=== PATIENT | male | born 1950 | race Caucasian/White ===

== ENCOUNTER 2016-09-19 08:29 | Inpatient (IN) | payer OTHER ==
--- NOTE | 2016-09-19 08:35 | EDPHY ---
HPI/HX/ROS/PE/MDM Narrative: CHIEF COMPLAINT: Weakness, fever, foot injury. HPI: The patient is a 56-year-old male with a history of diabetes and left foot wound who presents with weakness and fever that began this morning. He admits associated nausea, sore throat, and cough. He has a history of sepsis from this foot wound and was last hospitalized for this 2 weeks ago. His temperature en route was 104.5. EMS administered 150ml NS en route. He is due to receive dialysis today. REVIEW OF SYSTEMS: Aside from elements discussed in the HPI, a comprehensive 10-point review of systems was reviewed and is negative. PMH: Diabetes, end-state renal disease (hemodialysis dependent), CAD, hypertension, DVT, kidney transplant, left toe amputation. SOCIAL HISTORY: . PHYSICAL EXAM: General: Patient is alert, in no acute distress. ENT: Eyes are normal to inspection. ENT inspection normal. Neck: Normal inspection. Full range of motion. Respiratory: No respiratory distress. Breath sounds normal bilaterally. Cardiovascular: Regular rate and rhythm. Strong peripheral pulses. Abdomen: The abdomen is nontender to palpation. There are no peritoneal signs. There are normal bowel sounds. Back: Normal to inspection. No tenderness to palpation. Skin: Normal color. No rash. Warm and dry. Extremities: Full range of motion. Fistula in left arm. Left foot: Amputations noted. Diffuse erythema which states is baseline. No focal discharge. Neuro: Oriented x3. Normal motor function. Normal sensory function. Portions of this note were transcribed by an ED scribe. I personally performed the history, physical exam, and medical decision making; and confirm the accuracy of the information in the transcribed note. ED Course: I met EMS on arrival and obtained a report from the parking meter mechanic. An IV was established en route. I ordered including blood cultures. Chest x-ray obtained. WBC elevated at 11.06. Lactic acid 1.7 at 0845. Flu swab negative. 924: Consulted with Ramona Ulloa, hospitalist. She accepts admission for Dr. Beard. Study: PA and Lateral Chest X-ray Indication: Possible sepsis. Results: I viewed the images myself on the PACS system. The radiologist interpretation is: Mild hazy increased markings at the lung bases possibly from mild dependent edema is actually improved when compared to the prior study. No new consolidation. MDM: This patient presents with fever and tachycardia in the setting of diabetes, renal disease and frequent bouts of urosepsis. His initial lactate was elevated. The source of his symptoms is unclear but certainly suspicious for recurrent foot infection. I will defer antibiotic decision to the hospitalist service. I see no indication of septic shock, ACS, PNA. - Data Points Laboratory Results: Laboratory Results 09/19/16 08:29 09/19/16 08:29 09/19/16 09/19/16 09/19/16 08:45 08:40 08:29 WBC RBC Hgb Hct MCV MCH MCHC RDW Plt Count MPV Neut % (Auto) Lymph % (Auto) [place] % (Auto) Eos % (Auto) Baso % (Auto) Nucleat RBC Rel Count Absolute Neuts (auto) Absolute Lymphs (auto) Absolute Monos (auto) Absolute Eos (auto) Absolute Basos (auto) Absolute Nucleated RBC Immature Gran % Immature Gran # VBG Lactic Acid 1.7 mmol/L mmol/L (0.7-2.1) Sodium 138 mEq/L mEq/L (134-144) Potassium 5.7 mEq/L H mEq/L (3.5-5.2) Chloride 95 mEq/L L mEq/L (97-110) Carbon Dioxide 28 mEq/l mEq/l (22-31) Anion Gap 15 mEq/L mEq/L (8-16) BUN 50 mg/dL H mg/dL (7-23) Creatinine 4.4 mg/dL H mg/dL (0.7-1.3) Estimated GFR 13 Glucose 254 mg/dL H mg/dL (70-100) Calcium 8.8 mg/dL mg/dL (8.5-10.4) Influenza Typ A,B (DFA) NEGATIVE FOR FLU (NEGATIVE) 09/19/16 09/19/16 08:29 08:29 WBC 11.06 10^3/uL H 10^3/uL (3.80-9.50) RBC 4.37 10^6/uL L 10^6/uL (4.40-6.38) Hgb 12.7 g/dL L g/dL (13.7-17.5) Hct 39.2 % L % (40.0-51.0) MCV 89.7 fL fL (81.5-99.8) MCH 29.1 pg pg (27.9-34.1) MCHC 32.4 g/dL g/dL (32.4-36.7) RDW 15.6 % H % (11.5-15.2) Plt Count 278 10^3/uL 10^3/uL (150-400) MPV 10.2 fL fL (8.7-11.7) Neut % (Auto) 88.9 % H % (39.3-74.2) Lymph % (Auto) 6.6 % L % (15.0-45.0) [place] % (Auto) 2.2 % L % (4.5-13.0) Eos % (Auto) 1.1 % % (0.6-7.6) Baso % (Auto) 0.3 % % (0.3-1.7) Nucleat RBC Rel Count 0.0 % % (0.0-0.2) Absolute Neuts (auto) 9.84 10^3/uL H 10^3/uL (1.70-6.50) Absolute Lymphs (auto) 0.73 10^3/uL L 10^3/uL (1.00-3.00) Absolute Monos (auto) 0.24 10^3/uL L 10^3/uL (0.30-0.80) Absolute Eos (auto) 0.12 10^3/uL 10^3/uL (0.03-0.40) Absolute Basos (auto) 0.03 10^3/uL 10^3/uL (0.02-0.10) Absolute Nucleated RBC 0.00 10^3/uL 10^3/uL (0-0.01) Immature Gran % 0.9 % % (0.0-1.1) Immature Gran # 0.10 10^3/uL 10^3/uL (0.00-0.10) VBG Lactic Acid 2.5 mmol/L H mmol/L (0.7-2.1) Sodium Potassium Chloride Carbon Dioxide Anion Gap BUN Creatinine Estimated GFR Glucose Calcium Influenza Typ A,B (DFA) General Initial Vital Signs: Initial Vital Signs Temperature (C) 39.5 C H 09/19/16 08:43 Heart Rate 102 H 09/19/16 08:43 Respiratory Rate 14 09/19/16 08:43 Blood Pressure 173/74 H 09/19/16 08:43 O2 Sat (%) 91 L 09/19/16 08:43 O2 Delivery Mode Nasal Cannula O2 (L/minute) 3 Allergies/Adverse Reactions: adhesive tape Allergy (Verified 06/07/16 11:31) Other-Enter Comments amphotericin B [Amphotericin B] Allergy (Verified 06/07/16 11:31) Home Medications: Medication Instructions Recorded Amitriptyline HCl [Elavil 10 mg 10 mg PO HS 07/08/10 (*)] Aspirin [Aspirin 81mg (*)] 81 mg PO DAILY 07/08/10 Cinacalcet HCl [Sensipar (*)] 30 mg PO Q2D@0900 07/08/10 Herbals/Supplements -Info Only 1 ea PO DAILY 07/08/10 Insulin Glargine [Lantus 100 9 units SC DAILY 05/20/13 UNITS/ML (*)] Insulin Lispro [humALOG LISPRO 100 1 - 25 units SC TIDMEAL 05/20/13 units/ml (*)] Pantoprazole Sodium [Protonix 40mg 40 mg PO DAILY 05/20/13 (*)] Atorvastatin Calcium [Lipitor 10 5 mg PO DAILY #30 tab 05/15/16 mg (*)] Clopidogrel Bisulfate [Plavix (*)] 75 mg PO HS #30 tab 05/15/16 Carvedilol [Coreg (*)] 1.5625 mg PO BIDMEAL #30 tab 05/26/16 Departure - Departure Disposition: [facility] Inpatient Acute Clinical Impression: Sepsis Qualifiers: Sepsis type: sepsis due to unspecified organism Qualified Code(s): A41.9 - Sepsis, unspecified organism Fever Qualifiers: Fever type: unspecified Qualified Code(s): R50.9 - Fever, unspecified Condition: Fair Report Scribed for: Michael Dominguez Report Scribed by: Israel Olguin Date of Report: 09/19/16 Time of Report: 08:42
[2016-09-19 08:44] LABS: % IMMATURE GRANULYOCYTES 0.9 % (0.0-1.1); ADD DIFF? NO; ADD MORPH? NO; ADD SCAN? NO; ATYPICAL LYMPHOCYTE FLAG 10 (0-99); FRAGMENT RBC FLAG 0 (0-99); HEMATOCRIT 39.2 % (40.0-51.0); HEMOGLOBIN 12.7 g/dL (13.7-17.5); LEFT SHIFT FLG 10 (0-99); LIPEMIA HEMOLYSIS FLAG 80 (0-99); MEAN CELL HEMOGLOBIN 29.1 pg (27.9-34.1); MEAN CELL HEMOGLOBIN CONCENTR. 32.4 g/dL (32.4-36.7); MEAN CELL VOLUME 89.7 fL (81.5-99.8); MEAN PLATELET VOLUME 10.2 fL (8.7-11.7); PLATELET CLUMPS FLAG 10 (0-99); PLATELET COUNT 278 10^3/uL (150-400); RED BLOOD CELL COUNT 4.37 10^6/uL (4.40-6.38); RED CELL DISTRIBUTION WIDTH 15.6 % (11.5-15.2)
[2016-09-19] MEDS ORDERED: ACETAMINOPHEN 325 MG TAB PO ONE (09:00)
[2016-09-19 09:01] LABS: ANION GAP 15 mEq/L (8-16); CALCIUM 8.8 mg/dL (8.5-10.4); CARBON DIOXIDE 28 mEq/l (22-31); CHLORIDE 95 mEq/L (97-110); CREATININE 4.4 mg/dL (0.7-1.3); GLOMERULAR FILTRATION RATE 13; GLUCOSE 254 mg/dL (70-100); POTASSIUM 5.7 mEq/L (3.5-5.2); SODIUM 138 mEq/L (134-144)
[2016-09-19] MEDS ORDERED: ACETAMINOPHEN 500 MG TAB ONE (09:14)
[2016-09-19 09:41] LABS: LACGHOST ORDER
[2016-09-19] MEDS ORDERED: ONDANSETRON 4 MG/2 ML VIAL IVP PRN (11:06)
[2016-09-19] MEDS ORDERED: ONDANSETRON DISINTEGRATING 4 MG TAB PO PRN (11:06)
[2016-09-19] MEDS ORDERED: ACETAMINOPHEN 325 MG TAB PO PRN (11:06)
--- NOTE | 2016-09-19 11:20 | PDGENHP ---
History and Physical - Chief Complaint Acute weakness - History of Present Illness PCP: Dr. Zuniga General surgeon: Dr. Rivas Infectious disease: Dr. Gillette HPI: 66-year-old male presenting with acute weakness characterized as inability to get out of chair with associated documented fever of 104 degrees F , nausea, nonproductive cough. He reports that the onset of his severe weakness was on the morning of presentation, prompting his contacting EMS. His cough onset was approximately 3 weeks ago and duration has been persistent thereafter. He otherwise denies any vomiting, diarrhea, myalgias, neck pain, headache. He reports that he has been getting regular wound care on his left lower extremity and the packing has been recently adjusted. He does endorse the development of a new erythematous and pustulant area on the lateral aspect of his left lower leg and he has been dressing this with bandages. He is not currently taking pain medications or antibiotics. History Information - Allergies/Home Medication List Allergies/Adverse Reactions: adhesive tape Allergy (Verified 06/07/16 11:31) Other-Enter Comments amphotericin B [Amphotericin B] Allergy (Verified 06/07/16 11:31) Home Medications: Amitriptyline HCl [Elavil 10 mg (*)] 10 mg PO HS 07/08/10 [Last Taken 09/18/16] Aspirin [Aspirin 81mg (*)] 81 mg PO DAILY 07/08/10 [Last Taken 09/19/16] Cinacalcet HCl [Sensipar (*)] 30 mg PO Q2D@0900 07/08/10 [Last Taken 09/19/16] Herbals/Supplements -Info Only 1 ea PO DAILY 07/08/10 [Last Taken 09/18/16] Insulin Glargine [Lantus 100 UNITS/ML (*)] 9 units SC DAILY 05/20/13 [Last Taken 09/19/16] Insulin Lispro [humALOG LISPRO 100 units/ml (*)] 1 - 25 units SC TIDMEAL [Last Taken 09/18/16] Pantoprazole Sodium [Protonix 40mg (*)] 40 mg PO DAILY 05/20/13 [Last Taken ] I have personally reviewed and updated: family history, medical history, social history, surgical history - Past Medical History coronary artery disease (With PCI to the RCA), diabetes type 1, DVT (Not currently on systemic anticoagulation), ESRD (Hemodialysis Saturday, failed transplant and past), hypertension Additional medical history: Osteomyelitis and chronic group a strep infection in his left lower extremity. Pericarditis. Anemia of chronic kidney disease - Surgical History Additional surgical history: AVF fistula formation. kidney/pancreas transplant. Left 1st digit TMA in May of 2016 - Family History Positive for: diabetes type I Additional family history: recently with viral-like illness - Social History Smoking Status: Never smoked Alcohol Use: None Drug Use: None Additional social history: Independent in ADLs, has been relegated to living on a single floor and sleeping in chair as he has been unable to ambulate up stairs for the last 3 months Review of Systems ROS: 10pt was reviewed & negative except for what was stated in HPI & below Constitutional: Reports: fever, weakness Respiratory: Reports: cough Skin: Reports: other (Leg wound) Physical Exam Temp Pulse Resp BP Pulse Ox 38.8 C H 102 H 14 133/71 H 94 09/19/16 10:19 09/19/16 10:09/19/16 10:09/19/16 10:09/19/16 10:00 O2 (L/minute) 3 Constitutional: no apparent distress, not in pain, chronically ill appearing, No uncomfortable Eyes: PERRL, anicteric sclera, EOMI Ears, Nose, Mouth, Throat: moist mucous membranes, hearing normal, ears appear normal, no oral mucosal ulcers Cardiovascular: systolic murmur (1/6 at the sternum and apex), tachycardia, edema (Trace bilateral lower extremities), No irregularly irregular Respiratory: inspiratory crackles (Bilateral bases), No reduced air movement, No expiratory wheeze, No bronchial breath sounds, No respiratory distress Gastrointestinal: normoactive bowel sounds, soft, non-tender abdomen, no palpable masses Skin: erythema (Erythema bilateral lower extremities with blanching, left greater than right, pustulant wound on left lateral lower extremity, fluctuance on the dorsum of the left foot) Musculoskeletal: other (Full range of motion of left ankle and no pain, no effusion of her left knee) Neurologic: AAOx3, No sensation intact bilaterally (Paresthesias bilateral lower extremities distal to the mid calf), No weakness (Motor strength is 5/5 dorsi and plantar flexion left foot) Psychiatric: interacting appropriately, not anxious, not encephalopathic, thought process linear Lymph, Heme, Immunologic: no cervical LAD, other (Palpable, nontender bilateral submandibular lymph nodes) Lab Data & Imaging Review 09/19/16 08:29 09/19/16 08: WBC 11.06 10^3/uL (3.80-9.50) H 09/19/16 08: RBC 4.37 10^6/uL (4.40-6.38) L 09/19/16 08: Hgb 12.7 g/dL (13.7-17.5) L 09/19/16 08: Hct 39.2 % (40.0-51.0) L 09/19/16 08: MCV 89.7 fL (81.5-99.8) 09/19/16 08: MCH 29.1 pg (27.9-34.1) 09/19/16 08: MCHC 32.4 g/dL (32.4-36.7) 09/19/16 08: RDW 15.6 % (11.5-15.2) H 09/19/16 08: Plt Count 278 10^3/uL (150-400) 09/19/16 08: MPV 10.2 fL (8.7-11.7) 09/19/16 08: Neut % (Auto) 88.9 % (39.3-74.2) H 09/19/16 08: Lymph % (Auto) 6.6 % (15.0-45.0) L 09/19/16 08: [place] % (Auto) 2.2 % (4.5-13.0) L 09/19/16 08: Eos % (Auto) 1.1 % (0.6-7.6) 09/19/16 08: Baso % (Auto) 0.3 % (0.3-1.7) 09/19/16 08: Nucleat RBC Rel Count 0.0 % (0.0-0.2) 09/19/16 08: Absolute Neuts (auto) 9.84 10^3/uL (1.70-6.50) H 09/19/16 08:29 Absolute Lymphs (auto) 0.73 10^3/uL (1.00-3.00) L 09/19/16 08:29 Absolute Monos (auto) 0.24 10^3/uL (0.30-0.80) L 09/19/16 08:29 Absolute Eos (auto) 0.12 10^3/uL (0.03-0.40) 09/19/16 08:29 Absolute Basos (auto) 0.03 10^3/uL (0.02-0.10) 09/19/16 08:29 Absolute Nucleated RBC 0.00 10^3/uL (0-0.01) 09/19/16 08:29 Immature Gran % 0.9 % (0.0-1.1) 09/19/16 08: Immature Gran # 0.10 10^3/uL (0.00-0.10) 09/19/16 08:29 VBG Lactic Acid 1.7 mmol/L (0.7-2.1) 09/19/16 08:45 Sodium 138 mEq/L (134-144) 09/19/16 08:29 Potassium 5.7 mEq/L (3.5-5.2) H 09/19/16 08:29 Chloride 95 mEq/L (97-110) L 09/19/16 08:29 Carbon Dioxide 28 mEq/l (22-31) 09/19/16 08:29 Anion Gap 15 mEq/L (8-16) 09/19/16 08:29 BUN 50 mg/dL (7-23) H 09/19/16 08:29 Creatinine 4.4 mg/dL (0.7-1.3) H 09/19/16 08:29 Estimated GFR 13 09/19/16 08:29 Glucose 254 mg/dL (70-100) H 09/19/16 08:29 Calcium 8.8 mg/dL (8.5-10.4) 09/19/16 08:29 Influenza Typ A,B (DFA) NEGATIVE FOR FLU (NEGATIVE) 09/19/16 08:40 Visualized and Interpreted Chest x-ray results: Yes Chest X-Ray results: no infiltrate Assessment & Plan Assessment: 66-year-old male presents with acute sepsis secondary to suspected cellulitis Plan: 1. Sepsis. Acute, new problem this provider, further workup indicated. Evidenced by sepsis-2 criteria including tachycardia and persistent fever with identifiable source of infection notably suspected cellulitis, resulting in autonomic dysregulation in the setting of infection. -get respiratory viral panel given his respiratory symptoms -get ultrasound of the dorsum of his left foot to rule out drainable abscess -blood culture sent -wound culture -empiric vancomycin which will cover both staph and group a strep organisms -trend venous lactic levels -trend CBC 2. End-stage renal disease. On Saturday dialysis, discussed with Dr. Sheppard, will dialyze the patient today, will hold on additional IV fluids at this time given the potential for volume overload, will dose vancomycin with dialysis moving forward, Vanco trough tomorrow morning 3. Cellulitis. Suspected cellulitis along the lateral aspect of the left lower extremity with possible abscess on the dorsum of the left foot. -outside records reviewed including 06/17/[address] Marily Ballard, characterizing his most recent hospitalization for sepsis secondary to group a strep with 1st left metatarsal infection and amputation, discharged home on vancomycin, patient has historically refused [facility] facility -suspect organisms are staph and strep, day 1 of vancomycin -given his chronic wound at the affected area and his [facility], I have consulted with Dr. Rapp and Dr. Sheppard has consulted with Dr. Cardoza 4. Coronary artery disease. Chronic, given his tachycardia, get EKG ensure there are no ischemic changes, and she is in normal sinus mechanism 5. Diabetes mellitus type 1. Continue Lantus, placed on insulin sliding scale 6. Hypertension. Chronic, continue home medications Diet. Renal diet Prophylaxis. High risk patient given history of DVT, heparin subcu Code. Full per patient, is MPOA Disposition. Anticipated discharge is uncertain this time, anticipated length stay is greater than 48 hours warranting inpatient admission status for medical necessity including sepsis with cellulitis and end-stage renal disease.
[2016-09-19] MEDS ORDERED: VANCOMYCIN HCL/NORMAL SALINE 250 ML IV SCH (11:30)
--- NOTE | 2016-09-19 14:47 | GCON ---
[f rep st] CONSULTATION NEPHROLOGY CONSULTATION. DATE OF CONSULTATION: 09/19/2016 HISTORY OF PRESENT ILLNESS: The patient is well known to our service. He is a 66-year-old male wit h a past medical history significant for end-stage renal disease secondary to diabetes mellitus, sta tus post a failed kidney/pancreas transplant, dialyzing on a Saturday, Saturday, Saturday schedule at [facility]. The patient has had recent issues relating to a chronic nonhealing w ound and osteomyelitis in his left lower extremity. He did have an admission in May relating t o this, at which time he underwent an amputation of his left great toe metatarsal and was treated wi Group A streptococcal bacteremia. He has had ongoing wound care and a followup evaluation by Dr. Malia Rivas. The patient was in his baseline state of health up until last week, when he did have a respiratory t ract infection. This gradually cleared. Around the same time, they did begin noticing some more pu rulent drainage in the superficial wound over the anterolateral aspect of his left lower extremity. He is followed by wound care. Earlier today, he did develop a significant fever and chills at home . He was brought to the emergency room, where he was noted to have a fever to 103 degrees. There w as evidence of purulent drainage from his left lower extremity. The patient is now being admitted t o the step-down unit under the care of Dr. Misael Beard. Today is his normal dialysis day. His pota ssium is 5.7. He is tachycardic but hemodynamically stable. The patient has been dialyzing without complication at the dialysis unit. He has been achieving his dry weight. His blood pressure has been stable. His left upper extremity fistula function has bee n good. As related to the above issues, we are asked by the hospital service to assist in the patient's herbie l diagnosis and management. PAST MEDICAL HISTORY: 1. End-stage renal disease secondary to diabetes mellitus. 2. Status post failed kidney/pancreas transplant. 3. Type 1 diabetes mellitus. 4. History of pericardial effusions. 5. Valvular heart disease with aortic and mitral valve calcifications. His ejection fraction has b een preserved. 6. History of right lower extremity DVT. 7. History of chronic diarrhea. 8. History of C difficile colitis. 9. Coronary artery disease, status post VT. 10. GERD. PAST SURGICAL HISTORY: Includes: 1. Kidney/pancreas transplant. 2. Peritoneal dialysis catheter placement removal. 3. Fistula placement. 4. Metatarsal amputation. 5. Resection of pancreatic allograft. ALLERGIES: Adhesive tape, amphotericin B. MEDICATIONS: Protonix 40 mg daily, insulin t.i.d. sliding scale, Lantus insulin 9 units daily, herb al supplements daily, Plavix 75 mg daily, cinacalcet 30 mg daily, carvedilol 1.5625 p.o. b.i.d., mercy rvastatin 5 mg daily, aspirin 81 mg daily, Elavil 10 mg q.h.s. FAMILY HISTORY: Noncontributory. 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 He is and has a very supportive family. He does not smoke cigarettes or drink alcohol. REVIEW OF SYSTEMS: Notable for fevers and chills this morning. Otherwise, his appetite has been st able. He denies headaches. His vision has been stable. He has had some rhinitis and a sore throat . He has had some cough and shortness of breath. He denies chest pain or palpitations. He has had some nausea. He denies constipation or diarrhea. He makes very little urine and has not been havi ng any urinary symptoms. He has the aforementioned issues with a nonhealing left lower extremity wo und. He has some chronic lower extremity edema. He does have neuropathy. He has not had recent sk in rashes. He has a history of diabetes but not thyroid disease. PHYSICAL EXAM: GENERAL: At time of exam, the patient is appropriate and alert. He does appear jenae ewhat weak. VITAL SIGNS: Temperature 38.8, pulse 102, blood pressure 133/71. HEENT: Eyes: Scler ae are clear. Oropharynx clear. NECK: No lymphadenopathy or thyromegaly. He does have jugular ve nous distention. LUNGS: Coarse breath sounds on the left, bronchial breath sounds in the right bas e. CARDIOVASCULAR: Tachycardic. A coarse systolic murmur is noted over the left upper sternal bor jermaine. An S3 is present at the left upper sternal border. No other gallops or rubs are noted. ABDOM EN: Soft, nontender. : Deferred. RECTAL: Deferred. EXTREMITIES: The patient's left upper ex tremity fistula has a bruit and appears normal. He does have significant erythema around his left f oot and his left hobbs area. There is some purulent drainage from a skin ulcer in that area. He has 1 to 2+ edema on the left and 1+ on the right. NEURO: No focal findings, but he does have a histo ry of neuropathy and he has generalized weakness. LABORATORY STUDIES: White count 11.6, hematocrit 39.2, platelets 278. Sodium 138, potassium 5.7, c hloride 98, bicarb 28, creatinine 4.4. IMPRESSION AND PLAN: 1. Fevers and evidence of left lower extremity infection. The patient has had methicillin-suscepti ble Staphylococcus aureus and streptococcal infections. He is receiving vancomycin at present. The Infectious Disease service has been consulted. Dr. Rapp' service will also attend. He is hemodyn amically stable. 2. End-stage renal disease. The patient is hyperkalemic and today is his dialysis day. He is hemo dynamically stable. We will plan on dialyzing him shortly. 3. Diabetes. He will be resumed on his sliding scale insulin. 4. Positive S3 and history of valvular heart disease. We will repeat an echocardiogram. Thank you for allowing us to participate in this gentleman's care. We will continue to follow him c losely with you. /[id number]/MODL
[2016-09-19] MEDS: HEPARIN 5,000 UNIT/0.5 ML SYR SC SCH ×2 (16:04→22:18)
[2016-09-19] MEDS ORDERED: D50W 25 GM/50 ML SYR IVP PRN (16:28)
--- NOTE | 2016-09-19 16:40 | WOCRNPDOC ---
WOCRN Advanced Assessment Note - Skin Integrity Problem, Advanced Assess Left Lower Lateral Leg Unknown Dressing Type: Open to Air Exudate Amount: Scant Exudate Characteristic(s): Serous [place] Wound Tissue: Erythema Wound Bed Color: [place] Wound Bed Constitution: Smooth Tissue, Loose Slough Wound Edges: Attached Site Measurement - Head-to-Toe Length X Width X Depth (cm): 5x6x0.1 Skin Integrity Problem Comment: Partial thickness wound with a smaller center area that presents like a deroofed blister. Left First Toe Dressing Type: Open to Air Dressing Description: Clean/Dry, Intact Exudate Amount: Scant Exudate Characteristic(s): Bloody [place] Wound Tissue: Erythema Wound Bed Color: Red Wound Bed Constitution: Smooth Tissue Wound Edges: Attached Site Measurement - Head-to-Toe Length X Width X Depth (cm): 0.6x0.5x0.5 Pulse Location & Description: 2+ DP Extremity Temperature: Hot Skin Integrity Problem Comment: Healing wound without any necrosis.
[2016-09-19] MEDS: cefTRIAXone 2 GM in D5W 50 ML IV SCH (17:08)
[2016-09-19] MEDS: CARVEDILOL 3.125 MG TAB PO SCH (18:26)
[2016-09-19] MEDS ORDERED: OSELTAMIVIR 6 MG/ML UDSYR PO SCH ×2 (18:30)
[2016-09-19] MEDS ORDERED: OSELTAMIVIR 6 MG/ML UDSYR PO ONE (18:30)
[2016-09-19] MEDS: INSULIN REGULAR HUMAN 100 UNIT/ML SC SCH ×2 (19:44→20:48)
--- NOTE | 2016-09-19 19:56 | PCMIDPN ---
Assessment/Plan: Patient seen and examined at 3:30pm dictation to follow Sepsis, in patient with recent h/o of GAS bacteremia off antibiotic since Jun 2016. Now with suspected recurrent bacteremia with GPC chains source could be LLE wound, fistula LUE, less likely pulmonary. +/- cellulitis on dorsum L foot. --add ceftriaxone for GNR coverage while eval, no renal dosing needed --intermittent vancomycin dosing based on levels with ESRD until ID GPC. Objective: Vital Signs Temp Pulse Resp BP Pulse Ox 38.2 C 96 21 H 135/76 H 96 09/19/16 16:00 09/19/16 16:00 09/19/16 16:00 09/19/16 16:00 09/19/16 16:00 Microbiology 09/19/16 13:30 Gram Stain - Final Leg - Swab 09/19/16 13:30 Gram Stain - Final Foot - Swab 09/18/16 09/19/16 09/20/16 05:59 05:59 05:59 Intake Total 1000 Balance 1000 ICD10 Worksheet Patient Problems: Problems Problem Status Onset Fever Acute Sepsis Acute Cellulitis of left foot Acute Coronary artery disease Acute Diarrhea Acute End stage renal disease Acute Fever Acute Leukocytosis Acute Pneumonia Acute Severe sepsis Acute
[2016-09-19] MEDS: AMITRIPTYLINE HCL 10 MG TAB PO SCH (20:30)
[2016-09-19] MEDS: CLOPIDOGREL BISULFATE 75 MG TAB PO SCH (20:30)
[2016-09-20] MEDS ORDERED: MAGNESIUM SULF 2 GM/WATER 50 ML IV ONE (02:06)
[2016-09-20 05:26] LABS: ABSOLUTE IMMATURE GRANULOCYTES 0.17 10^3/uL (0.00-0.10); ADD DIFF? NO; ADD MORPH? NO; ADD SCAN? NO; ATYPICAL LYMPHOCYTE FLAG 0 (0-99); FRAGMENT RBC FLAG 0 (0-99); HEMATOCRIT 29.8 % (40.0-51.0); HEMOGLOBIN 9.4 g/dL (13.7-17.5); LEFT SHIFT FLG 20 (0-99); LIPEMIA HEMOLYSIS FLAG 80 (0-99); MEAN CELL HEMOGLOBIN 28.7 pg (27.9-34.1); MEAN CELL HEMOGLOBIN CONCENTR. 31.5 g/dL (32.4-36.7); MEAN CELL VOLUME 90.9 fL (81.5-99.8); MEAN PLATELET VOLUME 10.1 fL (8.7-11.7); PLATELET CLUMPS FLAG 10 (0-99); PLATELET COUNT 179 10^3/uL (150-400); RED BLOOD CELL COUNT 3.28 10^6/uL (4.40-6.38)
[2016-09-20] MEDS: HEPARIN 5,000 UNIT/0.5 ML SYR SC SCH ×3 (05:27→22:01)
[2016-09-20 05:52] LABS: ALBUMIN 2.4 g/dL (3.5-5.0); ANION GAP 8 mEq/L (8-16); CALCIUM 7.9 mg/dL (8.5-10.4); CARBON DIOXIDE 29 mEq/l (22-31); CHLORIDE 99 mEq/L (97-110); CREATININE 2.8 mg/dL (0.7-1.3); GLOMERULAR FILTRATION RATE 23; GLUCOSE 95 mg/dL (70-100); MAGNESIUM 2.4 mg/dL (1.6-2.3); POTASSIUM 3.3 mEq/L (3.5-5.2); SODIUM 136 mEq/L (134-144)
--- NOTE | 2016-09-20 08:40 | HOSPPROG ---
Hospitalist Progress Note Assessment/Plan: # sepsis d/t bacteremia # strep pyogenes bacteremia, recurrent - likely source foot/soft tissue - also has fistula - echo today - cont abx (vanc/rocephin today) per ID # LLE wound/cellulitis - abx as above - gen surg consulted # ESRD - HD yesterday # DM1 - glargine + regular insulin # CAD - asa/plavix/statin/coreg # SQH # FCFT ## new pt to me chart reviewed LE US reviewed Subjective: feels better after his fever broke Objective: Vital Signs Temp Pulse Resp BP Pulse Ox 37.4 C 73 13 128/49 H 99 09/20/16 07:58 09/20/16 07:58 09/20/16 07:58 09/20/16 07:58 09/20/16 07:58 Microbiology 09/19/16 13:30 Gram Stain - Final Leg - Swab 09/19/16 13:30 Gram Stain - Final Foot - Swab Laboratory Results 09/20/16 05:10 09/20/16 05:10 09/19/16 09/20/16 09/21/16 05:59 05:59 05:59 Intake Total 1550 Balance 1550 - Physical Exam Constitutional: chronically ill appearing, unkempt Cardiovascular: regular rate and rhythym, systolic murmur, No irregularly irregular, No diastolic murmur Respiratory: no respiratory distress, no rales or rhonchi, clear to auscultation Gastrointestinal: normoactive bowel sounds, soft, non-tender abdomen, no palpable masses ICD10 Worksheet Patient Problems: Problems Problem Status Onset Severe sepsis Acute End stage renal disease Acute Cellulitis of left foot Acute Diarrhea Acute Coronary artery disease Acute Pneumonia Acute Fever Acute Leukocytosis Acute Sepsis Acute Fever Acute
[2016-09-20] MEDS ORDERED: OSELTAMIVIR 6 MG/ML UDSYR PO SCH (09:00)
[2016-09-20] MEDS ORDERED: Herbals/Supplements -Info Only PO SCH (09:00)
--- NOTE | 2016-09-20 09:09 | GCON ---
[f rep st] CONSULTATION INFECTIOUS DISEASE CONSULTATION DATE OF CONSULTATION: 09/19/2016 REFERRING PHYSICIAN: Burton Sheppard MD REASON FOR CONSULTATION: Sepsis. 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 The patient was first known to our service on May 04, 2016, when he had group A strep bacteremia, source felt to be left toe. Patient received intermittent Ancef at hemodialysis, but subsequently on 06/07/2016 had recurrent group A strep bacteremia, which was also felt to be due to left great toe. The patient underwent amputation on June 12, 2016, with bone cultures showing a different pathogen, strep Staph epidermidis, and Staph lugdunensis. Pathology margins were negative. Patient received antibiotic therapy, mostly Ancef given at hemodialysis from 06/10/2016 through approximately 07/11/2016. The patient has been off antibiotics since that time. Patient with sudden onset of rigors and fever today to 103, and presented to the emergency room for evaluation. At that time, the patient was found to have significant leukocytosis fever, but overall hemodynamics were fairly stable. The patient was admitted to the step-down unit, given a dose of vancomycin, and underwent hemodialysis on 09/19/2016. The patient reports that his lower extremities do not look significantly different than they have been. He has no increasing pain. He has had a cough for approximately 3 weeks, but is not worsening. He has no abdominal pain or diarrhea. No rash, headache, or urinary complaints. was at bedside during exam and history. PAST MEDICAL HISTORY: 1. End-stage renal disease secondary to diabetes status post failed kidney pancreas transplant. 2. Type 1 diabetes. 3. History of pericardial effusion. 4. Valvular heart disease with aortic valve and mitral valve calcification with preserved ejection fraction. 5. Right lower extremity DVT. 6. C difficile colitis, but tests in our system back to 2009 are negative. 7. Coronary artery disease, status post percutaneous angioplasty. 8. Gastroesophageal reflux disease. PAST SURGICAL HISTORY: 1. Kidney pancreas transplant. 2. Peritoneal dialysis catheter removal. 3. Fistula placement. 4. Left great toe amputation, as well as multiple other amputations noted on the left foot. 5. Resection of pancreatic allograft. ALLERGIES: Amphotericin B, difficulty breathing and seizures. MEDICATIONS: Protonix, Lantus, Plavix, cinacalcet, carvedilol, atorvastatin, aspirin, and Elavil. He also got 1 dose of vancomycin, 1 g, after dialysis today. FAMILY HISTORY: Positive for diabetes. 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 with supportive family. No tobacco or alcohol. No recent travel. He has 3 children. REVIEW OF SYSTEMS: A complete 10-point review of systems was performed and is negative, except as mentioned in the HPI. PHYSICAL EXAM: VITAL SIGNS: Blood pressure 128/61, heart rate 101, respiratory rate 16, saturation 100% on 3 L, temperature 39.2. GENERAL: This is a mildly toxic-appearing male undergoing hemodialysis, wrapped in blankets. HEENT: Pale conjunctivae. Pupils are reactive. Oropharynx: Dry mucous membranes. Fair dentition. NECK: Supple. No lymphadenopathy. CARDIOVASCULAR : Not tachycardic at the time of my exam with a systolic murmur. CHEST: Clear to auscultation bilaterally on anterior exam. ABDOMEN: Soft, nontender. Bowel sounds are present. EXTREMITIES: The patient's left upper extremity fistula was accessed by hemodialysis, but there were 2 spots where significant bleeding had occurred with some mild surrounding redness, not clearly cellulitic. Patient with roughly a transmetatarsal amputation on the left lower extremity, some mild pinkness on the dorsum of the foot, and a small pinpoint wound roughly between the 1st and 2nd metatarsal. No purulent drainage. Mild warmth, but bilateral mid hobbs with pink discoloration consistent with chronic venous stasis. NEUROLOGIC: The patient is alert and oriented x4, moving all 4 extremities equally with fluent speech. LABORATORY: White count was 11, hematocrit 39, platelets of 278, 88% neutrophils. Creatinine 4.4, not unexpectedly. LFTs pending at time of dictation. Blood cultures were collected and grew out 1 of 2 sets with group A strep. Wound culture from left foot is pending. Resp Viral PCR pending IMAGING: Chest x-ray was performed, which showed some hazy increased marking in the lung bases, but overall improved compared to prior study. ASSESSMENT AND PLAN: This is a very pleasant 66-year-old male with end-stage renal disease secondary to diabetes, status post failed renal pancreas transplant, on no immunosuppression, who presents with sudden onset of fever rigors, found to have a leukocytosis and rapidly positive blood cultures for group A streptococcus bacteremia. In the interim, the patient received a dose of IV vancomycin. At the time of my exam, he was started on IV ceftriaxone for broader coverage of gram-negative rods, but now known to have group A streptococcus bacteremia. This is his third episode of group A streptococcus bacteremia. This either suggests a potential nidus of the left lower extremity , also could consider underlying immunoglobulin deficiency. Suspect this is an anatomic issue. 1) Sepsis 2) Recurrent GAS bacteremia, source likely superficial ulcer L lower leg 3) Cough, mild hypoxia, no focal infiltrates on admission CXR RECOMMENDATIONS: 1. We will continue ceftriaxone. Can discontinue vancomycin, now known to have group A strep. 2. Discussed with surgical services whether we should image left lower extremity as clinical exam of the left lower extremity is not that impressive. Nonetheless, the small residual wound could be a portal wound of entry for group A strep. 3. Agree with influenza PCR 4. After patient has received 48 hours of antibiotics, will repeat blood cultures. 5. Send IgG levels to eval if immunoglobulin deficiency contributing to recurrence of bacteremia Thank you for this consultation. We will continue to follow on a daily basis. /[id number]/MODL MTDD
[2016-09-20] MEDS: INSULIN REGULAR HUMAN 100 UNIT/ML SC SCH ×4 (09:43→20:48)
[2016-09-20] MEDS: CARVEDILOL 3.125 MG TAB PO SCH ×2 (09:44→18:04)
[2016-09-20] MEDS: PANTOPRAZOLE SODIUM 40 MG TAB PO SCH (09:45)
[2016-09-20] MEDS: ATORVASTATIN CALCIUM 10 MG TAB PO SCH (09:46)
[2016-09-20] MEDS: cefTRIAXone 2 GM in D5W 50 ML IV SCH (09:46)
[2016-09-20] MEDS: ASPIRIN 81 MG CHEWABLE TAB PO SCH (09:46)
[2016-09-20] MEDS: INSULIN GLARGINE 100 UNITS/ML SYRINGE SC SCH (09:54)
--- NOTE | 2016-09-20 11:22 | ECHO ---
[id number] + + [address] : : [place] [address] : : [phone] + Adult Echocardiographic Report + ---+ :Name: Romina ANTONY Date: 09/20/2016 08:01 AM : : Hospital Admission Number: [id number] Location: 242: :: 1950 Gender: Male Height: 70 in : :Age: 66 yrs Race: WH Weight: 141 lb : :Reason For Study: S3 gallop/hx effusion and valvular : :disease BSA: 1.8 meters2 : + ---+ MMode/2D Measurements \T\ Calculations IVSd: 1.4 cm LVIDd: 5.0 cm FS: 34.1 % MV Diam: 4.7 cm LVPWd: 1.2 cm LVIDs: 3.3 cm EDV(Teich): 116.4 ml ESV(Teich): 43.2 ml EF(Teich): 62.8 % Ao root diam: LVOT diam: 2.1 cmLVLd ap4: 7.7 cm SV(MOD-sp4): 3.2 cm LVOT area: EDV(MOD-sp4): 68.0 ml ACS: 0.45 cm 114.0 ml LA dimension: 3.6 cm2 LVLs ap4: 6.3 cm 4.7 cm ESV(MOD-sp4): 46.0 ml EF(MOD-sp4): 59.6 % Normal Measurement Values: + + :LVIDd (3.5-5.7cm) IVSd (0.6-1.1cm) LVPWd (0.6-1.1cm) Aortic Root (2.0-3.7cm)Left Atrium (1.5-4.0cm): :LV Vol(d) (76-115ml) LV Vol(s) (29-48ml) Ejec Fraction (50-65%)PV Dawson (0.6- 1.2m/s) TV Dawson (0.4-1.0m/s) : :MV E Dawson (0.8-1.0m/s)MV A Dawson (0.3-1.0m/s)LVOT Dawson (0.7-1.2m/s) Asc Ao Dawson ( 0.9-1.8m/s) : + + Doppler Measurements \T\ Calculations MV E max dawson: MV V2 max: Ao mean PG: LV V1 mean P.1 cm/sec 150.8 cm/sec 9.4 mmHg 1.6 mmHg MV A max dawson: MV max P.1 mmHg Ao V2 mean: LV V1 mean: 97.7 cm/sec MV V2 mean: 143.6 cm/sec 58.8 cm/sec MV E/A: 1.5 103.9 cm/sec Ao V2 VTI: 54.6 cm LV V1 VTI: MV dec time: MV mean P.8 mmHgAVA(I,D): 1.6 cm2 23.8 cm 0.39 sec MV V2 VTI: 43.5 cm MV area (1 diam): 17.7 cm2 MVA(VTI): 2.0 cm2 MV Flow area(1diam): 17.7 cm2 MR max dawson: MR(RF 1 diam): 5.4 %SV(MV 1 diam): TR max dawson: 482.1 cm/sec 769.5 ml 271.5 cm/sec MR max PG: SI(MV 1 diam): TR max P.0 mmHg 427.7 ml/m2 29.5 mmHg SV(LVOT): 85.1 ml RAP systole: 10.0 mmHg RVSP(TR): 39.5 mmHg RF(MV,Ao)(1 diam): 0.42 RF(MV,LVOT) (1diam): 0.89 Left Ventricle The left ventricle is normal in size. There is mild concentric left ventricular hypertrophy. Left ventricular systolic function is normal. Ejection Fraction = 60-65%. No regional wall motion abnormalities noted. Right Ventricle The right ventricle is normal in size and function. Atria The left atrium is severely dilated. The right atrium is mildly dilated. The interatrial septum is intact with no evidence for an atrial septal defect. Mitral Valve MV posterior leaflet appears severely calcific with some restricted motion. Severe echogenicity seen at PML annulus..chronic. There is no evidence of mitral valve prolapse. There is no mitral valve stenosis. There is moderate mitral regurgitation. Tricuspid Valve Normal tricuspid valve. There is mild tricuspid regurgitation. Right ventricular systolic pressure is 40mmHg. Aortic Valve The aortic valve is trileaflet. The aortic valve opens well. Moderate AV calcification (mainly involving the RCC). Mild valvular aortic stenosis. AV max PG is 18mmHG. AV mean PG is 9mmHG. There is no aortic insufficiency. Pulmonic Valve The pulmonic valve is normal in structure and function. There is no pulmonic valvular regurgitation. Great Vessels The aortic root is normal size. Pericardium/Pleural There is no pericardial effusion. Conclusion A complete two-dimensional transthoracic echocardiogram was performed (2D, M-mode, Doppler and color flow Doppler). Compared to prior study, there is no significant change. Left ventricular systolic function is normal. Ejection Fraction = 60-65%. There is mild concentric left ventricular hypertrophy. The left atrium is severely dilated. The right atrium is mildly dilated. There is moderate mitral regurgitation. There is mild tricuspid regurgitation. Right ventricular systolic pressure is 40mmHg. Moderate AV calcification (mainly involving the RCC). Mild valvular aortic stenosis. AV max PG is 18mmHG. AV mean PG is 9mmHG. MV posterior leaflet appears severely calcific with some restricted motion. Severe echogenicity seen at PML annulus..chronic Compared to prior study, there is no significant change. Final Reading Physician: Julio Cesar Zhou signed on 09/20/2016 11:21 AM Ordering Physician: MICK WHEELER Performed By: Uzma Lechuga RDCS
--- NOTE | 2016-09-20 13:16 | PCMIDPN ---
Assessment/Plan: #Sepsis #Recurrent GAS bacteremia x 3 - source possible L hobbs superficial wound culture also positive for group a strep. Clean based ulcer now. #Influenza B #leukocytosis = no expected in the face of influenza/ bacteremia #Failed kidney/pancreas - off immunosuppressives since 2010 Recommendations 1) No further vancomycin needed 2) Continue ceftriaxone, initially started because of concern for CAP. No clear focal infiltrate on admission and O2 requirements minimal. Could step- down to cefazolin soon 3) renal dose Tamiflu 4) check IgG 5) repeat blood cultures tomorrow Medications Ceftriaxone 2 g IV daily, # 2 Vancomycin 1 g x1 dose Subjective: Patient reports he feels mildly better. No diarrhea Objective: Vital Signs Temp Pulse Resp BP Pulse Ox 36.6 C 76 13 146/72 H 100 09/20/16 12:00 09/20/16 12:00 09/20/16 12:00 09/20/16 12:00 09/20/16 12:00 Microbiology 09/19/16 13:30 Gram Stain - Final Leg - Swab 09/19/16 13:30 Gram Stain - Final Foot - Swab Laboratory Results 09/20/16 05:10 09/20/16 05:10 09/19/16 09/20/16 09/21/16 05:59 05:59 05:59 Intake Total 1550 Balance 1550 General: Thin male appears chronically ill mildly distressed HEENT dry mucous membranes no oral ulcerations Cardiovascular regular rate sit 2/6 systolic murmur Pulmonary: Occasional coarse breath sound Abdomen soft nontender Extremities left upper extremity fistula with a 1 cm bloody eschar with surrounding inflammation, eschar was not disturbed. Left lower extremity 5 x 6 cm superficial ulceration with mild surrounding erythema mild tenderness. Pinpoint wound on dorsum of foot between 1st and 2nd metatarsal neuro alert and oriented x4, moving all 4 extremities equally - Time Spent With Patient Time Spent with Patient: greater than 25 minutes Time Spent with Patient: Greater than 25 minutes spent on this patients care, greater than 50% of time spent counseling, educating, and coordinating care regarding the above mentioned plan. ICD10 Worksheet Patient Problems: Problems Problem Status Onset Fever Acute Sepsis Acute Cellulitis of left foot Acute Coronary artery disease Acute Diarrhea Acute End stage renal disease Acute Fever Acute Leukocytosis Acute Pneumonia Acute Severe sepsis Acute
[2016-09-20] MEDS: OSELTAMIVIR 6 MG/ML UDSYR PO SCH (14:30)
--- NOTE | 2016-09-20 15:02 | SOAPPROG ---
SOAP Progress Note Assessment/Plan: Assessment/Plan: ESRD: on HD MWF, last dialyzed yesterday. - Will dialyze tomorrow per routine. HTN: controlled on carvedilol, will monitor. Subjective: No acute events overnight. Pt states he is feeling a little better today, feels that his fever has finally broken. Objective: Vital Signs Temp Pulse Resp BP Pulse Ox 36.6 C 76 13 146/72 H 100 09/20/16 12:00 09/20/16 12:00 09/20/16 12:00 09/20/16 12:00 09/20/16 12:00 Microbiology 09/19/16 13:30 Gram Stain - Final Leg - Swab 09/19/16 13:30 Gram Stain - Final Foot - Swab Laboratory Results 09/20/16 05:10 09/20/16 05:10 09/19/16 09/20/16 09/21/16 05:59 05:59 05:59 Intake Total 1550 Balance 1550 General: sleepy but awake and oriented, no acute distress Eyes: EOMI, PERRL OP: Clear CV: RRR Resp: nonlabored respirations on NC Abd: soft, NT Ext: trace edema BLE Neuro: CN II-XII Grossly intact, no asterixis Psych: cooperative, appropriate mood and affect Access: LUE AVF with thrill and bruit appreciated, also with large scab over an aneurysmal formation ICD10 Worksheet Patient Problems: Problems Problem Status Onset Fever Acute Sepsis Acute Cellulitis of left foot Acute Coronary artery disease Acute Diarrhea Acute End stage renal disease Acute Fever Acute Leukocytosis Acute Pneumonia Acute Severe sepsis Acute
--- NOTE | 2016-09-20 16:02 | SOAPPROG ---
SOAP Progress Note Assessment/Plan: Assessment/Plan: 66 yo M with LLE wound/cellulitis * wet to dry gauze dressing on wound * bedside debridement of wound S: Patient was lying down when he was seen. States he is feeling slightly better. Says he is able to walk despite the situation of lower extremity O: Gen: awake, conscious Ext: both leg - crusty, slightly red and edematous (+) bleeding wound with bandage on anterolateral tibia of left lower ex (+) left arm fistula x 2010 -- looks like its about rupture (+) wound with scab on top of fistula - states that it bleeds when doing dialysis 09/20/16 16:00 Objective: Vital Signs Temp Pulse Resp BP Pulse Ox 36.6 C 76 13 146/72 H 100 09/20/16 12:00 09/20/16 12:00 09/20/16 12:00 09/20/16 12:00 09/20/16 12:00 Microbiology 09/19/16 13:30 Gram Stain - Final Leg - Swab 09/19/16 13:30 Gram Stain - Final Foot - Swab Laboratory Results 09/20/16 05:10 09/20/16 05:10 09/19/16 09/20/16 09/21/16 05:59 05:59 05:59 Intake Total 1550 Balance 1550 ICD10 Worksheet Patient Problems: Problems Problem Status Onset Fever Acute Sepsis Acute Cellulitis of left foot Acute Coronary artery disease Acute Diarrhea Acute End stage renal disease Acute Fever Acute Leukocytosis Acute Pneumonia Acute Severe sepsis Acute
--- NOTE | 2016-09-20 16:41 | PDINTPN ---
[employer] Progress Note Assessment/Plan: Assessment: Sepsis: Resolved with antibiotics. Likely due to Cellulitis and Influenza B. On CTX and Vanco. Cellulitis: Clinically stable Influenza B: Likely contributes to or causes fever Diabetes: Episode of hypoglycemia causing unresponsiveness on my initial eval, now better with D50 ESRD: On HD Plan: Continue antibiotics. Respiratory isolation, Tamiflu. More frequent BS checks until glucose no longer low without additional dextrose. 09/20/16 16:43 Subjective: Unresponsive on initial evaluation, now alert, no complaints except weakness. Objective: Vital Signs Temp Pulse Resp BP Pulse Ox 36.6 C 76 13 146/72 H 100 09/20/16 12:00 09/20/16 12:00 09/20/16 12:00 09/20/16 12:00 09/20/16 12:00 Microbiology 09/19/16 13:30 Gram Stain - Final Leg - Swab 09/19/16 13:30 Gram Stain - Final Foot - Swab Laboratory Results 09/20/16 05:10 09/20/16 05:10 09/19/16 09/20/16 09/21/16 05:59 05:59 05:59 Intake Total 1550 Balance 1550 US LLE: No abscess visualized. Respiratory Viral Panel PCR: + Influenza B. Physical Exam - Physical Exam General Appearance: alert, no apparent distress EENT: normal ENT inspection Neck: normal inspection Respiratory: lungs clear, normal breath sounds Cardiac/Chest: regular rate, rhythm, No edema Abdomen: normal bowel sounds, non-tender, soft Skin: normal color, warm/dry Extremities: non-tender, other (LLE wound dressed) Neuro/Psych: alert, normal mood/affect, oriented x 3 ICD10 Worksheet Patient Problems: Problems Problem Status Onset Fever Acute Sepsis Acute Cellulitis of left foot Acute Coronary artery disease Acute Diarrhea Acute End stage renal disease Acute Fever Acute Leukocytosis Acute Pneumonia Acute Severe sepsis Acute
--- NOTE | 2016-09-20 17:15 | GCON ---
[f rep st] CONSULTATION PULMONARY/CRITICAL CARE CONSULTATION DATE OF CONSULTATION: 09/19/2016 REFERRING PHYSICIAN: Carl Beard MD REASON FOR REFERRAL: Evaluation and management of sepsis. HISTORY: The patient is a 66-year-old gentleman with a history of diabetes, coronary artery disease , and end-stage renal disease, as well as osteomyelitis of the foot. He developed acute weakness wit h inability to get out of a chair, as well as a high fever, nausea, and a nonproductive cough. He s aid it has been present for a few weeks. He has had no vomiting. He had increased erythema on his lo wer leg in areas where he has had difficulty with cellulitis in past. PAST MEDICAL HISTORY: 1. Coronary artery disease status post PCI. 2. Type 1 diabetes. 3. DVT. 4. End-stage renal disease on dialysis, failed transplants. 5. Hypertension. 6. Osteomyelitis in left lower leg. MEDICATIONS: Amitriptyline, aspirin, Sensipar, Protonix, insulin, atorvastatin, clopidogrel, carved ilol. ALLERGIES: None. SOCIAL HISTORY: The patient lives independently but has limited mobility. He never smoked and does not use alcohol. FAMILY HISTORY: Positive for type 1 diabetes. His recently had a viral illness. REVIEW OF SYSTEMS: A 10-point review of systems adds nothing to the history of present illness. PHYSICAL EXAMINATION: GENERAL: The patient is weak and reporting chills at the time I see him. MARYCHUY L SIGNS: His blood pressure is 135/76, with a pulse of 96. His temperature is 38.2, his oxygen satur ations are 96% on 2 L. HEENT: Normocephalic and atraumatic. No icterus. NECK: No JVD. Trachea is mid line. CHEST: Clear to auscultation. CARDIAC: Regular rate and rhythm without murmur. Trace lower ext remity edema. ABDOMEN: Soft, nontender. Bowel sounds are present. EXTREMITIES: No clubbing or cyanos is. He has had amputations of several toes. He has areas of redness and a bit of fluctuance in the d istal left lower extremity and extending down to the dorsum of the foot. NEURO: The patient is somno lent but awakes to voice and is oriented x3. He is able to move all extremities symmetrically, but h e is quite weak without tremor. LABORATORY: White blood count 11.1 with a hemoglobin of 12.7, platelet count is 278. Creatinine is 4.4 with a potassium of 5.7, a glucose of 254, calcium is 8.8. Venous lactate is 2.5, with a repeat value of 1.1. IMAGING: A chest x-ray shows some mild infiltrate/edema in the bases without areas of focal consoli dation. Images reviewed. ASSESSMENT: 1. Sepsis. The patient has fever with tachycardia and systemic symptoms, as well as an elevated whi te blood count. The most likely source is his left lower extremity with possible cellulitis/abscess. 2. End-stage renal disease. The patient is on hemodialysis. 3. Probable cellulitis. 4. History of coronary artery disease. 5. Diabetes. Blood sugars were high, and he is on insulin without evidence of diabetic ketoacidosis . 6. Hyperkalemia. RECOMMENDATIONS: 1. The patient was started empirically on vancomycin and ceftriaxone. 2. Close monitoring of blood sugars. Cover with sliding-scale insulin, used as needed. 3. Nephrology has been consulted. We anticipate hemodialysis today. 4. IV fluids will be used judiciously, given the absence of significant hypotension and fall in his lactate to a normal level in the presence of end-stage renal disease. /[id number]/MODL
[2016-09-20] MEDS ORDERED: OSELTAMIVIR PHOSPHATE 75 MG CAP PO SCH (18:00)
[2016-09-20] MEDS: CLOPIDOGREL BISULFATE 75 MG TAB PO SCH (20:03)
[2016-09-20] MEDS: AMITRIPTYLINE HCL 10 MG TAB PO SCH (20:03)
[2016-09-21 04:31] LABS: % IMMATURE GRANULYOCYTES 0.4 % (0.0-1.1); ABSOLUTE IMMATURE GRANULOCYTES 0.04 10^3/uL (0.00-0.10); ADD DIFF? NO; ADD MORPH? NO; ADD SCAN? NO; ATYPICAL LYMPHOCYTE FLAG 20 (0-99); FRAGMENT RBC FLAG 0 (0-99); HEMATOCRIT 31.1 % (40.0-51.0); HEMOGLOBIN 9.8 g/dL (13.7-17.5); LEFT SHIFT FLG 0 (0-99); LIPEMIA HEMOLYSIS FLAG 80 (0-99); MEAN CELL HEMOGLOBIN 28.7 pg (27.9-34.1); MEAN CELL HEMOGLOBIN CONCENTR. 31.5 g/dL (32.4-36.7); MEAN CELL VOLUME 90.9 fL (81.5-99.8); MEAN PLATELET VOLUME 10.2 fL (8.7-11.7); PLATELET CLUMPS FLAG 0 (0-99); PLATELET COUNT 204 10^3/uL (150-400); RED BLOOD CELL COUNT 3.42 10^6/uL (4.40-6.38); RED CELL DISTRIBUTION WIDTH 16.4 % (11.5-15.2)
[2016-09-21 04:52] LABS: ALBUMIN 2.5 g/dL (3.5-5.0); ANION GAP 12 mEq/L (8-16); CALCIUM 7.9 mg/dL (8.5-10.4); CARBON DIOXIDE 27 mEq/l (22-31); CHLORIDE 95 mEq/L (97-110); CREATININE 3.8 mg/dL (0.7-1.3); GLOMERULAR FILTRATION RATE 16; GLUCOSE 167 mg/dL (70-100); MAGNESIUM 2.5 mg/dL (1.6-2.3); POTASSIUM 3.9 mEq/L (3.5-5.2); SODIUM 134 mEq/L (134-144)
[2016-09-21] MEDS: HEPARIN 5,000 UNIT/0.5 ML SYR SC SCH ×3 (06:47→19:59)
[2016-09-21] MEDS: INSULIN REGULAR HUMAN 100 UNIT/ML SC SCH ×4 (08:20→22:52)
[2016-09-21] MEDS: CARVEDILOL 3.125 MG TAB PO SCH ×2 (10:01→20:00)
--- NOTE | 2016-09-21 10:14 | HOSPPROG ---
Hospitalist Progress Note Assessment/Plan: # sepsis d/t GAS bacteremia # strep pyogenes bacteremia, recurrent on unasyn - likely source foot/soft tissue - cont abx (rocephin today) per ID - repeat BCx today # LLE wound/cellulitis - abx as above - gen surg consulted # influenza B - tamiflu # ESRD - HD yesterday # fistula with scab - will d/w renal; concern for rupture # DM1 - hypoglycemic yesterday - hold insulin for now # CAD - asa/plavix/statin/coreg # SQH # FCFT ## high risk with bacteremia Subjective: stronger today; feels slightly improved Objective: Vital Signs Temp Pulse Resp BP Pulse Ox 36.6 C 78 13 149/72 H 99 09/21/16 07:29 09/21/16 07:29 09/21/16 07:29 09/21/16 07:29 09/21/16 07:29 Microbiology 09/19/16 13:30 Gram Stain - Final Leg - Swab 09/19/16 13:30 Gram Stain - Final Foot - Swab Laboratory Results 09/21/16 04:20 09/21/16 04:20 09/20/16 09/21/16 09/22/16 05:59 05:59 05:59 Intake Total 1550 750 Output Total 0 Balance 1550 750 - Physical Exam Constitutional: chronically ill appearing Cardiovascular: regular rate and rhythym, systolic murmur, No irregularly irregular, No diastolic murmur Respiratory: no respiratory distress, no rales or rhonchi, clear to auscultation Gastrointestinal: normoactive bowel sounds, soft, non-tender abdomen, no palpable masses ICD10 Worksheet Patient Problems: Problems Problem Status Onset Severe sepsis Acute End stage renal disease Acute Cellulitis of left foot Acute Diarrhea Acute Coronary artery disease Acute Pneumonia Acute Fever Acute Leukocytosis Acute Sepsis Acute Fever Acute
--- NOTE | 2016-09-21 11:54 | SOAPPROG ---
SOAP Progress Note Assessment/Plan: Assessment:Plan: ESRD-MWF at [facility] under the care of Drs. Jeter and Silver -plan for dialysis later today -UF as tolerated Access-large adherent clot over upper access site -no real surrounding erythema and no drainage -impossible to tell what may be under this, but will apply moist gauze prior to dialysis and have the dialysis nurse try to work this off -can attempt to do this prior to cannulation or after cannulation, after is likely better as he will have received his dialysis treatment ID-on abx for LE wounds -wound care Edema-ultrafiltration with dialysis as tolerated Dispo-pending 09/21/16 11:51 Subjective: no new complaints, scab at upper AVF site Objective: Vital Signs Temp Pulse Resp BP Pulse Ox 36.6 C 78 13 149/72 H 99 09/21/16 07:29 09/21/16 07:29 09/21/16 07:29 09/21/16 07:29 09/21/16 07:29 Microbiology 09/19/16 13:30 Gram Stain - Final Leg - Swab 09/19/16 13:30 Gram Stain - Final Foot - Swab Laboratory Results 09/21/16 04:20 09/21/16 04:20 09/20/16 09/21/16 09/22/16 05:59 05:59 05:59 Intake Total 1550 750 Output Total 0 Balance 1550 750 Physical Exam - Physical Exam General Appearance: alert, no apparent distress, thin EENT: normal ENT inspection Neck: normal inspection Respiratory: decreased breath sounds, crackles Cardiac/Chest: regular rate, rhythm, systolic murmur Abdomen: normal bowel sounds, non-tender Extremities: swelling (bilaterally to 2/3 up hobbs, dressings intact on LE, quarter sized adherent scab on AVF, no inflammation and no drainage) ICD10 Worksheet Patient Problems: Problems Problem Status Onset Fever Acute Sepsis Acute Cellulitis of left foot Acute Coronary artery disease Acute Diarrhea Acute End stage renal disease Acute Fever Acute Leukocytosis Acute Pneumonia Acute Severe sepsis Acute
--- NOTE | 2016-09-21 12:24 | WOCRNPDOC ---
[facility] Advanced Assessment Note - Skin Integrity Problem, Advanced Assess Left Lower Lateral Leg Unknown Dressing Type: Coban, Gauze, Zechariah Dressing Description: Clean/Dry, Intact Exudate Amount: Minimal Exudate Color: Reddish/Yellow Exudate Characteristic(s): Serosanguinous Integumentary Issue Intervention: Dressing Changed, Lotion/Cream Applied ( dimethicone to periwound skin and throughout LLE) Asuncion Wound Tissue: Erythema, Thin, Dry, Painful/Tender Asuncion Wound Swelling: Mild Wound Bed Color: Red, Yellow (trace film of slough on wound surface) Wound Bed Constitution: Granulation Tissue Site Odor: None Site Measurement - Head-to-Toe Length X Width X Depth (cm): Proximal: 4cmx2.6cmx0.1cm; distal: 1.7cmx0.7xmx0.1cm Skin Integrity Problem Comment: Two discrete full-thickness wounds noted in larger partial-thickness wound bed. This site was previously a serous blister, which has since de-roofed. Proximal wound is exudative, w/ a thin film layer of slough forming. Applied Silvasorb gel to distal wound bed, which was dry in appearance, and covered entire site w/ an Optilock superabsorbent dressing, secured by Kerlix. Additional dressing tubed down to surgical nurse practitionerKWASI Dixon for Saturday dressing change. Right Medial Heel Dressing Type: Coban, Gauze Dressing Description: Intact Exudate Amount: Scant Exudate Color: Red Exudate Characteristic(s): Bloody Integumentary Issue Intervention: Dressing Applied, Silver Gel Applied Asuncion Wound Tissue: Intact, Scaly, Dry Asuncion Wound Swelling: None Wound Bed Color: Red Wound Bed Constitution: De-roofed Serous Blister Site Odor: None Site Measurement - Head-to-Toe Length X Width X Depth (cm): anterior: 1cmx0.5cmx0.1cm; posterior: 0.9cmx0.5cmx0.1cm Skin Integrity Problem Comment: 2 discrete, de-roofed blisters noted on medial aspect of R heel. Patient reports that both of these blisters opened up when walking with PT this morning. There is no erythema or swelling periwound. Tx of Silvasorb and Allevyn dressing to site. Wound care will continue to monitor.
[2016-09-21] MEDS: ASPIRIN 81 MG CHEWABLE TAB PO SCH (16:03)
[2016-09-21] MEDS: ATORVASTATIN CALCIUM 10 MG TAB PO SCH (16:03)
--- NOTE | 2016-09-21 17:09 | SOAPPROG ---
SOAP Progress Note Assessment/Plan: Assessment:66yo M admitted with bactremia, LLE wound Change dressing to nonstick/absorptive. No need for debridement at this time Will continue to follow Appreciate hospitalist management of comorbidities O: sitting at edge of bed eating breakfast No increased WOB Scabs of LUE AV fistula LLE wound with surrounding erythema. Wound looks like skin tear Objective: Vital Signs Temp Pulse Resp BP Pulse Ox 36.5 C 75 12 153/64 H 97 09/21/16 16:00 09/21/16 16:00 09/21/16 16:00 09/21/16 16:00 09/21/16 16:00 Microbiology 09/19/16 13:30 Gram Stain - Final Foot - Swab Wound Culture - Final Streptococcus Pyogenes Grp A 09/19/16 13:30 Gram Stain - Final Leg - Swab Wound Culture - Final Streptococcus Pyogenes Grp A Laboratory Results 09/21/16 04:20 09/21/16 04:20 09/20/16 09/21/16 09/22/16 05:59 05:59 05:59 Intake Total 1550 750 Output Total 0 Balance 1550 750 ICD10 Worksheet Patient Problems: Problems Problem Status Onset Fever Acute Sepsis Acute Cellulitis of left foot Acute Coronary artery disease Acute Diarrhea Acute End stage renal disease Acute Fever Acute Leukocytosis Acute Pneumonia Acute Severe sepsis Acute
--- NOTE | 2016-09-21 19:37 | PCMIDPN ---
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 Given recurrent nature bacteremia, concern also for potential nidus of infection such as residual bone infection; av fistula infection seems less likely but also of consideration. Continue ceftriaxone. Will obtain plain film of left foot. * Influenza B: Continue Tamiflu dose adjusted for end-stage renal disease. Droplet precautions in place. 09/21/16 19:34 Subjective: Patient feels better. Less cough. Objective: Vital Signs Temp Pulse Resp BP Pulse Ox 36.5 C 75 12 153/64 H 97 09/21/16 16:00 09/21/16 16:00 09/21/16 16:00 09/21/16 16:00 09/21/16 16:00 Microbiology 09/19/16 13:30 Gram Stain - Final Foot - Swab Wound Culture - Final Streptococcus Pyogenes Grp A 09/19/16 13:30 Gram Stain - Final Leg - Swab Wound Culture - Final Streptococcus Pyogenes Grp A Laboratory Results 09/21/16 04:20 09/21/16 04:20 09/20/16 09/21/16 09/22/16 05:59 05:59 05:59 Intake Total 1550 750 225 Output Total 0 Balance 1550 750 225 Ceftriaxone # 3 Tamiflu # 2 Blood cultures 09/21/2016 pending - Physical Exam General Appearance: alert, no apparent distress EENT: No conjunctival petechiae Respiratory: lungs clear, No respiratory distress Cardiac/Chest: regular rate, rhythm, systolic murmur (2/6 left upper sternal border) Extremities: inflammation (Bilateral lower extremities with erythema and venous stasis changes; skin tear over left anterior hobbs without purulence; tiny opening present at base of prior surgical incision over left foot) Abdomen: non-tender, No distended Skin: No embolic lesions ICD10 Worksheet Patient Problems: Problems Problem Status Onset Fever Acute Sepsis Acute Cellulitis of left foot Acute Coronary artery disease Acute Diarrhea Acute End stage renal disease Acute Fever Acute Leukocytosis Acute Pneumonia Acute Severe sepsis Acute
[2016-09-21] MEDS: OSELTAMIVIR 6 MG/ML UDSYR PO SCH ×2 (19:57)
[2016-09-21] MEDS: CLOPIDOGREL BISULFATE 75 MG TAB PO SCH (20:00)
[2016-09-21] MEDS: AMITRIPTYLINE HCL 10 MG TAB PO SCH (20:00)
[2016-09-21] MEDS: CINACALCET HCL 30 MG TAB PO SCH (20:00)
[2016-09-21] MEDS: cefTRIAXone 2 GM in D5W 50 ML IV SCH (20:03)
[2016-09-21] MEDS: PANTOPRAZOLE SODIUM 40 MG TAB PO SCH (20:03)
[2016-09-22] MEDS: HEPARIN 5,000 UNIT/0.5 ML SYR SC SCH ×3 (05:52→21:13)
[2016-09-22 06:05] LABS: % IMMATURE GRANULYOCYTES 0.3 % (0.0-1.1); ABSOLUTE IMMATURE GRANULOCYTES 0.02 10^3/uL (0.00-0.10); ADD DIFF? NO; ADD MORPH? NO; ADD SCAN? NO; ATYPICAL LYMPHOCYTE FLAG 30 (0-99); FRAGMENT RBC FLAG 0 (0-99); HEMATOCRIT 32.4 % (40.0-51.0); HEMOGLOBIN 10.1 g/dL (13.7-17.5); LEFT SHIFT FLG 0 (0-99); LIPEMIA HEMOLYSIS FLAG 80 (0-99); MEAN CELL HEMOGLOBIN 28.5 pg (27.9-34.1); MEAN CELL HEMOGLOBIN CONCENTR. 31.2 g/dL (32.4-36.7); MEAN CELL VOLUME 91.3 fL (81.5-99.8); MEAN PLATELET VOLUME 9.7 fL (8.7-11.7); PLATELET CLUMPS FLAG 0 (0-99); PLATELET COUNT 217 10^3/uL (150-400); RED BLOOD CELL COUNT 3.55 10^6/uL (4.40-6.38); RED CELL DISTRIBUTION WIDTH 16.1 % (11.5-15.2)
[2016-09-22 06:45] LABS: ALBUMIN 2.6 g/dL (3.5-5.0); ANION GAP 10 mEq/L (8-16); CALCIUM 7.9 mg/dL (8.5-10.4); CARBON DIOXIDE 30 mEq/l (22-31); CHLORIDE 97 mEq/L (97-110); CREATININE 2.7 mg/dL (0.7-1.3); GLOMERULAR FILTRATION RATE 24; GLUCOSE 150 mg/dL (70-100); MAGNESIUM 2.2 mg/dL (1.6-2.3); POTASSIUM 4.2 mEq/L (3.5-5.2); SODIUM 137 mEq/L (134-144)
[2016-09-22] MEDS: CINACALCET HCL 30 MG TAB PO SCH (09:11)
[2016-09-22] MEDS: ASPIRIN 81 MG CHEWABLE TAB PO SCH (09:13)
[2016-09-22] MEDS: PANTOPRAZOLE SODIUM 40 MG TAB PO SCH (09:13)
[2016-09-22] MEDS: cefTRIAXone 2 GM in D5W 50 ML IV SCH (09:15)
[2016-09-22] MEDS: ATORVASTATIN CALCIUM 10 MG TAB PO SCH (09:18)
[2016-09-22] MEDS: CARVEDILOL 3.125 MG TAB PO SCH ×2 (09:18→17:56)
[2016-09-22] MEDS: INSULIN REGULAR HUMAN 100 UNIT/ML SC SCH ×4 (09:20→22:04)
--- NOTE | 2016-09-22 11:32 | SOAPPROG ---
SOAP Progress Note Assessment/Plan: Assessment: Dressing cdi. Will change tomorrow Plan: 09/22/16 11:32 Objective: Vital Signs Temp Pulse Resp BP Pulse Ox 36.6 C 86 13 143/68 H 98 09/22/16 07:35 09/22/16 07:35 09/22/16 07:35 09/22/16 07:35 09/22/16 07:35 Microbiology 09/19/16 13:30 Gram Stain - Final Foot - Swab Wound Culture - Final Streptococcus Pyogenes Grp A 09/19/16 13:30 Gram Stain - Final Leg - Swab Wound Culture - Final Streptococcus Pyogenes Grp A Laboratory Results 09/22/16 05:55 09/22/16 05:55 09/21/16 09/22/16 09/23/16 05:59 05:59 05:59 Intake Total 750 650 Output Total 0 2000 Balance 750 -8950 ICD10 Worksheet Patient Problems: Problems Problem Status Onset Fever Acute Sepsis Acute Cellulitis of left foot Acute Coronary artery disease Acute Diarrhea Acute End stage renal disease Acute Fever Acute Leukocytosis Acute Pneumonia Acute Severe sepsis Acute
--- NOTE | 2016-09-22 11:51 | SOAPPROG ---
SOAP Progress Note Assessment/Plan: Assessment:Plan: ESRD-MWF at [facility] under the care of Drs. Jeter and Silver -plan for dialysis Saturday -UF as tolerated Access-large adherent clot over upper access site removed yesterday -dry ulcerated area -no real surrounding erythema and no drainage -dressing applied with some silvasorb on the gauze to prevent the bandage from sticking and pulling off the healing fragile tissue underneath ID-on abx for LE wounds -wound care Edema-ultrafiltration with dialysis as tolerated Dispo-pending 09/22/16 11:48 Subjective: resting, lying flat in bed, appears comfortable Objective: Vital Signs Temp Pulse Resp BP Pulse Ox 36.6 C 86 13 143/68 H 98 09/22/16 07:35 09/22/16 07:35 09/22/16 07:35 09/22/16 07:35 09/22/16 07:35 Microbiology 09/19/16 13:30 Gram Stain - Final Foot - Swab Wound Culture - Final Streptococcus Pyogenes Grp A 09/19/16 13:30 Gram Stain - Final Leg - Swab Wound Culture - Final Streptococcus Pyogenes Grp A Laboratory Results 09/22/16 05:55 09/22/16 05:55 09/21/16 09/22/16 09/23/16 05:59 05:59 05:59 Intake Total 750 650 Output Total 0 2000 Balance 750 -1350 Physical Exam - Physical Exam General Appearance: alert, no apparent distress EENT: normal ENT inspection Neck: normal inspection Respiratory: lungs clear (anteriorly) Cardiac/Chest: systolic murmur, irregularly irregular Abdomen: normal bowel sounds, non-tender, soft Extremities: swelling, other (uncahnged, avf examined as above) ICD10 Worksheet Patient Problems: Problems Problem Status Onset Fever Acute Sepsis Acute Cellulitis of left foot Acute Coronary artery disease Acute Diarrhea Acute End stage renal disease Acute Fever Acute Leukocytosis Acute Pneumonia Acute Severe sepsis Acute
--- NOTE | 2016-09-22 13:24 | HOSPPROG ---
Hospitalist Progress Note Assessment/Plan: # sepsis d/t GAS bacteremia # strep pyogenes bacteremia - likely source foot/soft tissue - XR foot read pending, no osteo on my read - cont abx (rocephin today) per ID - repeat BCx NGTD # LLE wound/cellulitis - abx as above - gen surgery # influenza B - tamiflu # ESRD - HD yesterday - clot removed off fistula yesterday # DM1 - insulin held yesterday for hypoglycemia - restart at lower dose today # CAD - asa/plavix/statin/coreg # SQH # FCFT ## chart reviewed including ID, gen surg and renal notes Subjective: feels stronger today Objective: Vital Signs Temp Pulse Resp BP Pulse Ox 36.6 C 86 13 143/68 H 98 09/22/16 07:35 09/22/16 07:35 09/22/16 07:35 09/22/16 07:35 09/22/16 07:35 Microbiology 09/19/16 13:30 Gram Stain - Final Foot - Swab Wound Culture - Final Streptococcus Pyogenes Grp A 09/19/16 13:30 Gram Stain - Final Leg - Swab Wound Culture - Final Streptococcus Pyogenes Grp A Laboratory Results 09/22/16 05:55 09/22/16 05:55 09/21/16 09/22/16 09/23/16 05:59 05:59 05:59 Intake Total 750 650 Output Total 0 2000 300 Balance 750 -1350 -300 - Physical Exam Constitutional: no apparent distress, chronically ill appearing Cardiovascular: regular rate and rhythym, no murmur, rub, or gallop Respiratory: no respiratory distress, no rales or rhonchi, clear to auscultation Gastrointestinal: normoactive bowel sounds, soft, non-tender abdomen, no palpable masses ICD10 Worksheet Patient Problems: Problems Problem Status Onset Severe sepsis Acute End stage renal disease Acute Cellulitis of left foot Acute Diarrhea Acute Coronary artery disease Acute Pneumonia Acute Fever Acute Leukocytosis Acute Sepsis Acute Fever Acute
--- NOTE | 2016-09-22 17:21 | PCMIDPN ---
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 Recurrence most likely related to superficial ulceration of lower extremity. No pain or erythema over AV fistula site to suggest fistula involvement. Repeat blood cultures are no growth. Plan 2 weeks of antibiotic therapy followed by suppressive oral antibiotics targeting group A Streptococcus given recurrent nature of disease. * Influenza B: Continue Tamiflu dose adjusted for end-stage renal disease x5 days. Droplet precautions in place. 09/22/16 17:18 Subjective: Feels clinically improved. Persistent cough. Objective: Vital Signs Temp Pulse Resp BP Pulse Ox 36.6 C 82 16 167/97 H 96 09/22/16 16:00 09/22/16 16:00 09/22/16 16:00 09/22/16 16:00 09/22/16 16:00 Microbiology 09/19/16 13:30 Gram Stain - Final Foot - Swab Wound Culture - Final Streptococcus Pyogenes Grp A 09/19/16 13:30 Gram Stain - Final Leg - Swab Wound Culture - Final Streptococcus Pyogenes Grp A Laboratory Results 09/22/16 05:55 09/22/16 05:55 09/21/16 09/22/16 09/23/16 05:59 05:59 05:59 Intake Total 750 650 Output Total 0 2000 300 Balance 750 -1350 -300 Ceftriaxone # 4 Tamiflu # 3 Blood cultures 09/21/2016 pending - Physical Exam General Appearance: alert, no apparent distress EENT: No thrush, No conjunctival petechiae Respiratory: lungs clear, No respiratory distress Cardiac/Chest: regular rate, rhythm, systolic murmur (2/6 left upper sternal border) Extremities: inflammation (Left foot without active cellulitis; erythema from venous insufficiency bilaterally; shallow ulceration over left anterior hobbs without surrounding cellulitis) Abdomen: non-tender, No distended Skin: No embolic lesions ICD10 Worksheet Patient Problems: Problems Problem Status Onset Fever Acute Sepsis Acute Cellulitis of left foot Acute Coronary artery disease Acute Diarrhea Acute End stage renal disease Acute Fever Acute Leukocytosis Acute Pneumonia Acute Severe sepsis Acute
[2016-09-22] MEDS: AMITRIPTYLINE HCL 10 MG TAB PO SCH (21:13)
[2016-09-22] MEDS: CLOPIDOGREL BISULFATE 75 MG TAB PO SCH (21:13)
[2016-09-23] MEDS: HEPARIN 5,000 UNIT/0.5 ML SYR SC SCH ×3 (04:23→22:12)
[2016-09-23 04:57] LABS: ALBUMIN 2.7 g/dL (3.5-5.0); ANION GAP 13 mEq/L (8-16); CALCIUM 7.9 mg/dL (8.5-10.4); CARBON DIOXIDE 25 mEq/l (22-31); CHLORIDE 96 mEq/L (97-110); CREATININE 3.8 mg/dL (0.7-1.3); GLOMERULAR FILTRATION RATE 16; GLUCOSE 249 mg/dL (70-100); MAGNESIUM 2.2 mg/dL (1.6-2.3); POTASSIUM 4.9 mEq/L (3.5-5.2); SODIUM 134 mEq/L (134-144)
[2016-09-23] MEDS: INSULIN REGULAR HUMAN 100 UNIT/ML SC SCH ×4 (08:35→21:50)
[2016-09-23] MEDS: cefTRIAXone 2 GM in D5W 50 ML IV SCH (08:35)
[2016-09-23] MEDS: ASPIRIN 81 MG CHEWABLE TAB PO SCH (08:36)
[2016-09-23] MEDS: PANTOPRAZOLE SODIUM 40 MG TAB PO SCH (08:36)
[2016-09-23] MEDS: ATORVASTATIN CALCIUM 10 MG TAB PO SCH (08:37)
[2016-09-23] MEDS: CARVEDILOL 3.125 MG TAB PO SCH ×2 (08:37→18:57)
--- NOTE | 2016-09-23 08:58 | SOAPPROG ---
SOAP Progress Note Assessment/Plan: Assessment: Lateral leg with some non blanching erythema. Wound redressed by me. Minimal drainage Foot wound is now healed. Demar to help protect for another 2weeks Plan: 09/22/16 11:32 09/23/16 08:57 Objective: Vital Signs Temp Pulse Resp BP Pulse Ox 36.5 C 84 13 159/83 H 99 09/23/16 07:36 09/23/16 08:37 09/23/16 07:36 09/23/16 07:36 09/23/16 07:36 Laboratory Results 09/22/16 05:55 09/23/16 04:20 09/22/16 09/23/16 09/24/16 05:59 05:59 05:59 Intake Total 650 359 Output Total 1999 300 Balance -1350 59 ICD10 Worksheet Patient Problems: Problems Problem Status Onset Fever Acute Sepsis Acute Cellulitis of left foot Acute Coronary artery disease Acute Diarrhea Acute End stage renal disease Acute Fever Acute Leukocytosis Acute Pneumonia Acute Severe sepsis Acute
[2016-09-23] MEDS ORDERED: BACITRACIN OINTMENT 1 PACKET TP ONE (09:57)
--- NOTE | 2016-09-23 10:21 | SOAPPROG ---
SOAP Progress Note Assessment/Plan: Assessment:Plan: ESRD-MWF at [facility] under the care of Drs. Jeter and Silver -plan for dialysis Saturday -UF as tolerated Access-large adherent clot over upper access site removed Saturday -dry ulcerated area yesterday -now with surrounding erythema and drainage -cultured -dressing applied with some triple antibiotic on nonstick dressing then gauze to prevent the bandage from sticking -discussed with Dr. Gillette ID-on abx for LE wounds -wound care Edema-ultrafiltration with dialysis as tolerated Dispo-pending 09/23/16 10:18 Subjective: no new complaints Objective: Vital Signs Temp Pulse Resp BP Pulse Ox 36.5 C 84 13 159/83 H 99 09/23/16 07:36 09/23/16 08:37 09/23/16 07:36 09/23/16 07:36 09/23/16 07:36 Laboratory Results 09/22/16 05:55 09/23/16 04:20 09/22/16 09/23/16 09/24/16 05:59 05:59 05:59 Intake Total 650 359 Output Total 2000 300 Balance -1350 59 Physical Exam - Physical Exam General Appearance: alert, no apparent distress EENT: normal ENT inspection Neck: normal inspection Respiratory: lungs clear, normal breath sounds, No respiratory distress Cardiac/Chest: regular rate, rhythm, systolic murmur Abdomen: normal bowel sounds, non-tender, soft Skin: other (needle stick infection on upper site of AVF with drainage) Extremities: swelling (unchanged) ICD10 Worksheet Patient Problems: Problems Problem Status Onset Fever Acute Sepsis Acute Cellulitis of left foot Acute Coronary artery disease Acute Diarrhea Acute End stage renal disease Acute Fever Acute Leukocytosis Acute Pneumonia Acute Severe sepsis Acute
[2016-09-23] MEDS: INSULIN GLARGINE 100 UNITS/ML SYRINGE SC SCH (12:00)
--- NOTE | 2016-09-23 13:14 | HOSPPROG ---
Hospitalist Progress Note Assessment/Plan: # sepsis d/t GAS bacteremia # strep pyogenes bacteremia - likely source foot/soft tissue; no osteo on XR, doubt fistula as source - cont abx (rocephin today) per ID - repeat BCx NGTD # LLE wound/cellulitis - abx as above, gen surgery assistance with wound care # influenza B - tamiflu # ESRD - HD tomorrow - adherent clot removed from fistula - some erythema today # DM1 - slight hyperglycemia today, cont glargine + ssi # CAD - asa/plavix/statin/coreg # SQH # FCFT # dispo - med surg ## chart reviewed including renal and gen surg notes Subjective: strength is slowly returning Objective: Vital Signs Temp Pulse Resp BP Pulse Ox 36.5 C 84 13 159/83 H 99 09/23/16 07:36 09/23/16 08:37 09/23/16 07:36 09/23/16 07:36 09/23/16 07:36 Microbiology 09/23/16 10:30 Gram Stain - Final Arm - Swab Laboratory Results 09/22/16 05:55 09/23/16 04:20 09/22/16 09/23/16 09/24/16 05:59 05:59 05:59 Intake Total 650 359 Output Total 2000 300 Balance -1350 59 - Physical Exam Constitutional: chronically ill appearing Cardiovascular: regular rate and rhythym, systolic murmur, No irregularly irregular, No tachycardia, No bradycardia Respiratory: no respiratory distress, no rales or rhonchi, clear to auscultation Gastrointestinal: normoactive bowel sounds, soft, non-tender abdomen, no palpable masses Musculoskeletal: other (L fistula without clot) ICD10 Worksheet Patient Problems: Problems Problem Status Onset Severe sepsis Acute End stage renal disease Acute Cellulitis of left foot Acute Diarrhea Acute Coronary artery disease Acute Pneumonia Acute Fever Acute Leukocytosis Acute Sepsis Acute Fever Acute
--- NOTE | 2016-09-23 16:42 | PCMIDPN ---
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 Recurrence most likely related to superficial ulceration of lower extremity. Continue ceftriaxone with plans to complete therapy with cefazolin dosed after dialysis representing a total of 2 weeks post negative blood cultures. Thereafter will begin suppressive oral antibiotic therapy given recurrent nature of his bacteremia. Fistula findings reviewed with Dr. Lema and drainage felt to be related to "needle abscess" rather than representing AV fistula infection. * Influenza B: Continue Tamiflu dose adjusted for end-stage renal disease x5 days. Droplet precautions in place. 09/23/16 16:39 Subjective: Noted to have some purulent drainage over fistula site after removal of scab earlier today. Cultures obtained by Dr. Lema. No pain over fistula site. Objective: Vital Signs Temp Pulse Resp BP Pulse Ox 36.4 C 81 24 H 167/96 H 98 09/23/16 14:47 09/23/16 14:47 09/23/16 14:47 09/23/16 14:47 09/23/16 14:47 Microbiology 09/23/16 10:30 Gram Stain - Final Arm - Swab Laboratory Results 09/22/16 05:55 09/23/16 04:20 09/22/16 09/23/16 09/24/16 05:59 05:59 05:59 Intake Total 650 359 Output Total 2000 300 Balance -1350 59 Ceftriaxone # 5 Tamiflu # 4 Blood cultures 09/21/2016 no growth Fistula Gram stain negative - Physical Exam General Appearance: alert, no apparent distress EENT: No scleral icterus, No conjunctival petechiae Respiratory: lungs clear, No respiratory distress Cardiac/Chest: regular rate, rhythm Extremities: inflammation (Left foot wound healing well without surrounding cellulitis or drainage; mild erythema over upper AV fistula access site without fluctuance; nontender with thrill present) ICD10 Worksheet Patient Problems: Problems Problem Status Onset Fever Acute Sepsis Acute Cellulitis of left foot Acute Coronary artery disease Acute Diarrhea Acute End stage renal disease Acute Fever Acute Leukocytosis Acute Pneumonia Acute Severe sepsis Acute
[2016-09-23] MEDS: CLOPIDOGREL BISULFATE 75 MG TAB PO SCH (22:12)
[2016-09-23] MEDS: AMITRIPTYLINE HCL 10 MG TAB PO SCH (22:12)
[2016-09-24 05:16] LABS: % IMMATURE GRANULYOCYTES 0.4 % (0.0-1.1); ABSOLUTE IMMATURE GRANULOCYTES 0.02 10^3/uL (0.00-0.10); ADD DIFF? NO; ADD MORPH? NO; ADD SCAN? NO; ATYPICAL LYMPHOCYTE FLAG 10 (0-99); FRAGMENT RBC FLAG 0 (0-99); HEMATOCRIT 31.3 % (40.0-51.0); HEMOGLOBIN 9.8 g/dL (13.7-17.5); LEFT SHIFT FLG 0 (0-99); LIPEMIA HEMOLYSIS FLAG 80 (0-99); MEAN CELL HEMOGLOBIN 28.2 pg (27.9-34.1); MEAN CELL HEMOGLOBIN CONCENTR. 31.3 g/dL (32.4-36.7); MEAN CELL VOLUME 89.9 fL (81.5-99.8); MEAN PLATELET VOLUME 9.9 fL (8.7-11.7); PLATELET CLUMPS FLAG 0 (0-99); PLATELET COUNT 231 10^3/uL (150-400); RED BLOOD CELL COUNT 3.48 10^6/uL (4.40-6.38); RED CELL DISTRIBUTION WIDTH 15.8 % (11.5-15.2)
[2016-09-24 05:35] LABS: ALBUMIN 2.6 g/dL (3.5-5.0); ANION GAP 11 mEq/L (8-16); CALCIUM 8.2 mg/dL (8.5-10.4); CARBON DIOXIDE 24 mEq/l (22-31); CHLORIDE 95 mEq/L (97-110); CREATININE 4.6 mg/dL (0.7-1.3); GLOMERULAR FILTRATION RATE 13; GLUCOSE 170 mg/dL (70-100); MAGNESIUM 2.3 mg/dL (1.6-2.3); POTASSIUM 4.8 mEq/L (3.5-5.2); SODIUM 130 mEq/L (134-144)
[2016-09-24] MEDS: HEPARIN 5,000 UNIT/0.5 ML SYR SC SCH ×3 (05:35→20:52)
[2016-09-24] MEDS: CARVEDILOL 3.125 MG TAB PO SCH ×2 (09:11→17:27)
[2016-09-24] MEDS: PANTOPRAZOLE SODIUM 40 MG TAB PO SCH (09:12)
[2016-09-24] MEDS: INSULIN GLARGINE 100 UNITS/ML SYRINGE SC SCH (09:13)
[2016-09-24] MEDS: INSULIN REGULAR HUMAN 100 UNIT/ML SC SCH ×4 (09:14→21:17)
[2016-09-24] MEDS: ASPIRIN 81 MG CHEWABLE TAB PO SCH (12:15)
[2016-09-24] MEDS: cefTRIAXone 2 GM in D5W 50 ML IV SCH (12:15)
[2016-09-24] MEDS: ATORVASTATIN CALCIUM 10 MG TAB PO SCH (12:15)
--- NOTE | 2016-09-24 12:35 | SOAPPROG ---
SOAP Progress Note Assessment/Plan: Assessment/Plan: ESRD: on HD MWF. - Pt had HD today per routine. - Next HD Saturday. Hypervolemia: will modulate on HD. Access: pt with large clot on access removed on Saturday, then developed erythema and drainage at site. Culture sent with no growth thus far. Has been discussed with ID. Subjective: No acute events overnight. Pt had HD this am with no issues, has no complaints. Objective: Vital Signs Temp Pulse Resp BP Pulse Ox 36.5 C 80 16 163/79 H 100 09/24/16 12:00 09/24/16 09:17 09/24/16 09:17 09/24/16 09:17 09/24/16 09:17 Microbiology 09/23/16 10:30 Gram Stain - Final Arm - Swab Laboratory Results 09/24/16 04:00 09/24/16 04:00 09/23/16 09/24/16 09/25/16 05:59 05:59 05:59 Intake Total 359 200 Output Total 300 2500 Balance 59 200 -2500 General: alert and oriented, no acute distress Eyes; EOMI, PERRL OP: Clear CV: RRR Resp: nonlabored respirations Abd; Soft, NT Ext: trace edema BLE Neuro: CN II-XII grossly intact, no asterixis Psych: cooperative, appropriate mood and affect Access: LUE AVF ICD10 Worksheet Patient Problems: Problems Problem Status Onset Fever Acute Sepsis Acute Cellulitis of left foot Acute Coronary artery disease Acute Diarrhea Acute End stage renal disease Acute Fever Acute Leukocytosis Acute Pneumonia Acute Severe sepsis Acute
--- NOTE | 2016-09-24 14:05 | HOSPPROG ---
Hospitalist Progress Note Assessment/Plan: # sepsis d/t GAS bacteremia # strep pyogenes bacteremia - likely source foot/soft tissue; no osteo on XR, doubt fistula as source - cont abx (rocephin today) per ID, plan 2 weeks IV then suppressive PO thereafter - repeat BCx NGTD # LLE wound/cellulitis - abx as above, gen surgery assistance with wound care # influenza B - tamiflu # ESRD - HD tomorrow - adherent clot removed from fistula - some erythema and discharge sent for cx # DM1 - slight hyperglycemia today, cont glargine + ssi # CAD - asa/plavix/statin/coreg # [facility]QH # FCFT # dispo - med surg ## discussed with Dr Ortega - HD today Subjective: feels well, eating, had HD yesterday Objective: Vital Signs Temp Pulse Resp BP Pulse Ox 36.5 C 80 16 163/79 H 100 09/24/16 12:00 09/24/16 09:17 09/24/16 09:17 09/24/16 09:17 09/24/16 09:17 Microbiology 09/23/16 10:30 Gram Stain - Final Arm - Swab Laboratory Results 09/24/16 04:00 09/24/16 04:00 09/23/16 09/24/16 09/25/16 05:59 05:59 05:59 Intake Total 359 200 Output Total 300 2500 Balance 59 200 -2500 - Physical Exam Constitutional: no apparent distress, appears nourished Cardiovascular: regular rate and rhythym, systolic murmur Respiratory: no respiratory distress, no rales or rhonchi, clear to auscultation Gastrointestinal: normoactive bowel sounds, soft, non-tender abdomen, no palpable masses ICD10 Worksheet Patient Problems: Problems Problem Status Onset Severe sepsis Acute End stage renal disease Acute Cellulitis of left foot Acute Diarrhea Acute Coronary artery disease Acute Pneumonia Acute Fever Acute Leukocytosis Acute Sepsis Acute Fever Acute
[2016-09-24] MEDS: OSELTAMIVIR 6 MG/ML UDSYR PO SCH (15:32)
--- NOTE | 2016-09-24 18:11 | PCMIDPN ---
Assessment/Plan: Assessment: group A strep bacteremia -- third recurrence -- no clear source that is ongoing. No evidence of osteomyelitis this episode. Suspect that this is indeed another de sukhdeep infection from his lower extremities. Currently on ceftriaxone. Will continue on this treatment for now with the possibility of changing to ancef as outpatient treatment. Need to complete two weeks from cleared cultures. influenza B -- 5 days of tamiflu - dose adjusted. Ends today. Plan: 1) Continue daily ceftriaxone. 2) Follow repeat blood cultures (negative thus far) 3) Possible change to cefazolin p HD for discharge. 09/24/16 23:03 Subjective: Patient is resting in his bed. Just completed HD. Feels wiped out usually from these treatments but with the infection he feels even more exhausted than usual. Objective: Vital Signs ceftriaxone #6 tamiflu #5 Temp Pulse Resp BP Pulse Ox 36.7 C 73 18 179/90 H 98 09/24/16 15:31 09/24/16 15:31 09/24/16 15:31 09/24/16 15:31 09/24/16 15:31 Microbiology 09/23/16 10:30 Gram Stain - Final Arm - Swab Laboratory Results 09/24/16 04:00 09/24/16 04:00 09/23/16 09/24/16 09/25/16 05:59 05:59 05:59 Intake Total 359 200 480 Output Total 300 2500 Balance 59 200 -2020 - Physical Exam General Appearance: WD/WN, alert, no apparent distress, toxic (mildly) Respiratory: lungs clear, normal breath sounds, No respiratory distress Cardiac/Chest: regular rate, rhythm, No tachycardia Extremities: non-tender, normal inspection Skin: normal color, warm/dry, No rash Neuro/Psych: alert, normal mood/affect, oriented x 3 ICD10 Worksheet Patient Problems: Problems Problem Status Onset Fever Acute Sepsis Acute Cellulitis of left foot Acute Coronary artery disease Acute Diarrhea Acute End stage renal disease Acute Fever Acute Leukocytosis Acute Pneumonia Acute Severe sepsis Acute
[2016-09-24] MEDS: CLOPIDOGREL BISULFATE 75 MG TAB PO SCH (20:51)
[2016-09-24] MEDS: AMITRIPTYLINE HCL 10 MG TAB PO SCH (20:51)
[2016-09-24 22:21] VITALS: O2SAT 94
[2016-09-25 05:24] LABS: ALBUMIN 2.6 g/dL (3.5-5.0); ANION GAP 11 mEq/L (8-16); CALCIUM 8.6 mg/dL (8.5-10.4); CARBON DIOXIDE 25 mEq/l (22-31); CHLORIDE 96 mEq/L (97-110); GLOMERULAR FILTRATION RATE 21; GLUCOSE 56 mg/dL (70-100); POTASSIUM 4.5 mEq/L (3.5-5.2); SODIUM 132 mEq/L (134-144)
[2016-09-25] MEDS: HEPARIN 5,000 UNIT/0.5 ML SYR SC SCH (06:03)
[2016-09-25 08:00] VITALS: BP 186/78; PULSE 76; RESP 18; TEMP 97.5
[2016-09-25] MEDS: INSULIN REGULAR HUMAN 100 UNIT/ML SC SCH ×2 (08:06→12:17)
[2016-09-25] MEDS: ATORVASTATIN CALCIUM 10 MG TAB PO SCH (08:24)
[2016-09-25] MEDS: ASPIRIN 81 MG CHEWABLE TAB PO SCH (08:24)
[2016-09-25] MEDS: CINACALCET HCL 30 MG TAB PO SCH (08:24)
[2016-09-25] MEDS: PANTOPRAZOLE SODIUM 40 MG TAB PO SCH (08:24)
[2016-09-25] MEDS: CARVEDILOL 3.125 MG TAB PO SCH (08:24)
[2016-09-25] MEDS: INSULIN GLARGINE 100 UNITS/ML SYRINGE SC SCH (10:35)
[2016-09-25] MEDS: cefTRIAXone 2 GM in D5W 50 ML IV SCH (12:28)
--- NOTE | 2016-09-25 13:21 | SOAPPROG ---
SOAP Progress Note Assessment/Plan: Assessment: 1. Sepsis/Wound infection Much improved. DC with Ancef on HD 2. ESRD MWF. I will alert unit. 3. HTN Stable 4 Anemia Stable Plan: 09/25/16 13:20 Objective: Vital Signs Temp Pulse Resp BP Pulse Ox 36.4 C 76 18 186/78 H 94 09/25/16 07:59 09/25/16 07:59 09/25/16 07:59 09/25/16 07:59 09/25/16 07:59 Microbiology 09/23/16 10:30 Gram Stain - Final Arm - Swab Laboratory Results 09/24/16 04:00 09/25/16 04:19 09/24/16 09/25/16 09/26/16 05:59 05:59 05:59 Intake Total 200 480 Output Total 2500 Balance 200 -2020 Physical Exam - Physical Exam General Appearance: no apparent distress Respiratory: lungs clear Cardiac/Chest: regular rate, rhythm Extremities: pedal edema Neuro/Psych: oriented x 3 ICD10 Worksheet Patient Problems: Problems Problem Status Onset Fever Acute Sepsis Acute Cellulitis of left foot Acute Coronary artery disease Acute Diarrhea Acute End stage renal disease Acute Fever Acute Leukocytosis Acute Pneumonia Acute Severe sepsis Acute
[2016-09-25] MEDS ORDERED: ceFAZolin 2 GM/DEXTROSE 100 ML IV ONE (14:00)
--- NOTE | 2016-09-25 15:05 | PDIAF ---
- Diagnosis Diagnosis: ESRD/Bacteremia Code Status: Full Code - Medication Management Discharge Medications: Medications to Continue on Transfer Amitriptyline HCl [Elavil 10 mg (*)] 10 mg PO HS 07/08/10 [Last Taken 09/18/16] Aspirin [Aspirin 81mg (*)] 81 mg PO DAILY 07/08/10 [Last Taken 09/19/16] Cinacalcet HCl [Sensipar (*)] 30 mg PO Q2D@0900 07/08/10 [Last Taken 09/19/16] Herbals/Supplements -Info Only 1 ea PO DAILY 07/08/10 [Last Taken 09/18/16] Insulin Glargine [Lantus 100 UNITS/ML (*)] 9 units SC DAILY 05/20/13 [Last Taken 09/19/16] Insulin Lispro [humALOG LISPRO 100 units/ml (*)] 1 - 25 units SC TIDMEAL [Last Taken 09/18/16] Pantoprazole Sodium [Protonix 40mg (*)] 40 mg PO DAILY 05/20/13 [Last Taken ] Atorvastatin Calcium [Lipitor 10 mg (*)] 5 mg PO DAILY #30 tab 05/15/16 [Last Taken 09/19/16] Clopidogrel Bisulfate [Plavix (*)] 75 mg PO HS #30 tab 05/15/16 [Last Taken ] Carvedilol [Coreg (*)] 1.5625 mg PO BIDMEAL #30 tab 05/26/16 [Last Taken 08:00] ceFAZolin 2 GM/DEXTROSE [Ancef 2 gm (Premix)] 2 gm IV MOWEFR 6 Days 09/25/16 [ Last Taken Unknown] Discharge Medications: Refer to the Discharge Home Medication list for PRN reason. - Orders Services needed: Home Care, Registered Nurse, Certified Environmental Engineering Assistant, Physical Therapy, Occupational Therapy Home Care Face to Face: I certify that this patient was under my care and that I had the required [id number] encounter meeting the encounter requirements on the discharge day. My findings support the fact that the patient is homebound as defined in CMS Chapter 7 Medicare Benefits Manual 30.1.1, The condition of the patient is such that there exists a normal inability to leave home and consequently, leaving home would require a considerable and taxing effort. - Follow Up Care Current Providers and Referrals: Patient,NotPresent [Unknown] - As per Instructions
--- NOTE | 2016-09-25 15:56 | WOCRNPDOC ---
[facility] Advanced Assessment Note - Skin Integrity Problem, Advanced Assess Left Lower Lateral Leg Unknown Dressing Type: Kerlix, Other Other Dressing Type: Optilock (labeled, "dressing changed by Dr. Rivas 09/23") Dressing Description: Clean/Dry, Shadowed Exudate Amount: Minimal Exudate Color: Reddish/Yellow Exudate Characteristic(s): Dried Integumentary Issue Intervention: Dressing Changed, Dressing Initialed & Dated, Lotion/Cream Applied (Atractain to intact skin) Asuncion Wound Tissue: Scaly (flaking), Rubor (non dependent) Asuncion Wound Swelling: None Wound Bed Color: Red Wound Bed Constitution: Granulation Tissue Wound Edges: Epithelizing, Well Defined Site Odor: None Site Measurement - Head-to-Toe Length X Width X Depth (cm): 3.5 x 2 x 0.05 Skin Integrity Problem Comment: Clean, beefy red granulation across 100% of wound bed, bled readily when cleaned w/gauze and Carraklenz, subsided when dressing applied. In preparation for patient's DC home, applied skin prep to periwound, Silvasorb gel to base, covered w/Adaptic Touch, then non-bordered foam. Atractain applied to intact skin. Secured dressing w/khadijah. Discussed care w/patient, anticipating C to follow. Dr. Ballard present. Report to KWASI Valenzuela. Left First Toe Wound Bed Constitution: Healed Right Medial Heel Dressing Type: Allevyn Life Dressing Description: Clean/Dry Exudate Amount: Scant Exudate Characteristic(s): Dried Integumentary Issue Intervention: Dressing Changed (Silvasorb gel applied), Dressing Initialed & Dated Wound Bed Color: Red Wound Bed Constitution: Granulation Tissue Wound Edges: Attached, Well Defined Site Odor: None Site Measurement - Head-to-Toe Length X Width X Depth (cm): Anterior: 1 x 0.5 x 0.1. Posterior: 0.7 x 0.5 x 0.1 Skin Integrity Problem Comment: Small sites are clean, re-epithelializing at margins. Cleansed w/ Carraklenz, applied silvasorb gel, covered w/Allevyn. Atractain cream to intact/flaking xerotic skin at bilateral feet. Report to KWASI Valenzuela
--- NOTE | 2016-09-25 16:00 | GDS ---
[f rep st] DISCHARGE SUMMARY DIAGNOSES: 1. Group A strep bacteremia. 2. Chronic lower extremity wounds. 3. Influenza B infection. 4. End-stage renal disease, on Saturday dialysis. 5. Diabetes mellitus type 1. 6. Coronary artery disease. 7. Sepsis due to group A strep bacteremia. HOSPITAL COURSE: This 66-year-old man who had a recent admission for strep pyogenes bacteremia who is treated with an appropriate round of antibiotics. He re-presented to the hospital with symptoms of acute weakness. He grew recurrent group A strep from his blood. Most likely source is chronic l ower extremity wounds. X-ray was negative for osteo. He does have a fistula, though it seems unlik sendy that this is the source of his recurrent infection. Echocardiogram was somewhat was unrevealing for vegetations as well, been treated with initially vancomycin, transitioned to Rocephin and Ancef on discharge. He will be set up to get 2 g of Ancef after dialysis Saturday, Saturday, Saturday. Sto p date on this will be 10/05/2016. He will follow up with Dr. Zuniga who is recommending chronic ogden ppressive antibiotics given recurrent bacteremia. He was also positive influenza B. He underwent 5 days of treatment with renally dosed Tamiflu. He has end-stage renal disease, he has been stable getting dialysis here. His fistula had a questio n of a clot on top of it. Once that was removed, there was a question of erythema with some purulen ce. That was sent for culture but nothing grew. Diabetes: Continue his home insulin. Coronary artery disease: Continue his appropriate cardiac medications. This has not been an issue while he is here. He has chronic lower extremity wounds. He has been followed by wound care. He will follow up with Dr. Rivas [facility]. BILLING: I spent more than 30 minutes on the day of discharge coordinating care. /[id number]/MODL
== END 2016-09-25 17:01 | disposition home health service (06) | DRG 871 ==
LOC: EDUNIT# → F2N 10:20 → OBSVTOIN 11:06 → F3E 09-23 14:42
PROVIDERS: ADMIT Internal Medicine; ATTEND Internal Medicine
PROC: 5A1D60Z (ICD-10-PCS; principal; 2016-09-19)
DX: A40.0 Sepsis due to streptococcus, group A (principal); N18.6 End stage renal disease; I12.0 Hypertensive chronic kidney disease with stage 5 chronic kidney disease or end stage renal disease; Z94.0 Kidney transplant status; L97.919 Non-pressure chronic ulcer of unspecified part of right lower leg with unspecified severity; L97.929 Non-pressure chronic ulcer of unspecified part of left lower leg with unspecified severity; J10.1 Influenza due to other identified influenza virus with other respiratory manifestations; E10.22 Type 1 diabetes mellitus with diabetic chronic kidney disease; I25.10 Atherosclerotic heart disease of native coronary artery without angina pectoris; E87.5 Hyperkalemia; Z99.2 Dependence on renal dialysis; Z89.422 Acquired absence of other left toe(s)
CPT/HCPCS: 82784-90; 97116-GP; 97162-GP; 97166-GO; 97530-GP; 97535-GO; G8978-GP-CK; G8979-GP-CI; G8987-GO-CK; G8988-GO-CJ; J0690; J0696; J1815; J3370

== ENCOUNTER 2016-09-26 09:16 | Inpatient (IN) | payer OTHER ==
--- NOTE | 2016-09-26 09:26 | EDPHY ---
H & P HPI/ROS: CHIEF COMPLAINT: Bilateral knee pain HISTORY OF PRESENT ILLNESS: The patient is a 66-year-old man with a history of renal failure on hemodialysis who was getting up out of bed to go to dialysis this morning. While transitioning from bed to the wheelchair he twisted his knees and collapsed. He is worried that he may have injured his knees. He was discharged from the hospital yesterday after being treated for sepsis. He was in the hospital for 5 days for group a strep bacteremia likely from chronic lower extremity wounds. X-rays revealed no signs of osteomyelitis. He also was treated for influenza B infection. Echocardiogram unrevealing. He does have a history of coronary artery disease and type 1 diabetes. He called the dialysis center was concerned that maybe he was weak and his sepsis returned. They recommended he call an ambulance and come here. He was supposed to get dialysis at 9:00 a.m. this morning with Ance[facility]. His renal doctor is Maria Guadalupe. Today the patient does not feel weak. He is not febrile or tachycardic. He is not confused or lethargic. REVIEW OF SYSTEMS: Constitutional: denies: chills, fever, recent illness, recent injury EENTM: denies: blurred vision, double vision, nose congestion Respiratory: denies: cough, shortness of breath Cardiac: denies: chest pain, irregular heart rate, lightheadedness, palpitations Gastrointestinal/Abdominal: denies: abdominal pain, diarrhea, nausea, vomiting, blood streaked stools Genitourinary: denies: dysuria, frequency, hematuria, pain Musculoskeletal: denies: joint pain, muscle pain Skin: denies: lesions, rash, jaundice, bruising Neurological: denies: headache, numbness, paresthesia, tingling, dizziness, weakness Hematologic/Lymphatic: denies: blood clots, easy bleeding, easy bruising Immunologic/allergic: denies: HIV/AIDS, transplant EXAM: GENERAL: Well-appearing, well-nourished and in no acute distress. HEAD: Atraumatic, normocephalic. EYES: Pupils equal round and reactive to light, extraocular movements intact, sclera anicteric, conjunctiva are normal. ENT: TMs normal, nares patent, oropharynx clear without exudates. Moist mucous membranes. NECK: Normal range of motion, supple without lymphadenopathy or JVD. LUNGS: Breath sounds clear to auscultation bilaterally and equal. No wheezes rales or rhonchi. HEART: Regular rate and rhythm without murmurs, rubs or gallops. ABDOMEN: Soft, nontender, normoactive bowel sounds. No guarding, no rebound. No masses appreciated. BACK: No CVA tenderness, no spinal tenderness, step-offs or deformities EXTREMITIES: No visible deformity or swelling to knees. Lower extremities erythematous and dressed. NEUROLOGICAL: Cranial nerves II through XII grossly intact. Normal speech, normal gait. 5/5 strength, normal movement in all extremities, normal sensation PSYCH: Normal mood, normal affect. SKIN: Warm, dry, normal turgor, no visible rashes or lesions. 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), stents, CAD, HTN, PVD, DVT - Family History Significant Family History: No pertinent family hx - Social History Smoking Status: Never smoked Alcohol Use: Sober Drug Use: None Constitutional: Initial Vital Signs Temperature (C) 36.3 C 09/26/16 09:16 Heart Rate 82 09/26/16 09:16 Respiratory Rate 18 09/26/16 09:16 Blood Pressure 186/90 H 09/26/16 09:16 O2 Sat (%) 96 09/26/16 09:16 O2 Delivery Mode Room Air Allergies/Adverse Reactions: adhesive tape Allergy (Verified 06/07/16 11:31) Other-Enter Comments amphotericin B [Amphotericin B] Allergy (Verified 06/07/16 11:31) Home Medications: Medication Instructions Recorded Amitriptyline HCl [Elavil 10 mg 10 mg PO HS 07/08/10 (*)] Aspirin [Aspirin 81mg (*)] 81 mg PO DAILY 07/08/10 Cinacalcet HCl [Sensipar (*)] 30 mg PO MWF 07/08/10 Herbals/Supplements -Info Only 1 ea PO DAILY 07/08/10 Insulin Glargine [Lantus 100 9 units SC DAILY 05/20/13 UNITS/ML (*)] Insulin Lispro [humALOG LISPRO 100 1 - 25 units SC TIDMEAL 05/20/13 units/ml (*)] Pantoprazole Sodium [Protonix 40mg 40 mg PO DAILY 05/20/13 (*)] Atorvastatin Calcium [Lipitor 10 5 mg PO DAILY #30 tab 05/15/16 mg (*)] Clopidogrel Bisulfate [Plavix (*)] 75 mg PO HS #30 tab 05/15/16 Carvedilol [Coreg (*)] 1.5625 mg PO BIDMEAL #30 tab 05/26/16 ceFAZolin 2 GM/DEXTROSE [Ancef 2 2 gm IV MWF 09/26/16 gm (Premix)] Medical Decision Making - Diagnostics Imaging: Imaging Impressions Knee X-Ray 09/26/16 09:25 Impression: 1. No acute fracture or effusion. 2. Demineralization. 3. Extensive vascular calcification. Knee X-Ray 09/26/16 09:25 Impression: 1. No acute fracture or effusion. 2. Demineralization. 3. Extensive vascular calcification. Reviewed independent ED Course/Re-evaluation: 10:40 a.m. we discussed the patient's x-ray results. His was here. They are relieved with this. They would like to get to dialysis. He is weak from spending the last 5 or 6 days in bed but otherwise has no sign of injury or worsening condition. Do not think that he is septic. He has not ill-appearing is not febrile tachycardic. 11:00 a.m. the patient would not stand up on his own. He is scared that he will fall again. We will admit for deconditioning and physical therapy and dialysis. I discussed the case with Dr. Timbo Li who will admit. 11:30 a.m. I discussed the case with Maria Guadalupe. He will evaluate for need of dialysis today. Differential Diagnosis: Partial list of the Differential diagnosis considered include but were not limited to; knee injury, ligamentous injury, generalized fatigue, atrophy and although unlikely based on the history and physical exam, I also considered sepsis, acute coronary disease. I discussed these differential diagnoses and the plan with the patient as well as the usual and expected course. The patient understands that the diagnosis is provisional and that in medicine we are not always correct and that further workup is often warranted. Usual and customary warnings were given. All of the patient's questions were answered. The patient was instructed to return to the emergency department should the symptoms at all worsen or return, otherwise to followup with the physician as we discussed. Departure - Departure Disposition: Home, Routine, Self-Care Clinical Impression: Muscle atrophy of lower extremity Knee pain Qualifiers: Laterality: bilateral Chronicity: acute Qualified Code(s): M25.561 - Pain in right knee Condition: Good
[2016-09-26 11:52] LABS: % IMMATURE GRANULYOCYTES 0.6 % (0.0-1.1); ABSOLUTE IMMATURE GRANULOCYTES 0.04 10^3/uL (0.00-0.10); ADD DIFF? NO; ADD MORPH? NO; ADD SCAN? NO; ATYPICAL LYMPHOCYTE FLAG 0 (0-99); FRAGMENT RBC FLAG 0 (0-99); HEMATOCRIT 33.2 % (40.0-51.0); HEMOGLOBIN 10.8 g/dL (13.7-17.5); LEFT SHIFT FLG 0 (0-99); LIPEMIA HEMOLYSIS FLAG 80 (0-99); MEAN CELL HEMOGLOBIN 28.5 pg (27.9-34.1); MEAN CELL HEMOGLOBIN CONCENTR. 32.5 g/dL (32.4-36.7); MEAN CELL VOLUME 87.6 fL (81.5-99.8); MEAN PLATELET VOLUME 9.5 fL (8.7-11.7); PLATELET CLUMPS FLAG 10 (0-99); PLATELET COUNT 265 10^3/uL (150-400); RED BLOOD CELL COUNT 3.79 10^6/uL (4.40-6.38); RED CELL DISTRIBUTION WIDTH 15.8 % (11.5-15.2)
[2016-09-26 12:19] LABS: ALANINE AMINOTRANSFERASE 26 IU/L (21-72); ALBUMIN 3.2 g/dL (3.5-5.0); ALKALINE PHOSPHATASE 186 IU/L (38-126); ANION GAP 13 mEq/L (8-16); ASPARTATE AMINOTRANSFERASE 33 IU/L (17-59); BILIRUBIN,TOTAL 0.5 mg/dL (0.1-1.4); BILIRUBIN-CONJUGATED 0.5 mg/dL (0.0-0.5); CALCIUM 8.7 mg/dL (8.5-10.4); CARBON DIOXIDE 26 mEq/l (22-31); CHLORIDE 94 mEq/L (97-110); CREATININE 4.3 mg/dL (0.7-1.3); GLOMERULAR FILTRATION RATE 14; GLUCOSE 141 mg/dL (70-100); SODIUM 133 mEq/L (134-144); TOTAL PROTEIN 6.2 g/dL (6.3-8.2)
--- NOTE | 2016-09-26 13:20 | PDGENHP ---
History and Physical - Chief Complaint Weakness and Fall - History of Present Illness PCP: Dr. Zuniga General surgeon: Dr. Rivas Infectious disease: Dr. Gillette HPI: The patient is a 66-year-old man with a history of renal failure on hemodialysis who was getting up out of bed to go to dialysis this morning. While transitioning from bed to the wheelchair he twisted his knees and collapsed. He is worried that he may have injured his knees. He was discharged from the hospital yesterday after being treated for sepsis. He was in the hospital for 5 days for group a strep bacteremia likely from chronic lower extremity wounds. X-rays revealed no signs of osteomyelitis. He also was treated for influenza B infection. Echocardiogram unrevealing. He does have a history of coronary artery disease and type 1 diabetes. He called the dialysis center was concerned that maybe he was weak and his sepsis returned. In the E.D., CBC was not c/w Leukocytosis and he did not have a fever. He has not had a fever. He does report generalized weakness. He was supposed to get dialysis at 9:00 a.m. this morning with [facility]. His renal doctor is Maria Guadalupe. The ED has contacted Nephrology and he will likely get HD today. Bilateral Knee X-rays were negative for acute injury. Knee exam was reassuring. He mild knee pain bilaterally. He is not febrile or tachycardic. His BP is elevated. He is not confused or lethargic. He denies FERREIRA, neck pain, myalgias, CP , SOB, palpitations, n/v. He does have an intermittent cough which is unchanged over the last month and is non productive. History Information - Allergies/Home Medication List Allergies/Adverse Reactions: adhesive tape Allergy (Verified 06/07/16 11:31) Other-Enter Comments amphotericin B [Amphotericin B] Allergy (Verified 06/07/16 11:31) Home Medications: Amitriptyline HCl [Elavil 10 mg (*)] 10 mg PO HS 07/08/10 [Last Taken 09/25/16] Aspirin [Aspirin 81mg (*)] 81 mg PO DAILY 07/08/10 [Last Taken 09/26/16] Cinacalcet HCl [Sensipar (*)] 30 mg PO MWF 07/08/10 [Last Taken 09/24/16] Herbals/Supplements -Info Only 1 ea PO DAILY 07/08/10 [Last Taken 09/18/16] Insulin Glargine [Lantus 100 UNITS/ML (*)] 9 units SC DAILY 05/20/13 [Last Taken 09/26/16] Insulin Lispro [humALOG LISPRO 100 units/ml (*)] 1 - 25 units SC TIDMEAL [Last Taken 09/26/16 4 units] Pantoprazole Sodium [Protonix 40mg (*)] 40 mg PO DAILY 05/20/13 [Last Taken 11/07] ceFAZolin 2 GM/DEXTROSE [Ancef 2 gm (Premix)] 2 gm IV MWF 09/26/16 [Last Taken 09/25/16] I have personally reviewed and updated: family history, medical history, social history, surgical history - Past Medical History coronary artery disease (With PCI to the RCA), diabetes type 1, DVT (Not currently on systemic anticoagulation), ESRD (Hemodialysis Saturday, failed transplant and past), hypertension Additional medical history: Osteomyelitis and chronic group a strep infection in his left lower extremity. Pericarditis. Anemia of chronic kidney disease - Surgical History Additional surgical history: AVF fistula formation. kidney/pancreas transplant. Left 1st digit TMA in May of 2016 - Family History Positive for: diabetes type I Additional family history: recently with viral-like illness - Social History Smoking Status: Never smoked Alcohol Use: Sober Drug Use: None Additional social history: Independent in ADLs, has been relegated to living on a single floor and sleeping in chair as he has been unable to ambulate up stairs for the last 3 months Review of Systems ROS: 10pt was reviewed & negative except for what was stated in HPI & below Physical Exam Temp Pulse Resp BP Pulse Ox 36.4 C 82 16 178/82 H 93 09/26/16 12:33 09/26/16 12:33 09/26/16 12:33 09/26/16 12:33 09/26/16 12:33 Constitutional: no apparent distress, appears nourished, not in pain Eyes: PERRL, anicteric sclera, EOMI Ears, Nose, Mouth, Throat: moist mucous membranes, hearing normal, ears appear normal, no oral mucosal ulcers Cardiovascular: regular rate and rhythym, edema, No JVD Respiratory: no respiratory distress, no rales or rhonchi, clear to auscultation Gastrointestinal: normoactive bowel sounds, soft, non-tender abdomen, no palpable masses Genitourinary: no bladder fullness Skin: warm, normal color Neurologic: AAOx3, weakness (generalized, non focal) Psychiatric: interacting appropriately, not anxious, not encephalopathic Lab Data & Imaging Review 09/26/16 11:43 09/26/16 11:43 WBC 6.51 10^3/uL (3.80-9.50) 09/26/16 11:43 RBC 3.79 10^6/uL (4.40-6.38) L 09/26/16 11:43 Hgb 10.8 g/dL (13.7-17.5) L 09/26/16 11:43 Hct 33.2 % (40.0-51.0) L 09/26/16 11:43 MCV 87.6 fL (81.5-99.8) 09/26/16 11:43 MCH 28.5 pg (27.9-34.1) 09/26/16 11:43 MCHC 32.5 g/dL (32.4-36.7) 09/26/16 11:43 RDW 15.8 % (11.5-15.2) H 09/26/16 11:43 Plt Count 265 10^3/uL (150-400) 09/26/16 11:43 MPV 9.5 fL (8.7-11.7) 09/26/16 11:43 Neut % (Auto) 71.7 % (39.3-74.2) 09/26/16 11:43 Lymph % (Auto) 17.4 % (15.0-45.0) 09/26/16 11:43 [place] % (Auto) 6.3 % (4.5-13.0) 09/26/16 11:43 Eos % (Auto) 3.2 % (0.6-7.6) 09/26/16 11:43 Baso % (Auto) 0.8 % (0.3-1.7) 09/26/16 11:43 Nucleat RBC Rel Count 0.0 % (0.0-0.2) 09/26/16 11:43 Absolute Neuts (auto) 4.67 10^3/uL (1.70-6.50) 09/26/16 11:43 Absolute Lymphs (auto) 1.13 10^3/uL (1.00-3.00) 09/26/16 11:43 Absolute Monos (auto) 0.41 10^3/uL (0.30-0.80) 09/26/16 11:43 Absolute Eos (auto) 0.21 10^3/uL (0.03-0.40) 09/26/16 11:43 Absolute Basos (auto) 0.05 10^3/uL (0.02-0.10) 09/26/16 11:43 Absolute Nucleated RBC 0.00 10^3/uL (0-0.01) 09/26/16 11:43 Immature Gran % 0.6 % (0.0-1.1) 09/26/16 11:43 Immature Gran # 0.04 10^3/uL (0.00-0.10) 09/26/16 11:43 Sodium 133 mEq/L (134-144) L 09/26/16 11:43 Potassium 5.0 mEq/L (3.5-5.2) 09/26/16 11:43 Chloride 94 mEq/L (97-110) L 09/26/16 11:43 Carbon Dioxide 26 mEq/l (22-31) 09/26/16 11:43 Anion Gap 13 mEq/L (8-16) 09/26/16 11:43 BUN 41 mg/dL (7-23) H 09/26/16 11:43 Creatinine 4.3 mg/dL (0.7-1.3) H 09/26/16 11:43 Estimated GFR 14 09/26/16 11:43 Glucose 141 mg/dL (70-100) H 09/26/16 11:43 POC Glucose 147 mg/dL (70-100) H 09/26/16 12:29 Calcium 8.7 mg/dL (8.5-10.4) 09/26/16 11:43 Total Bilirubin 0.5 mg/dL (0.1-1.4) 09/26/16 11:43 Conjugated Bilirubin 0.5 mg/dL (0.0-0.5) 09/26/16 11:43 Unconjugated Bilirubin 0.0 mg/dL (0.0-1.1) 09/26/16 11:43 AST 33 IU/L (17-59) 09/26/16 11:43 ALT 26 IU/L (21-72) 09/26/16 11:43 Alkaline Phosphatase 186 IU/L (38-126) H 09/26/16 11:43 Total Protein 6.2 g/dL (6.3-8.2) L 09/26/16 11:43 Albumin 3.2 g/dL (3.5-5.0) L 09/26/16 11:43 Lipase 64.0 IU/L (23-300) 09/26/16 11:43 Assessment & Plan Assessment: Knee pain (Acute) Muscle atrophy of lower extremity (Acute) Plan: 66 yo male with recent discharge p/w persistent weakness and fall #GAS Bacteremia: -Cont Ancef M/W/F, abx stop date is 10/05 -F/u with ID as an o.p. for eventual chronic suppressive therapy #ESRD: ED has notified renal. They will attempt HD today. #Weakness and Deconditioning: Etiology is likely multifactorial to include recent hospitalization. I do not suspect that this is worsened by acute infection -PT/OT consult #s/p Fall 09/26, Bilateral Knee Sprain -Bilateral XR show not acute event -Reassuring knee exam in the E.D. -will monitor, if worsens, then consider ortho consult vs imaging. -OK to work with PT #HTN -restart home meds -PRN Hydralazine #Chronic Lower Extremity wounds: Wound care to folow. #IDDM: cont home insulin regimen. ISS #DVT proph: Heparin #Code Status: Full code, reviewed today
[2016-09-26] MEDS ORDERED: ONDANSETRON 4 MG/2 ML VIAL IVP PRN (13:32)
[2016-09-26] MEDS ORDERED: ACETAMINOPHEN 325 MG TAB PO PRN (13:32)
[2016-09-26] MEDS ORDERED: ONDANSETRON DISINTEGRATING 4 MG TAB PO PRN (13:32)
[2016-09-26] MEDS ORDERED: hydrALAZINE 20 MG/ML VIAL IVP PRN (13:36)
--- NOTE | 2016-09-26 16:10 | SOAPPROG ---
SOAP Progress Note Assessment/Plan: Assessment: 1. ESRD. He last dialyzed on Saturday. He is due today and is receiving dialysis. Will UF ~ 2L. His DW is 65 kg. 2. Weakness. Likely just debilitation. Will need to work with CM on placement for rehab. 3. AVF ulceration. Has scab that is dry, no recent bleeding. Rim of erythema concerning for possible infxn. Would continue on ancef until clears. Wound swab last week neg for cx/gm stain. Avoid this site for cannulation. Surgery consult if not healing. F-gram if has prolonged bleeding. None in last week. 4. LE wounds/GAS sepsis. Continue ancef 2 g IV qHD through 10/05. Wound care for wounds. Plan: 09/26/16 16:11 09/26/16 16:13 09/26/16 16:21 Subjective: MWF ESRD pt who normally dialyzes [facility] [place] with recent GAS sepsis due to nonhealing foot ulcers. Was discharged from this facility yesterday. However at home he felt very weak when he tried to stand. He fell and hit both knees on the ground. They are both very sore but XRs in the ED did not show any bony abnormality. He has had a scab over his AVF. It came off with silvadene ointment last Saturday but has reformed. >1 wk ago he did have problems with excess bleeding from needle sites after dialysis. He last had a fistulagram 08/08 at [facility]. He denies fevers. His foot wounds have been improving. Objective: Vital Signs Temp Pulse Resp BP Pulse Ox 36.4 C 82 16 178/82 H 93 09/26/16 12:33 09/26/16 12:33 09/26/16 12:33 09/26/16 12:33 09/26/16 12:33 Exam: Comfortable wm on dialysis Qb 100 RRR, no m/g/r L upper arm avf with 2 aneurysmal segments where he has been cannulated Prox site has a scab with 1 cm rim of erythema, no fluctuance. Abdom soft, nt 1+ LE edema ICD10 Worksheet Patient Problems: Problems Problem Status Onset Severe sepsis Acute End stage renal disease Acute Cellulitis of left foot Acute Diarrhea Acute Coronary artery disease Acute Pneumonia Acute Fever Acute Leukocytosis Acute Sepsis Acute Fever Acute Knee pain Acute Muscle atrophy of lower extremity Acute
[2016-09-26] MEDS: HYDROCODONE/APAP 5/325 TAB PO PRN (16:19)
[2016-09-26] MEDS: HEPARIN 5,000 UNIT/0.5 ML SYR SC SCH ×2 (16:38→22:02)
[2016-09-26] MEDS: INSULIN LISPRO 100 UNIT/ML SC SCH (21:50)
[2016-09-26] MEDS: AMITRIPTYLINE HCL 10 MG TAB PO SCH (22:00)
[2016-09-26] MEDS: CARVEDILOL 3.125 MG TAB PO SCH (22:00)
[2016-09-26] MEDS ORDERED: oxyCODONE IR 5 MG TAB PO ONE (22:00)
[2016-09-26] MEDS: CLOPIDOGREL BISULFATE 75 MG TAB PO SCH (22:01)
[2016-09-26] MEDS: ceFAZolin 2 GM/DEXTROSE 100 ML IV SCH (22:03)
[2016-09-27] MEDS: HYDROCODONE/APAP 5/325 TAB PO PRN ×2 (03:03→23:24)
[2016-09-27] MEDS: HEPARIN 5,000 UNIT/0.5 ML SYR SC SCH ×3 (05:22→21:36)
[2016-09-27 05:45] LABS: % IMMATURE GRANULYOCYTES 0.4 % (0.0-1.1); ABSOLUTE IMMATURE GRANULOCYTES 0.02 10^3/uL (0.00-0.10); ADD DIFF? NO; ADD MORPH? NO; ADD SCAN? NO; ATYPICAL LYMPHOCYTE FLAG 10 (0-99); FRAGMENT RBC FLAG 0 (0-99); HEMATOCRIT 29.4 % (40.0-51.0); HEMOGLOBIN 9.5 g/dL (13.7-17.5); LEFT SHIFT FLG 0 (0-99); LIPEMIA HEMOLYSIS FLAG 80 (0-99); MEAN CELL HEMOGLOBIN 28.7 pg (27.9-34.1); MEAN CELL HEMOGLOBIN CONCENTR. 32.3 g/dL (32.4-36.7); MEAN CELL VOLUME 88.8 fL (81.5-99.8); MEAN PLATELET VOLUME 9.8 fL (8.7-11.7); PLATELET CLUMPS FLAG 0 (0-99); PLATELET COUNT 207 10^3/uL (150-400); RED BLOOD CELL COUNT 3.31 10^6/uL (4.40-6.38); RED CELL DISTRIBUTION WIDTH 15.9 % (11.5-15.2)
[2016-09-27 06:03] LABS: ANION GAP 9 mEq/L (8-16); CALCIUM 8.2 mg/dL (8.5-10.4); CARBON DIOXIDE 26 mEq/l (22-31); CHLORIDE 97 mEq/L (97-110); CREATININE 2.6 mg/dL (0.7-1.3); GLOMERULAR FILTRATION RATE 25; GLUCOSE 111 mg/dL (70-100); MAGNESIUM 1.8 mg/dL (1.6-2.3); POTASSIUM 4.5 mEq/L (3.5-5.2); SODIUM 132 mEq/L (134-144)
[2016-09-27] MEDS: INSULIN LISPRO 100 UNIT/ML SC SCH ×3 (08:33→18:09)
[2016-09-27] MEDS ORDERED: Herbals/Supplements -Info Only PO SCH (09:00)
[2016-09-27] MEDS: CARVEDILOL 3.125 MG TAB PO SCH ×2 (09:01→18:09)
[2016-09-27] MEDS: ASPIRIN 81 MG CHEWABLE TAB PO SCH (09:03)
[2016-09-27] MEDS: PANTOPRAZOLE SODIUM 40 MG TAB PO SCH (09:03)
[2016-09-27] MEDS: ATORVASTATIN CALCIUM 10 MG TAB PO SCH (09:03)
[2016-09-27] MEDS: INSULIN GLARGINE 100 UNITS/ML SYRINGE SC SCH (09:04)
--- NOTE | 2016-09-27 11:24 | HOSPPROG ---
Hospitalist Progress Note Assessment/Plan: # fall/knee pain - PT/OT evals; - knee XR neg - needs SNF - also rehab consult placed # strep pyogenes bacteremia - likely source foot/soft tissue; no osteo on XR, doubt fistula as source - cont abx ancef post HD, stop date 10/05, then suppressive PO abx thereafter # LLE wound/cellulitis - abx as above, gen surgery assistance with wound care # ESRD - HD tomorrow - adherent clot removed from fistula - some erythema and discharge sent for cx # DM1 - slight hyperglycemia today, cont glargine + ssi # CAD - asa/plavix/statin/coreg # SQH # FCFT # dispo - SNF vs rehab ## knee XR personally viewed - no fx chart reviewed Subjective: ongoing knee pain Objective: Vital Signs Temp Pulse Resp BP Pulse Ox 37 C 80 16 137/66 H 92 09/27/16 11:14 09/27/16 11:14 09/27/16 11:14 09/27/16 11:14 09/27/16 11:14 Laboratory Results 09/27/16 04:41 09/27/16 04:41 09/26/16 09/27/16 09/28/16 05:59 05:59 05:59 Intake Total 100 Balance 100 - Physical Exam Constitutional: no apparent distress, appears nourished, chronically ill appearing Cardiovascular: regular rate and rhythym, systolic murmur, No irregularly irregular, No diastolic murmur Respiratory: no respiratory distress, no rales or rhonchi, clear to auscultation Gastrointestinal: normoactive bowel sounds, soft, non-tender abdomen, no palpable masses ICD10 Worksheet Patient Problems: Problems Problem Status Onset Severe sepsis Acute End stage renal disease Acute Cellulitis of left foot Acute Diarrhea Acute Coronary artery disease Acute Pneumonia Acute Fever Acute Leukocytosis Acute Sepsis Acute Fever Acute Knee pain Acute Muscle atrophy of lower extremity Acute
--- NOTE | 2016-09-27 12:54 | SOAPPROG ---
SOAP Progress Note Assessment/Plan: Assessment: 1. ESRD HD tomorrow. I will arrange 2. Eschar on Access I will ask Dr. Rapp to see 3. Debilitation Will need SNF placement. Plan: 09/27/16 12:53 Subjective: Discouraged Objective: Vital Signs Temp Pulse Resp BP Pulse Ox 37 C 80 16 137/66 H 92 09/27/16 11:14 09/27/16 11:14 09/27/16 11:14 09/27/16 11:14 09/27/16 11:14 Laboratory Results 09/27/16 04:41 09/27/16 04:41 09/26/16 09/27/16 09/28/16 05:59 05:59 05:59 Intake Total 100 Balance 100 Physical Exam - Physical Exam General Appearance: no apparent distress, cachetic Respiratory: lungs clear Cardiac/Chest: regular rate, rhythm Extremities: pedal edema, other (6mm eschar on proximal aspect of fistula) ICD10 Worksheet Patient Problems: Problems Problem Status Onset Knee pain Acute Muscle atrophy of lower extremity Acute Cellulitis of left foot Acute Coronary artery disease Acute Diarrhea Acute End stage renal disease Acute Fever Acute Fever Acute Leukocytosis Acute Pneumonia Acute Sepsis Acute Severe sepsis Acute
--- NOTE | 2016-09-27 16:43 | WOCRNPDOC ---
[facility]ER[facility] Advanced Assessment Note - Skin Integrity Problem, Advanced Assess Coccyx Dressing Type: Allevyn Life (Sacrum, dated 09/26) Dressing Description: Clean/Dry, Intact Exudate Amount: None Integumentary Issue Intervention: Visualized Under Dressing Asuncion Wound Tissue: Dry, Hypertrophic, Painful/Tender (tender to touch) Asuncion Wound Swelling: None Wound Bed Color: Red Wound Bed Constitution: Smooth Tissue Wound Edges: Scarred, Thick Site Odor: None Site Measurement - Head-to-Toe Length X Width X Depth (cm): 0.3 x 2 x 0.05 Pressure Injury Present on Admit: Yes Skin Integrity Problem Comment: Evidence of resurfaced/re-epithelializing pressure injuries of undetermined previous depth, present prior to this admission, per patient's report: Three thin, horizontal features, resembling cracked calluses are present along dried scar tissue at left sacrum, proximal to coccyx. Patient is on a TAPS with turn schedule. KWASI Hurtado present, assisting. Left Lower Leg Dressing Type: Adaptic Touch, Zechariah, Non-Bordered Foam Dressing Description: Intact (minimal drainage on inside of dressing) Exudate Amount: Scant Exudate Color: Brown Exudate Characteristic(s): Dried Integumentary Issue Intervention: Dressing Changed, Dressing Initialed & Dated, Silver Gel Applied Asuncion Wound Swelling: None Wound Bed Color: Red Wound Bed Constitution: Granulation Tissue (100%) Wound Edges: Epithelizing, Scarred Site Measurement - Head-to-Toe Length X Width X Depth (cm): 4.0 x 2.8 x 0.05 Skin Integrity Problem Comment: Removed dressing placed just prior to DC on . Completely clean, moist granulation tissue across wound bed. Dry scar tissue and xerotic intact across bilat LEs. Two scabs noted on posterior aspect , included in care. Continuing care as previously ordered: Cleansed w/NS and gauze, skin prep periwound, silvasorb to base, Adaptic touch and non-bordered foam, secured w/zechariah. Applied Skin Repair cream to bilat LEs. KWASI Hurtado present. Right Foot Dressing Type: Allevyn Life Dressing Description: Clean/Dry, Intact Exudate Amount: None Exudate Characteristic(s): None Integumentary Issue Intervention: Dressing Removed Asuncion Wound Tissue: Scaly, Dry Wound Bed Constitution: Healed Site Odor: None Skin Integrity Problem Comment: New pink scar tissue present; thick xerotic intact surrounding. Skin Repair cream applied after DCing dressing. Bilateral Heel Asuncion Wound Tissue: Scaly, Dry Wound Bed Constitution: Healed Site Odor: None Skin Integrity Problem Comment: Scar tissue present; thick xerotic intact surrounding. Skin Repair cream applied.
[2016-09-27] MEDS: METHOCARBAMOL 750 MG TAB PO SCH ×2 (16:57→21:36)
--- NOTE | 2016-09-27 20:30 | SOAPPROG ---
GWYN Progress Note Assessment/Plan: Assessment: ASKED TO SEE MR. ANTONY AGAIN THE UPPER ANEURYSMAL SEGMENT OF HIS AV FISTULA A CHRONIC SCAB WHICH APPEARS SOMEWHAT DANGEROUS TO ME FOR POTENTIAL INFECTION OR RUPTURE WOULD RECOMMEND AVOIDING THAT AREA FOR DIALYSIS AND CONSIDERATION OF SURGICAL REPAIR Plan: DISCUSS WITH NEPHROLOGY 09/27/16 20:28 Objective: Vital Signs Temp Pulse Resp BP Pulse Ox 36.4 C 83 12 142/70 H 94 09/27/16 19:31 09/27/16 19:31 09/27/16 19:31 09/27/16 19:31 09/27/16 19:31 Laboratory Results 09/27/16 04:41 09/27/16 04:41 09/26/16 09/27/16 09/28/16 05:59 05:59 05:59 Intake Total 100 Balance 100 ICD10 Worksheet Patient Problems: Problems Problem Status Onset Knee pain Acute Muscle atrophy of lower extremity Acute Cellulitis of left foot Acute Coronary artery disease Acute Diarrhea Acute End stage renal disease Acute Fever Acute Fever Acute Leukocytosis Acute Pneumonia Acute Sepsis Acute Severe sepsis Acute
[2016-09-27] MEDS: CLOPIDOGREL BISULFATE 75 MG TAB PO SCH (21:36)
[2016-09-27] MEDS: AMITRIPTYLINE HCL 10 MG TAB PO SCH (21:36)
[2016-09-28] MEDS: HEPARIN 5,000 UNIT/0.5 ML SYR SC SCH ×3 (05:13→20:14)
[2016-09-28 05:17] LABS: % IMMATURE GRANULYOCYTES 0.4 % (0.0-1.1); ABSOLUTE IMMATURE GRANULOCYTES 0.02 10^3/uL (0.00-0.10); ADD DIFF? NO; ADD MORPH? NO; ADD SCAN? NO; ATYPICAL LYMPHOCYTE FLAG 10 (0-99); FRAGMENT RBC FLAG 0 (0-99); HEMATOCRIT 30.4 % (40.0-51.0); HEMOGLOBIN 9.8 g/dL (13.7-17.5); LEFT SHIFT FLG 0 (0-99); LIPEMIA HEMOLYSIS FLAG 80 (0-99); MEAN CELL HEMOGLOBIN 29.1 pg (27.9-34.1); MEAN CELL HEMOGLOBIN CONCENTR. 32.2 g/dL (32.4-36.7); MEAN CELL VOLUME 90.2 fL (81.5-99.8); MEAN PLATELET VOLUME 9.5 fL (8.7-11.7); PLATELET CLUMPS FLAG 0 (0-99); PLATELET COUNT 217 10^3/uL (150-400); RED BLOOD CELL COUNT 3.37 10^6/uL (4.40-6.38); RED CELL DISTRIBUTION WIDTH 16.3 % (11.5-15.2)
[2016-09-28 05:28] LABS: ALBUMIN 2.6 g/dL (3.5-5.0); ANION GAP 10 mEq/L (8-16); CALCIUM 8.2 mg/dL (8.5-10.4); CARBON DIOXIDE 26 mEq/l (22-31); CHLORIDE 98 mEq/L (97-110); CREATININE 3.9 mg/dL (0.7-1.3); GLOMERULAR FILTRATION RATE 15; GLUCOSE 48 mg/dL (70-100); POTASSIUM 4.8 mEq/L (3.5-5.2); SODIUM 134 mEq/L (134-144)
[2016-09-28] MEDS ORDERED: DEXTROSE 2 GM IV SCH (08:00)
[2016-09-28] MEDS ORDERED: CEFAZOLIN IV SCH (08:00)
--- NOTE | 2016-09-28 10:30 | SOAPPROG ---
SOAP Progress Note Assessment/Plan: Assessment: 1. ESRD. HD today on MWF schedule. His DW is 65 kg. 2. Weakness. Continue to work with CM on placement for rehab. 3. AVF ulceration. Has scab that is dry, no recent bleeding. Rim of erythema concerning for possible infxn, improving on ancef. Would continue on ancef until clears. Wound swab last week neg for cx/gm stain. Avoid this site for cannulation. Dr. Rapp has seen. Will take to OR for debridement. 4. LE wounds/GAS sepsis. Continue ancef 2 g IV qHD through 10/05. Wound care for wounds. Plan: 09/26/16 16:11 09/26/16 16:13 09/26/16 16:21 09/28/16 10:28 Subjective: Pt seen and examined on dialysis. No chest pains, sob. No new complaints. Objective: Vital Signs Temp Pulse Resp BP Pulse Ox 36.5 C 106 H 16 154/87 H 93 09/28/16 04:00 09/28/16 04:00 09/28/16 04:00 09/28/16 04:00 09/28/16 04:00 Laboratory Results 09/28/16 04:23 09/28/16 04:23 09/27/16 09/28/16 09/29/16 05:59 05:59 05:59 Intake Total 100 118 Balance 100 118 Comfortable wm on dialysis Qb 400 RRR, no m/g/r CTAB Abdom soft, nontender No LE edema L arm avf with scab on venous cannulation site. Erythema around scab decreased. ICD10 Worksheet Patient Problems: Problems Problem Status Onset Severe sepsis Acute End stage renal disease Acute Cellulitis of left foot Acute Diarrhea Acute Coronary artery disease Acute Pneumonia Acute Fever Acute Leukocytosis Acute Sepsis Acute Fever Acute Knee pain Acute Muscle atrophy of lower extremity Acute
[2016-09-28] MEDS: INSULIN GLARGINE 100 UNITS/ML SYRINGE SC SCH (12:27)
[2016-09-28] MEDS: INSULIN LISPRO 100 UNIT/ML SC SCH ×3 (12:30→18:01)
[2016-09-28] MEDS: CINACALCET HCL 30 MG TAB PO SCH (12:33)
[2016-09-28] MEDS: METHOCARBAMOL 750 MG TAB PO SCH ×3 (12:34→21:12)
[2016-09-28] MEDS: ATORVASTATIN CALCIUM 10 MG TAB PO SCH (12:34)
[2016-09-28] MEDS: ASPIRIN 81 MG CHEWABLE TAB PO SCH (12:34)
[2016-09-28] MEDS: CARVEDILOL 3.125 MG TAB PO SCH ×2 (12:38→20:00)
[2016-09-28] MEDS: PANTOPRAZOLE SODIUM 40 MG TAB PO SCH (14:08)
--- NOTE | 2016-09-28 16:12 | HOSPPROG ---
Hospitalist Progress Note Assessment/Plan: # fall/knee pain - PT/OT evals; - knee XR neg - needs SNF - also rehab consult placed # strep pyogenes bacteremia - likely source foot/soft tissue; no osteo on XR, doubt fistula as source - cont abx ancef post HD, stop date 10/05, then suppressive PO abx thereafter # chronic lower extremity weakness * patient is able to ambulate but has been weak for actually several years. Not sure what workup has been done a patient does deny ever having MRI of the spine * could consider this but probably discuss with Nephrology who knows him better # LLE wound/cellulitis - abx as above, gen surgery assistance with wound care # ESRD - HD today # adherent clot removed from fistula - some erythema and discharge sent for cx * Dr. ronquillo will take to the OR for exploration tomorrow # DM1 - slight hyperglycemia today, cont glargine + ssi # CAD - asa/plavix/statin/coreg # SQH # FCFT # dispo - accepted to [facility] Subjective: knee still heard. No new complaints. Objective: Vital Signs Temp Pulse Resp BP Pulse Ox 36.7 C 121 H 18 153/98 H 92 09/28/16 15:41 09/28/16 15:41 09/28/16 15:41 09/28/16 15:41 09/28/16 15:41 Laboratory Results 09/28/16 04:23 09/28/16 04:23 09/27/16 09/28/16 09/29/16 05:59 05:59 05:59 Intake Total 100 118 Balance 100 118 - Physical Exam Constitutional: no apparent distress, appears nourished, not in pain Eyes: anicteric sclera, EOMI Ears, Nose, Mouth, Throat: moist mucous membranes, hearing normal Cardiovascular: regular rate and rhythym Respiratory: no respiratory distress Musculoskeletal: other ( No swelling or obvious deformities of bilateral knees) Neurologic: AAOx3 Psychiatric: interacting appropriately, not anxious, not encephalopathic, thought process linear ICD10 Worksheet Patient Problems: Problems Problem Status Onset Knee pain Acute Muscle atrophy of lower extremity Acute Cellulitis of left foot Acute Coronary artery disease Acute Diarrhea Acute End stage renal disease Acute Fever Acute Fever Acute Leukocytosis Acute Pneumonia Acute Sepsis Acute Severe sepsis Acute
[2016-09-28] MEDS: AMITRIPTYLINE HCL 10 MG TAB PO SCH (20:01)
[2016-09-28] MEDS: ceFAZolin 2 GM/DEXTROSE 100 ML IV SCH (20:01)
--- NOTE | 2016-09-28 20:13 | HOSPPROG ---
Hospitalist Progress Note Assessment/Plan: Cross cover note: Called by RN to alert me that patient scheduled for surgical intervention in am , and currently has been on daily asa/plavix. Will hold tonight's plavix and am asa dose, as well as am heparin sc. Objective: Vital Signs Temp Pulse Resp BP Pulse Ox 36.6 C 93 16 180/106 H 93 09/28/16 19:22 09/28/16 19:22 09/28/16 19:22 09/28/16 19:22 09/28/16 19:22 Laboratory Results 09/28/16 04:23 09/28/16 04:23 09/27/16 09/28/16 09/29/16 05:59 05:59 05:59 Intake Total 100 118 Balance 100 118 ICD10 Worksheet Patient Problems: Problems Problem Status Onset Severe sepsis Acute End stage renal disease Acute Cellulitis of left foot Acute Diarrhea Acute Coronary artery disease Acute Pneumonia Acute Fever Acute Leukocytosis Acute Sepsis Acute Fever Acute Knee pain Acute Muscle atrophy of lower extremity Acute
[2016-09-28] MEDS: HYDROCODONE/APAP 5/325 TAB PO PRN (21:12)
[2016-09-29 04:48] LABS: % IMMATURE GRANULYOCYTES 0.7 % (0.0-1.1); ABSOLUTE IMMATURE GRANULOCYTES 0.03 10^3/uL (0.00-0.10); ADD DIFF? NO; ADD MORPH? NO; ADD SCAN? NO; ATYPICAL LYMPHOCYTE FLAG 20 (0-99); FRAGMENT RBC FLAG 0 (0-99); HEMATOCRIT 30.6 % (40.0-51.0); HEMOGLOBIN 9.7 g/dL (13.7-17.5); LEFT SHIFT FLG 0 (0-99); LIPEMIA HEMOLYSIS FLAG 80 (0-99); MEAN CELL HEMOGLOBIN 28.2 pg (27.9-34.1); MEAN CELL HEMOGLOBIN CONCENTR. 31.7 g/dL (32.4-36.7); MEAN PLATELET VOLUME 9.6 fL (8.7-11.7); PLATELET CLUMPS FLAG 0 (0-99); PLATELET COUNT 258 10^3/uL (150-400); RED BLOOD CELL COUNT 3.44 10^6/uL (4.40-6.38); RED CELL DISTRIBUTION WIDTH 16.3 % (11.5-15.2)
[2016-09-29 04:57] LABS: INR 1.13 (0.83-1.16); PROTIME(PATIENT) 14.4 SEC (12.0-15.0)
[2016-09-29 04:58] LABS: APTT 42.4 SEC (23.0-38.0)
[2016-09-29 05:20] LABS: ANION GAP 11 mEq/L (8-16); CALCIUM 8.1 mg/dL (8.5-10.4); CARBON DIOXIDE 25 mEq/l (22-31); CHLORIDE 99 mEq/L (97-110); GLOMERULAR FILTRATION RATE 21; GLUCOSE 58 mg/dL (70-100); POTASSIUM 4.9 mEq/L (3.5-5.2); SODIUM 135 mEq/L (134-144)
[2016-09-29] MEDS: D50W 25 GM/50 ML SYR IVP PRN ×2 (05:38→05:47)
[2016-09-29] MEDS ORDERED: SKIN ADHESIVE (DERMABOND) 1 EACH TP ONE (07:33)
[2016-09-29] MEDS ORDERED: BUPIVACAINE 0.5% 30 ML SDV ONE (07:33)
[2016-09-29] MEDS ORDERED: PROTAMINE SULFATE 50 MG/5 ML VIAL IVP ONE (07:33)
[2016-09-29] MEDS ORDERED: PAPAVERINE HCL 60 MG/2 ML SDV ONE (07:34)
[2016-09-29] MEDS ORDERED: THROMBIN (BOVINE) 5,000 UNIT VIAL TP ONE (07:35)
[2016-09-29] MEDS ORDERED: THROMBIN (RECOMBINANT) 20,000 UNIT SPRAY TP ONE (07:35)
[2016-09-29] MEDS ORDERED: MIDAZOLAM 2 MG/2 ML VIAL ONE (08:02)
[2016-09-29] MEDS ORDERED: fentaNYL 100 MCG/2 ML INJ ONE (08:33)
[2016-09-29] MEDS ORDERED: PROPOFOL/EMULSION 500 MG/50 ML BOTTLE IV ONE (08:33)
[2016-09-29] MEDS ORDERED: LIDOCAINE 2% JELLY 5 ML TUBE ONE (08:35)
[2016-09-29] MEDS ORDERED: DEXAMETHASONE 4 MG/ML VIAL ONE ×2 (08:44→08:45)
[2016-09-29] MEDS ORDERED: ONDANSETRON 4 MG/2 ML VIAL ONE (08:45)
[2016-09-29] MEDS ORDERED: HEPARIN 10,000 UNIT/10 ML MDV ONE (09:06)
--- NOTE | 2016-09-29 09:46 | POSTOPPROG ---
Post Op Note Date of Operation: 09/29/16 Surgeon: Feliberto Rapp Anesthesiologist: Dr Strange Anesthesia: GET(General Endotracheal) Pre-op Diagnosis: Left AVF aneursym Post-op Diagnosis: same Indication: aneurysm Procedure: repair left AVF aneursym Findings: aneursym Inf/Abcess present in the surg proc area at time of surgery?: No Depth: Deep Incisional (Fascial) EBL: Minimal
--- NOTE | 2016-09-29 10:30 | SOAPPROG ---
SOAP Progress Note Assessment/Plan: Assessment: s/p left arm aneursym repair today (saturday) Ok to restart heparin, plavix, aspirin. restart diet Ok to d/c from surgical standpoint, pt does have sutures in left arm -- f/u in office. Plan: 09/29/16 10:29 Objective: Vital Signs Temp Pulse Resp BP Pulse Ox 36.6 C 103 H 17 146/88 H 94 09/29/16 07:33 09/29/16 07:33 09/29/16 07:33 09/29/16 07:33 09/29/16 07:33 Laboratory Results 09/29/16 04:21 09/29/16 04:21 09/28/16 09/29/16 09/30/16 05:59 05:59 05:59 Intake Total 118 Balance 118 PT 14.4 SEC (12.0-15.0) 09/29/16 04:21 INR 1.13 (0.83-1.16) 09/29/16 04:21 ICD10 Worksheet Patient Problems: Problems Problem Status Onset Knee pain Acute Muscle atrophy of lower extremity Acute Cellulitis of left foot Acute Coronary artery disease Acute Diarrhea Acute End stage renal disease Acute Fever Acute Fever Acute Leukocytosis Acute Pneumonia Acute Sepsis Acute Severe sepsis Acute
[2016-09-29] MEDS: INSULIN GLARGINE 100 UNITS/ML SYRINGE SC SCH (11:38)
[2016-09-29] MEDS: METHOCARBAMOL 750 MG TAB PO SCH ×3 (11:39→21:45)
[2016-09-29] MEDS: ATORVASTATIN CALCIUM 10 MG TAB PO SCH (11:39)
[2016-09-29] MEDS: PANTOPRAZOLE SODIUM 40 MG TAB PO SCH (11:40)
[2016-09-29] MEDS: CARVEDILOL 3.125 MG TAB PO SCH ×2 (11:46→18:00)
--- NOTE | 2016-09-29 12:31 | GOP ---
[f rep st] OPERATIVE REPORT DATE OF OPERATION: 09/29/2016 SURGEON: Feliberto Rapp MD CRIMINAL JUSTICE TEACHER: There was no bindery assistant. ANESTHESIOLOGIST: Dr. Strange. PREOPERATIVE DIAGNOSIS: Ulcerated aneurysm, left arm AV fistula. POSTOPERATIVE DIAGNOSIS: Ulcerated aneurysm, left arm AV fistula. PROCEDURE PERFORMED: Aneurysmorrhaphy and resection of ulceration. FINDINGS: Patient was found to have a 1 cm ulceration through the skin into the AV fistula in the u pper aspect of the left arm. There are no signs of infection. DESCRIPTION OF PROCEDURE: The patient was taken to the operating room, where he received satisfacto ry general endotracheal anesthesia by Dr. Strange. Placed in supine position with his left arm outstr etched on an arm board, prepped and draped in the usual sterile fashion with tourniquet in position but not inflated. Elliptical incision was made around the ulceration. This was carefully dissected free from the underlying AV fistula aneurysm; however, it could not be completely without entering the aneurysm wall itself. The aneurysm was dissected free from surrounding subcutaneous t issue and from the overlying skin, and once it was completely exposed in the lower [place], the patient was heparinized, and the tourniquet was then inflated. After adequate circulation time for the heparin , the ulceration and anterior wall of the aneurysm were completely excised. The aneurysm wall was t hen imbricated in a [id number] type closure with running 5-0 Prolene in 2 separate layers, esse ntially excising the entire anterior wall of the aneurysm. Flow was returned as the tourniquet was released. Hemostasis was assured. There was good flow in the aneurysm itself. Hemostasis was obta ined, and heparin was reversed with protamine. Topical thrombin was placed in the cavity. The woun d was closed in layers using 3-0 Vicryl for the subcutaneous tissue and interrupted 3-0 Prolene for the skin. He tolerated the procedure well, was taken to the recovery room in good condition. The w ound was dressed with Dermabond. There were no complications. /[id number]/MODL
[2016-09-29] MEDS: INSULIN LISPRO 100 UNIT/ML SC SCH ×3 (14:06→18:01)
--- NOTE | 2016-09-29 14:22 | HOSPPROG ---
Hospitalist Progress Note Assessment/Plan: 66 yo M with hx of ESRD on chronic HD, pw persistent weakness and fall in setting of recent admission for GAS bacteremia # weakness: multifactorial, has had a subacute decline for years, pt/ot evaluating # ESRD: continued HD,usual schedule MWF, appreciate renal, dry weight of 65kg # AVF ulceration: without associated s/s of infection, s/p resection of ulceration by gen surg today # LE wounds/GAS sepsis and bacteremia: last dc on ancef with plan to continue until 10/05, wound care following, will need to f/u with ID after dc as scheduled # DM1: continue current regimen, bs currently well controlled # CAD: held asa/plavix pre op, will resume in am, no e/o acs or other issues, continue home meds including statin/bb # dispo: IP status Patient new to my care. Old records reviewed and summarized as above. Subjective: patient back from surgery, feeling a bit groggy but otherwise well, asking his diet to be switched back to regular Objective: Vital Signs Temp Pulse Resp BP Pulse Ox 36.7 C 80 14 149/75 H 100 09/29/16 12:29 09/29/16 12:29 09/29/16 12:29 09/29/16 12:29 09/29/16 12:29 Laboratory Results 09/29/16 04:21 09/29/16 04:21 09/28/16 09/29/16 09/30/16 05:59 05:59 05:59 Intake Total 118 350 Output Total 50 Balance 118 300 PT 14.4 SEC (12.0-15.0) 09/29/16 04:21 INR 1.13 (0.83-1.16) 09/29/16 04:21 awake alert nad anicteric op clear rrr bruit from fistula soft nt nd rue fistula warm dry well perfused oriented appriate ICD10 Worksheet Patient Problems: Problems Problem Status Onset Severe sepsis Acute End stage renal disease Acute Cellulitis of left foot Acute Diarrhea Acute Coronary artery disease Acute Pneumonia Acute Fever Acute Leukocytosis Acute Sepsis Acute Fever Acute Knee pain Acute Muscle atrophy of lower extremity Acute
[2016-09-29] MEDS: HEPARIN 5,000 UNIT/0.5 ML SYR SC SCH ×2 (14:32→21:45)
--- NOTE | 2016-09-29 15:00 | SOAPPROG ---
SOAP Progress Note Assessment/Plan: Assessment: ESRD HD yesterday Aneurism on AVF s/p repair, fistula worked well deconditioned Plan: HD yesterday, AVF worked fine next HD Saturday continue therapies looks like may go to rehab unit 09/29/16 14:57 Subjective: tired denies pain nausea or vomiting no cp or SOB appetite not great feels weak Objective: Vital Signs Temp Pulse Resp BP Pulse Ox 36.6 C 84 14 151/74 H 94 09/29/16 14:46 09/29/16 14:46 09/29/16 14:46 09/29/16 14:46 09/29/16 14:46 Laboratory Results 09/29/16 04:21 09/29/16 04:21 09/28/16 09/29/16 09/30/16 05:59 05:59 05:59 Intake Total 118 350 Output Total 50 Balance 118 300 PT 14.4 SEC (12.0-15.0) 09/29/16 04:21 INR 1.13 (0.83-1.16) 09/29/16 04:21 Physical Exam - Physical Exam General Appearance: alert, other (chronically ill appearing) Respiratory: No rhonchi, No wheezing Cardiac/Chest: regular rate, rhythm, edema, No friction rub Abdomen: normal bowel sounds, non-tender, soft Skin: warm/dry Extremities: other (LUE wraped, AVF with + bruit and thrill) Neuro/Psych: alert, oriented x 3 ICD10 Worksheet Patient Problems: Problems Problem Status Onset Knee pain Acute Muscle atrophy of lower extremity Acute Cellulitis of left foot Acute Coronary artery disease Acute Diarrhea Acute End stage renal disease Acute Fever Acute Fever Acute Leukocytosis Acute Pneumonia Acute Sepsis Acute Severe sepsis Acute
[2016-09-29] MEDS ORDERED: LACTULOSE 20 GM/30 ML UDCUP PO PRN (17:33)
[2016-09-29] MEDS ORDERED: POLYETHYLENE GLYCOL 3350 17 GM PKT PO PRN (17:33)
[2016-09-29] MEDS ORDERED: BISACODYL 10 MG SUPP PR PRN (17:33)
[2016-09-29] MEDS: CLOPIDOGREL BISULFATE 75 MG TAB PO SCH (21:44)
[2016-09-29] MEDS: SENNOSIDES/DOCUSATE SODIUM TAB PO SCH ×2 (21:45→21:48)
[2016-09-29] MEDS: AMITRIPTYLINE HCL 10 MG TAB PO SCH (21:45)
[2016-09-29] MEDS: HYDROCODONE/APAP 5/325 TAB PO PRN (22:04)
[2016-09-30 05:06] LABS: % IMMATURE GRANULYOCYTES 0.8 % (0.0-1.1); ABSOLUTE IMMATURE GRANULOCYTES 0.04 10^3/uL (0.00-0.10); ADD DIFF? NO; ADD MORPH? NO; ADD SCAN? NO; ATYPICAL LYMPHOCYTE FLAG 0 (0-99); FRAGMENT RBC FLAG 0 (0-99); HEMATOCRIT 30.4 % (40.0-51.0); HEMOGLOBIN 9.5 g/dL (13.7-17.5); LEFT SHIFT FLG 0 (0-99); LIPEMIA HEMOLYSIS FLAG 80 (0-99); MEAN CELL HEMOGLOBIN 28.8 pg (27.9-34.1); MEAN CELL HEMOGLOBIN CONCENTR. 31.3 g/dL (32.4-36.7); MEAN CELL VOLUME 92.1 fL (81.5-99.8); MEAN PLATELET VOLUME 10.3 fL (8.7-11.7); PLATELET CLUMPS FLAG 0 (0-99); PLATELET COUNT 243 10^3/uL (150-400); RED CELL DISTRIBUTION WIDTH 16.5 % (11.5-15.2)
[2016-09-30 05:19] LABS: ANION GAP 16 mEq/L (8-16); CALCIUM 7.8 mg/dL (8.5-10.4); CARBON DIOXIDE 21 mEq/l (22-31); CHLORIDE 93 mEq/L (97-110); CREATININE 4.3 mg/dL (0.7-1.3); GLOMERULAR FILTRATION RATE 14; GLUCOSE 491 mg/dL (70-100); POTASSIUM 5.5 mEq/L (3.5-5.2); SODIUM 130 mEq/L (134-144)
[2016-09-30] MEDS: HEPARIN 5,000 UNIT/0.5 ML SYR SC SCH ×3 (05:45→21:47)
[2016-09-30] MEDS: INSULIN GLARGINE 100 UNITS/ML SYRINGE SC SCH (08:23)
[2016-09-30] MEDS: INSULIN LISPRO 100 UNIT/ML SC SCH ×4 (08:23→17:59)
[2016-09-30] MEDS: ASPIRIN 81 MG CHEWABLE TAB PO SCH (08:26)
[2016-09-30] MEDS: ATORVASTATIN CALCIUM 10 MG TAB PO SCH (08:26)
[2016-09-30] MEDS: SENNOSIDES/DOCUSATE SODIUM TAB PO SCH ×2 (08:26→21:50)
[2016-09-30] MEDS: CARVEDILOL 3.125 MG TAB PO SCH ×2 (08:27→17:58)
[2016-09-30] MEDS: METHOCARBAMOL 750 MG TAB PO SCH ×3 (08:29→21:47)
[2016-09-30] MEDS: PANTOPRAZOLE SODIUM 40 MG TAB PO SCH (08:29)
[2016-09-30] MEDS: HYDROCODONE/APAP 5/325 TAB PO PRN (08:34)
[2016-09-30] MEDS ORDERED: D50W 25 GM/50 ML SYR IVP PRN (09:22)
--- NOTE | 2016-09-30 10:42 | SOAPPROG ---
GWYN Progress Note Assessment/Plan: Assessment: ESRD HD going fine Aneurism on AVF s/p repair, fistula worked well deconditioned Plan: HD tomorrow, AVF worked fine on Saturday continue therapies looks like may go to rehab unit MRI of his back planned for today per his report 09/29/16 14:57 09/30/16 10:40 Objective: Vital Signs Temp Pulse Resp BP Pulse Ox 36.7 C 110 H 18 157/77 H 92 09/30/16 08:00 09/30/16 08:27 09/30/16 08:00 09/30/16 08:27 09/30/16 08:00 Laboratory Results 09/30/16 04:10 09/30/16 04:10 09/29/16 09/30/16 10/01/16 05:59 05:59 05:59 Intake Total 1050 300 Output Total 50 Balance 1000 300 PT 14.4 SEC (12.0-15.0) 09/29/16 04:21 INR 1.13 (0.83-1.16) 09/29/16 04:21 Physical Exam - Physical Exam General Appearance: alert, thin Respiratory: No rhonchi, No wheezing Cardiac/Chest: regular rate, rhythm, systolic murmur, No friction rub Abdomen: normal bowel sounds, non-tender, soft Skin: warm/dry Extremities: other (incisionLUE looks good) Neuro/Psych: alert, normal mood/affect, oriented x 3 ICD10 Worksheet Patient Problems: Problems Problem Status Onset Knee pain Acute Muscle atrophy of lower extremity Acute Cellulitis of left foot Acute Coronary artery disease Acute Diarrhea Acute End stage renal disease Acute Fever Acute Fever Acute Leukocytosis Acute Pneumonia Acute Sepsis Acute Severe sepsis Acute
--- NOTE | 2016-09-30 10:49 | HOSPPROG ---
Hospitalist Progress Note Assessment/Plan: 66 yo M with hx of ESRD on chronic HD, pw persistent weakness and fall in setting of recent admission for GAS bacteremia # weakness: multifactorial, has had a subacute decline for years, pt/ot and plan for rehab. On further discussion with patient, he is describing what sounds like radicular pain on his left lower extremity preceding the development of weakness, now to the extent that he is unable to ambulate at all. Will obtain MRI T/L spine for further evaluation # knee pain: as above, left > right, no abnormalities appreciated on exam and xray of bilateral knees quite unremarkable. Sounds as if some of the pain may be more radicular type pain and will start with MRI as above. # ESRD: continued HD, usual schedule MWF, appreciate renal, dry weight of 65kg # AVF ulceration: without associated s/s of infection, s/p resection of ulceration and wound appears cdi, bruit present # LE wounds/GAS sepsis and bacteremia: last dc on ancef with plan to continue until 10/05, wound care following, will need to f/u with ID after dc as scheduled # DM1: BS this am significantly higher than it has been in the past several days despite continued same regimen--will repeat bmp, discussed with patient and he notes that he takes a mealtime correction in addition to a sliding scale based on his pre meal glucose--will add mealtime correction and allow patient to manage his glucose as he does at home. # CAD: held asa/plavix pre op, will resume in am, no e/o acs or other issues, continue home meds including statin/bb # dispo: IP status, plan to dc to snf Subjective: no signficant overnight events, patient is still complaining of his knee and weakness bilaterally Objective: Vital Signs Temp Pulse Resp BP Pulse Ox 36.7 C 110 H 18 157/77 H 92 09/30/16 08:00 09/30/16 08:27 09/30/16 08:00 09/30/16 08:27 09/30/16 08:00 Laboratory Results 09/30/16 04:10 09/30/16 04:10 09/29/16 09/30/16 10/01/16 05:59 05:59 05:59 Intake Total 1050 300 Output Total 50 Balance 1000 300 PT 14.4 SEC (12.0-15.0) 04/08/17 04:21 INR 1.13 (0.83-1.16) 09/29/16 04:21 awake alert nad anicteric op clear rrr bruit from fistula appreciated cta b soft nt nd no cce warm dry well perfused oriented appropriate - Time Spent With Patient Time Spent with Patient: greater than 35 minutes Time Spent with Patient: Greater than 35 minutes spent on this patients care, greater than 50% of time spent counseling, educating, and coordinating care regarding the above mentioned plan. ICD10 Worksheet Patient Problems: Problems Problem Status Onset Severe sepsis Acute End stage renal disease Acute Cellulitis of left foot Acute Diarrhea Acute Coronary artery disease Acute Pneumonia Acute Fever Acute Leukocytosis Acute Sepsis Acute Fever Acute Knee pain Acute Muscle atrophy of lower extremity Acute
--- NOTE | 2016-09-30 11:12 | SOAPPROG ---
SOAP Progress Note Assessment/Plan: Assessment: s/p left arm aneursym repair yesterday (saturday) Arm feels fine, hand feels fine PE Pt in chair, comfortable LUE incision clean and dry, +thrill/bruit, normal radius pulse to palpation, hand warm, normal car packer strength pt does have sutures in left arm -- f/u in office, explained to pt. surgery will sign off. Plan: 09/29/16 10:29 09/30/16 11:10 Objective: Vital Signs Temp Pulse Resp BP Pulse Ox 36.7 C 110 H 18 157/77 H 92 09/30/16 08:00 09/30/16 08:27 09/30/16 08:00 09/30/16 08:27 09/30/16 08:00 Laboratory Results 09/30/16 04:10 09/30/16 04:10 09/29/16 09/30/16 10/01/16 05:59 05:59 05:59 Intake Total 1050 300 Output Total 50 Balance 1000 300 PT 14.4 SEC (12.0-15.0) 09/29/16 04:21 INR 1.13 (0.83-1.16) 09/29/16 04:21 ICD10 Worksheet Patient Problems: Problems Problem Status Onset Knee pain Acute Muscle atrophy of lower extremity Acute Cellulitis of left foot Acute Coronary artery disease Acute Diarrhea Acute End stage renal disease Acute Fever Acute Fever Acute Leukocytosis Acute Pneumonia Acute Sepsis Acute Severe sepsis Acute
[2016-09-30 12:59] LABS: ANION GAP 13 mEq/L (8-16); CALCIUM 8.1 mg/dL (8.5-10.4); CARBON DIOXIDE 25 mEq/l (22-31); CHLORIDE 93 mEq/L (97-110); CREATININE 4.9 mg/dL (0.7-1.3); GLOMERULAR FILTRATION RATE 12; GLUCOSE 496 mg/dL (70-100); POTASSIUM 5.2 mEq/L (3.5-5.2); SODIUM 131 mEq/L (134-144)
--- NOTE | 2016-09-30 18:39 | GCON ---
[f rep st] CONSULTATION NEUROSURGICAL CONSULTATION. CHIEF COMPLAINT: Generalized leg weakness and left greater than right leg pain. HISTORY OF PRESENT ILLNESS: This is a 66-year-old male, who has known peripheral neuropathy, some t ype of known myositis, end-stage renal disease on hemodialysis, uncontrolled diabetes, multiple rece nt group B strep infections from chronic nonhealing wounds, currently on IV antibiotics for the same . He was admitted on 09/26/2016 because he attempted to stand from his wheelchair, stated that his knee twisted and his left leg gave out, then his right leg gave out and he fell. He had severe knee pain at that time. He states over the last 3 years or so, he has progressively had generalized low er extremity weakness, making it more and more difficult for him to walk. He uses a wheelchair inte rmittently and uses a walker at home. He states that he, at this point in time, feels generalized l ower extremity weakness and has pain in the entire left knee with pain in the anterior tibialis rob on into the top of the left foot, although he has some baseline numbness and tingling in bilateral f eet from diabetic peripheral neuropathy. He states the right side is just as painful, perhaps sligh tly less so. He states when he initially fell, his pain was centralized around his left knee and it was rated 9/10. He states at this point, he does not have significant pain and rates it less than 1 out of 10. He does have chronic back pain for the last 3 years that he treats with stretching exe rcises, and he notes that if he has been too immobile for long, his back will hurt him, but he rates it as approximately a 3/10. He denies any loss of control of bowel. He is anuric secondary to hem odialysis. He states that this has been slowly progressive, and he came in because of his fall. 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 PAST SURGICAL HISTORY: Includes AV fistula, kidney and pancreas transplant and a left 1st digit amp utation. FAMILY HISTORY: Positive for diabetes. SOCIAL HISTORY: He does not smoke. He does not use alcohol. He does not use illicit drugs. He li ves at home with his and has a son there to help him. ALLERGIES: Adhesive tape and amphotericin. MEDICATIONS: Current medications include: 1. Tylenol. 2. [place]. 3. Elavil. 4. Aspirin. 5. Lipitor. 6. Dulcolax. 7. Coreg. 8. Ancef. 9. Sensipar. 10. Plavix. 11. Dextrose. 12. Heparin. 13. Apresoline. 14. Lantus. 15. Humalog. 16. Cephulac. 17. Robaxin. 18. Zofran. 19. Protonix. 20. MiraLAX. 21. Senokot. 22. Humalog. Home medications include: 1. Plavix. 2. Sensipar. 3. Coreg. 4. Lipitor. 5. Aspirin. 6. Elavil. 7. Ancef. 8. Protonix. 9. Lispro. 10. Lantus. 11. An herbal supplement. REVIEW OF SYSTEMS: The 10 system review of systems performed by myself is negative except as stated above. VITAL SIGNS: Temperature is 36.5, blood pressure is 151/68, heart rate is 75, respiratory rate is 1 6, saturating 98% on room air. LABORATORY DATA: White blood cell count is 5.09, hemoglobin 9.5, hematocrit 30.4, platelets are 243 . PT is 14.4, INR is 1.13, PTT is 42.4. Sodium is 131, potassium 5.2, chloride 93, CO2 25, BUN 56, creatinine 4.9, glucose 496, calcium 8.1. MRI of the thoracic spine dated 09/29/2016 reveals some moderate central canal narrowing at C6-7, no t optimally characterized, a widely patent thoracic spinal canal. No cord compression or cord abnor mality. A tiny central subligamentous disk herniation or protrusion at T8-9 resulting in no central canal narrowing, discogenic motor changes at the T12 level, no acute compression fracture. 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 There is a minimal central can al, symmetric neuroforaminal narrowing with facet hypertrophy and ligamentum thickening without sign ificant stenosis. At L2-3, there is facet hypertrophy and ligamentum thickening with some mild cent ral and mild bilateral lateral recess narrowing, minimal bilateral neural foraminal narrowing. At L 3-4, there is disk desiccation and a broad-based disk bulge, superimposed facet hypertrophy and ligamentum flavum thickening, and congenitally narrow canal resulting in moderate central canal narrowing, moderate bilateral ventral lateral recess narrowing, and mild bilateral neural foraminal stenosis. At L4-5, there is moderate to severe central canal narrowing due to diffuse broad-based disk bulge, facet hypertrophy, and ligamentum flavum hypertrophy with bilateral lateral recess steno sis affecting the L5 nerve roots as they course through the L5-S1 neural foramen. Mild to moderate bilateral neural foraminal narrowing is worse on the left than the right due to broad-based disk bul ge and facet spurs. Exiting left L4 nerve root is compressed and obscured as it courses through the neural foramen, best demonstrated on image 4. The sagittal T2 and at L5-S1, there is mild to moder ate right mild left neural foraminal stenosis and mild central canal stenosis due to diffuse broad-b ased disk bulge and facet hypertrophy. PHYSICAL EXAMINATION: He is alert and oriented x3. Pupils are equal, round, reactive to light and accommodation. Extraocular muscles are intact. There is no facial asymmetry or tongue deviation. Sensation is intact V1, V2, V3 distributions of 5th cranial nerve bilaterally. Strength is 5/5 to b ilateral deltoids, biceps, triceps, wrist flexors, wrist extensors, hand intrinsics, dorsiflexors an d plantar flexors and right EHL. The left toe is missing. He is 2/5 with bilateral hip flexors, 2/ 5 with knee flexion, knee extension on the left, and 3/5 with knee flexion and knee extension on the right. Sensation is intact. DTRs are +1/4 biceps, brachioradialis, patellar, and Achilles. The r ight great toe is downgoing and there is no clonus. Sensation is intact to light touch throughout. He is tender to manipulation and palpation of the left knee with strength exam. IMPRESSION AND PLAN: This is a 66-year-old male with bilateral proximal greater than distal weaknes s including hip flexion, knee flexion, knee extension, bilaterally left greater than right. It is n ot well explained by L4-5 stenosis and foraminal stenosis. He does have this history of a previous EMG in which he received some type of a myositis or myopathy diagnosis years ago and was told at iza t point in time that he may slowly progressively become unable to walk. Certainly, his hip flexion weakness is not well explained by the MRI of the lumbar spine and, furthermore, he would be a poor s urgical candidate in this case because he is hemodialysis dependent and he has active infection with IV antibiotics currently being utilized. This would preclude him also from an epidural steroid inj ection. At this point in time, because his knee is so tender and he does have his history of infection, we w ould recommend an MRI of the left knee, which I will order and would recommend that he follow up as an outpatient with Neurology for likely another EMG to nail down this questionable myositis issue, a s that could certainly explain his proximal greater than distal weakness. He can follow up in our o ffice in approximately 2 weeks for re-evaluation. Please call with any changes in neurologic status . /[id number]/MODL
[2016-09-30 18:53] LABS: GLUCOSE 305 mg/dL (70-100)
[2016-09-30] MEDS: CLOPIDOGREL BISULFATE 75 MG TAB PO SCH (21:47)
[2016-09-30] MEDS: AMITRIPTYLINE HCL 10 MG TAB PO SCH (21:47)
[2016-10-01 04:59] LABS: % IMMATURE GRANULYOCYTES 0.5 % (0.0-1.1); ABSOLUTE IMMATURE GRANULOCYTES 0.03 10^3/uL (0.00-0.10); ADD DIFF? NO; ADD MORPH? NO; ADD SCAN? NO; ATYPICAL LYMPHOCYTE FLAG 0 (0-99); FRAGMENT RBC FLAG 10 (0-99); HEMATOCRIT 29.4 % (40.0-51.0); HEMOGLOBIN 9.1 g/dL (13.7-17.5); LEFT SHIFT FLG 0 (0-99); LIPEMIA HEMOLYSIS FLAG 80 (0-99); MEAN CELL HEMOGLOBIN 28.3 pg (27.9-34.1); MEAN CELL VOLUME 91.3 fL (81.5-99.8); MEAN PLATELET VOLUME 9.8 fL (8.7-11.7); PLATELET CLUMPS FLAG 0 (0-99); PLATELET COUNT 282 10^3/uL (150-400); RED BLOOD CELL COUNT 3.22 10^6/uL (4.40-6.38); RED CELL DISTRIBUTION WIDTH 16.5 % (11.5-15.2)
[2016-10-01 05:37] LABS: ANION GAP 12 mEq/L (8-16); CALCIUM 8.1 mg/dL (8.5-10.4); CARBON DIOXIDE 23 mEq/l (22-31); CHLORIDE 97 mEq/L (97-110); CREATININE 5.3 mg/dL (0.7-1.3); GLOMERULAR FILTRATION RATE 11; GLUCOSE 159 mg/dL (70-100); MAGNESIUM 1.9 mg/dL (1.6-2.3); POTASSIUM 5.7 mEq/L (3.5-5.2); SODIUM 132 mEq/L (134-144)
[2016-10-01] MEDS: HEPARIN 5,000 UNIT/0.5 ML SYR SC SCH ×3 (06:03→21:38)
--- NOTE | 2016-10-01 07:50 | NEUSURGPN ---
Assessment/Plan: Assessment: 66 yo male that is admitted to with ESRD and bacteremia with LLE pain and proximal weakness Plan: -continue proximal LLE weakness-reviewed with Dr Trujillo and states that the MRI doesn't explain the weakness -Dr Trujillo ordered a MRI of the left knee that is pending -continue with Ancef -pt with remote history of progressive myopathy -pt will likely need neurology as well as a possible EMG -PT/OT -call with any questions or concerns -take medications as directed Subjective: Awake and alert. NAD. No new complaints or concerns. No f/c/n/v/d. Objective: AAO x 3, PERRLA/EOMI no droop CN 2-12 grossly intact +lt touch 5/5 BUE/BLE = except HF/KE/KF left and 3+/5 on right with KE/KF CDI Neuro Check Frequency: per routine Urinary Catheter in Place: No - Physician Discussed Patient with : Cassandra Neurosurgery Physical Exam - Vitals, I&O, Labs I and O 09/30/16 10/01/16 10/02/16 05:59 05:59 05:59 Intake Total 1050 800 Output Total 50 0 Balance 1000 800 Intake: Oral (ml) 200 800 IV Intake (ml) 850 Output: Urine (ml) 0 Bedpan 0 Estimated Blood Loss (ml) 50 Other: Number of Voids Bedpan 0 Vital Signs Temp Pulse Resp BP Pulse Ox 36.2 C 81 18 153/74 H 99 10/01/16 07:26 10/01/16 07:26 10/01/16 07:26 10/01/16 07:26 10/01/16 07:26 Laboratory Results 10/01/16 04:24 10/01/16 04:24 ICD10 Worksheet Patient Problems: Problems Problem Status Onset Knee pain Acute Muscle atrophy of lower extremity Acute Cellulitis of left foot Acute Coronary artery disease Acute Diarrhea Acute End stage renal disease Acute Fever Acute Fever Acute Leukocytosis Acute Pneumonia Acute Sepsis Acute Severe sepsis Acute
[2016-10-01] MEDS: CINACALCET HCL 30 MG TAB PO SCH (08:32)
[2016-10-01] MEDS: CARVEDILOL 3.125 MG TAB PO SCH ×2 (08:32→17:53)
[2016-10-01] MEDS: METHOCARBAMOL 750 MG TAB PO SCH ×3 (08:32→21:38)
[2016-10-01] MEDS: ASPIRIN 81 MG CHEWABLE TAB PO SCH (08:32)
[2016-10-01] MEDS: ATORVASTATIN CALCIUM 10 MG TAB PO SCH (08:34)
[2016-10-01] MEDS: INSULIN LISPRO 100 UNIT/ML SC SCH ×3 (08:36→17:56)
[2016-10-01] MEDS: INSULIN GLARGINE 100 UNITS/ML SYRINGE SC SCH (08:37)
[2016-10-01] MEDS: PANTOPRAZOLE SODIUM 40 MG TAB PO SCH (08:38)
[2016-10-01] MEDS: SENNOSIDES/DOCUSATE SODIUM TAB PO SCH ×2 (08:39→21:38)
--- NOTE | 2016-10-01 11:05 | SOAPPROG ---
SOAP Progress Note Assessment/Plan: Assessment/Plan: ESRD: on HD MWF. - HD today per routine. Anemia: hgb 9.1, will continue to monitor and give epo as needed. Access: s/p aneurysm repair done on Saturday. Subjective: No acute events overnight. Pt had MRI back yesterday, getting MRI of his L knee today to further investigate his pain and weakness. Objective: Vital Signs Temp Pulse Resp BP Pulse Ox 36.2 C 88 16 153/74 H 95 10/01/16 07:26 10/01/16 08:42 10/01/16 08:42 10/01/16 07:26 10/01/16 08:42 Laboratory Results 10/01/16 04:24 10/01/16 04:24 09/30/16 10/01/16 10/02/16 05:59 05:59 05:59 Intake Total 1050 800 Output Total 50 0 Balance 1000 800 PT 14.4 SEC (12.0-15.0) 09/29/16 04:21 INR 1.13 (0.83-1.16) 09/29/16 04:21 General: alert and oriented, no acute distress Eyes: EOMI, PERRL OP: Clear CV: RRR Resp: nonlabored respirations on RA Abd; Soft, NT Ext: trace edema BLE Neuro: CN II-XII grossly intact, no asterixis Psych: cooperative, appropriate mood and afect Access; LUE AVF with stitches proximally, thrill and bruit appreciated ICD10 Worksheet Patient Problems: Problems Problem Status Onset Knee pain Acute Muscle atrophy of lower extremity Acute Cellulitis of left foot Acute Coronary artery disease Acute Diarrhea Acute End stage renal disease Acute Fever Acute Fever Acute Leukocytosis Acute Pneumonia Acute Sepsis Acute Severe sepsis Acute
--- NOTE | 2016-10-01 11:53 | SOAPPROG ---
SOHERBIE Progress Note Assessment/Plan: Assessment/Plan: 66 Y M multiple comorbidities, ESRD on HD. s/p aneurysmorraphy of LUE AVF. AVF flowing with good thrill and bruit. Hand is warm and strong. Ok to access AVF for HD today. Stay away from suture line. 10/01/16 11:52 Objective: Vital Signs Temp Pulse Resp BP Pulse Ox 36.2 C 88 16 153/74 H 95 10/01/16 07:26 10/01/16 08:42 10/01/16 08:42 10/01/16 08:00 10/01/16 08:42 Laboratory Results 10/01/16 04:24 10/01/16 04:24 09/30/16 10/01/16 10/02/16 05:59 05:59 05:59 Intake Total 1050 800 250 Output Total 50 0 Balance 1000 800 250 PT 14.4 SEC (12.0-15.0) 09/29/16 04:21 INR 1.13 (0.83-1.16) 09/29/16 04:21 ICD10 Worksheet Patient Problems: Problems Problem Status Onset Knee pain Acute Muscle atrophy of lower extremity Acute Cellulitis of left foot Acute Coronary artery disease Acute Diarrhea Acute End stage renal disease Acute Fever Acute Fever Acute Leukocytosis Acute Pneumonia Acute Sepsis Acute Severe sepsis Acute
--- NOTE | 2016-10-01 16:40 | HOSPPROG ---
Hospitalist Progress Note Assessment/Plan: 66 yo M with hx of ESRD on chronic HD, pw persistent weakness and fall in setting of recent admission for GAS bacteremia # weakness: multifactorial, has had a subacute decline for years, pt/ot and plan for rehab. Apparently patient has a hx of some kind of progressive myositis that would end him up wheelchair bound (per what told nsg), also with lumbar stenosis and chronic knee pain. Knee MRI pending for today, pt/ot, likely will need dc to snf. # knee pain: as above, left > right, no abnormalities appreciated on exam and xray of bilateral knees benign other than pain. Knee MRI pending. # ESRD: continued HD, usual schedule MWF, appreciate renal, dry weight of 65kg # AVF ulceration: without associated s/s of infection, s/p resection of ulceration and wound appears cdi, bruit present # LE wounds/GAS sepsis and bacteremia: last dc on ancef with plan to continue until 10/05, wound care following, will need to f/u with ID after dc as scheduled # DM1: BS this am significantly higher than it has been in the past several days despite continued same regimen--will repeat bmp, discussed with patient and he notes that he takes a mealtime correction in addition to a sliding scale based on his pre meal glucose--will add mealtime correction and allow patient to manage his glucose as he does at home. # CAD: held asa/plavix pre op, will resume in am, no e/o acs or other issues, continue home meds including statin/bb # dispo: IP status, plan to dc to snf Subjective: no significant overnight events, somnolent, pain well controlled Objective: Vital Signs Temp Pulse Resp BP Pulse Ox 36.2 C 89 16 153/74 H 94 10/01/16 07:26 10/01/16 11:33 10/01/16 08:42 10/01/16 08:00 10/01/16 11:33 Laboratory Results 10/01/16 04:24 10/01/16 04:24 09/30/16 10/01/16 10/02/16 05:59 05:59 05:59 Intake Total 1050 800 250 Output Total 50 0 Balance 1000 800 250 PT 14.4 SEC (12.0-15.0) 09/29/16 04:21 INR 1.13 (0.83-1.16) 09/29/16 04:21 awake alert nad anicteric op clear rrr bruit from fistula appreciated cta b soft nt nd no cce warm dry well perfused oriented appropriate ICD10 Worksheet Patient Problems: Problems Problem Status Onset Knee pain Acute Muscle atrophy of lower extremity Acute Cellulitis of left foot Acute Coronary artery disease Acute Diarrhea Acute End stage renal disease Acute Fever Acute Fever Acute Leukocytosis Acute Pneumonia Acute Sepsis Acute Severe sepsis Acute
[2016-10-01] MEDS: ceFAZolin 2 GM/DEXTROSE 100 ML IV SCH (20:47)
[2016-10-01] MEDS: CLOPIDOGREL BISULFATE 75 MG TAB PO SCH (21:38)
[2016-10-01] MEDS: AMITRIPTYLINE HCL 10 MG TAB PO SCH (21:38)
[2016-10-02 04:56] LABS: % IMMATURE GRANULYOCYTES 0.4 % (0.0-1.1); ABSOLUTE IMMATURE GRANULOCYTES 0.03 10^3/uL (0.00-0.10); ADD DIFF? NO; ADD MORPH? NO; ADD SCAN? NO; ATYPICAL LYMPHOCYTE FLAG 0 (0-99); FRAGMENT RBC FLAG 0 (0-99); HEMOGLOBIN 9.2 g/dL (13.7-17.5); LEFT SHIFT FLG 0 (0-99); LIPEMIA HEMOLYSIS FLAG 80 (0-99); MEAN CELL HEMOGLOBIN 29.1 pg (27.9-34.1); MEAN CELL HEMOGLOBIN CONCENTR. 31.7 g/dL (32.4-36.7); MEAN CELL VOLUME 91.8 fL (81.5-99.8); MEAN PLATELET VOLUME 9.6 fL (8.7-11.7); PLATELET CLUMPS FLAG 0 (0-99); PLATELET COUNT 293 10^3/uL (150-400); RED BLOOD CELL COUNT 3.16 10^6/uL (4.40-6.38); RED CELL DISTRIBUTION WIDTH 16.8 % (11.5-15.2)
[2016-10-02 05:21] LABS: ANION GAP 12 mEq/L (8-16); CALCIUM 8.2 mg/dL (8.5-10.4); CARBON DIOXIDE 23 mEq/l (22-31); CHLORIDE 101 mEq/L (97-110); CREATININE 3.6 mg/dL (0.7-1.3); GLOMERULAR FILTRATION RATE 17; GLUCOSE 70 mg/dL (70-100); POTASSIUM 5.1 mEq/L (3.5-5.2); SODIUM 136 mEq/L (134-144)
[2016-10-02] MEDS: HEPARIN 5,000 UNIT/0.5 ML SYR SC SCH ×2 (06:26→12:56)
[2016-10-02 07:25] VITALS: BP 155/69; PULSE 87; RESP 14; TEMP 97.5; O2SAT 95
[2016-10-02] MEDS: INSULIN LISPRO 100 UNIT/ML SC SCH ×2 (09:33→12:56)
[2016-10-02] MEDS: METHOCARBAMOL 750 MG TAB PO SCH ×2 (09:37→15:14)
[2016-10-02] MEDS: ATORVASTATIN CALCIUM 10 MG TAB PO SCH (09:37)
[2016-10-02] MEDS: ASPIRIN 81 MG CHEWABLE TAB PO SCH (09:37)
[2016-10-02] MEDS: PANTOPRAZOLE SODIUM 40 MG TAB PO SCH (09:37)
[2016-10-02] MEDS: CARVEDILOL 3.125 MG TAB PO SCH (09:38)
[2016-10-02] MEDS: SENNOSIDES/DOCUSATE SODIUM TAB PO SCH (09:44)
[2016-10-02] MEDS: INSULIN GLARGINE 100 UNITS/ML SYRINGE SC SCH (10:27)
--- NOTE | 2016-10-02 10:33 | SOAPPROG ---
GWYN Progress Note Assessment/Plan: Assessment/Plan: 66 Y M multiple comorbidities, ESRD on HD. s/p aneurysmorraphy of LUE AVF. Per pt, AVF functioned well at HD yesterday. No new orders. 10/02/16 10:32 Objective: Vital Signs Temp Pulse Resp BP Pulse Ox 36.4 C 87 14 155/69 H 95 10/02/16 07:23 10/02/16 07:23 10/02/16 07:23 10/02/16 07:23 10/02/16 07:23 Laboratory Results 10/02/16 04:19 10/02/16 04:19 10/01/16 10/02/16 10/03/16 05:59 05:59 05:59 Intake Total 800 500 Output Total 0 Balance 800 500 PT 14.4 SEC (12.0-15.0) 09/29/16 04:21 INR 1.13 (0.83-1.16) 09/29/16 04:21 ICD10 Worksheet Patient Problems: Problems Problem Status Onset Knee pain Acute Muscle atrophy of lower extremity Acute Cellulitis of left foot Acute Coronary artery disease Acute Diarrhea Acute End stage renal disease Acute Fever Acute Fever Acute Leukocytosis Acute Pneumonia Acute Sepsis Acute Severe sepsis Acute
--- NOTE | 2016-10-02 12:08 | PDIAF ---
- Diagnosis Code Status: Full Code - Medication Management Discharge Medications: Medications to Continue on Transfer Amitriptyline HCl [Elavil 10 mg (*)] 10 mg PO HS 07/08/10 [Last Taken 09/25/16] Aspirin [Aspirin 81mg (*)] 81 mg PO DAILY 07/08/10 [Last Taken 09/26/16] Cinacalcet HCl [Sensipar (*)] 30 mg PO MWF 07/08/10 [Last Taken 09/24/16] Herbals/Supplements -Info Only 1 ea PO DAILY 07/08/10 [Last Taken 09/18/16] Insulin Glargine [Lantus 100 UNITS/ML (*)] 9 units SC DAILY 05/20/13 [Last Taken 09/26/16] Insulin Lispro [humALOG LISPRO 100 units/ml (*)] 1 - 25 units SC TIDMEAL [Last Taken 09/26/16 4 units] Pantoprazole Sodium [Protonix 40mg (*)] 40 mg PO DAILY 05/20/13 [Last Taken 11/07] Atorvastatin Calcium [Lipitor 10 mg (*)] 5 mg PO DAILY #30 tab 05/15/16 [Last Taken 09/26/16] Clopidogrel Bisulfate [Plavix (*)] 75 mg PO HS #30 tab 05/15/16 [Last Taken 10/08] Carvedilol [Coreg (*)] 1.5625 mg PO BIDMEAL #30 tab 05/26/16 [Last Taken ] Acetaminophen [Tylenol 325mg (*)] 650 mg PO Q4HRS PRN #0 tab 10/02/16 [Last Taken Unknown] Hydrocodone/APAP 5/325 [[place] 5/325 (*)] 1 - 2 tab PO Q4HRS PRN #45 tab [Last Taken Unknown] Methocarbamol [Robaxin 750 mg (*)] 750 mg PO TID #90 tab 10/02/16 [Last Taken Unknown] Polyethylene Glycol 3350 [Miralax 17 gm (*)] 17 gm PO DAILY PRN #0 pkt 10/02/16 [Last Taken Unknown] Sennosides/Docusate Sodium [Senokot-S] 1 - 2 tab PO BID #0 tab 10/02/16 [Last Taken Unknown] ceFAZolin 2 GM/DEXTROSE [Ancef 2 gm (Premix)] 2 gm IV MWF@1999 3 Days 10/02/16 [ Last Taken Unknown] Shelter Antibiotics: Ancef 2GM MWF with HD Shelter Antibiotic Stop Date: 10/05/16 Discharge Medications: Refer to the Discharge Home Medication list for PRN reason. - Orders Services needed: Registered Nurse, Certified Staffing And Scheduling Coordinator, Physical Therapy, Occupational Therapy Diet Recommendation: no restrictions on diet Weigh Patient: daily Wound Care Instructions: Ok to shower over incision, no need to cover after October 01. No heavy lifting left arm for 6 weeks. We do however recommend you use your arm for normal light activities such as eating. Elevate 20 min three times a day above your head if swelling develops. Sutures/Symone Site: fistula revision site sutures left upper extremity--to be removed per Dr. Rapp at f/u visit 09/29/16 - Labs/Radiology BMP Date: 10/05/16 CBC Date: 10/05/16 - Follow Up Care Current Providers and Referrals: Abel Zuniga MD [Primary Care Provider] - As per Instructions Feliberto Rapp MD [Medical Doctor] - (follow up for suture removal to be scheduled by 09/29--please call to confirm appointment) Opal Trujillo DO [Doctor of Osteopathy] - (call to be seen in f/u for lower extremity weakness in coming 1 month) Mamadou Monahan MD [Medical Doctor] - (call to be seen in follow up for knee pain in coming 1-2 weeks) Venkata Velazco DO [Medical Doctor] - (call to establish care with neurologist)
--- NOTE | 2016-10-02 12:16 | PDDCSUM ---
Discharge Summary Discharge Summary: Dates of service: 09/26-10/02/16 Consultations: nephrology, neurosurgery, surgery Procedures: T/L spine MRI, knee MRI, hemodialysis, AVF ulceration resection Hospital course by problem: # weakness: multifactorial, has had a subacute decline for years, pt/ot and plan for rehab. 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 Knee MRI without clear acute changes , pt/ot, dc to snf # knee pain: as above, left > right, no abnormalities appreciated on exam and xray of bilateral knees benign other than pain. Knee MRI showing cystic changes involving the tibial plateau that does not appear to be malignant. Reviewed with ortho who on eval of MRI recommend f/u as an OP and repeat MRI in several months, but do not feel this is related to acute pain as it appears much more chronic. # lumbar nerve compression: with associated radicular type pain, nsg does not feel that intervention at this time would be appropriate or likely helpful. Will have f/u with nsg as an OP. # ESRD: continued HD, usual schedule MWF, appreciate renal, dry weight of 65kg # AVF ulceration: without associated s/s of infection, s/p resection of ulceration and wound appears cdi, bruit present # LE wounds/GAS sepsis and bacteremia: last dc on ancef with plan to continue until 10/05, wound care following # DM1: with significant lability in BS intermittently, back on home regimen with bs better controlled # CAD: held asa/plavix pre op, will resume in am, no e/o acs or other issues, continue home meds including statin/bb # dispo: dc to snf Meds: see EHR F/u with NSG, ortho, neurology, pcp > 35 minutes spent in dc of patient more than half in coordination of care
--- NOTE | 2016-10-02 13:25 | WOCRNPDOC ---
WOCRN Advanced Assessment Note - Skin Integrity Problem, Advanced Assess Left Groin Dermatitis Dressing Type: Open to Air Exudate Amount: Scant Exudate Color: Clear Exudate Characteristic(s): Clear Asnucion Wound Tissue: Intact Asuncion Wound Swelling: Mild Wound Bed Color: Red Wound Bed Constitution: Smooth Tissue Site Odor: None Skin Integrity Problem Comment: Raw, denuded skin w/ satellite lesions noted throughout L upper thigh and L scrotum, consistent in appearance w/ fungal dermatitis. Skin is weepy, though patient denies pain. Nursing has been applying anti-fungal powder, but site is too exudative. Supplied nursing w/ Interdry sheets to manage moisture and confer anti-fungal properties.
[2016-10-02] MEDS: HYDROCODONE/APAP 5/325 TAB PO PRN (15:14)
== END 2016-10-02 15:11 | DRG 939 ==
LOC: EDUNIT# → F3E 12:31 → OBSVTOIN 13:35
PROVIDERS: ADMIT Internal Medicine Nephrology; ATTEND Internal Medicine Nephrology
PROC: 5A1D00Z (ICD-10-PCS; 2016-09-29)
PROC: 0HBCXZZ Excision of Left Upper Arm Skin, External Approach (ICD-10-PCS; principal; 2016-09-29 08:00)
PROC: 03B80ZZ Excision of Left Brachial Artery, Open Approach (ICD-10-PCS; principal; 2016-09-29 08:00)
DX: R53.1 Weakness (principal); M25.561 Pain in right knee; M25.562 Pain in left knee; T82.898A Other specified complication of vascular prosthetic devices, implants and grafts, initial encounter; E11.22 Type 2 diabetes mellitus with diabetic chronic kidney disease; N18.6 End stage renal disease; I12.0 Hypertensive chronic kidney disease with stage 5 chronic kidney disease or end stage renal disease; E11.65 Type 2 diabetes mellitus with hyperglycemia; I25.10 Atherosclerotic heart disease of native coronary artery without angina pectoris; R78.81 Bacteremia; B95.5 Unspecified streptococcus as the cause of diseases classified elsewhere; D63.1 Anemia in chronic kidney disease; Z95.5 Presence of coronary angioplasty implant and graft; Z79.4 Long term (current) use of insulin; Z99.2 Dependence on renal dialysis; Z79.82 Long term (current) use of aspirin; Z86.718 Personal history of other venous thrombosis and embolism
CPT/HCPCS: 82947-QW; 97162-GP; 97166-GO; 97530-GO; 97530-GP; 97535-GO; G8978-GP-CL; G8979-GP-CJ; G8980-GP-CL; G8987-GO-CL; G8988-GO-CJ; J0690; J1100; J1644; J1815; J2250; J2405; J2440; J2704; J2720; J3010

== ENCOUNTER → 2017-02-05 | Outpatient (CLI) | payer OTHER | LOC: FIMAGING 09:04 | PROVIDERS: ATTEND Physician Assistant | DX: S83.241A Other tear of medial meniscus, current injury, right knee, initial encounter (principal); M25.461 Effusion, right knee; M76.821 Posterior tibial tendinitis, right leg ==

== ENCOUNTER 2017-12-23 15:31 | Inpatient (IN) | payer OTHER ==
[2017-12-23] MEDS ORDERED: HYDROmorphONE/DILAUDID 2 MG/ML INJ IVP ONE (15:40)
--- NOTE | 2017-12-23 15:44 | EDPHY ---
H & P Time Seen by Provider: 12/23/17 15:41 HPI/ROS: CHIEF COMPLAINT: Left knee pain HISTORY OF PRESENT ILLNESS: The patient is a 67-year-old wheelchair bound man with a history of diabetes on renal dialysis post renal transplant with significant peripheral neuropathy, peripheral vascular disease and weakness. He was trying to back up in his wheelchair yesterday over a crack when he tipped backwards. He hit his head on the ground and his legs flipped over his head. He has had significant pain in his knee ever since. He has some bruising to his thigh. He denies headache or neck pain. No contusion or hematoma on his scalp. He denies injuries to the right leg or arms. REVIEW OF SYSTEMS: Constitutional: denies: chills, fever, recent illness, recent injury EENTM: denies: blurred vision, double vision, nose congestion Respiratory: denies: cough, shortness of breath Cardiac: denies: chest pain, irregular heart rate, lightheadedness, palpitations Gastrointestinal/Abdominal: denies: abdominal pain, diarrhea, nausea, vomiting, blood streaked stools Genitourinary: denies: dysuria, frequency, hematuria, pain Musculoskeletal: See HPI Skin: denies: lesions, rash, jaundice, bruising Neurological: denies: headache, numbness, paresthesia, tingling, dizziness, weakness Hematologic/Lymphatic: denies: blood clots, easy bleeding, easy bruising Immunologic/allergic: denies: HIV/AIDS, transplant EXAM: GENERAL: Well-appearing, well-nourished and in no acute distress. HEAD: Atraumatic, normocephalic. EYES: Pupils equal round and reactive to light, extraocular movements intact, sclera anicteric, conjunctiva are normal. ENT: TMs normal, nares patent, oropharynx clear without exudates. Moist mucous membranes. NECK: Normal range of motion, supple without lymphadenopathy or JVD. LUNGS: Breath sounds clear to auscultation bilaterally and equal. No wheezes rales or rhonchi. HEART: Regular rate and rhythm without murmurs, rubs or gallops. ABDOMEN: Soft, nontender, normoactive bowel sounds. No guarding, no rebound. No masses appreciated. BACK: No CVA tenderness, no spinal tenderness, step-offs or deformities EXTREMITIES: Normal movement and strength in upper extremities, legs with slight contractions with decreased movement at baseline, significant neuropathy , boot padding in place, swelling and bruising to left thigh, no tenderness to pelvis or left hip. NEUROLOGICAL: Cranial nerves II through XII grossly intact. Normal speech, wheelchair bound. 5/5 strength in both upper extremities, able to wiggle feet in both legs, baseline movement, decreased sensation PSYCH: Normal mood, normal affect. SKIN: Warm, dry, normal turgor, no visible rashes or lesions. 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), stents, CAD, HTN, PVD, DVT - Family History Significant Family History: No pertinent family hx - Social History Smoking Status: Never smoked Alcohol Use: Sober Drug Use: None Constitutional: Initial Vital Signs Temperature (C) 36.8 C 12/23/17 16:01 Heart Rate 85 12/23/17 16:01 Respiratory Rate 16 12/23/17 16:01 Blood Pressure 135/72 H 12/23/17 16:01 O2 Sat (%) 86 L 12/23/17 16:01 O2 Delivery Mode Nasal Cannula O2 (L/minute) 2 Allergies/Adverse Reactions: adhesive tape Allergy (Verified 12/23/17 15:48) Other-Enter Comments amphotericin B [Amphotericin B] Allergy (Verified 12/23/17 15:48) Home Medications: Medication Instructions Recorded Amitriptyline HCl [Elavil 10 mg 10 mg PO HS 07/08/10 (*)] Aspirin [Aspirin 81mg (*)] 81 mg PO DAILY 07/08/10 Herbals/Supplements -Info Only 1 ea PO DAILY 07/08/10 Insulin Lispro [humALOG LISPRO 100 3 - 6 units SC TIDMEAL 05/20/13 units/ml (*)] Pantoprazole Sodium [Protonix 40mg 40 mg PO DAILY 05/20/13 (*)] Clopidogrel Bisulfate [Plavix (*)] 75 mg PO HS #30 tab 05/15/16 Atorvastatin Calcium [Lipitor 10 10 mg PO HS 12/23/17 mg (*)] Carvedilol [Coreg (*)] 3.125 mg PO BIDMEAL 12/23/17 Cholecalciferol Vit D3 [Vitamin D3 2,000 units PO DAILY 12/23/17 (*)] Hydrocodone/APAP 5/325 [[place] 1 - 2 tab PO Q6H PRN 12/23/17 5/325 (*)] Insulin Detemir [Levemir] 11 unit SQ DAILY 12/23/17 traMADol [Ultram 50 mg (*)] 50 mg PO BID PRN 12/23/17 Medical Decision Making - Diagnostics Imaging Results: Imaging Impressions Femur X-Ray 12/23/17 15:40 Impression: Distal femoral shaft fracture. 2. Left Femur, 2 AP views History: Fall out of wheelchair, pain Findings: There is an acute spiral fracture through the mid left femoral shaft with medial angulation of approximately 40 degrees and overlap of approximately 4 cm. A second spiral fracture is present in the distal femoral shaft and identified on the knee x-ray above. There is diffuse severe osteoporosis. The femoral head is normally aligned in the acetabulum. Impression: 1. Mid and distal femoral shaft fractures. Note that lateral evaluation was not obtained of the mid femoral shaft fracture. 2. Diffuse severe osteoporosis. 3. Diffuse severe atherosclerotic disease. Knee X-Ray 12/23/17 15:40 Impression: Distal femoral shaft fracture. 2. Left Femur, 2 AP views History: Fall out of wheelchair, pain Findings: There is an acute spiral fracture through the mid left femoral shaft with medial angulation of approximately 40 degrees and overlap of approximately 4 cm. A second spiral fracture is present in the distal femoral shaft and identified on the knee x-ray above. There is diffuse severe osteoporosis. The femoral head is normally aligned in the acetabulum. Impression: 1. Mid and distal femoral shaft fractures. Note that lateral evaluation was not obtained of the mid femoral shaft fracture. 2. Diffuse severe osteoporosis. 3. Diffuse severe atherosclerotic disease. Imaging: I viewed and interpreted images myself (Midshaft femur fracture) Procedures: Traction splint placed, patient has improvement in pain. ED Course/Re-evaluation: I spoke with Dr. Jeter the patient's dialysis doctor. He states that the patient could not bear weight today usually he can pivot and transfer. He states that he wanted to have the leg evaluated because patient may need a lift at home. The patient has a midshaft femur fracture seen on the portable x-ray. Lab work is been sent. 4:20 p.m. I spoke with Dr. Page who will consult. I spoke with Dr. Beard who will admit to med surg. Differential Diagnosis: Partial list of the Differential diagnosis considered include but were not limited to; femur fracture, knee injury, hip injury and although unlikely based on the history and physical exam, I also considered infection. Critical Care Time: Critical care time spent by me, Dr. Hunt exclusive with this patient was 35 minutes, exclusive of the PA time exclusive of procedures. The organ system that was at risk was musculoskeletal and I gave medications, diagnosis, treatment and admission to prevent worsening of the patient's condition - Data Points Laboratory Results: Laboratory Results 12/23/17 16:20 12/23/17 16:20 12/23/17 12/23/17 12/23/17 16:20 16:20 16:20 WBC 4.82 10^3/uL 10^3/uL (3.80-9.50) RBC 3.43 10^6/uL L 10^6/uL (4.40-6.38) Hgb 10.6 g/dL L g/dL (13.7-17.5) Hct 32.3 % L % (40.0-51.0) MCV 94.2 fL fL (81.5-99.8) MCH 30.9 pg pg (27.9-34.1) MCHC 32.8 g/dL g/dL (32.4-36.7) RDW 12.6 % % (11.5-15.2) Plt Count 220 10^3/uL 10^3/uL (150-400) MPV 10.3 fL fL (8.7-11.7) Neut % (Auto) 61.5 % % (39.3-74.2) Lymph % (Auto) 25.9 % % (15.0-45.0) [place] % (Auto) 6.8 % % (4.5-13.0) Eos % (Auto) 5.2 % % (0.6-7.6) Baso % (Auto) 0.4 % % (0.3-1.7) Nucleat RBC Rel Count 0.0 % % (0.0-0.2) Absolute Neuts (auto) 2.96 10^3/uL 10^3/uL (1.70-6.50) Absolute Lymphs (auto) 1.25 10^3/uL 10^3/uL (1.00-3.00) Absolute Monos (auto) 0.33 10^3/uL 10^3/uL (0.30-0.80) Absolute Eos (auto) 0.25 10^3/uL 10^3/uL (0.03-0.40) Absolute Basos (auto) 0.02 10^3/uL 10^3/uL (0.02-0.10) Absolute Nucleated RBC 0.00 10^3/uL 10^3/uL (0-0.01) Immature Gran % 0.2 % % (0.0-1.1) Immature Gran # 0.01 10^3/uL 10^3/uL (0.00-0.10) PT 13.0 SEC SEC (12.0-15.0) INR 0.96 (0.83-1.16) APTT 33.4 SEC SEC (23.0-38.0) Sodium 139 mEq/L mEq/L (135-145) Potassium 3.9 mEq/L mEq/L (3.3-5.0) Chloride 98 mEq/L mEq/L (97-110) Carbon Dioxide 31 mEq/l mEq/l (22-31) Anion Gap 10 mEq/L mEq/L (8-16) BUN 22 mg/dL mg/dL (7-23) Creatinine 1.7 mg/dL H mg/dL (0.7-1.3) Estimated GFR 40 Glucose 77 mg/dL mg/dL (70-100) Calcium 8.8 mg/dL mg/dL (8.5-10.4) Medications Given: Discontinued Medications Hydromorphone HCl (Dilaudid) 1 mg IVP EDNOW ONE Stop: 12/23/17 15:41 Last Admin: 12/23/17 16:27 Dose: 1 mg Departure - Departure Disposition: [facility] Clinical Impression: Left femoral shaft fracture Qualifiers: Encounter type: initial encounter Fracture type: closed Fracture morphology: spiral Fracture alignment: displaced Qualified Code(s): S72.342A - Displaced spiral fracture of shaft of left femur, initial encounter for closed fracture Condition: Fair
[2017-12-23 16:36] LABS: PLATELET COUNT 220 10^3/uL (150-400)
[2017-12-23 16:45] LABS: INR 0.96 (0.83-1.16)
[2017-12-23] MEDS ORDERED: HYDROmorphONE/DILAUDID 1 MG/ML INJ IVP PRN (16:45)
[2017-12-23] MEDS ORDERED: ONDANSETRON DISINTEGRATING 4 MG TAB PO PRN (16:45)
[2017-12-23] MEDS ORDERED: ONDANSETRON 4 MG/2 ML VIAL IVP PRN (16:45)
[2017-12-23] MEDS ORDERED: BISACODYL 10 MG SUPP PR PRN (16:48)
[2017-12-23] MEDS ORDERED: LACTULOSE 20 GM/30 ML UDCUP PO PRN (16:48)
[2017-12-23] MEDS: HYDROmorphONE/DILAUDID 2 MG TAB PO PRN (18:40)
[2017-12-23] MEDS ORDERED: D50W 25 GM/50 ML VIAL IVP PRN ×2 (18:41→19:56)
[2017-12-23] MEDS ORDERED: D50W 25 GM/50 ML VIAL IVP ONE (18:45)
--- NOTE | 2017-12-23 19:44 | PDGENHP ---
History and Physical - Chief Complaint Acute knee pain - History of Present Illness Primary care provider: Dr. Zuniga Primary head well puller: Dr. Jeter Primary district sales manager: Dr. Dueñas Primary orthopedist: Dr. Mathews/Khalida HPI: 67-year-old male presenting with acute pain located in his left knee, slightly proximal to the patella, characterized as sharp, aching, associated with visible deformity and internal rotation of the left knee. Onset of symptoms was on the day prior to presentation, after the patient experienced a traumatic fall as his wheelchair tipped backwards, he struck the left posterior occiput of his head, left forearm, and landed on his knees. The pain began immediately thereafter, and duration has been persistent since that time. It is been somewhat alleviated by the pain medication received in the emergency department. He attempted to utilize his home pain medications prior to arrival , without appreciable affect. He otherwise denies any chest pain or shortness of breath with his baseline transfers. He is mostly wheelchair-bound but is able to get himself up out of the wheelchair and move his lower extremities, albeit they are particularly weak at baseline. History Information - Allergies/Home Medication List Allergies/Adverse Reactions: adhesive tape Allergy (Verified 12/23/17 15:48) Other-Enter Comments amphotericin B [Amphotericin B] Allergy (Verified 12/23/17 15:48) Home Medications: Amitriptyline HCl [Elavil 10 mg (*)] 10 mg PO HS 07/08/10 [Last Taken 12/22/17 22:00] Aspirin [Aspirin 81mg (*)] 81 mg PO DAILY 07/08/10 [Last Taken 12/23/17 08:00] Herbals/Supplements -Info Only 1 ea PO DAILY 07/08/10 [Last Taken 09/18/16] Insulin Lispro [humALOG LISPRO 100 units/ml (*)] 3 - 6 units SC TIDMEAL [Last Taken 12/23/17 08:00] Pantoprazole Sodium [Protonix 40mg (*)] 40 mg PO DAILY 05/20/13 [Last Taken 08/11 08:00] Atorvastatin Calcium [Lipitor 10 mg (*)] 10 mg PO HS 12/23/17 [Last Taken 22:00] Carvedilol [Coreg (*)] 3.125 mg PO BIDMEAL 12/23/17 [Last Taken 12/23/17 08:00] Cholecalciferol Vit D3 [Vitamin D3 (*)] 2,000 units PO DAILY 12/23/17 [Last Taken 12/23/17 08:00] Hydrocodone/APAP 5/325 [[place] 5/325 (*)] 1 - 2 tab PO Q6H PRN 12/23/17 [Last Taken 12/23/17 08:30] Insulin Detemir [Levemir] 11 unit SQ DAILY 12/23/17 [Last Taken 12/23/17 08:00] traMADol [Ultram 50 mg (*)] 50 mg PO BID PRN 12/23/17 [Last Taken 12/23/17 08:30 ] I have personally reviewed and updated: family history, medical history, social history, surgical history - Past Medical History coronary artery disease (With PCI to the RCA), diabetes type 1, DVT (Not currently on systemic anticoagulation), ESRD (Hemodialysis Saturday, failed transplant and past), hypertension Additional medical history: Osteomyelitis and chronic group a strep infection in his left lower extremity. Pericarditis. Anemia of chronic kidney disease. Severe peripheral arterial disease. Severe peripheral neuropathy - Surgical History Additional surgical history: AVF fistula left upper extremity. kidney/pancreas transplant. Left 1st digit TMA in May of 2016 - Family History Positive for: diabetes type I Additional family history: recently with viral-like illness - Social History Smoking Status: Never smoked Alcohol Use: Sober Drug Use: None Additional social history: Independent in ADLs, has been relegated to living on a single floor and sleeping in chair as he has been unable to ambulate up stairs for the last 3 months Review of Systems Review of Systems: ROS: 10pt was reviewed & negative except for what was stated in HPI & below Muscolosketal: Reports: other (Left knee pain) Skin: Reports: other (Left upper extremity dense ecchymoses) Physical Exam Physical Exam: Temp Pulse Resp BP Pulse Ox 36.7 C 88 16 132/62 H 96 12/23/17 18:36 12/23/17 18:36 12/23/17 18:36 12/23/17 18:36 12/23/17 18:36 O2 (L/minute) 2 Constitutional: no apparent distress, chronically ill appearing, uncomfortable, No not in pain (Mild left knee) Eyes: anicteric sclera, EOMI, other (Right pupil post cataract) Ears, Nose, Mouth, Throat: moist mucous membranes, hearing normal, ears appear normal, no oral mucosal ulcers Cardiovascular: systolic murmur (3/6 at right sternal border and apex), diastolic murmur (Early right sternal border), edema (Trace bilateral lower extremity), No irregularly irregular, No tachycardia Respiratory: no respiratory distress, no rales or rhonchi, clear to auscultation Gastrointestinal: normoactive bowel sounds, soft, non-tender abdomen, no palpable masses, No distension Skin: other (Nonblanching, dense ecchymoses over lateral aspect left forearm, not currently bleeding) Musculoskeletal: other (Left distal femur is displaced medially, tender to palpation with overlying edema, status post TMA of numerous toes left foot) Neurologic: AAOx3, weakness (Distal lower extremities), No sensation intact bilaterally (Bilateral dorsum of feet with significant paresthesia, sensation intact mid calves bilaterally), No facial droop Psychiatric: interacting appropriately, not anxious, not encephalopathic, thought process linear Lab Data & Imaging Review 12/23/17 16:20 12/23/17 16:20 WBC 4.82 10^3/uL (3.80-9.50) 12/23/17 16:20 RBC 3.43 10^6/uL (4.40-6.38) L 12/23/17 16:20 Hgb 10.6 g/dL (13.7-17.5) L 12/23/17 16:20 Hct 32.3 % (40.0-51.0) L 12/23/17 16:20 MCV 94.2 fL (81.5-99.8) 12/23/17 16:20 MCH 30.9 pg (27.9-34.1) 12/23/17 16:20 MCHC 32.8 g/dL (32.4-36.7) 12/23/17 16:20 RDW 12.6 % (11.5-15.2) 12/23/17 16:20 Plt Count 220 10^3/uL (150-400) 12/23/17 16:20 MPV 10.3 fL (8.7-11.7) 12/23/17 16:20 Neut % (Auto) 61.5 % (39.3-74.2) 12/23/17 16:20 Lymph % (Auto) 25.9 % (15.0-45.0) 12/23/17 16:20 [place] % (Auto) 6.8 % (4.5-13.0) 12/23/17 16:20 Eos % (Auto) 5.2 % (0.6-7.6) 12/23/17 16:20 Baso % (Auto) 0.4 % (0.3-1.7) 12/23/17 16:20 Nucleat RBC Rel Count 0.0 % (0.0-0.2) 12/23/17 16:20 Absolute Neuts (auto) 2.96 10^3/uL (1.70-6.50) 12/23/17 16:20 Absolute Lymphs (auto) 1.25 10^3/uL (1.00-3.00) 12/23/17 16:20 Absolute Monos (auto) 0.33 10^3/uL (0.30-0.80) 12/23/17 16:20 Absolute Eos (auto) 0.25 10^3/uL (0.03-0.40) 12/23/17 16:20 Absolute Basos (auto) 0.02 10^3/uL (0.02-0.10) 12/23/17 16:20 Absolute Nucleated RBC 0.00 10^3/uL (0-0.01) 12/23/17 16:20 Immature Gran % 0.2 % (0.0-1.1) 12/23/17 16:20 Immature Gran # 0.01 10^3/uL (0.00-0.10) 12/23/17 16:20 PT 13.0 SEC (12.0-15.0) 12/23/17 16:20 INR 0.96 (0.83-1.16) 12/23/17 16:20 APTT 33.4 SEC (23.0-38.0) 12/23/17 16:20 Sodium 139 mEq/L (135-145) 12/23/17 16:20 Potassium 3.9 mEq/L (3.3-5.0) 12/23/17 16:20 Chloride 98 mEq/L (97-110) 12/23/17 16:20 Carbon Dioxide 31 mEq/l (22-31) 12/23/17 16:20 Anion Gap 10 mEq/L (8-16) 12/23/17 16:20 BUN 22 mg/dL (7-23) 12/23/17 16:20 Creatinine 1.7 mg/dL (0.7-1.3) H 12/23/17 16:20 Estimated GFR 40 12/23/17 16:20 Glucose 77 mg/dL (70-100) 12/23/17 16:20 POC Glucose 62 mg/dL (70-100) L 12/23/17 18:35 Calcium 8.8 mg/dL (8.5-10.4) 12/23/17 16:20 Visualized and Interpreted imaging results: Yes Interpretation: X-ray demonstrating left mid shaft femur fracture with osteoporosis and visible severe atherosclerosis Assessment & Plan Assessment: 67-year-old male presenting with traumatic acute left femur shaft fracture Plan: 1. Left femur fracture. Acute, new problem this provider, further workup indicated. Likely traumatic given the description of the patient's fall, although he does have underlying osteoporosis based on imaging and susceptibility in the setting of end-stage renal disease, but this situation does seem more traumatic in nature -pain management -bowel protocol -incentive spirometer -RCRI score of 3, conferring at least a 2.5% perioperative cardiovascular morbidity and/or mortality risk, resulting in intermediate cardiovascular risk patient for an intermediate risk orthopedic surgery, given the urgent necessity , will hold on further cardiac risk stratification at this time but monitor closely postoperatively on telemetry as well as with postoperative troponin level to rule out perioperative ischemia -discussed with Dr. Page, he reports to me that the patient will go to the OR tonight, continue NPO, D50 if hypoglycemia -therapy evaluations -likely half-way facility for limited mobility -he has a history of DVT but is not currently on systemic anticoagulation, he will be high risk for postoperative DVT, particularly given his impaired mobility at baseline, recommend Coumadin for 30 days, initiate tomorrow, pending no evidence of bleeding 2. End-stage renal disease. Saturday hemodialysis, patient completed dialysis session today, patient's primary head well puller is aware of the patient and patient will receive dialysis on his regular schedule in the hospital, potentially tomorrow if patient received a significant amount of fluid with operation tonight 3. Severe atherosclerosis and peripheral arterial disease. Visible on lower extremity imaging, patient denies any anginal symptoms prior to arrival, he will be at risk for poor wound healing and I would recommend avoiding SCDs -continue home medications -monitor postoperative wound closely 4. Diabetes mellitus type 2. Continue patient's medications tomorrow once he is eating and drinking as baseline 5. Anemia of end-stage renal disease. Monitor hemoglobin level tomorrow to ensure no significant blood loss, given his impaired baseline Diet. Renal after surgery Code. Full, is PO[place] Prophylaxis. Hold pharm and SCDs prior to surgery, start Coumadin tomorrow Disposition. Anticipated date of discharge uncertain this time, anticipated length stay is greater than 48 hr for reasonable medical necessity including acute femur fracture requiring further surgical intervention with high risk comorbid conditions outlined above, patient likely requiring half-way facility time discharge.
[2017-12-23] MEDS ORDERED: CARVEDILOL 3.125 MG TAB PO ONE (19:56)
[2017-12-23] MEDS: AMITRIPTYLINE HCL 10 MG TAB PO SCH (20:48)
[2017-12-23] MEDS: ATORVASTATIN CALCIUM 10 MG TAB PO SCH (22:02)
--- NOTE | 2017-12-23 22:49 | PDANEPAE ---
ANE Past Medical History - Cardiovascular History Hx Hypertension: Yes Hx Arrhythmias: No Hx Chest Pain: No Hx Coronary Artery / Peripheral Vascular Disease: Yes Hx CHF / Valvular Disease: No Hx Palpitations: No Cardiovascular History Comment: stents x 3. Hx of ME - Pulmonary History Hx COPD: No Hx Asthma/Reactive Airway Disease: No Hx Recent Upper Respiratory Infection: No Hx Oxygen in Use at Home: No Hx Sleep Apnea: No Sleep Apnea Screening Result - Last Documented: Positive - Neurologic History Hx Cerebrovascular Accident: No Hx Seizures: No Hx Dementia: No - Endocrine History Hx Diabetes: Yes Endocrine History Comment: Blood sugar 102 at 0845. had humalog at 2200 2 units - Renal History Hx Renal Disorders: Yes Renal History Comment: ON DIALYSIS- LAST ON 10-19-15 - Liver History Hx Hepatic Disorders: Yes - Neurological & Psychiatric Hx Hx Neurological and Psychiatric Disorders: No - Cancer History Hx Cancer: No - Congenital Disorder History Hx Congenital Disorders: No - GI History Hx Gastrointestinal Disorders: Yes Gastrointestinal History Comment: GASTRITIS AND TAKES PROTONIX - Other Health History Other Health History: H/O BLISTERS THEN DEEPER TISSUE DEFECTS WITH RIGHT LOWER LEG WOUND PRESENTLY. RIGHT FOOT BIG TOENAIL REMOVED 1 MONTH AGO - Chronic Pain History Chronic Pain: No - Surgical History Prior Surgeries: KIDNEY AND PANCREAS TRANSPLANT 1999. [place] KIDNEY REMOVED. PAND=CREAS REMOVED. CATARACT EYE SURGERY. RIGHT HIP SURGERY 2008 WITH HARDWARE IN. TOE AMPUTATION RIGHT 5TH METATARSAL, LEFT 2 & 4TH TOES ANE Review of Systems Review of Systems: ANE Patient History - Allergies Allergies/Adverse Reactions: adhesive tape Allergy (Verified 12/23/17 15:48) Other-Enter Comments amphotericin B [Amphotericin B] Allergy (Verified 12/23/17 15:48) - Home Medications Home Medications: Amitriptyline HCl [Elavil 10 mg (*)] 10 mg PO HS 07/08/10 [Last Taken 12/22/17 22:00] Aspirin [Aspirin 81mg (*)] 81 mg PO DAILY 07/08/10 [Last Taken 12/23/17 08:00] Herbals/Supplements -Info Only 1 ea PO DAILY 07/08/10 [Last Taken 09/18/16] Insulin Lispro [humALOG LISPRO 100 units/ml (*)] 3 - 6 units SC TIDMEAL [Last Taken 12/23/17 08:00] Pantoprazole Sodium [Protonix 40mg (*)] 40 mg PO DAILY 05/20/13 [Last Taken 08/11 08:00] Amoxicillin Trihydrate [Amoxil] 500 mg PO HS 12/23/17 [Last Taken Unknown] Atorvastatin Calcium [Lipitor 10 mg (*)] 10 mg PO HS 12/23/17 [Last Taken 22:00] Carvedilol [Coreg (*)] 3.125 mg PO BIDMEAL 12/23/17 [Last Taken 12/23/17 08:00] Cholecalciferol Vit D3 [Vitamin D3 (*)] 2,000 units PO DAILY 12/23/17 [Last Taken 12/23/17 08:00] Hydrocodone/APAP 5/325 [[place] 5/325 (*)] 1 - 2 tab PO Q6H PRN 12/23/17 [Last Taken 12/23/17 08:30] Insulin Detemir [Levemir] 11 unit SQ DAILY 12/23/17 [Last Taken 12/23/17 08:00] traMADol [Ultram 50 mg (*)] 50 mg PO BID PRN 12/23/17 [Last Taken 12/23/17 08:30 ] - NPO status NPO Since - Liquids (Date): 12/23/17 NPO Since - Liquids (Time): 07:00 NPO Since - Solids (Date): 12/23/17 NPO Since - Solids (Time): 07:00 - Smoking Hx Smoking Status: Never smoked - Alcohol Use Alcohol Use: Sober - Family Anes Hx Family Hx Anesthesia Complications: NO ANE Labs/Vital Signs - Labs Result Diagrams: 12/23/17 16:20 12/23/17 16:20 - Vital Signs Blood Pressure: 132/62 Heart Rate: 88 Respiratory Rate: 16 O2 Sat (%): 100 Height: 177.8 cm Weight: 63.503 kg ANE Physical Exam - Airway Mallampati Score: Class 2 - ASA Status ASA Status: III, E ANE Anesthesia Plan Anesthesia Plan: GA w LMA
[2017-12-23] MEDS ORDERED: fentaNYL 100 MCG/2 ML INJ ONE (22:54)
[2017-12-23] MEDS ORDERED: CEFAZOLIN 2 GM/DEXTROSE/100 ML BAG IV ONE (22:54)
[2017-12-23] MEDS ORDERED: PROPOFOL 200 MG/20 ML VIAL ONE (22:55)
[2017-12-23] MEDS ORDERED: ONDANSETRON 4 MG/2 ML VIAL ONE (22:57)
[2017-12-23] MEDS: SENNOSIDES/DOCUSATE SODIUM TAB PO SCH (22:57)
[2017-12-23] MEDS: CLOPIDOGREL BISULFATE 75 MG TAB PO SCH (22:57)
[2017-12-23] MEDS ORDERED: LIDOCAINE 2% JELLY 5 ML TUBE ONE (22:57)
[2017-12-23] MEDS ORDERED: METOCLOPRAMIDE 10 MG/2 ML VIAL ONE (22:57)
[2017-12-23] MEDS ORDERED: HYDROmorphONE/DILAUDID 1 MG/ML INJ ONE (23:04)
[2017-12-24] MEDS ORDERED: BUPIVACAINE 0.25% 30 ML SDV ONE (00:29)
[2017-12-24] MEDS ORDERED: NALOXONE HCL 0.4 MG/ML INJ IVP PRN (01:00)
[2017-12-24] MEDS ORDERED: PHENYLEPHRINE HCL 100 MCG/ML SYR IVP PRN (01:00)
[2017-12-24] MEDS ORDERED: fentaNYL 100 MCG/2 ML INJ IVP PRN (01:00)
[2017-12-24] MEDS ORDERED: NS 500 ML IV PRN (01:00)
--- NOTE | 2017-12-24 01:02 | POSTANESTH ---
Post Anesthetic Evaluation Cardiovascular Status: Similar to Pre-Op Cond Respiratory Status: Normal, Stable Level of Consciousness/Mental Status: Can Participate in Eval Pain Control: Adequate, Prn Tx Ordered Nausea/Vomiting Control: Adequate, Prn Tx Ordered Complications Possibly Related to Anesthesia: None Noted
--- NOTE | 2017-12-24 01:24 | GHP ---
[f rep st] PREOP HISTORY AND PHYSICAL DATE OF ADMISSION: 12/23/2017 REPORT TITLE: Orthopedic emergency room consult. CHIEF COMPLAINT: Left thigh pain. DIAGNOSIS: 1. Segmental left femur fracture. 2. Comorbidities of diabetes, end-stage renal disease, failed kidney transplant. 3. Wheelchair bound, pivot transfers. The patient lives at home. Please see details of ER history and physical and admitting history and physical. A 67-year-old male, who lives at home. 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 Diabetes with complications leading to end -stage renal disease. On dialysis 3 times a week. Fell out of his wheelchair, mechanical fall, and injured his left thigh. He is mostly wheelchair bound with weightbearing transfers. PHYSICAL EXAMINATION: Pertinent orthopedic examination reveals a well-appearing gentleman. Left low er extremity is in Zaman's traction. His thigh skin and knee skin looked healthy. He has dermal miguel is of the lower extremity. Decreased sensation to light touch. He has multiple ulcers over his righ t lower extremity and dressings that Dr. Williamson, is taking care of. He has multiple lesser toe amputa tions on the left lower extremity that are well healed in his past history. IMAGING: Pertinent orthopedic x-rays and imaging show a midshaft femur fracture as well as a distal femur fracture that look like 2 separate entities. The distal femoral component looks nondisplaced. IMPRESSION RECOMMENDATION: Left distal femur fracture. Risks, benefits, and expectations were discu ssed about surgical and nonsurgical treatment. Considering he is required to weightbear for transfer s and hygiene, I think it is in his best interest to mark this left femurs to allow him to weightbear transfer. His and the patient are in agreement. 30 minutes at the bedside. Proceed with left femur fracture fixation. /[id number]/MODL
--- NOTE | 2017-12-24 01:33 | GOP ---
[f rep st] OPERATIVE REPORT DATE OF OPERATION: SURGEON: Koby Page MD PREOPERATIVE DIAGNOSIS: Left femur shaft segmental fracture. POSTOPERATIVE DIAGNOSIS: Left femur shaft segmental fracture. PROCEDURE PERFORMED: Retrograde femoral nailing of segmental femoral shaft fracture. FINDINGS: ESTIMATED BLOOD LOSS: 300 cc. No tourniquet. INDICATIONS: 67-year-old male who has diabetes, end-stage renal disease on dialysis, wheelchair-windy nd. Stands to pivot and transfer. He fell out of his wheelchair and broke his left femur. DESCRIPTION OF PROCEDURE: The patient identified in the preoperative holding area. and son luis sevilla available for questions and answers. Left lower extremity was placed in Zaman's traction. He had a well-padded right ankle for ulcers that Dr. Williamson is treating, and he has well-healed multiple toe a mputations on the left side, left foot. The knee looked healthy. Left thigh was swollen. Bilateral upper extremities without any painful movement. Imaging was reviewed. A nondisplaced distal femur fracture with a midshaft femur fracture on the pao e side. The patient was consented at the bedside. Patient brought to the operating room. General anesthesia on the OR Nithin table. Left lower extre mity was prepped and draped in the usual sterile fashion up to the hip. The other extremity is well padded. A surgical time-out was performed. Antibiotics were confirmed. A midline skin incision ove r the knee was made from the tibial tubercle up to the top of the patella. The paratenon was taken i n line. Medial parapatellar incision through the capsule was performed. We dislocated the patella l aterally. We did not have to checo it. We saw the PCL insertion on the femur and just went slightly anterior to this. I used a guidewire. Confirmed this with fluoroscopic views into an AP and latera l view. We did an opening reamer. A ball-tipped guidewire up into the lesser trochanter. We succes sively reamed from 9.5 to 13.5. The canal was fairly capacious and we chose the appropriately sized nail. We placed 2 distal interlocks with 1 blade plate and 1 distal interlock and then proximally ri ght at the level of the lesser trochanter we did an AP screw for proximal interlocks. We confirmed with fluoroscopic guidance, AP and lateral, for the entire femur. The femur moved as a whole. There was no significant malrotation compared to the contralateral side. The wounds were copiously washed out with 500 cc of warm normal saline. 30 cc of 0.25% Marcaine were used throughout the soft tissue s. The small incisions proximally were stapled and had a waterproof dressing. The lateral based dis radhames interlock incision had 2-0 PDS for the IT band and 3-0 Monocryl and then kaden for the knee inc ision. We did 0 PDS for the capsular closure, multiple interrupted [id number], 2-0 PDS for ogden perficial subcutaneous tissue, 3-0 Monocryl as well and then kaden. Sterile dressings applied with Xeroform, 4x4s, ABD, and a sterile Joseluis. COMORBIDITIES: 1. Diabetes. 2. End-stage renal disease on dialysis. COMPLICATIONS: None. DISPOSITION: Extubated awake to the PACU in stable condition. /[id number]/MODL
--- NOTE | 2017-12-24 08:43 | ASMTLACE ---
LACE Comorbidities - select Answers: Coronary Artery Disease all that apply Diabetes (uncontrolled or controlled) Moderate or severe liver or renal disease Peripheral vascular disease Previous myocardial infarction Other Notes: HTN; Hx of DVT # of Emergency department Answers: 1-2 visits in the last 6 months Score: 11 Date Signed: 12/24/2017 08:42 AM Electronically Signed By:Shagufta Cook
[2017-12-24] MEDS ORDERED: Herbals/Supplements -Info Only PO SCH (09:00)
[2017-12-24] MEDS: ACETAMINOPHEN 325 MG TAB PO PRN ×2 (09:38→12:29)
[2017-12-24] MEDS: INSULIN GLARGINE 100 UNITS/ML UNIT SC SCH ×2 (09:38→11:56)
[2017-12-24] MEDS: CARVEDILOL 3.125 MG TAB PO SCH (09:40)
[2017-12-24] MEDS: PANTOPRAZOLE SODIUM 40 MG TAB PO SCH (09:40)
[2017-12-24] MEDS: SENNOSIDES/DOCUSATE SODIUM TAB PO SCH ×2 (09:40→21:17)
[2017-12-24] MEDS: POLYETHYLENE GLYCOL 3350 17 GM PKT PO PRN (09:41)
[2017-12-24] MEDS: ASPIRIN 81 MG CHEWABLE TAB PO SCH (09:41)
[2017-12-24] MEDS: CHOLECALCIFEROL VIT D3 2,000 UNITS TAB/CAP PO SCH (09:42)
[2017-12-24] MEDS: INSULIN REGULAR HUMAN 100 UNIT/ML UNIT SC SCH ×5 (09:51→22:12)
[2017-12-24] MEDS: HYDROmorphONE/DILAUDID 2 MG TAB PO PRN ×3 (09:52→21:20)
--- NOTE | 2017-12-24 11:31 | PDMN ---
Medical Necessity Medical necessity: est los>2mn for L femur fx r/t fall from w/c; admit for surgical intervention, pain management, PT/OT; high risk related to multiple comorbidities: ESRD, DM, anemia, severe atherosclerosis and peripheral arterial disease; per order and H&P 12/23/17 12/23/17
[2017-12-24] MEDS ORDERED: DIAZEPAM 5 MG TAB PO PRN (12:07)
--- NOTE | 2017-12-24 12:17 | HOSPPROG ---
Hospitalist Progress Note Assessment/Plan: 67-year-old male presenting with traumatic acute left femur shaft fracture. First encounter, chart reviewed. D/W RN at bedside. Plan: # Left femur fracture. -Acute likely traumatic given the description of the patient's fall -POD#1 Dr Camilo GARY nailing -pain management -bowel protocol -incentive spirometer -therapy evaluations, pt wheelchair bound with pivots -likely residential facility for limited mobility -he has a history of DVT but is not currently on systemic anticoagulation, he will be high risk for postoperative DVT, particularly given his impaired mobility at baseline, recommend Coumadin for 30 days, pending no evidence of bleeding, on Plavix and ASA. # End-stage renal disease. -Saturday hemodialysis, patient completed dialysis session Saturday , patient's primary creative engagement director is aware of the patient and patient will receive dialysis on his regular schedule in the hospital # Severe atherosclerosis and peripheral arterial disease. -Visible on lower extremity imaging -continue home medications, plavix, asa -monitor postoperative wound closely #Abrasions -multiple from traumatic fall -consider woundcare # Diabetes mellitus type 2. - Continue patient's medications once he is eating and drinking as baseline -lantus on hold # Anemia of end-stage renal disease. - Monitor hemoglobin level tomorrow to ensure no significant blood loss, given his impaired baseline #Indeterminate trop -mild -postop -follow -no cp or issues Diet. Renal after surgery Code. Full, is MD POEverett Prophylaxis. Hold pharm and SCDs prior to surgery, start Coumadin today Subjective: Having a lot of pain today. Not feeling well. Frustrated. Objective: Vital Signs Temp Pulse Resp BP Pulse Ox 36.8 C 94 12 103/62 96 12/24/17 08:00 12/24/17 08:00 12/24/17 08:00 12/24/17 08:00 12/24/17 08:00 Laboratory Results 12/24/17 04:21 12/23/17 12/24/17 12/25/17 05:59 05:59 05:59 Intake Total 200 Balance 200 PT 13.0 SEC (12.0-15.0) 12/23/17 16:20 INR 0.96 (0.83-1.16) 12/23/17 16:20 - Physical Exam Constitutional: appears nourished, chronically ill appearing, uncomfortable Eyes: PERRL, anicteric sclera, EOMI Ears, Nose, Mouth, Throat: moist mucous membranes, hearing normal, ears appear normal Cardiovascular: No JVD, No tachycardia, No edema Respiratory: no respiratory distress, no rales or rhonchi, reduced air movement Gastrointestinal: normoactive bowel sounds, No tenderness, No ascites Skin: warm, abrasion, erythema Musculoskeletal: joint tenderness, pain with ROM, muscular tenderness, generalized weakness Neurologic: AAOx3 Psychiatric: not anxious, not encephalopathic, thought process linear, flat affect ICD10 Worksheet Patient Problems: Problems Problem Status Onset Severe sepsis Acute End stage renal disease Acute Cellulitis of left foot Acute Diarrhea Acute Coronary artery disease Acute Pneumonia Acute Fever Acute Leukocytosis Acute Sepsis Acute Fever Acute Knee pain Acute Muscle atrophy of lower extremity Acute Left femoral shaft fracture Acute
--- NOTE | 2017-12-24 15:47 | ASMTCMCOM ---
CM Note CM Note Notes: Pt had surgery for femur fracture after a fall, uses wc at baseline. Pt resides with /MDPOA. Pt with diabetes and has dialysis M, W, F. Pt to have dialysis at [facility] tomorrow. OT rec inpatient rehab, PT rec SNF. Spoke with pt and ; pt has been to [facility] in the past and would like a return there. Referral sent to [facility] in [employer]. D/c plan of care: SNF when medically stable. [facility] pending bed availability Date Signed: 12/24/2017 03:46 PM Electronically Signed By:IBRAHIMA Ruffin
[2017-12-24] MEDS ORDERED: WARFARIN SODIUM 5 MG TAB PO SCH (16:00)
[2017-12-24] MEDS: AMITRIPTYLINE HCL 10 MG TAB PO SCH (21:16)
[2017-12-24] MEDS: CLOPIDOGREL BISULFATE 75 MG TAB PO SCH (21:16)
[2017-12-24] MEDS: ATORVASTATIN CALCIUM 10 MG TAB PO SCH (21:17)
--- NOTE | 2017-12-24 22:39 | SOAPPROG ---
GWYN Progress Note Assessment/Plan: Assessment: 67 yo male, esrd HD MWF, anemia of ESRD, CHD, peripheral neuropathy , type 1 dm, s/p fall s/p left femoral shaft fracture POD#1 s/p left femoral nail by dr. colunga on 12/23/17 -pt/ot: non-weight bearing, patient may return to baseline wheel chair transfers -discharge disposition anticipated SNF vs rehab facility based on primary team/ PT recs -pain per primary -proph per primary -ortho will follow while in hospital -patient to follow up with dr. colunga 7-10 days after surgery if discharged from the hospital before that time Plan: 12/24/17 22:40 Subjective: Reginaldo is a pleasant 67 yo male, well known to myself from clinic visits for his knee pain, today he his post op day 1 s/p fall from wheel chair resulting in left femoral shaft fracture s/p left fem IMN by dr. colunga on 12/23/17, he reports no issues overnight, pain is well controlled, he denies any fevers or chills. his is at bedside, supports his responses that he is doing well, she denies any complaints that he has made to her. Objective: LLE: incisions c/d/i, no hip/knee rom assessed at this point,dp 2+, patient neuro sensation compromised at baseline Vital Signs Temp Pulse Resp BP Pulse Ox 36.7 C 80 16 108/55 L 100 12/24/17 19:45 12/24/17 19:45 12/24/17 19:45 12/24/17 19:45 12/24/17 19:45 Laboratory Results 12/24/17 04:21 12/23/17 12/24/17 12/25/17 05:59 05:59 05:59 Intake Total 200 Balance 200 PT 13.0 SEC (12.0-15.0) 12/23/17 16:20 INR 0.96 (0.83-1.16) 12/23/17 16:20 - Pending Discharge Pending Discharge Within 24 Hours: No Pending Discharge Within 48 Hours: No ICD10 Worksheet Patient Problems: Problems Problem Status Onset Left femoral shaft fracture Acute Cellulitis of left foot Acute Coronary artery disease Acute Diarrhea Acute End stage renal disease Acute Fever Acute Fever Acute Knee pain Acute Leukocytosis Acute Muscle atrophy of lower extremity Acute Pneumonia Acute Sepsis Acute Severe sepsis Acute
[2017-12-25 05:10] LABS: INR 1.45 (0.83-1.16); PROTIME(PATIENT) 17.8 SEC (12.0-15.0)
[2017-12-25] MEDS: ACETAMINOPHEN 325 MG TAB PO PRN (08:16)
[2017-12-25] MEDS: INSULIN REGULAR HUMAN 100 UNIT/ML UNIT SC SCH ×4 (08:59→21:10)
[2017-12-25] MEDS: CARVEDILOL 3.125 MG TAB PO SCH ×2 (08:59→18:25)
[2017-12-25] MEDS: PANTOPRAZOLE SODIUM 40 MG TAB PO SCH (10:45)
[2017-12-25] MEDS: ASPIRIN 81 MG CHEWABLE TAB PO SCH (10:45)
[2017-12-25] MEDS: CHOLECALCIFEROL VIT D3 2,000 UNITS TAB/CAP PO SCH (10:45)
[2017-12-25] MEDS: INSULIN GLARGINE 100 UNITS/ML UNIT SC SCH (10:45)
[2017-12-25] MEDS: SENNOSIDES/DOCUSATE SODIUM TAB PO SCH ×2 (10:46→21:00)
[2017-12-25] MEDS: HYDROmorphONE/DILAUDID 2 MG TAB PO PRN ×3 (11:25→21:16)
--- NOTE | 2017-12-25 12:40 | HOSPPROG ---
Hospitalist Progress Note Assessment/Plan: 67-year-old male presenting with traumatic acute left femur shaft fracture. First encounter, chart reviewed. # Left femur fracture s/p nailing -POD#2 Dr Page -pt wheelchair bound with pivots -likely snf facility for limited mobility -he has a history of DVT but is not currently on systemic anticoagulation, he will be high risk for postoperative DVT, particularly given his impaired mobility -Coumadin initiated, asked pharmacy to dose #Pain due to the above -had been on Valium but he is very concerned about being drowsy -trial of Robaxin as well as pain meds # End-stage renal disease. -Saturday hemodialysis, patient completed dialysis session Saturday , patient's primary department mgr is aware of the patient and patient will receive dialysis on his regular schedule in the hospital # Severe atherosclerosis and peripheral arterial disease. -Visible on lower extremity imaging -continue home medications, Plavix, asa -monitor postoperative wound closely #Abrasions -multiple from traumatic fall -consider wound care # Diabetes mellitus type 2. - Continue patient's medications once he is eating and drinking as baseline -resume Lantus/ he has ongoing hyperglycemia # Anemia of end-stage renal disease. - follow #Indeterminate trop/ likely demand ischemia -mild #Plan: patient not eating well, add Glucerna Subjective: Reginaldo said his pain is better when I evaluated him (he was getting dialysis) Objective: Vital Signs Temp Pulse Resp BP Pulse Ox 36.4 C 88 13 124/77 H 91 L 12/25/17 11:43 12/25/17 11:43 12/25/17 11:43 12/25/17 11:43 12/25/17 11:43 Laboratory Results 12/24/17 04:21 12/24/17 12/25/17 12/26/17 05:59 05:59 05:59 Intake Total 200 150 Balance 200 150 PT 17.8 SEC (12.0-15.0) H 12/25/17 04:50 INR 1.45 (0.83-1.16) H 12/25/17 04:50 - Physical Exam Constitutional: chronically ill appearing, uncomfortable, other (thin) Eyes: PERRL Ears, Nose, Mouth, Throat: hearing normal Cardiovascular: regular rate and rhythym, systolic murmur Respiratory: no respiratory distress Skin: warm, No normal color (pale) Musculoskeletal: generalized weakness Neurologic: AAOx3 Psychiatric: interacting appropriately, flat affect, other (gives very little eye contact) ICD10 Worksheet Patient Problems: Problems Problem Status Onset Left femoral shaft fracture Acute Cellulitis of left foot Acute Coronary artery disease Acute Diarrhea Acute End stage renal disease Acute Fever Acute Fever Acute Knee pain Acute Leukocytosis Acute Muscle atrophy of lower extremity Acute Pneumonia Acute Sepsis Acute Severe sepsis Acute
--- NOTE | 2017-12-25 12:45 | ASMTCMCOM ---
CM Note CM Note Notes: Reviewed chart, spoke with KWASI Chaney regarding discharge plan of care, pt's progress. Pt in dialysis today. Per [employer] notes, pt accepted at [facility] pending bed availability at time of discharge. CM will continue to follow. Current Discharge Plan: [facility]/SNF Date Signed: 12/25/2017 12:44 PM Electronically Signed By:Chaya Montiel RN
[2017-12-25] MEDS ORDERED: WARFARIN SODIUM 3 MG TAB PO ONE (16:00)
--- NOTE | 2017-12-25 16:53 | WOCRNPDOC ---
WOCRN Advanced Assessment Note - Skin Integrity Problem, Advanced Assess Right Lateral Ankle Diabetic Ulcer Dressing Type: Collagen, Hydrofera Blue Ready, Non-Bordered Foam Dressing Description: Intact, Shadowed Exudate Amount: Minimal Exudate Characteristic(s): Serosanguinous Integumentary Issue Intervention: Visualized Under Dressing Asuncion Wound Tissue: Macerated (mild) Wound Bed Color: Brown, [place], Yellow Wound Bed Constitution: Granulation Tissue (70%), Mixed Loose & Adhered Slough/ Eschar (30%) Wound Edges: Not Attached, Thick Site Odor: None Site Measurement - Head-to-Toe Length X Width X Depth (cm): 2.4x1.3x0.6 Skin Integrity Problem Comment: Rounded on patient while he was in dialysis. Offloading boot in place. Patient too sedated for meaningful conversation, but per his the dressing was due to be changed Saturday. Upon removal of outer dressing it was noted that the HFB was cut quite big and was pressurizing the wound edges and wound base Discussed need for a smaller piece with patient's so that wound healing will not be impeded. Wound care will follow and check in again next week. Right Lateral Foot Diabetic Ulcer Dressing Type: Hydrofera Blue Ready, Non-Bordered Foam Dressing Description: Intact, Saturated Exudate Amount: Moderate Exudate Characteristic(s): Sanguinous Integumentary Issue Intervention: Visualized Under Dressing Asuncion Wound Tissue: Macerated Wound Bed Color: Red Wound Bed Constitution: Red/[place] - Non Granular Tissue (100%) Site Measurement - Head-to-Toe Length X Width X Depth (cm): 2.2x1x0.4 Skin Integrity Problem Comment: HFB completely saturated with blood and wound was oozing on assessment. HFB that was in wound bed was also cut a little too large for the wound space. Wound supplies tubed to Ritu VILLALPANDO on 3N for dressing change as leadership development manager assessed patient while he was finishing dialysis.
--- NOTE | 2017-12-25 17:06 | PDCONSULT ---
Production Support Developer Note: Assessment/Plan: ESRD: on HD MWF, had full treatment on Saturday. - Pt seen on HD today. - Will continue HD per routine schedule. Hypervolemia: fluid removal limited today by hypotension, will support BP during next HD session as needed for better fluid removal. Anemia: last Hgb at goal, will recheck in am. RICHARD: pt not on phos binder, will check phos with am labs. Thank you for the interesting consult. Nephrology will continue to follow, please call if you have any additional questions or concerns. H & P Stated Complaint: BIBA from dialysis for s/p fall yesterday, L knee/thigh pain & deformity Time Seen by Provider: 12/23/17 15:41 HPI/ROS: HPI: Mr. Regalado is a 67 yo M with ESRD on HD MWF at [facility] under Dr. Jeter. Pt was sent in after dialysis on Saturday due to inability to transfer. Pt had fallen out of his wheelchair on Saturday and had hurt his knee, and could not help with his own transfer. He was brought in, found to have L femoral fracture , taken to OR that night. Pt states that he is not in pain today, but is a little disoriented from meds. 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), stents, CAD, HTN, PVD, DVT - Family History Significant Family History: No pertinent family hx - Social History Smoking Status: Never smoked - Physical Exam Exam: General: alert and oriented, no acute distress Eyes: EOMI, PERRL OP: Clear, MMM Neck: supple, no thyromegaly CV: RRR, no rub Resp: CTA bilat, nonlabored respirations Abd: Soft, NT/ND Ext: +2 edema LLE, +1 edema RLE Neuro: CN II-XII Grossly intact, no asterixis Psych: cooperative, blunted affect Access: LUE AVF cannulated Constitutional: Initial Vital Signs Temperature (C) 36.8 C 12/23/17 16:01 Heart Rate 85 12/23/17 16:01 Respiratory Rate 16 12/23/17 16:01 Blood Pressure 135/72 H 12/23/17 16:01 O2 Sat (%) 86 L 12/23/17 16:01 O2 Delivery Mode Nasal Cannula O2 (L/minute) 2 Allergies/Adverse Reactions: adhesive tape Allergy (Verified 12/23/17 15:48) Other-Enter Comments amphotericin B [Amphotericin B] Allergy (Verified 12/23/17 15:48) Home Medications: Medication Instructions Recorded Amitriptyline HCl [Elavil 10 mg 10 mg PO HS 07/08/10 (*)] Aspirin [Aspirin 81mg (*)] 81 mg PO DAILY 07/08/10 Herbals/Supplements -Info Only 1 ea PO DAILY 07/08/10 Insulin Lispro [humALOG LISPRO 100 3 - 6 units SC TIDMEAL 05/20/13 units/ml (*)] Pantoprazole Sodium [Protonix 40mg 40 mg PO DAILY 05/20/13 (*)] Clopidogrel Bisulfate [Plavix (*)] 75 mg PO HS #30 tab 05/15/16 Amoxicillin Trihydrate [Amoxil] 500 mg PO HS 12/23/17 Atorvastatin Calcium [Lipitor 10 10 mg PO HS 12/23/17 mg (*)] Carvedilol [Coreg (*)] 3.125 mg PO BIDMEAL 12/23/17 Cholecalciferol Vit D3 [Vitamin D3 2,000 units PO DAILY 12/23/17 (*)] Hydrocodone/APAP 5/325 [[place] 1 - 2 tab PO Q6H PRN 12/23/17 5/325 (*)] Insulin Detemir [Levemir] 11 unit SQ DAILY 12/23/17 traMADol [Ultram 50 mg (*)] 50 mg PO BID PRN 12/23/17 Lab and Imaging 12/23/17 16:20 12/24/17 04:21 WBC 4.82 10^3/uL (3.80-9.50) 12/23/17 16:20 RBC 3.43 10^6/uL (4.40-6.38) L 12/23/17 16:20 Hgb 10.6 g/dL (13.7-17.5) L 12/23/17 16:20 Hct 32.3 % (40.0-51.0) L 12/23/17 16:20 MCV 94.2 fL (81.5-99.8) 12/23/17 16:20 MCH 30.9 pg (27.9-34.1) 12/23/17 16:20 MCHC 32.8 g/dL (32.4-36.7) 12/23/17 16:20 RDW 12.6 % (11.5-15.2) 12/23/17 16:20 Plt Count 220 10^3/uL (150-400) 12/23/17 16:20 MPV 10.3 fL (8.7-11.7) 12/23/17 16:20 Neut % (Auto) 61.5 % (39.3-74.2) 12/23/17 16:20 Lymph % (Auto) 25.9 % (15.0-45.0) 12/23/17 16:20 [place] % (Auto) 6.8 % (4.5-13.0) 12/23/17 16:20 Eos % (Auto) 5.2 % (0.6-7.6) 12/23/17 16:20 Baso % (Auto) 0.4 % (0.3-1.7) 12/23/17 16:20 Nucleat RBC Rel Count 0.0 % (0.0-0.2) 12/23/17 16:20 Absolute Neuts (auto) 2.96 10^3/uL (1.70-6.50) 12/23/17 16:20 Absolute Lymphs (auto) 1.25 10^3/uL (1.00-3.00) 12/23/17 16:20 Absolute Monos (auto) 0.33 10^3/uL (0.30-0.80) 12/23/17 16:20 Absolute Eos (auto) 0.25 10^3/uL (0.03-0.40) 12/23/17 16:20 Absolute Basos (auto) 0.02 10^3/uL (0.02-0.10) 12/23/17 16:20 Absolute Nucleated RBC 0.00 10^3/uL (0-0.01) 12/23/17 16:20 Immature Gran % 0.2 % (0.0-1.1) 12/23/17 16:20 Immature Gran # 0.01 10^3/uL (0.00-0.10) 12/23/17 16:20 PT 17.8 SEC (12.0-15.0) H 12/25/17 04:50 INR 1.45 (0.83-1.16) H 12/25/17 04:50 APTT 33.4 SEC (23.0-38.0) 12/23/17 16:20 Sodium 137 mEq/L (135-145) 12/24/17 04:21 Potassium 5.0 mEq/L (3.3-5.0) 12/24/17 04:21 Chloride 98 mEq/L (97-110) 12/24/17 04:21 Carbon Dioxide 28 mEq/l (22-31) 12/24/17 04:21 Anion Gap 11 mEq/L (8-16) 12/24/17 04:21 BUN 34 mg/dL (7-23) H 12/24/17 04:21 Creatinine 2.5 mg/dL (0.7-1.3) H 12/24/17 04:21 Estimated GFR 26 12/24/17 04:21 Glucose 182 mg/dL (70-100) H 12/24/17 04:21 POC Glucose 265 mg/dL (70-100) H 12/25/17 11:47 Calcium 8.4 mg/dL (8.5-10.4) L 12/24/17 04:21 Magnesium 2.1 mg/dL (1.6-2.3) 12/24/17 04:21 Troponin I 0.035 ng/mL (0.000-0.034) H 12/24/17 04:21
[2017-12-25] MEDS: CLOPIDOGREL BISULFATE 75 MG TAB PO SCH (20:59)
[2017-12-25] MEDS: ATORVASTATIN CALCIUM 10 MG TAB PO SCH (20:59)
[2017-12-25] MEDS: AMITRIPTYLINE HCL 10 MG TAB PO SCH (20:59)
[2017-12-26] MEDS: HYDROmorphONE/DILAUDID 2 MG TAB PO PRN ×2 (04:31→10:03)
[2017-12-26] MEDS: METHOCARBAMOL 750 MG TAB PO PRN (04:31)
[2017-12-26 05:49] LABS: INR 5.25 (0.83-1.16); PROTIME(PATIENT) 47.5 SEC (12.0-15.0)
[2017-12-26] MEDS: INSULIN REGULAR HUMAN 100 UNIT/ML UNIT SC SCH ×4 (07:42→23:04)
[2017-12-26] MEDS: CARVEDILOL 3.125 MG TAB PO SCH ×2 (09:57→18:11)
[2017-12-26] MEDS: CHOLECALCIFEROL VIT D3 2,000 UNITS TAB/CAP PO SCH (09:57)
[2017-12-26] MEDS: PANTOPRAZOLE SODIUM 40 MG TAB PO SCH (09:58)
[2017-12-26] MEDS: SENNOSIDES/DOCUSATE SODIUM TAB PO SCH ×2 (09:58→20:35)
[2017-12-26] MEDS: INSULIN GLARGINE 100 UNITS/ML UNIT SC SCH (10:04)
--- NOTE | 2017-12-26 11:42 | HOSPPROG ---
Hospitalist Progress Note Assessment/Plan: 67-year-old male presenting with traumatic acute left femur shaft fracture. # Left femur fracture s/p nailing -POD#3 Dr Page -pt wheelchair bound with pivots -likely intermediate facility for limited mobility -he has a history of DVT but is not currently on systemic anticoagulation, he will be high risk for postoperative DVT, particularly given his impaired mobility -Coumadin initiated, pharmacy to dose #Pain due to the above -had been on Valium but he is very concerned about being drowsy -trial of Robaxin as well as pain meds -decreased his pain meds due to significant sedation (doesn't clear meds as quickly due to ESRD) # End-stage renal disease. -Saturday hemodialysis, # Severe atherosclerosis and peripheral arterial disease. -Visible on lower extremity imaging -continue home medications, Plavix, asa -monitor postoperative wound closely #Abrasions -multiple from traumatic fall -consider wound care # Diabetes mellitus type 2. - Continue patient's medications once he is eating and drinking as baseline -resume Lantus/ he has ongoing hyperglycemia # Anemia of end-stage renal disease and acute blood loss anemia - will give a unit of prbc's now #Indeterminate trop/ likely demand ischemia -mild #Plan: INR is quite elevate, will get rechecked now, also, has worsening anemia ; spoke w nephrology and DR Jordan morgan with a unit today. Patient is very sedate, will decrease his dosing of his Dilaudid and place on scheduled Tylenol Subjective: Lars is very sedate, has trouble answering my questions. Objective: Vital Signs Temp Pulse Resp BP Pulse Ox 37.0 C 91 10 L 109/54 L 92 12/26/17 11:07 12/26/17 11:07 12/26/17 11:07 12/26/17 11:07 12/26/17 11:07 Laboratory Results 12/26/17 04:14 12/26/17 04:14 12/25/17 12/26/17 12/27/17 05:59 05:59 05:59 Intake Total 150 150 Output Total 0 Balance 150 150 PT 47.5 SEC (12.0-15.0) H 12/26/17 04:14 INR 5.25 (0.83-1.16) H* 12/26/17 04:14 - Physical Exam Constitutional: chronically ill appearing, No appears nourished Ears, Nose, Mouth, Throat: hearing normal Cardiovascular: regular rate and rhythym, systolic murmur Respiratory: no respiratory distress, reduced air movement Skin: warm, No normal color (pale) Musculoskeletal: other (wheelchair bound) Neurologic: weakness, other (awakens but falls asleep easily) ICD10 Worksheet Patient Problems: Problems Problem Status Onset Left femoral shaft fracture Acute Cellulitis of left foot Acute Coronary artery disease Acute Diarrhea Acute End stage renal disease Acute Fever Acute Fever Acute Knee pain Acute Leukocytosis Acute Muscle atrophy of lower extremity Acute Pneumonia Acute Sepsis Acute Severe sepsis Acute
[2017-12-26] MEDS ORDERED: HYDROmorphONE/DILAUDID 2 MG TAB PO PRN (11:58)
--- NOTE | 2017-12-26 12:26 | SOAPPROG ---
SOAP Progress Note Assessment/Plan: Assessment/Plan: ESRD: Pt on HD MWF. - Will do HD tomorrow. Anemia: Hgb down to 7.0 post-op, likely due to acute blood loss. - Will give epo today. - Pt being transfused today. - Will continue to monitor. Hypervolemia: unable to remove fluid yesterday due to low BP. - May do better with blood transfusion. - Will modulate on HD tomorrow and support BP as needed. RICHARD: No need for phos binder, will continue to monitor. Subjective: No acute events overnight. Pt is drowsy today from medications, states he does not have pain currently, has no complaints. Nursing staff notes that with any movement he has terrible pain. Objective: Vital Signs Temp Pulse Resp BP Pulse Ox 37.0 C 91 10 L 109/54 L 92 12/26/17 11:07 12/26/17 11:07 12/26/17 11:07 12/26/17 11:07 12/26/17 11:07 Laboratory Results 12/26/17 04:14 12/26/17 04:14 12/25/17 12/26/17 12/27/17 05:59 05:59 05:59 Intake Total 150 150 Output Total 0 Balance 150 150 PT 47.5 SEC (12.0-15.0) H 12/26/17 04:14 INR 5.25 (0.83-1.16) H* 12/26/17 04:14 General: somnolent but arousable, no acute distress Eyes: EOMI, PERRL OP: Clear CV: RRR Resp: nonlabored respirations on NC Abd: Soft, NT Ext: +1 edema RLE, +2 edema LLE Neuro: no asterixis Access; LUE AVF ICD10 Worksheet Patient Problems: Problems Problem Status Onset Left femoral shaft fracture Acute Cellulitis of left foot Acute Coronary artery disease Acute Diarrhea Acute End stage renal disease Acute Fever Acute Fever Acute Knee pain Acute Leukocytosis Acute Muscle atrophy of lower extremity Acute Pneumonia Acute Sepsis Acute Severe sepsis Acute
[2017-12-26] MEDS ORDERED: EPOETIN ALFA 10,000 UNIT/ML VIAL SC ONE (12:30)
[2017-12-26 14:32] LABS: INR 6.69 (0.83-1.16); PROTIME(PATIENT) 57.2 SEC (12.0-15.0)
[2017-12-26] MEDS: ACETAMINOPHEN 500 MG TAB PO SCH ×2 (15:58→20:34)
--- NOTE | 2017-12-26 16:00 | HOSPPROG ---
Hospitalist Progress Note Assessment/Plan: 67-year-old male presenting with traumatic acute left femur shaft fracture. # Left femur fracture s/p nailing -POD#3 Dr Page -pt wheelchair bound with pivots -likely [facility] facility for limited mobility -he has a history of DVT but is not currently on systemic anticoagulation, he will be high risk for postoperative DVT, particularly given his impaired mobility -Coumadin initiated, pharmacy to dose #Pain due to the above -had been on Valium but he is very concerned about being drowsy -trial of Robaxin as well as pain meds -decreased his pain meds due to significant sedation (doesn't clear meds as quickly due to ESRD) # End-stage renal disease. -Saturday hemodialysis, # Severe atherosclerosis and peripheral arterial disease. -Visible on lower extremity imaging -continue home medications, Plavix, asa -monitor postoperative wound closely #Abrasions -multiple from traumatic fall -ask wound care t see # Diabetes mellitus type 2. - Continue patient's medications once he is eating and drinking as baseline -resume Lantus/ he has ongoing hyperglycemia # Anemia of end-stage renal disease and acute blood loss anemia - will give a unit of prbc's now #Indeterminate trop/ likely demand ischemia -mild #Plan: Did a CT Scan due to right pupil being larger than left, patient's said this is new. Nothing acute noted. I updated his , Teresita, on these findings. Reviewed his care w Dr Okeefe about the pupils. INR remains quite elevated, patient has no signs of active bleeding/ will transfer to step down or PCU for closer monitoring and update the doctor on the PCU about his care and plan of care. Also, reviewed his code status with his . He wishes to be a FULL CODE. Objective: Vital Signs Temp Pulse Resp BP Pulse Ox 37.0 C 91 10 L 109/54 L 92 12/26/17 11:07 12/26/17 11:07 12/26/17 11:07 12/26/17 11:07 12/26/17 11:07 Laboratory Results 12/26/17 04:14 12/26/17 04:14 12/25/17 12/26/17 12/27/17 05:59 05:59 05:59 Intake Total 150 150 Output Total 0 Balance 150 150 PT 57.2 SEC (12.0-15.0) H 12/26/17 12:30 INR 6.69 (0.83-1.16) H* 12/26/17 12:30 ICD10 Worksheet Patient Problems: Problems Problem Status Onset Left femoral shaft fracture Acute Cellulitis of left foot Acute Coronary artery disease Acute Diarrhea Acute End stage renal disease Acute Fever Acute Fever Acute Knee pain Acute Leukocytosis Acute Muscle atrophy of lower extremity Acute Pneumonia Acute Sepsis Acute Severe sepsis Acute
--- NOTE | 2017-12-26 20:32 | SOAPPROG ---
SOAP Progress Note Assessment/Plan: Assessment: 67 yo male, esrd HD MWF, anemia of ESRD, CHD, peripheral neuropathy , type 1 dm, s/p fall s/p left femoral shaft fracture POD#3 s/p left femoral nail by dr. colunga on 12/23/17 -hospitalist team to transfuse 1 unit PRBC's due to low H/H, I counseled elida and his that this decreased blood count could be from the surgery or his kidney disorders or a combination there in of -after physical exam of the patient, i contacted the hospitalist [employer]PLI[employer] VICE PRESIDENT Artemio about my concern with his right pupil being slightly more dilated then his left , which when I questioned him about this he nor his recalled ever having or notocing a difference, and they did report vision loss, as such, i recommended CT head, and Artemio agreed and said she would order it with out contrast -pt/ot: non-weight bearing, patient may return to baseline wheel chair transfers -discharge disposition anticipated SNF vs rehab facility based on primary team/ PT recs -pain per primary -proph per primary -ortho will follow while in hospital -patient to follow up with dr. colunga 7-10 days after surgery if discharged from the hospital before that time Plan: 12/24/17 22:40 12/26/17 20:33 Subjective: elida reports that he is doing okay, reports pain is difficult at times, as long as he doesn't seem to move much its manageable, denies any CP/difficulty breathing, denies any fevers or chills he went to hemodialisis with minimal fluid drawn off by the nephro team, reports that he is going to be transfused 1 unit PRBC's because of a low blood count. Objective: Right pupil slightly dilated approximately 4 mm compared to left pupil 2mm LLE: incisions c/d/i, no erythema or drainage or signs of infection, distal lower extremities warm to the touch Vital Signs Temp Pulse Resp BP Pulse Ox 37 C 94 12 148/95 H 92 12/26/17 19:25 12/26/17 19:25 12/26/17 19:25 12/26/17 19:25 12/26/17 19:25 Laboratory Results 12/26/17 04:14 12/26/17 04:14 12/25/17 12/26/17 12/27/17 05:59 05:59 05:59 Intake Total 150 150 120 Output Total 0 Balance 150 150 120 PT 57.2 SEC (12.0-15.0) H 12/26/17 12:30 INR 6.69 (0.83-1.16) H* 12/26/17 12:30 - Pending Discharge Pending Discharge Within 24 Hours: No Pending Discharge Within 48 Hours: No ICD10 Worksheet Patient Problems: Problems Problem Status Onset Left femoral shaft fracture Acute Cellulitis of left foot Acute Coronary artery disease Acute Diarrhea Acute End stage renal disease Acute Fever Acute Fever Acute Knee pain Acute Leukocytosis Acute Muscle atrophy of lower extremity Acute Pneumonia Acute Sepsis Acute Severe sepsis Acute
[2017-12-26] MEDS: CLOPIDOGREL BISULFATE 75 MG TAB PO SCH (20:36)
[2017-12-26] MEDS: ATORVASTATIN CALCIUM 10 MG TAB PO SCH (20:36)
[2017-12-26] MEDS: AMITRIPTYLINE HCL 10 MG TAB PO SCH (20:37)
[2017-12-27 05:00] LABS: INR 7.82 (0.83-1.16); PROTIME(PATIENT) 64.4 SEC (12.0-15.0)
[2017-12-27] MEDS: INSULIN REGULAR HUMAN 100 UNIT/ML UNIT SC SCH ×4 (08:07→23:05)
[2017-12-27] MEDS ORDERED: ALBUMIN 5% 500 ML BOTTLE IV ONE (10:43)
[2017-12-27] MEDS ORDERED: ALBUMIN 5% 250 ML BOTTLE IV ONE (10:45)
[2017-12-27] MEDS ORDERED: ALBUMIN 5% 250 ML IV ONE (10:49)
--- NOTE | 2017-12-27 11:13 | SOAPPROG ---
SOAP Progress Note Assessment/Plan: Assessment/Plan: ESRD: Pt on HD MWF. - Pt seen on HD today. Anemia: Hgb down to 7.0 post-op, likely due to acute blood loss. Hgb up to 8.3 today after 1 unit PRBCs yesterday. - Epo give yesterday. - Warfarin on hold for elevated INR. - Will continue to monitor. Hypervolemia: unable to remove fluid Saturday due to low BP. BP now improved s /p PRBCs transfused. - Will modulate on HD tomorrow and support BP as needed. RICHARD: No need for phos binder, will continue to monitor. Subjective: No acute events overnight. Pt more awake today, still confused. He notes pain on movement. His BP did better after blood yesterday. Pt on HD currently and BP dropping, but improving with giving albumin. Objective: Vital Signs Temp Pulse Resp BP Pulse Ox 36.9 C 82 15 148/65 H 98 12/27/17 08:00 12/27/17 08:00 12/27/17 08:00 12/27/17 08:00 12/27/17 08:00 Laboratory Results 12/27/17 03:38 12/27/17 03:38 12/26/17 12/27/17 12/28/17 05:59 05:59 05:59 Intake Total 150 470 Output Total 0 Balance 150 470 PT 64.4 SEC (12.0-15.0) H 12/27/17 03:38 INR 7.82 (0.83-1.16) H* 12/27/17 03:38 General: alert, no acute distress Eyes: EOMI, PERRL OP: Clear CV: RRR Resp: nonlabored respirations on NC Abd: Soft, NT Ext: +2 edema LLE, +1 edema RLE Access: LUE AVF cannulated ICD10 Worksheet Patient Problems: Problems Problem Status Onset Left femoral shaft fracture Acute Cellulitis of left foot Acute Coronary artery disease Acute Diarrhea Acute End stage renal disease Acute Fever Acute Fever Acute Knee pain Acute Leukocytosis Acute Muscle atrophy of lower extremity Acute Pneumonia Acute Sepsis Acute Severe sepsis Acute
[2017-12-27] MEDS ORDERED: PHYTONADIONE 2.5 MG/2.5 ML ORAL UDL PO ONE (12:55)
[2017-12-27] MEDS: CHOLECALCIFEROL VIT D3 2,000 UNITS TAB/CAP PO SCH (12:59)
[2017-12-27] MEDS: PANTOPRAZOLE SODIUM 40 MG TAB PO SCH (12:59)
[2017-12-27] MEDS: CARVEDILOL 3.125 MG TAB PO SCH ×2 (12:59→17:29)
[2017-12-27] MEDS: ASPIRIN 81 MG CHEWABLE TAB PO SCH (12:59)
[2017-12-27] MEDS: ACETAMINOPHEN 500 MG TAB PO SCH (13:00)
[2017-12-27] MEDS: INSULIN GLARGINE 100 UNITS/ML UNIT SC SCH (13:01)
[2017-12-27] MEDS ORDERED: ACETAMINOPHEN 500 MG TAB PO PRN (13:02)
[2017-12-27] MEDS: SENNOSIDES/DOCUSATE SODIUM TAB PO SCH ×2 (13:08→22:49)
[2017-12-27] MEDS: METHOCARBAMOL 750 MG TAB PO PRN ×2 (13:09→22:46)
[2017-12-27] MEDS: traMADol 50 MG TAB PO PRN (13:36)
--- NOTE | 2017-12-27 15:44 | ASMTCMCOM ---
CM Note CM Note Notes: 12/27/2017 Case Management Note Faxed updates with projected d/c date to [facility]. Pt has been accepted pending bed availability. Case Management d/c poc: [facility] pending bed. Case Management to follow. Date Signed: 12/27/2017 03:43 PM Electronically Signed By:Blanka Wall RN
--- NOTE | 2017-12-27 15:58 | HOSPPROG ---
Hospitalist Progress Note Assessment/Plan: * Left femur fracture -NWB - wheelchair bound at baseline -Coumadin initiated for DVT prophylaxis - extreme rapid rise of INR -start SubQ heparin once INR down * Extreme rapid INR rise, ? 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 Subjective: Pain poorly controlled Objective: Vital Signs Temp Pulse Resp BP Pulse Ox 36.7 C 83 14 139/63 H 98 12/27/17 15:18 12/27/17 15:18 12/27/17 15:18 12/27/17 15:18 12/27/17 15:18 Laboratory Results 12/27/17 03:38 12/27/17 03:38 12/26/17 12/27/17 12/28/17 05:59 05:59 05:59 Intake Total 150 470 Output Total 0 Balance 150 470 PT 64.4 SEC (12.0-15.0) H 12/27/17 03:38 INR 7.82 (0.83-1.16) H* 12/27/17 03:[address] - negative Old chart reviewed - summary as above - Physical Exam Constitutional: no apparent distress, appears nourished, not in pain Cardiovascular: regular rate and rhythym, no murmur, rub, or gallop Respiratory: no respiratory distress, no rales or rhonchi, clear to auscultation Gastrointestinal: normoactive bowel sounds, soft, non-tender abdomen, no palpable masses Skin: no rashes or abrasions, no fluctuance, no induration Neurologic: AAOx3, sensation intact bilaterally Psychiatric: interacting appropriately, not anxious, not encephalopathic, thought process linear ICD10 Worksheet Patient Problems: Problems Problem Status Onset Left femoral shaft fracture Acute Cellulitis of left foot Acute Coronary artery disease Acute Diarrhea Acute End stage renal disease Acute Fever Acute Fever Acute Knee pain Acute Leukocytosis Acute Muscle atrophy of lower extremity Acute Pneumonia Acute Sepsis Acute Severe sepsis Acute
[2017-12-27] MEDS: HYDROCODONE/APAP 5/325 TAB PO PRN (22:45)
[2017-12-27] MEDS: POLYETHYLENE GLYCOL 3350 17 GM PKT PO PRN (22:46)
[2017-12-27] MEDS: ATORVASTATIN CALCIUM 10 MG TAB PO SCH (22:47)
[2017-12-27] MEDS: CLOPIDOGREL BISULFATE 75 MG TAB PO SCH (22:47)
[2017-12-27] MEDS: AMITRIPTYLINE HCL 10 MG TAB PO SCH (22:48)
[2017-12-28] MEDS: HYDROCODONE/APAP 5/325 TAB PO PRN ×2 (01:56→06:02)
[2017-12-28] MEDS: METHOCARBAMOL 750 MG TAB PO PRN ×2 (04:58→21:53)
[2017-12-28] MEDS: traMADol 50 MG TAB PO PRN (04:58)
[2017-12-28 05:42] LABS: PLATELET COUNT 243 10^3/uL (150-400)
[2017-12-28 05:59] LABS: INR 2.24 (0.83-1.16); PROTIME(PATIENT) 24.8 SEC (12.0-15.0)
[2017-12-28] MEDS: INSULIN REGULAR HUMAN 100 UNIT/ML UNIT SC SCH ×4 (08:54→22:02)
[2017-12-28] MEDS: SENNOSIDES/DOCUSATE SODIUM TAB PO SCH ×2 (09:00→21:46)
[2017-12-28] MEDS: PANTOPRAZOLE SODIUM 40 MG TAB PO SCH (09:07)
[2017-12-28] MEDS: CHOLECALCIFEROL VIT D3 2,000 UNITS TAB/CAP PO SCH (09:07)
[2017-12-28] MEDS: ASPIRIN 81 MG CHEWABLE TAB PO SCH (09:07)
[2017-12-28] MEDS: INSULIN GLARGINE 100 UNITS/ML UNIT SC SCH (09:07)
[2017-12-28] MEDS: CARVEDILOL 3.125 MG TAB PO SCH ×2 (09:07→18:00)
--- NOTE | 2017-12-28 13:16 | HOSPPROG ---
Hospitalist Progress Note Assessment/Plan: 67 yo M w mmp here w fall, femur fracture Left femur fracture -NWB - wheelchair bound at baseline -Coumadin initiated for DVT prophylaxis - extreme rapid rise of INR -start SubQ heparin once INR down to < 2.0 Extreme rapid INR rise, ? 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 Subjective: no BM Objective: Vital Signs Temp Pulse Resp BP Pulse Ox 36.6 C 76 12 123/61 H 98 12/28/17 11:42 12/28/17 11:42 12/28/17 11:42 12/28/17 11:42 12/28/17 11:42 Laboratory Results 12/28/17 04:40 12/28/17 04:40 12/27/17 12/28/17 12/29/17 05:59 05:59 05:59 Intake Total 470 500 Output Total 2300 Balance 470 -1800 PT 24.8 SEC (12.0-15.0) H 12/28/17 04:40 INR 2.24 (0.83-1.16) H 12/28/17 04:40 - Physical Exam Constitutional: no apparent distress, appears nourished, chronically ill appearing Eyes: PERRL, anicteric sclera Ears, Nose, Mouth, Throat: moist mucous membranes, hearing normal Cardiovascular: regular rate and rhythym, no murmur, rub, or gallop, No tachycardia Respiratory: no respiratory distress, no rales or rhonchi Gastrointestinal: normoactive bowel sounds, soft, non-tender abdomen Genitourinary: no bladder fullness, No zhou in urethra Skin: warm, normal color Musculoskeletal: No full muscle strength Neurologic: AAOx3, sensation intact bilaterally ICD10 Worksheet Patient Problems: Problems Problem Status Onset Left femoral shaft fracture Acute Cellulitis of left foot Acute Coronary artery disease Acute Diarrhea Acute End stage renal disease Acute Fever Acute Fever Acute Knee pain Acute Leukocytosis Acute Muscle atrophy of lower extremity Acute Pneumonia Acute Sepsis Acute Severe sepsis Acute
[2017-12-28] MEDS: ACETAMINOPHEN 500 MG TAB PO SCH ×3 (13:41→21:47)
--- NOTE | 2017-12-28 16:46 | SOAPPROG ---
SOAP Progress Note Assessment/Plan: Assessment/Plan: ESRD: Pt on HD MWF. *Continue HD MWF per routine schedule Anemia: Hgb down to 7.0 post-op, likely due to acute blood loss. Hgb up to 8.3 today after 1 unit PRBCs 12/26 - Epo give 12/26 - Warfarin on hold for elevated INR. - Will continue to monitor. Hypervolemia: unable to remove fluid Saturday due to low BP. BP now improved s /p PRBCs transfused. - Continue to remove fluid as able with HD Hypotension: BP running on low side and difficulty with UF on dialysis May need to consider holding Coreg pre-HD RICHARD: No need for phos binder, will continue to monitor. I will be rounding again tomorrow Phyllis Leslie MD [facility] Subjective: Feels tired. Not looking forward to working with PT due to pain in his hip. Denies shortness of breath. Objective: Vital Signs Temp Pulse Resp BP Pulse Ox 37.1 C 84 13 107/62 98 12/28/17 15:17 12/28/17 15:17 12/28/17 15:17 12/28/17 15:17 12/28/17 15:17 Laboratory Results 12/28/17 04:40 12/28/17 04:40 12/27/17 12/28/17 12/29/17 05:59 05:59 05:59 Intake Total 470 500 Output Total 2300 Balance 470 -1800 PT 24.8 SEC (12.0-15.0) H 12/28/17 04:40 INR 2.24 (0.83-1.16) H 12/28/17 04:40 General: alert, no acute distress Eyes: EOMI, PERRL OP: Clear CV: RRR Resp: nonlabored respirations on NC Abd: Soft, NT Ext: +1 edema LLE, +trace edema RLE Access: LUE AVF with good bruit and thrill ICD10 Worksheet Patient Problems: Problems Problem Status Onset Left femoral shaft fracture Acute Cellulitis of left foot Acute Coronary artery disease Acute Diarrhea Acute End stage renal disease Acute Fever Acute Fever Acute Knee pain Acute Leukocytosis Acute Muscle atrophy of lower extremity Acute Pneumonia Acute Sepsis Acute Severe sepsis Acute
[2017-12-28] MEDS ORDERED: HYDROmorphONE/DILAUDID 1 MG/ML INJ IVP PRN (17:10)
[2017-12-28] MEDS: AMITRIPTYLINE HCL 10 MG TAB PO SCH (21:46)
[2017-12-28] MEDS: CLOPIDOGREL BISULFATE 75 MG TAB PO SCH (21:47)
[2017-12-28] MEDS: ATORVASTATIN CALCIUM 10 MG TAB PO SCH (21:47)
[2017-12-29 04:19] LABS: PLATELET COUNT 221 10^3/uL (150-400)
[2017-12-29 07:03] LABS: INR 2.1 (0.83-1.16); PROTIME(PATIENT) 23.6 SEC (12.0-15.0)
--- NOTE | 2017-12-29 08:34 | HOSPPROG ---
Hospitalist Progress Note Assessment/Plan: 67 yo M w mmp here w fall, femur fracture Left femur fracture POD 5 from surgery -NWB - wheelchair bound at baseline -Coumadin initiated for DVT prophylaxis - extreme rapid rise of INR -start SubQ heparin once INR down to < 2.0 Extreme rapid INR rise, ? 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 Leslie. moved bowels. no SOB Objective: Vital Signs Temp Pulse Resp BP Pulse Ox 36.8 C 74 18 146/65 H 98 12/29/17 07:39 12/29/17 07:39 12/29/17 07:39 12/29/17 07:39 12/29/17 07:39 Laboratory Results 12/29/17 03:56 12/29/17 03:56 12/28/17 12/29/17 12/30/17 05:59 05:59 05:59 Intake Total 500 300 Output Total 2300 Balance -1800 300 PT 23.6 SEC (12.0-15.0) H 12/29/17 03:56 INR 2.10 (0.83-1.16) H 12/29/17 03:56 - Physical Exam Constitutional: no apparent distress, appears nourished Eyes: PERRL, anicteric sclera Ears, Nose, Mouth, Throat: moist mucous membranes, hearing normal Cardiovascular: regular rate and rhythym, no murmur, rub, or gallop Respiratory: no respiratory distress, no rales or rhonchi, clear to auscultation Gastrointestinal: normoactive bowel sounds, soft, non-tender abdomen Genitourinary: No zhou in urethra Skin: warm, normal color Musculoskeletal: No full muscle strength Neurologic: AAOx3 Psychiatric: interacting appropriately ICD10 Worksheet Patient Problems: Problems Problem Status Onset Left femoral shaft fracture Acute Cellulitis of left foot Acute Coronary artery disease Acute Diarrhea Acute End stage renal disease Acute Fever Acute Fever Acute Knee pain Acute Leukocytosis Acute Muscle atrophy of lower extremity Acute Pneumonia Acute Sepsis Acute Severe sepsis Acute
[2017-12-29] MEDS: ACETAMINOPHEN 500 MG TAB PO SCH ×3 (09:09→21:28)
[2017-12-29] MEDS: CHOLECALCIFEROL VIT D3 2,000 UNITS TAB/CAP PO SCH (09:10)
[2017-12-29] MEDS: INSULIN GLARGINE 100 UNITS/ML UNIT SC SCH (09:10)
[2017-12-29] MEDS: ASPIRIN 81 MG CHEWABLE TAB PO SCH (09:10)
[2017-12-29] MEDS: PANTOPRAZOLE SODIUM 40 MG TAB PO SCH (09:10)
[2017-12-29] MEDS: CARVEDILOL 3.125 MG TAB PO SCH ×2 (09:10→18:23)
[2017-12-29] MEDS: INSULIN REGULAR HUMAN 100 UNIT/ML UNIT SC SCH ×4 (09:13→21:25)
[2017-12-29] MEDS: SENNOSIDES/DOCUSATE SODIUM TAB PO SCH ×2 (11:32→21:58)
--- NOTE | 2017-12-29 15:22 | SOAPPROG ---
SOAP Progress Note Assessment/Plan: Assessment/Plan: ESRD: Pt on HD MWF. *Continue HD MWF per routine schedule -patient reports fistulogram within the past 1-2 weeks Anemia: Hgb down to 7.0 post-op, likely due to acute blood loss. 1u PRBCs on 12/26. Hgb up 8.6 on 12/30 - Epo give 12/26 - Will continue to monitor. Hypervolemia: unable to remove much fluid with recent post-op dialysis sessions. BP better and patient further out from surgery, so expect we will have better luck with fluid removal on 12/30. - Continue to remove fluid as able with HD Hypotension: improved RICHARD: No need for phos binder, will continue to monitor. Hyperkalemia: *Recheck BMP, suspect some hemolysis. If K >5.5, would give 1 dose of 30g kayexalate (non-sorbitol) Phyllis Leslie MD [facility] Subjective: Worked with PT yesterday which he reports was painful. Continues to have pain today. Got up to chair. Denies shortness of breath. Objective: Vital Signs Temp Pulse Resp BP Pulse Ox 36.6 C 88 18 126/65 H 94 12/29/17 14:57 12/29/17 14:57 12/29/17 14:57 12/29/17 14:57 12/29/17 14:57 Laboratory Results 12/29/17 03:56 12/29/17 03:56 12/28/17 12/29/17 12/30/17 05:59 05:59 05:59 Intake Total 500 300 Output Total 2300 Balance -1800 300 PT 23.6 SEC (12.0-15.0) H 12/29/17 03:56 INR 2.10 (0.83-1.16) H 12/29/17 03:56 General: alert, no acute distress Eyes: EOMI, PERRL OP: Clear CV: RRR Resp: nonlabored respirations on NC Abd: Soft, NT Ext: +1 edema LLE, +trace edema RLE Access: LUE AVF with good bruit and thrill Psych: depressed affect ICD10 Worksheet Patient Problems: Problems Problem Status Onset Left femoral shaft fracture Acute Cellulitis of left foot Acute Coronary artery disease Acute Diarrhea Acute End stage renal disease Acute Fever Acute Fever Acute Knee pain Acute Leukocytosis Acute Muscle atrophy of lower extremity Acute Pneumonia Acute Sepsis Acute Severe sepsis Acute
[2017-12-29] MEDS: METHOCARBAMOL 750 MG TAB PO PRN (18:23)
[2017-12-29] MEDS: CLOPIDOGREL BISULFATE 75 MG TAB PO SCH (21:29)
[2017-12-29] MEDS: AMITRIPTYLINE HCL 10 MG TAB PO SCH (21:29)
[2017-12-29] MEDS: ATORVASTATIN CALCIUM 10 MG TAB PO SCH (21:29)
[2017-12-30] MEDS: traMADol 50 MG TAB PO PRN (03:42)
[2017-12-30] MEDS ORDERED: ALBUMIN 25% 50 ML IV PRN (08:07)
[2017-12-30] MEDS: INSULIN REGULAR HUMAN 100 UNIT/ML UNIT SC SCH ×4 (09:12→22:15)
[2017-12-30] MEDS: ALBUMIN 25% 50 ML IV PRN ×3 (09:31→10:59)
[2017-12-30 09:57] LABS: INR 1.67 (0.83-1.16); PROTIME(PATIENT) 19.8 SEC (12.0-15.0)
[2017-12-30] MEDS: ASPIRIN 81 MG CHEWABLE TAB PO SCH (09:59)
[2017-12-30] MEDS: CHOLECALCIFEROL VIT D3 2,000 UNITS TAB/CAP PO SCH (09:59)
[2017-12-30] MEDS: ACETAMINOPHEN 500 MG TAB PO SCH ×3 (09:59→22:13)
[2017-12-30] MEDS: PANTOPRAZOLE SODIUM 40 MG TAB PO SCH (09:59)
[2017-12-30] MEDS: SENNOSIDES/DOCUSATE SODIUM TAB PO SCH ×2 (10:01→20:55)
[2017-12-30] MEDS: CARVEDILOL 3.125 MG TAB PO SCH ×2 (10:30→17:51)
[2017-12-30] MEDS: INSULIN GLARGINE 100 UNITS/ML UNIT SC SCH (11:27)
[2017-12-30] MEDS ORDERED: INSULIN GLARGINE 100 UNITS/ML SYRINGE SC ONE (11:30)
--- NOTE | 2017-12-30 13:26 | SOAPPROG ---
SOAP Progress Note Assessment/Plan: Assessment/Plan: ESRD: Pt on HD MWF. - Pt seen on HD today. - Next HD on Saturday per routine. Anemia: Hgb down to 7.0 post-op, likely due to acute blood loss. Hgb up after 1 unit PRBCs 12/26. - Epo give 12/26. - Will continue to monitor. Hypervolemia: improving with fluid removal on HD, will support BP as needed to allow for fluid removal. RICHARD: No need for phos binder, will continue to monitor. Hyperkalemia: will modulate on HD. Subjective: No acute events overnight. Pt on HD this am, tolerating well, able to remove 2L with giving albumin. Pt notes his breathing is better. He had an abundance of bowel movements, feels cleaned out now. Objective: Vital Signs Temp Pulse Resp BP Pulse Ox 36.8 C 72 14 88/53 L 99 12/30/17 07:21 12/30/17 03:31 12/30/17 07:21 12/30/17 10:30 12/30/17 07:21 Laboratory Results 12/29/17 03:56 12/30/17 03:20 12/29/17 12/30/17 12/31/17 05:59 05:59 05:59 Intake Total 300 450 Balance 300 450 PT 19.8 SEC (12.0-15.0) H 12/30/17 09:28 INR 1.67 (0.83-1.16) H 12/30/17 09:28 General: alert and oriented, no acute distress Eyes; EOMI, PERRL OP: clear CV: RRR Resp: nonlabored respirations on NC Abd: soft, NT/ND Ext: no edema RLE, trace edema LLE Neuro: CN II-XII Grossly intact, no asterixis Psych: cooperative Access: LUE AVF cannulated ICD10 Worksheet Patient Problems: Problems Problem Status Onset Left femoral shaft fracture Acute Cellulitis of left foot Acute Coronary artery disease Acute Diarrhea Acute End stage renal disease Acute Fever Acute Fever Acute Knee pain Acute Leukocytosis Acute Muscle atrophy of lower extremity Acute Pneumonia Acute Sepsis Acute Severe sepsis Acute
--- NOTE | 2017-12-30 14:11 | ASMTCMCOM ---
CM Note CM Note Notes: 12/30/2017 Case Management Note Pt Simran can be reached at [phone] Norman can be reached at [phone] Discussed pt during rounds this morning. Pt in dialysis. Anticipating d/c tomorrow or Saturday. Updated Lilliana from [facility] on the phone. Case Management d/c poc: [facility] Case Management to follow. Date Signed: 12/30/2017 02:10 PM Electronically Signed By:Blanka Wall RN
[2017-12-30] MEDS: HEPARIN 5,000 UNIT/0.5 ML INJ SC SCH ×2 (14:16→20:54)
--- NOTE | 2017-12-30 14:29 | HOSPPROG ---
Hospitalist Progress Note Assessment/Plan: 67 yo M w mmp here w fall, femur fracture Left femur fracture POD 6 from surgery -NWB - wheelchair bound at baseline -Coumadin initiated for DVT prophylaxis - extreme rapid rise of INR -start SubQ heparin once INR down to < 2.0 Extreme rapid INR rise, ? 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 Subjective: case d/w dr hernandez. hypoglycemic this AM Objective: Vital Signs Temp Pulse Resp BP Pulse Ox 36.7 C 72 16 113/49 L 100 12/30/17 13:24 12/30/17 13:24 12/30/17 13:24 12/30/17 13:24 12/30/17 13:24 Laboratory Results 12/29/17 03:56 12/30/17 03:20 12/29/17 12/30/17 12/31/17 05:59 05:59 05:59 Intake Total 300 450 Balance 300 450 PT 19.8 SEC (12.0-15.0) H 12/30/17 09:28 INR 1.67 (0.83-1.16) H 12/30/17 09:28 - Physical Exam Constitutional: no apparent distress, chronically ill appearing Eyes: PERRL, anicteric sclera Ears, Nose, Mouth, Throat: moist mucous membranes, hearing normal Cardiovascular: regular rate and rhythym, no murmur, rub, or gallop Respiratory: no respiratory distress, no rales or rhonchi Gastrointestinal: normoactive bowel sounds Genitourinary: No zhou in urethra Skin: warm, normal color Musculoskeletal: full muscle strength, no muscle tenderness Neurologic: AAOx3, sensation intact bilaterally Psychiatric: interacting appropriately Lymph, Heme, Immunologic: no cervical LAD ICD10 Worksheet Patient Problems: Problems Problem Status Onset Left femoral shaft fracture Acute Cellulitis of left foot Acute Coronary artery disease Acute Diarrhea Acute End stage renal disease Acute Fever Acute Fever Acute Knee pain Acute Leukocytosis Acute Muscle atrophy of lower extremity Acute Pneumonia Acute Sepsis Acute Severe sepsis Acute
[2017-12-30] MEDS: ATORVASTATIN CALCIUM 10 MG TAB PO SCH (20:54)
[2017-12-30] MEDS: CLOPIDOGREL BISULFATE 75 MG TAB PO SCH (20:54)
[2017-12-30] MEDS: AMITRIPTYLINE HCL 10 MG TAB PO SCH (20:55)
[2017-12-31] MEDS: HEPARIN 5,000 UNIT/0.5 ML INJ SC SCH ×3 (06:55→22:20)
[2017-12-31] MEDS: INSULIN REGULAR HUMAN 100 UNIT/ML UNIT SC SCH ×4 (08:30→22:59)
--- NOTE | 2017-12-31 08:40 | SOAPPROG ---
SOAP Progress Note Assessment/Plan: Assessment: fall at home left femur fracture pain, better, but still present ESRD HD yesterday, HD tomorrow anemia Plan: HD tomorrow hopefully to rehab facility soon, will need transportation to his HD facility pain control physical therapy EPO 12/31/17 08:37 Subjective: pain still present but overall improved no cp sob nausea or vomiting spirits good slept OK last night appetite getting better Objective: Vital Signs Temp Pulse Resp BP Pulse Ox 36.6 C 77 17 127/62 H 99 12/31/17 08:06 12/31/17 08:06 12/31/17 08:06 12/31/17 08:06 12/31/17 08:06 Laboratory Results 12/31/17 03:40 12/31/17 03:40 12/30/17 12/31/17 01/01/18 05:59 05:59 05:59 Intake Total 450 375 240 Output Total 2000 Balance 450 -1625 240 PT 19.8 SEC (12.0-15.0) H 12/30/17 09:28 INR 1.67 (0.83-1.16) H 12/30/17 09:28 Physical Exam - Physical Exam General Appearance: alert Neck: normal inspection Respiratory: No rales, No rhonchi, No wheezing Cardiac/Chest: regular rate, rhythm, systolic murmur, No friction rub Abdomen: normal bowel sounds, non-tender, soft Skin: warm/dry Extremities: No pedal edema Neuro/Psych: alert, normal mood/affect, oriented x 3 ICD10 Worksheet Patient Problems: Problems Problem Status Onset Left femoral shaft fracture Acute Cellulitis of left foot Acute Coronary artery disease Acute Diarrhea Acute End stage renal disease Acute Fever Acute Fever Acute Knee pain Acute Leukocytosis Acute Muscle atrophy of lower extremity Acute Pneumonia Acute Sepsis Acute Severe sepsis Acute
--- NOTE | 2017-12-31 09:02 | HOSPPROG ---
Hospitalist Progress Note Assessment/Plan: #Fall with left femur fracture: s/p pinning #DM1: failed pancreas transplant. -Hypoglycemia to 41 and symptomatic this morn. Not eating much. Reduced lantus yesterday. Reports erratic sugars since starting Levimer at home -not eating much; hold Lantus and calculate needs over 24 hours #ESRD: HD per renal #Diabetic right ankle ulcer #Hypoglycemia: hold Lantus today #Severe deconditioning: PT #Sacral pressure injury: wound care #Anemia of renal disease: H/H stable #Anisocoria: CTH unremarkable #h/o DVT: SQH here. High-risk, will need ppx at DC #Disp: plan for DC to [facility] once sugars stable Subjective: tired, clammy this morning Objective: Vital Signs Temp Pulse Resp BP Pulse Ox 36.6 C 77 17 127/62 H 99 12/31/17 08:06 12/31/17 08:06 12/31/17 08:06 12/31/17 08:06 12/31/17 08:06 Laboratory Results 12/31/17 03:40 12/31/17 03:40 12/30/17 12/31/17 01/01/18 05:59 05:59 05:59 Intake Total 450 375 240 Output Total 2000 Balance 450 -1625 240 PT 19.8 SEC (12.0-15.0) H 12/30/17 09:28 INR 1.67 (0.83-1.16) H 12/30/17 09:28 - Time Spent With Patient Time Spent with Patient: greater than 35 minutes Time Spent with Patient: Greater than 35 minutes spent on this patients care, greater than 50% of time spent counseling, educating, and coordinating care regarding the above mentioned plan. - Physical Exam Constitutional: other (fatigued) Eyes: PERRL Ears, Nose, Mouth, Throat: moist mucous membranes Cardiovascular: regular rate and rhythym Respiratory: no respiratory distress Gastrointestinal: normoactive bowel sounds Skin: other (left arm ecchymoses/hemtoma) Neurologic: AAOx3, CN II-XII Intact Psychiatric: interacting appropriately, flat affect ICD10 Worksheet Patient Problems: Problems Problem Status Onset Left femoral shaft fracture Acute Cellulitis of left foot Acute Coronary artery disease Acute Diarrhea Acute End stage renal disease Acute Fever Acute Fever Acute Knee pain Acute Leukocytosis Acute Muscle atrophy of lower extremity Acute Pneumonia Acute Sepsis Acute Severe sepsis Acute
[2017-12-31] MEDS: CHOLECALCIFEROL VIT D3 2,000 UNITS TAB/CAP PO SCH (09:35)
[2017-12-31] MEDS: ASPIRIN 81 MG CHEWABLE TAB PO SCH (09:36)
[2017-12-31] MEDS: CARVEDILOL 3.125 MG TAB PO SCH ×2 (09:36→17:59)
[2017-12-31] MEDS: ACETAMINOPHEN 500 MG TAB PO SCH ×4 (09:36→22:21)
[2017-12-31] MEDS: PANTOPRAZOLE SODIUM 40 MG TAB PO SCH (09:37)
[2017-12-31] MEDS: SENNOSIDES/DOCUSATE SODIUM TAB PO SCH (09:38)
[2017-12-31] MEDS: HYDROCODONE/APAP 5/325 TAB PO PRN ×2 (10:32→11:52)
[2017-12-31] MEDS: INSULIN GLARGINE 100 UNITS/ML UNIT SC SCH (11:01)
--- NOTE | 2017-12-31 14:53 | ASMTCMCOM ---
CM Note CM Note Notes: Patient status reviewed in rounds. Patient has had low glucose levels. Per hospital medicine, will reevaluate meds and look to dc maybe tomorrow after hemodialysis. Message left with Lilliana liaison for [facility] as to patient status. CM to follow. Plan: To [facility] when medically cleared for discharge. Date Signed: 12/31/2017 02:52 PM Electronically Signed By:Michell Garcia RN
[2017-12-31] MEDS: CLOPIDOGREL BISULFATE 75 MG TAB PO SCH (22:21)
[2017-12-31] MEDS: ATORVASTATIN CALCIUM 10 MG TAB PO SCH (22:21)
[2017-12-31] MEDS: AMITRIPTYLINE HCL 10 MG TAB PO SCH (22:22)
[2018-01-01] MEDS: SENNOSIDES/DOCUSATE SODIUM TAB PO SCH ×3 (00:10→22:29)
[2018-01-01] MEDS: HEPARIN 5,000 UNIT/0.5 ML INJ SC SCH ×3 (06:40→22:15)
--- NOTE | 2018-01-01 07:36 | SOAPPROG ---
SOAP Progress Note Assessment/Plan: Assessment: fall at home left femur fracture pain, better, but still present ESRD HD today, seen on HD anemia Plan: HD today hopefully to rehab facility soon, will need transportation to his HD facility pain control physical therapy, still having a difficult time with PT, primarily due to pain EPO on HD 12/31/17 08:37 01/01/18 07:32 Subjective: Seen on HD Still with leg pain no cp sob nausea or vomiting appetite not great, doesn't like his meal choices understands he needs to participate in his physical therapy Objective: Vital Signs Temp Pulse Resp BP Pulse Ox 36.6 C 68 12 106/52 L 100 01/01/18 03:35 01/01/18 03:35 01/01/18 03:35 01/01/18 03:35 01/01/18 03:35 Laboratory Results 12/31/17 03:40 01/01/18 03:38 12/31/17 01/01/18 01/02/18 05:59 05:59 05:59 Intake Total 375 840 Output Total 2000 Balance -1625 840 PT 19.8 SEC (12.0-15.0) H 12/30/17 09:28 INR 1.67 (0.83-1.16) H 12/30/17 09:28 Physical Exam - Physical Exam General Appearance: alert Neck: normal inspection Respiratory: No rhonchi, No wheezing, No pleural rub Cardiac/Chest: regular rate, rhythm, edema, systolic murmur, No friction rub Abdomen: normal bowel sounds, non-tender, soft Skin: other (changes of arterial and venous insufficiency, some erythema where his SCDs are inplace) Extremities: pedal edema ICD10 Worksheet Patient Problems: Problems Problem Status Onset Left femoral shaft fracture Acute Cellulitis of left foot Acute Coronary artery disease Acute Diarrhea Acute End stage renal disease Acute Fever Acute Fever Acute Knee pain Acute Leukocytosis Acute Muscle atrophy of lower extremity Acute Pneumonia Acute Sepsis Acute Severe sepsis Acute
[2018-01-01] MEDS: METHOCARBAMOL 750 MG TAB PO PRN (08:40)
[2018-01-01] MEDS ORDERED: EPOETIN ALFA 10,000 UNIT/ML VIAL SC ONE (08:45)
[2018-01-01] MEDS ORDERED: NS 500 ML IV ONE (09:00)
[2018-01-01] MEDS: INSULIN REGULAR HUMAN 100 UNIT/ML UNIT SC SCH ×4 (09:17→22:29)
[2018-01-01] MEDS: ACETAMINOPHEN 500 MG TAB PO SCH ×3 (11:14→22:11)
[2018-01-01] MEDS: CARVEDILOL 3.125 MG TAB PO SCH ×2 (12:01→22:12)
[2018-01-01] MEDS: CHOLECALCIFEROL VIT D3 2,000 UNITS TAB/CAP PO SCH (12:01)
[2018-01-01] MEDS: ASPIRIN 81 MG CHEWABLE TAB PO SCH (12:01)
[2018-01-01] MEDS: PANTOPRAZOLE SODIUM 40 MG TAB PO SCH (12:01)
--- NOTE | 2018-01-01 15:58 | WOCRNPDOC ---
WOCRN Advanced Assessment Note - Skin Integrity Problem, Advanced Assess Sacrum Pressure Injury Dressing Type: Mepilex Border Dressing Description: Clean/Dry, Intact Exudate Amount: Scant Exudate Characteristic(s): Serosanguinous Integumentary Issue Intervention: Visualized Under Dressing Asuncion Wound Tissue: Scarred Wound Bed Constitution: Red/Chassell - Non Granular Tissue Site Measurement - Head-to-Toe Length X Width X Depth (cm): 3.5x4.3x0 Pressure Injury Stage: Deep Tissue Injury (DTI) Pressure Injury Present on Admit: No Skin Integrity Problem Comment: Reopening pressure injury of unknown previous stage. Likely full thickness as evidenced by significant amount of scar tissue present across the sacral and coccyx area. Patient unsure of previous stage. Currently is a developing DTI with two tiny areas (smaller than 0.5x0.5x0.1) of open partial thickness wounds. Keep area agressively offloaded at all times. Discussed with KWASI Lilly and with patient. Also suggested clinitron mattress. Patient declined at this time. It would be difficult for patient's mobility at this point, especially with his femur fracture, but may be a mattress that will be necessary in the future. Right Lateral Ankle Diabetic Ulcer Dressing Type: Allevyn Life, Collagen, Hydrofera Blue Dressing Description: Clean/Dry, Intact Exudate Amount: None Skin Integrity Problem Comment: Wounds had been freshly redressed. Hydrofera blue had been used and was in room vs hydrofera blue ready and it had not been rehydrated. NS added to collagen and to HFB to rehydrate. Education with KWASI Lilly. re: difference between products. Wound bed not assessed as unintegrated collagen was in wound bed. Wound care will follow. Right Lateral Foot Diabetic Ulcer Dressing Type: Allevyn Life, Collagen, Hydrofera Blue Dressing Description: Clean/Dry, Intact Exudate Amount: None Skin Integrity Problem Comment: Wounds had been freshly redressed. Hydrofera blue was used and in room vs hydrofera blue ready and it had not been rehydrated. NS added to collagen and to HFB to rehydrate. Education with KWASI Lilly. re: difference between products. Wound bed not assessed as unintegrated collagen was in wound bed. Wound care will follow.
--- NOTE | 2018-01-01 18:02 | HOSPPROG ---
Hospitalist Progress Note Assessment/Plan: #Fall with left femur fracture: s/p pinning #DM1: Hx of failed pancreas transplant. Hypoglycemia -restart Lantus at 8 units nightly #ESRD: HD per renal HD today #Diabetic right ankle ulcer #Hypoglycemia: Glucose this afternoon over 200 #Severe deconditioning: PT #Sacral pressure injury: wound care #Anemia of renal disease: H/H stable #Anisocoria: CTH unremarkable #h/o DVT: SQH here. High-risk, will need ppx at DC #Disp: plan for DC to [facility] once sugars stable Objective: Vital Signs Temp Pulse Resp BP Pulse Ox 36.7 C 74 14 114/49 L 94 01/01/18 15:37 01/01/18 17:33 01/01/18 17:33 01/01/18 17:33 01/01/18 17:33 Laboratory Results 12/31/17 03:40 01/01/18 03:38 12/31/17 01/01/18 01/02/18 05:59 05:59 05:59 Intake Total 375 840 Output Total 2000 1000 Balance -1625 840 -1000 PT 19.8 SEC (12.0-15.0) H 12/30/17 09:28 INR 1.67 (0.83-1.16) H 12/30/17 09:28 - Physical Exam Constitutional: no apparent distress, chronically ill appearing Eyes: PERRL Ears, Nose, Mouth, Throat: moist mucous membranes Cardiovascular: regular rate and rhythym, No edema Respiratory: no respiratory distress, no rales or rhonchi, clear to auscultation Gastrointestinal: normoactive bowel sounds Skin: warm Musculoskeletal: generalized weakness Neurologic: AAOx3 Psychiatric: interacting appropriately Lymph, Heme, Immunologic: No petechiae ICD10 Worksheet Patient Problems: Problems Problem Status Onset Left femoral shaft fracture Acute Cellulitis of left foot Acute Coronary artery disease Acute Diarrhea Acute End stage renal disease Acute Fever Acute Fever Acute Knee pain Acute Leukocytosis Acute Muscle atrophy of lower extremity Acute Pneumonia Acute Sepsis Acute Severe sepsis Acute
[2018-01-01] MEDS: INSULIN GLARGINE 100 UNITS/ML UNIT SC SCH (22:11)
[2018-01-01] MEDS: ATORVASTATIN CALCIUM 10 MG TAB PO SCH (22:11)
[2018-01-01] MEDS: CLOPIDOGREL BISULFATE 75 MG TAB PO SCH (22:12)
[2018-01-01] MEDS: AMITRIPTYLINE HCL 10 MG TAB PO SCH (22:12)
[2018-01-02] MEDS: HEPARIN 5,000 UNIT/0.5 ML INJ SC SCH ×3 (05:51→21:18)
[2018-01-02] MEDS: CARVEDILOL 3.125 MG TAB PO SCH ×2 (09:55→18:45)
[2018-01-02] MEDS: ACETAMINOPHEN 500 MG TAB PO SCH ×3 (09:55→21:19)
[2018-01-02] MEDS: SENNOSIDES/DOCUSATE SODIUM TAB PO SCH ×2 (09:56→21:20)
[2018-01-02] MEDS: PANTOPRAZOLE SODIUM 40 MG TAB PO SCH (09:56)
[2018-01-02] MEDS: ASPIRIN 81 MG CHEWABLE TAB PO SCH (09:56)
[2018-01-02] MEDS: CHOLECALCIFEROL VIT D3 2,000 UNITS TAB/CAP PO SCH (09:56)
[2018-01-02] MEDS: INSULIN REGULAR HUMAN 100 UNIT/ML UNIT SC SCH ×4 (09:57→21:18)
--- NOTE | 2018-01-02 13:41 | SOAPPROG ---
SOAP Progress Note Assessment/Plan: Assessment/Plan: 67 y/o M PMH of ESRD on HD MWF who presented after a fall with a L femoral fracture. ESRD on HD -will continue MWF schedule -regular unit [facility] with Dr. Jeter -must be able to transfer from a wheelchair to go back to unit, may need LTAC Hyponatremia -continue to attempt UF -monitor daily labs HTN/vol: -on home meds -continue to UF, able to pull 2L yesterday -will modulate sodium as above BMD -renal diet Anemia -Hb <9, stable -will give EPO on tx 01/02/18 14:11 Subjective: BS's improved today. Still having a lot of pain. Working on goals of care for rehab. Tolerated HD yesterday. Objective: Vital Signs Temp Pulse Resp BP Pulse Ox 36.6 C 82 16 135/63 H 100 01/02/18 10:55 01/02/18 10:55 01/02/18 10:55 01/02/18 10:55 01/02/18 10:55 Laboratory Results 12/31/17 03:40 01/01/18 03:38 01/01/18 01/02/18 01/03/18 05:59 05:59 05:59 Intake Total 840 560 Output Total 1000 Balance 840 -440 PT 19.8 SEC (12.0-15.0) H 12/30/17 09:28 INR 1.67 (0.83-1.16) H 12/30/17 09:28 Physical Exam - Physical Exam General Appearance: WD/WN, alert, thin EENT: PERRL/EOMI, normal ENT inspection Neck: non-tender, full range of motion, supple Respiratory: chest non-tender, lungs clear, normal breath sounds Cardiac/Chest: normal peripheral pulses, regular rate, rhythm, edema Abdomen: normal bowel sounds, non-tender, soft Skin: normal color, pallor Extremities: other (L femoral fx) Neuro/Psych: alert, oriented x 3, depressed affect ICD10 Worksheet Patient Problems: Problems Problem Status Onset Left femoral shaft fracture Acute Cellulitis of left foot Acute Coronary artery disease Acute Diarrhea Acute End stage renal disease Acute Fever Acute Fever Acute Knee pain Acute Leukocytosis Acute Muscle atrophy of lower extremity Acute Pneumonia Acute Sepsis Acute Severe sepsis Acute
--- NOTE | 2018-01-02 13:42 | HOSPPROG ---
Hospitalist Progress Note Assessment/Plan: #Fall with left femur fracture: s/p pinning #DM1: Hx of failed pancreas transplant. Hypoglycemia -restart Lantus at 8 units nightly #ESRD: HD per renal HD today #Diabetic right ankle ulcer #Hypoglycemia: Glucose this afternoon over 200 #Severe deconditioning: PT #Sacral pressure injury: wound care #Anemia of renal disease: H/H stable #Anisocoria: CTH unremarkable #h/o DVT: SQH here. High-risk, will need ppx at DC Plan: We meet as a group to discuss the pt's care at bedside. Glucose is better controlled. Pain is well managed. He is unable to transfer in and out of his wheel chair and this is needed before being able to go to rehab. He will cont to work with PT. If unable to perform this, he may need an LTAC. D/W Nephrology Subjective: no cp or sob. no n/v/d. glucose is better controlled Objective: Vital Signs Temp Pulse Resp BP Pulse Ox 36.6 C 82 16 135/63 H 100 01/02/18 10:55 01/02/18 10:55 01/02/18 10:55 01/02/18 10:55 01/02/18 10:55 Laboratory Results 12/31/17 03:40 01/01/18 03:38 01/01/18 01/02/18 01/03/18 05:59 05:59 05:59 Intake Total 840 560 Output Total 1000 Balance 840 -440 PT 19.8 SEC (12.0-15.0) H 12/30/17 09:28 INR 1.67 (0.83-1.16) H 12/30/17 09:28 - Physical Exam Constitutional: no apparent distress Eyes: PERRL, EOMI Ears, Nose, Mouth, Throat: moist mucous membranes, hearing normal Cardiovascular: regular rate and rhythym, No edema Respiratory: no respiratory distress, no rales or rhonchi Gastrointestinal: normoactive bowel sounds Skin: warm Musculoskeletal: generalized weakness Neurologic: AAOx3 Psychiatric: interacting appropriately, not anxious, not encephalopathic Lymph, Heme, Immunologic: No petechiae ICD10 Worksheet Patient Problems: Problems Problem Status Onset Left femoral shaft fracture Acute Cellulitis of left foot Acute Coronary artery disease Acute Diarrhea Acute End stage renal disease Acute Fever Acute Fever Acute Knee pain Acute Leukocytosis Acute Muscle atrophy of lower extremity Acute Pneumonia Acute Sepsis Acute Severe sepsis Acute
--- NOTE | 2018-01-02 15:02 | ASMTCMCOM ---
CM Note CM Note Notes: Pts case discussed in tx rounds. [facility] has retracted acceptance because pt is now a della transfer to a wheelchair. CM met w/ pt for dispo planning. Pt is agreeable to going to an LTAC. Pt does not want to go to [facility]. CM spoke to PT, Dr. Saenz and Trevon RN regarding this case. CM to follow. Plan: Possible LTAC Date Signed: 01/02/2018 03:01 PM Electronically Signed By:OK Young
[2018-01-02] MEDS: INSULIN GLARGINE 100 UNITS/ML UNIT SC SCH (21:17)
[2018-01-02] MEDS: AMITRIPTYLINE HCL 10 MG TAB PO SCH (21:19)
[2018-01-02] MEDS: CLOPIDOGREL BISULFATE 75 MG TAB PO SCH (21:19)
[2018-01-02] MEDS: ATORVASTATIN CALCIUM 10 MG TAB PO SCH (21:19)
[2018-01-02] MEDS: METHOCARBAMOL 750 MG TAB PO PRN (21:22)
[2018-01-03] MEDS: HEPARIN 5,000 UNIT/0.5 ML INJ SC SCH ×3 (05:52→21:45)
[2018-01-03] MEDS: INSULIN REGULAR HUMAN 100 UNIT/ML UNIT SC SCH ×4 (08:03→21:56)
[2018-01-03] MEDS: SENNOSIDES/DOCUSATE SODIUM TAB PO SCH ×2 (08:03→21:45)
[2018-01-03] MEDS: CHOLECALCIFEROL VIT D3 2,000 UNITS TAB/CAP PO SCH (08:03)
[2018-01-03] MEDS: METHOCARBAMOL 750 MG TAB PO PRN (08:03)
[2018-01-03] MEDS: ACETAMINOPHEN 500 MG TAB PO SCH ×3 (08:03→21:45)
[2018-01-03] MEDS: CARVEDILOL 3.125 MG TAB PO SCH ×2 (08:03→17:16)
[2018-01-03] MEDS: ASPIRIN 81 MG CHEWABLE TAB PO SCH (08:03)
[2018-01-03] MEDS: PANTOPRAZOLE SODIUM 40 MG TAB PO SCH (08:03)
--- NOTE | 2018-01-03 09:00 | SOAPPROG ---
SOAP Progress Note Assessment/Plan: Assessment/Plan: 67 y/o M PMH of ESRD on HD MWF who presented after a fall with a L femoral fracture. ESRD on HD -will continue MWF schedule, dialysis today -labs on HD days, ordered today -regular unit [facility] with Dr. Jeter -must be able to transfer from a wheelchair to go back to unit, may need LTAC Hyponatremia -continue to attempt UF -free water restriction 1.5L -monitor daily labs HTN/vol: -on home meds -continue to UF BMD -renal diet -check phos Anemia -Hb <9, stable -will give EPO on tx today 01/03/18 08:58 Subjective: Pain in shoulder and leg. Trying to work more with PT. Objective: Vital Signs Temp Pulse Resp BP Pulse Ox 36.8 C 105 H 18 150/81 H 99 01/03/18 07:46 01/03/18 07:46 01/03/18 07:46 01/03/18 07:46 01/03/18 07:46 Laboratory Results 12/31/17 03:40 01/01/18 03:38 01/02/18 01/03/18 01/04/18 05:59 05:59 05:59 Intake Total 560 700 Output Total 1000 Balance -440 700 PT 19.8 SEC (12.0-15.0) H 12/30/17 09:28 INR 1.67 (0.83-1.16) H 12/30/17 09:28 Physical Exam - Physical Exam General Appearance: WD/WN, alert, mild distress EENT: PERRL/EOMI Neck: non-tender, full range of motion, supple Respiratory: chest non-tender, lungs clear, normal breath sounds Cardiac/Chest: normal peripheral pulses, regular rate, rhythm, edema Abdomen: normal bowel sounds, non-tender, soft Skin: normal color, pallor Extremities: other (L femoral fx) Neuro/Psych: alert, normal mood/affect, oriented x 3 ICD10 Worksheet Patient Problems: Problems Problem Status Onset Left femoral shaft fracture Acute Cellulitis of left foot Acute Coronary artery disease Acute Diarrhea Acute End stage renal disease Acute Fever Acute Fever Acute Knee pain Acute Leukocytosis Acute Muscle atrophy of lower extremity Acute Pneumonia Acute Sepsis Acute Severe sepsis Acute
[2018-01-03] MEDS ORDERED: INSULIN GLARGINE 100 UNITS/ML UNIT SC SCH (13:46)
--- NOTE | 2018-01-03 13:49 | HOSPPROG ---
Hospitalist Progress Note Assessment/Plan: #Fall with left femur fracture: s/p pinning #DM1: Hx of failed pancreas transplant. Hypoglycemia #ESRD: HD per renal HD today #Diabetic right ankle ulcer #Hypoglycemia: -Resolved, now with mild hyperglycemia #Severe deconditioning: PT #Sacral pressure injury: wound care #Anemia of renal disease: H/H stable #Anisocoria: CTH unremarkable #h/o DVT: SQH here. High-risk, will need ppx at DC Plan: We meet as a group to discuss the pt's care at bedside. Increase Lantus to 9 units tonight He is unable to transfer in and out of his wheel chair and this is needed before being able to go to rehab. He will cont to work with PT. If unable to perform the transfer, he may need an LTAC. CM to see D/W Nephrology Subjective: no cp or sob. no n/v. no overnight events Objective: Vital Signs Temp Pulse Resp BP Pulse Ox 36.8 C 105 H 18 150/81 H 99 01/03/18 07:46 01/03/18 07:46 01/03/18 07:46 01/03/18 07:46 01/03/18 07:46 Laboratory Results 01/03/18 10:05 01/03/18 10:05 01/02/18 01/03/18 01/04/18 05:59 05:59 05:59 Intake Total 560 700 Output Total 1000 Balance -440 700 PT 19.8 SEC (12.0-15.0) H 12/30/17 09:28 INR 1.67 (0.83-1.16) H 12/30/17 09:28 - Physical Exam Eyes: PERRL, EOMI Ears, Nose, Mouth, Throat: moist mucous membranes, hearing normal Cardiovascular: No edema Respiratory: no respiratory distress, no rales or rhonchi, clear to auscultation Gastrointestinal: normoactive bowel sounds Skin: warm Neurologic: AAOx3 Psychiatric: interacting appropriately, not anxious Lymph, Heme, Immunologic: No petechiae ICD10 Worksheet Patient Problems: Problems Problem Status Onset Left femoral shaft fracture Acute Cellulitis of left foot Acute Coronary artery disease Acute Diarrhea Acute End stage renal disease Acute Fever Acute Fever Acute Knee pain Acute Leukocytosis Acute Muscle atrophy of lower extremity Acute Pneumonia Acute Sepsis Acute Severe sepsis Acute
[2018-01-03] MEDS ORDERED: EPOETIN ALFA 2,000 UNIT/ML VIAL SC ONE (14:00)
--- NOTE | 2018-01-03 16:07 | ASMTCMCOM ---
CM Note CM Note Notes: Pts case discussed in tx rounds. [facility], , [facility], [facility] all said no. [facility] reports that if pt is able to be a 1 person assist slide board transfer and gets up daily to work w/ therapies they can accept him. CM informed pt of this and he will work his hardest w/ therapies to make it possible to d/c to [facility]. [facility] is his first choice. [facility] is still in the process reviewing pts case. CM has been in contact w/ Rafi (P#: [phone]) at [facility]. [facility]LL[facility] to follow. Plan: TBD Date Signed: 01/03/2018 04:06 PM Electronically Signed By:OK Young
[2018-01-03] MEDS: CLOPIDOGREL BISULFATE 75 MG TAB PO SCH (21:45)
[2018-01-03] MEDS: ATORVASTATIN CALCIUM 10 MG TAB PO SCH (21:45)
[2018-01-03] MEDS: AMITRIPTYLINE HCL 10 MG TAB PO SCH (21:46)
[2018-01-04] MEDS: HEPARIN 5,000 UNIT/0.5 ML INJ SC SCH ×3 (05:38→22:00)
[2018-01-04] MEDS: SENNOSIDES/DOCUSATE SODIUM TAB PO SCH ×2 (07:39→21:47)
[2018-01-04] MEDS: ASPIRIN 81 MG CHEWABLE TAB PO SCH (08:17)
[2018-01-04] MEDS: PANTOPRAZOLE SODIUM 40 MG TAB PO SCH (08:17)
[2018-01-04] MEDS: CARVEDILOL 3.125 MG TAB PO SCH ×2 (08:17→17:48)
[2018-01-04] MEDS: ACETAMINOPHEN 500 MG TAB PO SCH ×3 (08:17→21:59)
[2018-01-04] MEDS: CHOLECALCIFEROL VIT D3 2,000 UNITS TAB/CAP PO SCH (08:17)
[2018-01-04] MEDS: INSULIN REGULAR HUMAN 100 UNIT/ML UNIT SC SCH ×4 (08:18→21:46)
--- NOTE | 2018-01-04 10:57 | SOAPPROG ---
SOHERBIE Progress Note Assessment/Plan: Assessment/Plan: 67 y/o M PMH of ESRD on HD MWF who presented after a fall with a L femoral fracture. ESRD on HD -will continue MWF schedule, last HD 06/05 -please get labs on dialysis days -regular unit [facility] with Dr. Jeter -must be able to transfer from a wheelchair to go back to unit, may need LTAC Hyponatremia -continue to attempt UF, only 1L off yesterday patient thinks EDW is near 65kg -free water restriction 1.5L -monitor daily labs HTN/vol: -on home meds -continue to UF BMD -renal diet -check phos Anemia -Hb <9, stable -last EPO 01/0301/04/18 10:55 Subjective: Only able to pull 1L UF yesterday. Working with PT and still in pain. Objective: Vital Signs Temp Pulse Resp BP Pulse Ox 36.8 C 69 16 132/62 H 99 01/04/18 07:41 01/04/18 07:41 01/04/18 07:41 01/04/18 07:41 01/04/18 07:41 Laboratory Results 01/03/18 10:05 01/03/18 10:05 01/03/18 01/04/18 01/05/18 05:59 05:59 05:59 Intake Total 700 700 Balance 700 700 PT 19.8 SEC (12.0-15.0) H 12/30/17 09:28 INR 1.67 (0.83-1.16) H 12/30/17 09:28 Physical Exam - Physical Exam General Appearance: WD/WN, alert, no apparent distress EENT: PERRL/EOMI Neck: non-tender, full range of motion, supple Respiratory: chest non-tender, decreased breath sounds Cardiac/Chest: normal peripheral pulses, regular rate, rhythm, edema Abdomen: normal bowel sounds, non-tender Back: Normal inspection Skin: pallor Extremities: other (femoral fx) Neuro/Psych: oriented x 3, depressed affect, other (cannot walk) ICD10 Worksheet Patient Problems: Problems Problem Status Onset Left femoral shaft fracture Acute Cellulitis of left foot Acute Coronary artery disease Acute Diarrhea Acute End stage renal disease Acute Fever Acute Fever Acute Knee pain Acute Leukocytosis Acute Muscle atrophy of lower extremity Acute Pneumonia Acute Sepsis Acute Severe sepsis Acute
--- NOTE | 2018-01-04 12:02 | HOSPPROG ---
Hospitalist Progress Note Assessment/Plan: #Fall with left femur fracture: s/p pinning #DM1: Hx of failed pancreas transplant. Hypoglycemia #ESRD: HD per renal HD today #Diabetic right ankle ulcer #Hypoglycemia: -will decrease Lantus back to 8 units tonight #Severe deconditioning: PT #Sacral pressure injury: wound care #Anemia of renal disease: H/H stable #Anisocoria: CTH unremarkable #h/o DVT: SQH here. High-risk, will need ppx at DC Plan: We meet as a group to discuss the pt's care at bedside. Decrease Lantus back to 8 units tonight He is unable to transfer in and out of his wheel chair and this is needed before being able to go to rehab. He will cont to work with PT. If unable to perform the transfer, he may need an LTAC. CM to see Subjective: no overnight events. no new complaints. no cp or sob. Objective: Vital Signs Temp Pulse Resp BP Pulse Ox 36.8 C 69 16 132/62 H 99 01/04/18 07:41 01/04/18 07:41 01/04/18 07:41 01/04/18 07:41 01/04/18 07:41 Laboratory Results 01/03/18 10:05 01/03/18 10:05 01/03/18 01/04/18 01/05/18 05:59 05:59 05:59 Intake Total 700 700 Balance 700 700 PT 19.8 SEC (12.0-15.0) H 12/30/17 09:28 INR 1.67 (0.83-1.16) H 12/30/17 09:28 - Physical Exam Constitutional: no apparent distress Eyes: PERRL Ears, Nose, Mouth, Throat: moist mucous membranes Cardiovascular: regular rate and rhythym, no murmur, rub, or gallop Respiratory: no respiratory distress Skin: warm Musculoskeletal: generalized weakness Neurologic: AAOx3 Psychiatric: interacting appropriately, not anxious, not encephalopathic Lymph, Heme, Immunologic: No petechiae ICD10 Worksheet Patient Problems: Problems Problem Status Onset Left femoral shaft fracture Acute Cellulitis of left foot Acute Coronary artery disease Acute Diarrhea Acute End stage renal disease Acute Fever Acute Fever Acute Knee pain Acute Leukocytosis Acute Muscle atrophy of lower extremity Acute Pneumonia Acute Sepsis Acute Severe sepsis Acute
[2018-01-04] MEDS ORDERED: LOPERAMIDE HCL 2 MG CAP PO PRN (13:35)
[2018-01-04] MEDS: MUPIROCIN 2% 22 GM OINT TP SCH ×2 (20:00→22:06)
--- NOTE | 2018-01-04 20:03 | GCON ---
[f rep st] CONSULTATION REFERRING PHYSICIAN: Denton Saenz MD He is a diabetic patient and has two wound thats that have been debrided on an every 2-week basis. He is 2 weeks since last debridement and the patient's is very concerned that it has not been examined or debrided. I was asked to come see and evaluate the patient. Note is made he is a diabetic and has chronic diabetic ulcers on his right foot over the 5th metatarsal and over the lateral malleolus. On further inspection, what is of concern for the family is, in fact, a hypertrophic/hyperkeratotic skin. This is debrided over the 5th metatarsal. There is necrotic tissue over the lateral malleolus which is also debrided. In both cases for the next 24 hours, I will switch the dressing orders to use Bactroban (as it will penetrate an intact eschar) on a q.8 basis. I will reassess tomorrow, and I will probably recommend going back to the routine dressing management. I would also recommend that we push his oxygen saturations to 98%. Less than 10 sq cm of skin and subcutaneous tissue was debrided. /[id number]/MODL MTDD
[2018-01-04] MEDS: AMITRIPTYLINE HCL 10 MG TAB PO SCH (21:58)
[2018-01-04] MEDS: CLOPIDOGREL BISULFATE 75 MG TAB PO SCH (21:58)
[2018-01-04] MEDS: ATORVASTATIN CALCIUM 10 MG TAB PO SCH (21:58)
[2018-01-05] MEDS: INSULIN GLARGINE 100 UNITS/ML UNIT SC SCH ×3 (00:14→21:40)
[2018-01-05] MEDS: METHOCARBAMOL 750 MG TAB PO PRN ×2 (04:05→21:34)
[2018-01-05] MEDS: HEPARIN 5,000 UNIT/0.5 ML INJ SC SCH ×3 (06:37→21:36)
[2018-01-05] MEDS: PANTOPRAZOLE SODIUM 40 MG TAB PO SCH (09:02)
[2018-01-05] MEDS: CARVEDILOL 3.125 MG TAB PO SCH ×2 (09:02→18:47)
[2018-01-05] MEDS: ASPIRIN 81 MG CHEWABLE TAB PO SCH (09:02)
[2018-01-05] MEDS: ACETAMINOPHEN 500 MG TAB PO SCH ×3 (09:03→22:05)
[2018-01-05] MEDS: SENNOSIDES/DOCUSATE SODIUM TAB PO SCH ×2 (09:03→21:36)
[2018-01-05] MEDS: CHOLECALCIFEROL VIT D3 2,000 UNITS TAB/CAP PO SCH (09:03)
[2018-01-05] MEDS: INSULIN REGULAR HUMAN 100 UNIT/ML UNIT SC SCH ×4 (09:04→21:34)
[2018-01-05] MEDS: traMADol 50 MG TAB PO PRN (10:09)
--- NOTE | 2018-01-05 11:46 | SOAPPROG ---
SOAP Progress Note Assessment/Plan: Assessment: 67 y/o M with a history of DM and peripheral vascular disease admitted with malodorous lower extremity wounds that grew MRSA and proteus last hospitalization S/p debridement POD#1 S: Pain under control. Reports that he is able to ambulate up to 100ft, but typically uses wheel chair because of pain. O: Alert Afebrile Cardiac: irregularly irregular No increased WOB Bilateral lower extremities: Wounds are well dressed with Allevyn and kerlix. Wound care to see later today. Pedal pulses not palpable Plan: Discussed case with Dr. Rapp and Dr. Salazar. Pt will need an aortobifem bypass graft, likely this hospitalization. Discussed surgery with pt and family, as well as expectations for postoperative course. Dr. Reynoso gave medical clearance for surgery. Dr. Rapp will plan to see pt later today or tomorrow morning. Continue to hold eliquis for now. Continue iv abx. Continue routine wound care. 01/05/18 11:46 Objective: Vital Signs Temp Pulse Resp BP Pulse Ox 36.7 C 68 17 136/60 H 98 01/05/18 08:00 01/05/18 08:00 01/05/18 08:00 01/05/18 08:00 01/05/18 08:00 Laboratory Results 01/03/18 10:05 01/03/18 10:05 01/04/18 01/05/18 01/06/18 05:59 05:59 05:59 Intake Total 700 520 100 Balance 700 520 100 PT 19.8 SEC (12.0-15.0) H 12/30/17 09:28 INR 1.67 (0.83-1.16) H 12/30/17 09:28 ICD10 Worksheet Patient Problems: Problems Problem Status Onset Left femoral shaft fracture Acute Cellulitis of left foot Acute Coronary artery disease Acute Diarrhea Acute End stage renal disease Acute Fever Acute Fever Acute Knee pain Acute Leukocytosis Acute Muscle atrophy of lower extremity Acute Pneumonia Acute Sepsis Acute Severe sepsis Acute
--- NOTE | 2018-01-05 12:16 | SOAPPROG ---
SOAP Progress Note Assessment/Plan: Assessment: 67 y/o M with a history of DM and severe peripheral vascular disease, currently admitted for left femoral fx after traumatic fall. S/p right ankle wound debridement POD#1 S: no complaints O: Alert Afebrile RRR No increased WOB LUE: AVF with good thrill, 3cm firm hematoma on upper arm RLE: Wound appears clean and is beginning to granulate. No surrounding erythema or warmth. There is some brown skin discoloration. Poor pedal pulses. Plan: Continue routine wound care. Will continue to follow. 01/05/18 12:10 Objective: Vital Signs Temp Pulse Resp BP Pulse Ox 36.7 C 68 17 136/60 H 98 01/05/18 08:00 01/05/18 08:00 01/05/18 08:00 01/05/18 08:00 01/05/18 08:00 Laboratory Results 01/03/18 10:05 01/03/18 10:05 01/04/18 01/05/18 01/06/18 05:59 05:59 05:59 Intake Total 700 520 100 Balance 700 520 100 PT 19.8 SEC (12.0-15.0) H 12/30/17 09:28 INR 1.67 (0.83-1.16) H 12/30/17 09:28 ICD10 Worksheet Patient Problems: Problems Problem Status Onset Left femoral shaft fracture Acute Cellulitis of left foot Acute Coronary artery disease Acute Diarrhea Acute End stage renal disease Acute Fever Acute Fever Acute Knee pain Acute Leukocytosis Acute Muscle atrophy of lower extremity Acute Pneumonia Acute Sepsis Acute Severe sepsis Acute
--- NOTE | 2018-01-05 14:45 | SOAPPROG ---
SOAP Progress Note Assessment/Plan: Assessment/Plan: 67 y/o M PMH of ESRD on HD MWF who presented after a fall with a L femoral fracture. ESRD on HD -will continue MWF schedule, last HD 06/05 and plan for HD tomorrow -please get labs on dialysis days -regular unit [facility] with Dr. Jeter -must be able to transfer from a wheelchair to go back to unit, may need LTAC Hyponatremia -continue to attempt UF, UF difficult 2/2 to cramping and patient thinks dry weight may be near 65kg -free water restriction 1.5L HTN/vol: -on home meds -continue to UF BMD -renal diet -check phos Anemia -Hb <9, stable -last EPO 01/0301/05/18 14:43 Subjective: Getting some wound care. Pain improving. Objective: Vital Signs Temp Pulse Resp BP Pulse Ox 36.6 C 73 18 141/70 H 99 01/05/18 12:34 01/05/18 12:34 01/05/18 12:34 01/05/18 12:34 01/05/18 12:34 Laboratory Results 01/03/18 10:05 01/03/18 10:05 01/04/18 01/05/18 01/06/18 05:59 05:59 05:59 Intake Total 700 520 100 Balance 700 520 100 PT 19.8 SEC (12.0-15.0) H 12/30/17 09:28 INR 1.67 (0.83-1.16) H 12/30/17 09:28 Physical Exam - Physical Exam General Appearance: WD/WN, alert, mild distress EENT: PERRL/EOMI, normal ENT inspection, pharynx normal Neck: non-tender, full range of motion, supple Respiratory: chest non-tender, lungs clear, normal breath sounds Cardiac/Chest: normal peripheral pulses, regular rate, rhythm, edema Abdomen: normal bowel sounds, non-tender, soft Back: Normal inspection Skin: warm/dry, pallor Extremities: other (fracture) Neuro/Psych: alert, depressed affect ICD10 Worksheet Patient Problems: Problems Problem Status Onset Left femoral shaft fracture Acute Cellulitis of left foot Acute Coronary artery disease Acute Diarrhea Acute End stage renal disease Acute Fever Acute Fever Acute Knee pain Acute Leukocytosis Acute Muscle atrophy of lower extremity Acute Pneumonia Acute Sepsis Acute Severe sepsis Acute
--- NOTE | 2018-01-05 14:45 | HOSPPROG ---
Hospitalist Progress Note Assessment/Plan: #Fall with left femur fracture: s/p pinning #DM1: Hx of failed pancreas transplant * some hypoglycemia * will have him determine insulin coverage * maybe changing diet to regular lead to increases in blood sugar #ESRD: HD per renal HD MWF #Diabetic right ankle ulcer * surgery following #Severe deconditioning: PT * SNF wont take if not transferring with help * pretty weak may take sig time to progress to that point * may need LTAC rather than SNF #Sacral pressure injury: wound care #Anemia of renal disease: H/H stable #Anisocoria: CTH unremarkable #h/o DVT: SQH here. High-risk, will need ppx at DC Subjective: no new complaints. pretty weak Objective: Vital Signs Temp Pulse Resp BP Pulse Ox 36.6 C 73 18 141/70 H 99 01/05/18 12:34 01/05/18 12:34 01/05/18 12:34 01/05/18 12:34 01/05/18 12:34 Laboratory Results 01/03/18 10:05 01/03/18 10:05 01/04/18 01/05/18 01/06/18 05:59 05:59 05:59 Intake Total 700 520 100 Balance 700 520 100 PT 19.8 SEC (12.0-15.0) H 12/30/17 09:28 INR 1.67 (0.83-1.16) H 12/30/17 09:28 - Physical Exam Constitutional: no apparent distress, appears nourished, not in pain Eyes: PERRL, EOMI Ears, Nose, Mouth, Throat: moist mucous membranes, hearing normal Cardiovascular: regular rate and rhythym, systolic murmur Respiratory: no respiratory distress, no rales or rhonchi, clear to auscultation Gastrointestinal: normoactive bowel sounds, soft, non-tender abdomen Skin: warm Neurologic: AAOx3 Psychiatric: interacting appropriately, not anxious, not encephalopathic, thought process linear ICD10 Worksheet Patient Problems: Problems Problem Status Onset Left femoral shaft fracture Acute Cellulitis of left foot Acute Coronary artery disease Acute Diarrhea Acute End stage renal disease Acute Fever Acute Fever Acute Knee pain Acute Leukocytosis Acute Muscle atrophy of lower extremity Acute Pneumonia Acute Sepsis Acute Severe sepsis Acute
[2018-01-05] MEDS: MUPIROCIN 2% 22 GM OINT TP SCH ×2 (18:49→19:17)
[2018-01-05] MEDS: ATORVASTATIN CALCIUM 10 MG TAB PO SCH (21:34)
[2018-01-05] MEDS: CLOPIDOGREL BISULFATE 75 MG TAB PO SCH (21:34)
[2018-01-05] MEDS: AMITRIPTYLINE HCL 10 MG TAB PO SCH (21:35)
[2018-01-06] MEDS: traMADol 50 MG TAB PO PRN ×3 (02:42→18:19)
[2018-01-06] MEDS: HEPARIN 5,000 UNIT/0.5 ML INJ SC SCH ×3 (06:08→22:19)
[2018-01-06] MEDS: SENNOSIDES/DOCUSATE SODIUM TAB PO SCH ×2 (07:48→22:07)
[2018-01-06] MEDS: PANTOPRAZOLE SODIUM 40 MG TAB PO SCH (07:56)
[2018-01-06] MEDS: ASPIRIN 81 MG CHEWABLE TAB PO SCH (07:56)
[2018-01-06] MEDS: CARVEDILOL 3.125 MG TAB PO SCH ×2 (07:57→17:55)
[2018-01-06] MEDS: CHOLECALCIFEROL VIT D3 2,000 UNITS TAB/CAP PO SCH (07:57)
--- NOTE | 2018-01-06 08:36 | WOCRNPDOC ---
[facility] Advanced Assessment Note - Skin Integrity Problem, Advanced Assess Right Lateral Ankle Diabetic Ulcer Dressing Type: Collagen, Hydrofera Blue Ready, Non-Bordered Foam Dressing Description: Clean/Dry, Intact Closure Description: Steri Strips Exudate Amount: None Integumentary Issue Intervention: Dressing Changed, Dressing Initialed & Dated ( by Merlene SAMANO) Asuncion Wound Tissue: Erythema ( mild ) Asuncion Wound Swelling: Mild Wound Bed Color: Red, Yellow Wound Bed Constitution: Granulation Tissue (10%), Adhered Slough (90%) Wound Edges: Epithelizing Site Odor: None Site Measurement - Head-to-Toe Length X Width X Depth (cm): 1.4X1.3X0.4 Skin Integrity Problem Comment: Wound cleansed with NS and gauze. Small piece of Perfecto collagen torn off and moistened with NS after Conservative sharp bedside debridement by Merlene SAMANO. Placed perfecto into wound bed. Covered with a small piece of Hydrofera Blue Ready cut to just smaller than wound bed. Placed on top of Perfecto writing facing up. Secured with steri-strips. Half of a mepilex dressing placed on top after cutting out a hole so that HFB ready sits inside the foam. This was to offload the wound as the increased pressure from the foam HFB dressing may be keeping the wound open. and secured with medipore tape. Wound care will round again early next week. Patient's was included in the entire dressing change and discussion and education about plan of care and wound status completed. Right Lateral Foot Diabetic Ulcer Dressing Type: Collagen, Mepilex Dressing Description: Clean/Dry, Intact Exudate Amount: None Integumentary Issue Intervention: Dressing Changed, Dressing Initialed & Dated Asuncion Wound Swelling: None Wound Bed Color: Filley, Red Wound Bed Constitution: Granulation Tissue (50%), Red/Filley - Non Granular Tissue (50%) Wound Edges: Epithelizing, Attached Site Odor: None Site Measurement - Head-to-Toe Length X Width X Depth (cm): open wound: 0.9x0.5x0.2, Skin Integrity Problem Comment: Wound cleansed with ns and gauze. Perfecto collagen moistened with NS and placed in wound bed. Hydrofera blue ready cut to just smaller than wound bed and placed writing side up. Mepilex placed on top and secured with medipore tape. Periwound skin is purple and partially blanching. Wound care will round again early next the week. Sacrum Pressure Injury Dressing Type: Mepilex Border Dressing Description: Intact, Shadowed, Soiled (mildly soiled with stool at distal end. ) Exudate Amount: Scant Exudate Color: Yellow, Brown Integumentary Issue Intervention: Dressing Removed Asuncion Wound Tissue: Blanching, Scarred Asuncion Wound Swelling: None Wound Bed Color: Black, Brown, Purple, Yellow Wound Bed Constitution: Mixed Loose & Adhered Slough/Eschar Wound Edges: Not Attached, Irregular Site Odor: None Site Measurement - Head-to-Toe Length X Width X Depth (cm): 3.3x3.1x0.2 Pressure Injury Stage: Deep Tissue Injury (DTI) Pressure Injury Present on Admit: No Skin Integrity Problem Comment: This is an evolving DTI with continued necrosis and sloughing of superficial tissues within it's boundaries. Some of the skin was mechanically removed with gauze. Wound beds were cleansed with NS and gauze. Patient verbalized understanding of trying to remain off of his sacrum and to lay on either side. Will continue with current plan of care. Wound care will round later this week. Clinitron initiated and arrived today. Right Lateral Foot Pressure Injury Dressing Type: Mepilex Integumentary Issue Intervention: Dressing Changed, Dressing Initialed & Dated Site Measurement - Head-to-Toe Length X Width X Depth (cm): DTPI: 5.3x1.9xDTPI Pressure Injury Stage: Deep Tissue Injury (DTI) Pressure Injury Present on Admit: No Skin Integrity Problem Comment: New hospital acquired deep tissue pressure injury. Wound RN theorizes that this may be from patient being in wheelchair without boot on and the side of his foot resting against the side of the foot rest. Will clarify wound orders that patient must have boots on at all times when in chair and in bed. Will monitor this area as it will likely open. The POA mixed diabetic/pressure injury that the patient was admitted with is in the middle of this deep tissue injury and will likely expand into a larger wound. The deepest portion of the DTPI is distal to the POA ulcer. Patient's aware of this wound and its likely/possible evolution. Wound care will check in again later this week.
[2018-01-06] MEDS: INSULIN REGULAR HUMAN 100 UNIT/ML UNIT SC SCH ×4 (09:42→22:11)
[2018-01-06] MEDS: ACETAMINOPHEN 500 MG TAB PO SCH ×3 (09:42→22:11)
--- NOTE | 2018-01-06 12:34 | SOAPPROG ---
SOAP Progress Note Assessment/Plan: Assessment/Plan: 67 y/o M PMH of ESRD on HD MWF who presented after a fall with a L femoral fracture. ESRD on HD -will continue MWF schedule, HD today -please get labs on dialysis days -regular unit [facility] with Dr. Jeter -must be able to transfer from a wheelchair to go back to unit, may need LTAC Hyponatremia -UF 2L today, may consider midodrine due to intradialytic hypotension -free water restriction 1.5L HTN/vol: -on home meds -continue to UF BMD -renal diet -will check phos Anemia -Hb <9, stable -last EPO 01/0301/06/18 12:32 Subjective: Patient seen on HD. Tolerating UF. Still having pain in leg. Objective: Vital Signs Temp Pulse Resp BP Pulse Ox 36.7 C 98 16 157/87 H 99 01/06/18 07:39 01/06/18 07:39 01/06/18 07:39 01/06/18 07:39 01/06/18 07:39 Laboratory Results 01/03/18 10:05 01/06/18 08:30 01/05/18 01/06/18 01/07/18 05:59 05:59 05:59 Intake Total 520 550 Balance 520 550 PT 19.8 SEC (12.0-15.0) H 12/30/17 09:28 INR 1.67 (0.83-1.16) H 12/30/17 09:28 Physical Exam - Physical Exam General Appearance: WD/WN, alert, mild distress EENT: PERRL/EOMI, pharynx normal Neck: non-tender, full range of motion, supple Respiratory: chest non-tender, lungs clear, decreased breath sounds Cardiac/Chest: normal peripheral pulses, regular rate, rhythm Abdomen: normal bowel sounds, non-tender, soft Skin: pallor Extremities: other (pain R leg wrapped) Neuro/Psych: alert, oriented x 3 ICD10 Worksheet Patient Problems: Problems Problem Status Onset Left femoral shaft fracture Acute Cellulitis of left foot Acute Coronary artery disease Acute Diarrhea Acute End stage renal disease Acute Fever Acute Fever Acute Knee pain Acute Leukocytosis Acute Muscle atrophy of lower extremity Acute Pneumonia Acute Sepsis Acute Severe sepsis Acute
--- NOTE | 2018-01-06 13:24 | PDIAF ---
- Diagnosis Code Status: Full Code - Medication Management Discharge Medications: Medications to Continue on Transfer Amitriptyline HCl [Elavil 10 mg (*)] 10 mg PO HS 07/08/10 [Last Taken 12/22/17 22:00] Aspirin [Aspirin 81mg (*)] 81 mg PO DAILY 07/08/10 [Last Taken 12/23/17 08:00] Herbals/Supplements -Info Only 1 ea PO DAILY 07/08/10 [Last Taken 09/18/16] Insulin Lispro [humALOG LISPRO 100 units/ml (*)] 3 - 6 units SC TIDMEAL [Last Taken 12/23/17 08:00] Pantoprazole Sodium [Protonix 40mg (*)] 40 mg PO DAILY 05/20/13 [Last Taken 08/11 08:00] Clopidogrel Bisulfate [Plavix (*)] 75 mg PO HS #30 tab 05/15/16 [Last Taken 10/08] Amoxicillin Trihydrate [Amoxil] 500 mg PO HS 12/23/17 [Last Taken Unknown] Atorvastatin Calcium [Lipitor 10 mg (*)] 10 mg PO HS 12/23/17 [Last Taken 22:00] Carvedilol [Coreg (*)] 3.125 mg PO BIDMEAL 12/23/17 [Last Taken 12/23/17 08:00] Cholecalciferol Vit D3 [Vitamin D3 (*)] 2,000 units PO DAILY 12/23/17 [Last Taken 12/23/17 08:00] Insulin Detemir [Levemir] 11 unit SQ DAILY 12/23/17 [Last Taken 12/23/17 08:00] traMADol [Ultram 50 mg (*)] 50 mg PO BID PRN 12/23/17 [Last Taken 12/23/17 08:30 ] Acetaminophen [Tylenol ES 500 mg (*)] 1,000 mg PO TID tab 01/06/18 [Last Taken Unknown] Loperamide HCl [Imodium 2 mg (*)] 2 mg PO QID PRN cap 01/06/18 [Last Taken Unknown] Methocarbamol [Robaxin 750 mg (*)] 750 mg PO TID PRN tab 01/06/18 [Last Taken Unknown] Ondansetron Odt [Zofran Odt 4 mg (*)] 4 mg PO Q4HRS PRN tab 01/06/18 [Last Taken Unknown] Polyethylene Glycol 3350 [Miralax 17 gm (*)] 17 gm PO DAILY PRN pkt 01/06/18 [ Last Taken Unknown] Sennosides/Docusate Sodium [Senokot-S] 1 - 2 tab PO BID tab 01/06/18 [Last Taken Unknown] Discharge Medications: Refer to the Discharge Home Medication list for PRN reason. - Orders Services needed: Registered Nurse, Certified [employer], Physical Therapy, Occupational Therapy Isolation Type: None Diet Recommendation: sodium restricted, potassium restricted Additional Instructions: Wound care: Resume outpatient orders upon discharge. : Change dressings to both right lateral foot and lateral ankle wounds every 2 days and prn. 1. Clean with ns and gauze 2. Skin prep federico wound 3. tear off a piece of perfecto ag or other collagen and apply a piece large enough to cover the wound beds. There shouldnt be much extra, but if there is you may overlap it onto itself. 4.Cut a piece of Hydrofera blue ready to fit into wound bed then place it writing side up over the wound bed. It should be just smaller than the wound so it doesnt press the sides of the wound open. Secure HFB ready with small steri strips. 5. Cover each wound with 1/2 of a Mepilex 4x4 or like dressing and secure with medipore tape. Merlene Torab CWON Merlene Torab CWON - Labs/Radiology BMP Date: 01/08/18 CBC w/diff Date: 01/08/18 - Follow Up Care Current Providers and Referrals: Patient,NotPresent [Unknown] - As per Instructions Koby Page MD [Medical Doctor] - follow up as scheduled (7-10 days after surgery if discharged from hospital before than) Wiliam Jeter MD [Medical Doctor] -
--- NOTE | 2018-01-06 15:03 | ASMTCMCOM ---
CM Note CM Note Notes: 01/06/2018 Case Management Note Discussed pt during rounds this morning. Anticipating d/c tomorrow. Pt has been accepted to [facility] rehab. Case Management to arrange stretcher transport due to limitations on hip flexion post op. Case Management d/c poc: [facility]. Case Management to follow. Date Signed: 01/06/2018 03:02 PM Electronically Signed By:Blanka Wall RN
--- NOTE | 2018-01-06 15:50 | HOSPPROG ---
Hospitalist Progress Note Assessment/Plan: 67 yo M with hx of ESRD, DM1 presenting s/p fall with left femur fracture #Fall with left femur fracture: s/p pinning, pt/ot involved #DM1: Hx of failed pancreas transplant, sugars now well controlled on glargine and SSI #ESRD: HD MWF as per routine # spasms: patient noting some LLE spasms intermittently, robaxin only mildly effective, continue to monitor and tx with tylenol/robaxin #Diabetic right ankle ulcer: s/p debridement by gen surg #Severe deconditioning: minimal improvement since arrival, plan is for SNF likely in am, discussed with patient as well as CM #Sacral pressure injury: wound care #Anemia of renal disease: H/H stable #Anisocoria: CTH unremarkable #h/o DVT: SQH here. High-risk, will need ppx at DC # IP status, likely to dc to snf in am Patient new to my care. Old records reviewed and summarized as above. Care plan reviewed with CM. Subjective: no significant overnight events, patient feeling poorly post HD-- feels weak, notes that he is having spasm in his LLE Objective: Vital Signs Temp Pulse Resp BP Pulse Ox 36.7 C 98 16 157/87 H 99 01/06/18 07:39 01/06/18 07:39 01/06/18 07:39 01/06/18 07:39 01/06/18 07:39 Laboratory Results 01/03/18 10:05 01/06/18 08:30 01/05/18 01/06/18 01/07/18 05:59 05:59 05:59 Intake Total 520 550 Output Total 2000 Balance 520 550 -2000 PT 19.8 SEC (12.0-15.0) H 12/30/17 09:28 INR 1.67 (0.83-1.16) H 12/30/17 09:28 chronically ill appearing anicteric op clear rrr no mrg cta b soft nt nd no cce warm dry well perfused oriented appropriate ICD10 Worksheet Patient Problems: Problems Problem Status Onset Severe sepsis Acute End stage renal disease Acute Cellulitis of left foot Acute Diarrhea Acute Coronary artery disease Acute Pneumonia Acute Fever Acute Leukocytosis Acute Sepsis Acute Fever Acute Knee pain Acute Muscle atrophy of lower extremity Acute Left femoral shaft fracture Acute
--- NOTE | 2018-01-06 16:28 | WOCRNPDOC ---
WOCRN Advanced Assessment Note - Skin Integrity Problem, Advanced Assess Right Lateral Ankle Diabetic Ulcer Integumentary Issue Intervention: Conservative Sharp Bedside Debridement Conservative Sharp Bedside Debridement Performed: Yes Consent Signed for Debridement: Yes Timeout Performed per Protocol: Yes Instrument Used for Debridement: Currette Measurements Before Debridement: 1.4x1.3x0.4 Measurements After Debridement: 1.7x1.3x0.4 Estimated Blood Loss from Debridement: 0 Conservative Sharp Bedside Debridement Comment: Mixed pressure and neuropathic wound. Area cleaned well with ns and patted dry with gauze. Debrided necrotic wound edges and a very thin layer of slough off wound bed. However wound is likely going to debride down to tendon and perhaps bone, and this would be best done by a surgeon rather than CWON. This was explained to patient and his . Karla applied to wound bed and moistened with ns. Covered with HFB ready and steri stripped in place. This was covered by Mepilex foam with a hole cut so that there is less pressure on the malleolus. Orders will be updated to include this change. Wound care will round later this week.
[2018-01-06] MEDS: METHOCARBAMOL 750 MG TAB PO PRN (22:07)
[2018-01-06] MEDS: CLOPIDOGREL BISULFATE 75 MG TAB PO SCH (22:07)
[2018-01-06] MEDS: AMITRIPTYLINE HCL 10 MG TAB PO SCH (22:07)
[2018-01-06] MEDS: ATORVASTATIN CALCIUM 10 MG TAB PO SCH (22:07)
[2018-01-06] MEDS: INSULIN GLARGINE 100 UNITS/ML UNIT SC SCH (22:17)
[2018-01-07] MEDS: HEPARIN 5,000 UNIT/0.5 ML INJ SC SCH ×3 (06:08→21:57)
--- NOTE | 2018-01-07 08:00 | SOAPPROG ---
SOAP Progress Note Assessment/Plan: Assessment: fall at home left femur fracture pain, better, but still present, limits activity ESRD HD tomorrow, either here or as outpatient anemia, KINGA agents as necessary Plan: HD tomorrow hopefully to rehab today ([facility]) transportation to his HD facility has been arranged pain control, overall better than when I last saw him physical therapy, still having a difficult time with PT, primarily due to pain EPO on HD 12/31/17 08:37 01/01/18 07:32 01/07/18 07:56 Subjective: spirits good pain better but still limiting his mobility no cp sob nausea or vomiting eating OK HD went OK yesterday sleeping OK Objective: Vital Signs Temp Pulse Resp BP Pulse Ox 37.1 C 87 14 127/63 H 97 01/07/18 07:16 01/07/18 07:16 01/07/18 07:16 01/07/18 07:16 01/07/18 07:16 Laboratory Results 01/03/18 10:05 01/06/18 08:30 01/06/18 01/07/18 01/08/18 05:59 05:59 05:59 Intake Total 550 370 Output Total 2000 Balance 550 -1630 PT 19.8 SEC (12.0-15.0) H 12/30/17 09:28 INR 1.67 (0.83-1.16) H 12/30/17 09:28 Physical Exam - Physical Exam General Appearance: alert, thin Neck: normal inspection Respiratory: No rhonchi, No wheezing Cardiac/Chest: regular rate, rhythm, edema, systolic murmur Abdomen: normal bowel sounds, non-tender, soft Extremities: pedal edema Neuro/Psych: alert, normal mood/affect, oriented x 3 ICD10 Worksheet Patient Problems: Problems Problem Status Onset Left femoral shaft fracture Acute Cellulitis of left foot Acute Coronary artery disease Acute Diarrhea Acute End stage renal disease Acute Fever Acute Fever Acute Knee pain Acute Leukocytosis Acute Muscle atrophy of lower extremity Acute Pneumonia Acute Sepsis Acute Severe sepsis Acute
[2018-01-07] MEDS: PANTOPRAZOLE SODIUM 40 MG TAB PO SCH (08:33)
[2018-01-07] MEDS: CHOLECALCIFEROL VIT D3 2,000 UNITS TAB/CAP PO SCH (08:33)
[2018-01-07] MEDS: INSULIN REGULAR HUMAN 100 UNIT/ML UNIT SC SCH ×4 (08:33→22:00)
[2018-01-07] MEDS: ASPIRIN 81 MG CHEWABLE TAB PO SCH (08:34)
[2018-01-07] MEDS: CARVEDILOL 3.125 MG TAB PO SCH ×2 (08:34→18:50)
[2018-01-07] MEDS: SENNOSIDES/DOCUSATE SODIUM TAB PO SCH ×3 (08:42→22:00)
--- NOTE | 2018-01-07 10:16 | PDIAF ---
- Diagnosis Code Status: Full Code - Medication Management Discharge Medications: Medications to Continue on Transfer Amitriptyline HCl [Elavil 10 mg (*)] 10 mg PO HS 07/08/10 [Last Taken 12/22/17 22:00] Aspirin [Aspirin 81mg (*)] 81 mg PO DAILY 07/08/10 [Last Taken 12/23/17 08:00] Herbals/Supplements -Info Only 1 ea PO DAILY 07/08/10 [Last Taken 09/18/16] Insulin Lispro [humALOG LISPRO 100 units/ml (*)] 3 - 6 units SC TIDMEAL [Last Taken 12/23/17 08:00] Pantoprazole Sodium [Protonix 40mg (*)] 40 mg PO DAILY 05/20/13 [Last Taken 08/11 08:00] Clopidogrel Bisulfate [Plavix (*)] 75 mg PO HS #30 tab 05/15/16 [Last Taken 10/08] Amoxicillin Trihydrate [Amoxil] 500 mg PO HS 12/23/17 [Last Taken Unknown] Atorvastatin Calcium [Lipitor 10 mg (*)] 10 mg PO HS 12/23/17 [Last Taken 22:00] Carvedilol [Coreg (*)] 3.125 mg PO BIDMEAL 12/23/17 [Last Taken 12/23/17 08:00] Cholecalciferol Vit D3 [Vitamin D3 (*)] 2,000 units PO DAILY 12/23/17 [Last Taken 12/23/17 08:00] Insulin Detemir [Levemir] 11 unit SQ DAILY 12/23/17 [Last Taken 12/23/17 08:00] traMADol [Ultram 50 mg (*)] 50 mg PO BID PRN 12/23/17 [Last Taken 12/23/17 08:30 ] Acetaminophen [Tylenol ES 500 mg (*)] 1,000 mg PO TID tab 01/06/18 [Last Taken Unknown] Loperamide HCl [Imodium 2 mg (*)] 2 mg PO QID PRN cap 01/06/18 [Last Taken Unknown] Methocarbamol [Robaxin 750 mg (*)] 750 mg PO TID PRN tab 01/06/18 [Last Taken Unknown] Ondansetron Odt [Zofran Odt 4 mg (*)] 4 mg PO Q4HRS PRN tab 01/06/18 [Last Taken Unknown] Polyethylene Glycol 3350 [Miralax 17 gm (*)] 17 gm PO DAILY PRN pkt 01/06/18 [ Last Taken Unknown] Sennosides/Docusate Sodium [Senokot-S] 1 - 2 tab PO BID tab 01/06/18 [Last Taken Unknown] Discharge Medications: Refer to the Discharge Home Medication list for PRN reason. - Orders Services needed: Registered Nurse, Certified Bi Analyst, Physical Therapy, Occupational Therapy Isolation Type: None Diet Recommendation: sodium restricted, potassium restricted Additional Instructions: Wound care: Resume outpatient orders upon discharge. : Change dressings to both right lateral foot and lateral ankle wounds every 2 days and prn. 1. Clean with ns and gauze 2. Skin prep federico wound 3. tear off a piece of perfecto ag or other collagen and apply a piece large enough to cover the wound beds. There shouldnt be much extra, but if there is you may overlap it onto itself. 4.Cut a piece of Hydrofera blue ready to fit into wound bed then place it writing side up over the wound bed. It should be just smaller than the wound so it doesnt press the sides of the wound open. Secure HFB ready with small steri strips. 5. Cover each wound with 1/2 of a Mepilex 4x4 or like dressing and secure with medipore tape. Merlene Torab CWON Merlene Torab CWON - Labs/Radiology BMP Date: 01/09/18 CBC w/diff Date: 01/09/18 - Follow Up Care Current Providers and Referrals: Wiliam Jeter MD [Medical Doctor] - Patient,NotPresent [Unknown] - As per Instructions Koby Page MD [Medical Doctor] - follow up as scheduled (7-10 days after surgery if discharged from hospital before than)
[2018-01-07] MEDS: ACETAMINOPHEN 500 MG TAB PO SCH ×4 (12:20→23:26)
[2018-01-07] MEDS: METHOCARBAMOL 750 MG TAB PO PRN ×2 (12:20→21:55)
--- NOTE | 2018-01-07 17:54 | SOAPPROG ---
GWYN Progress Note Assessment/Plan: Assessment: Plan: 01/07/18 17:54 Painful knee Retrograde femoral nail Xrays ordered Pending rehab tomorrow after dialysis fu one week [facility] Subjective: Painful L knee Objective: Vital Signs Temp Pulse Resp BP Pulse Ox 36.7 C 76 16 155/71 H 95 01/07/18 12:21 01/07/18 12:21 01/07/18 12:21 01/07/18 12:21 01/07/18 12:21 Laboratory Results 01/03/18 10:05 01/06/18 08:30 01/06/18 01/07/18 01/08/18 05:59 05:59 05:59 Intake Total 550 370 Output Total 2000 Balance 550 -1630 PT 19.8 SEC (12.0-15.0) H 12/30/17 09:28 INR 1.67 (0.83-1.16) H 12/30/17 09:28 Incision CDI. Slight necrosis superior knee staple line. Proximal thigh kaden intact. sensate posterior calf. AAROM 10-60 knee without pain. Rotation is painful. Active DF ankle. warm foot ICD10 Worksheet Patient Problems: Problems Problem Status Onset Left femoral shaft fracture Acute Cellulitis of left foot Acute Coronary artery disease Acute Diarrhea Acute End stage renal disease Acute Fever Acute Fever Acute Knee pain Acute Leukocytosis Acute Muscle atrophy of lower extremity Acute Pneumonia Acute Sepsis Acute Severe sepsis Acute
--- NOTE | 2018-01-07 21:08 | HOSPPROG ---
Hospitalist Progress Note Assessment/Plan: 67 yo M with hx of ESRD, DM1 presenting s/p fall with left femur fracture #Fall with left femur fracture: s/p pinning, pt/ot involved. Ptient had evaluation by ortho, they will f/u with him in clinic, not concerned with his exam #DM1: Hx of failed pancreas transplant, sugars now well controlled on glargine and SSI #ESRD: HD MWF as per routine # spasms: patient noting some LLE spasms intermittently, robaxin only mildly effective, continue to monitor and tx with tylenol/robaxin #Diabetic right ankle ulcer: s/p debridement by gen surg #Severe deconditioning: minimal improvement since arrival, plan is for SNF versus LTAC, patient very reluctant to go to snf as he does not think he is strong enough to tolerate sitting for HD however does not meet criteria for ltac at this time either #Sacral pressure injury: wound care #Anemia of renal disease: H/H stable #Anisocoria: CTH unremarkable #h/o DVT: SQH here. High-risk, will need ppx at DC # IP status, likely to dc to snf in am Prolonged care spent with this patient from 930-10 and again from 3-345 in discussion of placement options, reviewing concerns with and CM Subjective: no significant overnight events, patient feels better than yesterday but still very weak Objective: Vital Signs Temp Pulse Resp BP Pulse Ox 36.4 C 70 16 137/63 H 98 01/07/18 20:00 01/07/18 20:00 01/07/18 20:00 01/07/18 20:00 01/07/18 20:00 Laboratory Results 01/03/18 10:05 01/06/18 08:30 01/06/18 01/07/18 01/08/18 05:59 05:59 05:59 Intake Total 550 370 250 Output Total 2000 Balance 550 -1630 250 PT 19.8 SEC (12.0-15.0) H 12/30/17 09:28 INR 1.67 (0.83-1.16) H 12/30/17 09:28 chronically ill appearing anicteric op clear rrr no mrg cta b soft nt nd no cce warm dry well perfused oriented appropriate ICD10 Worksheet Patient Problems: Problems Problem Status Onset Left femoral shaft fracture Acute Cellulitis of left foot Acute Coronary artery disease Acute Diarrhea Acute End stage renal disease Acute Fever Acute Fever Acute Knee pain Acute Leukocytosis Acute Muscle atrophy of lower extremity Acute Pneumonia Acute Sepsis Acute Severe sepsis Acute
[2018-01-07] MEDS: AMITRIPTYLINE HCL 10 MG TAB PO SCH (21:55)
[2018-01-07] MEDS: ATORVASTATIN CALCIUM 10 MG TAB PO SCH (21:55)
[2018-01-07] MEDS: CLOPIDOGREL BISULFATE 75 MG TAB PO SCH (21:56)
[2018-01-07] MEDS: INSULIN GLARGINE 100 UNITS/ML UNIT SC SCH ×3 (21:58→23:25)
[2018-01-08] MEDS: traMADol 50 MG TAB PO PRN (00:01)
[2018-01-08] MEDS: HEPARIN 5,000 UNIT/0.5 ML INJ SC SCH ×2 (05:55→16:04)
--- NOTE | 2018-01-08 08:16 | SOAPPROG ---
SOAP Progress Note Assessment/Plan: Assessment: #ESRD -[facility] MWF -HD today per usual schedule, goal UF 2kg -He came to dialysis in bed today- I asked him if he would be able to sit in recliner chair at outpt HD for full 4 hours-- he is not sure. Has decub ulcer and L femoral fracture. I have asked him to try when he gets back to room to see how long he can sit as needs to be able to do this for outpt HD (otherwise needs to stay here vs LTAC until able). I have call into hospitalist to discuss as well. 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 Using LUE AVF, Qb 400, 2K/2.5Ca bath, goal UF 2kg. Watching tv, denies any sob, pain. Tolerating well so far. Objective: Vital Signs Temp Pulse Resp BP Pulse Ox 36.7 C 73 16 182/79 H 96 01/08/18 07:22 01/08/18 07:22 01/08/18 07:22 01/08/18 07:22 01/08/18 07:22 Laboratory Results 01/03/18 10:05 01/06/18 08:30 01/07/18 01/08/18 01/09/18 05:59 05:59 05:59 Intake Total 370 650 Output Total 2000 Balance -1630 650 PT 19.8 SEC (12.0-15.0) H 12/30/17 09:28 INR 1.67 (0.83-1.16) H 12/30/17 09:28 Physical Exam - Physical Exam General Appearance: alert, no apparent distress EENT: other (mmm) Neck: supple Respiratory: lungs clear (ant bilat, on O2 by NC) Cardiac/Chest: regular rate, rhythm, other (no rub) Abdomen: normal bowel sounds, non-tender, soft Extremities: other (trace LE edema, abrasion on arm dressing c/d/i) Neuro/Psych: alert, oriented x 3 ICD10 Worksheet Patient Problems: Problems Problem Status Onset Left femoral shaft fracture Acute Cellulitis of left foot Acute Coronary artery disease Acute Diarrhea Acute End stage renal disease Acute Fever Acute Fever Acute Knee pain Acute Leukocytosis Acute Muscle atrophy of lower extremity Acute Pneumonia Acute Sepsis Acute Severe sepsis Acute
--- NOTE | 2018-01-08 08:50 | SOAPPROG ---
GWYN Progress Note Assessment/Plan: Assessment: Plan: 01/07/18 17:54 Painful knee Retrograde femoral nail Xrays ordered Pending rehab tomorrow after dialysis fu one week [facility] Subjective: xrays reviewed. Looks fine. OK for discharge from ortho perspective Objective: Vital Signs Temp Pulse Resp BP Pulse Ox 36.7 C 73 16 182/79 H 96 01/08/18 07:22 01/08/18 07:22 01/08/18 07:22 01/08/18 07:22 01/08/18 07:22 Laboratory Results 01/03/18 10:05 01/06/18 08:30 01/07/18 01/08/18 01/09/18 05:59 05:59 05:59 Intake Total 370 650 Output Total 2000 Balance -1630 650 PT 19.8 SEC (12.0-15.0) H 12/30/17 09:28 INR 1.67 (0.83-1.16) H 12/30/17 09:28 ICD10 Worksheet Patient Problems: Problems Problem Status Onset Left femoral shaft fracture Acute Cellulitis of left foot Acute Coronary artery disease Acute Diarrhea Acute End stage renal disease Acute Fever Acute Fever Acute Knee pain Acute Leukocytosis Acute Muscle atrophy of lower extremity Acute Pneumonia Acute Sepsis Acute Severe sepsis Acute
[2018-01-08] MEDS: CHOLECALCIFEROL VIT D3 2,000 UNITS TAB/CAP PO SCH (09:42)
[2018-01-08] MEDS: ASPIRIN 81 MG CHEWABLE TAB PO SCH (09:42)
[2018-01-08] MEDS: METHOCARBAMOL 750 MG TAB PO PRN (09:42)
[2018-01-08] MEDS: ACETAMINOPHEN 500 MG TAB PO SCH ×2 (09:42→16:04)
[2018-01-08] MEDS: PANTOPRAZOLE SODIUM 40 MG TAB PO SCH (09:42)
[2018-01-08] MEDS: SENNOSIDES/DOCUSATE SODIUM TAB PO SCH (09:42)
[2018-01-08] MEDS: CARVEDILOL 3.125 MG TAB PO SCH ×2 (09:43→16:53)
[2018-01-08] MEDS: INSULIN REGULAR HUMAN 100 UNIT/ML UNIT SC SCH ×3 (10:00→16:58)
[2018-01-08] MEDS ORDERED: INSULIN GLARGINE 100 UNITS/ML UNIT SC SCH ×2 (10:54→11:00)
[2018-01-08 12:37] VITALS: BP 140/74
--- NOTE | 2018-01-08 12:46 | PDIAF ---
- Diagnosis Code Status: Full Code - Medication Management Discharge Medications: Medications to Continue on Transfer Amitriptyline HCl [Elavil 10 mg (*)] 10 mg PO HS 07/08/10 [Last Taken 12/22/17 22:00] Aspirin [Aspirin 81mg (*)] 81 mg PO DAILY 07/08/10 [Last Taken 12/23/17 08:00] Herbals/Supplements -Info Only 1 ea PO DAILY 07/08/10 [Last Taken 09/18/16] Insulin Lispro [humALOG LISPRO 100 units/ml (*)] 3 - 6 units SC TIDMEAL [Last Taken 12/23/17 08:00] Pantoprazole Sodium [Protonix 40mg (*)] 40 mg PO DAILY 05/20/13 [Last Taken 08/11 08:00] Clopidogrel Bisulfate [Plavix (*)] 75 mg PO HS #30 tab 05/15/16 [Last Taken 10/08] Amoxicillin Trihydrate [Amoxil] 500 mg PO HS 12/23/17 [Last Taken Unknown] Atorvastatin Calcium [Lipitor 10 mg (*)] 10 mg PO HS 12/23/17 [Last Taken 22:00] Carvedilol [Coreg (*)] 3.125 mg PO BIDMEAL 12/23/17 [Last Taken 12/23/17 08:00] Cholecalciferol Vit D3 [Vitamin D3 (*)] 2,000 units PO DAILY 12/23/17 [Last Taken 12/23/17 08:00] traMADol [Ultram 50 mg (*)] 50 mg PO BID PRN 12/23/17 [Last Taken 12/23/17 08:30 ] Acetaminophen [Tylenol ES 500 mg (*)] 1,000 mg PO TID tab 01/06/18 [Last Taken Unknown] Loperamide HCl [Imodium 2 mg (*)] 2 mg PO QID PRN cap 01/06/18 [Last Taken Unknown] Methocarbamol [Robaxin 750 mg (*)] 750 mg PO TID PRN tab 01/06/18 [Last Taken Unknown] Ondansetron Odt [Zofran Odt 4 mg (*)] 4 mg PO Q4HRS PRN tab 01/06/18 [Last Taken Unknown] Polyethylene Glycol 3350 [Miralax 17 gm (*)] 17 gm PO DAILY PRN pkt 01/06/18 [ Last Taken Unknown] Sennosides/Docusate Sodium [Senokot-S] 1 - 2 tab PO BID tab 01/06/18 [Last Taken Unknown] Insulin Glargine [Lantus Syringe] 8 units SC DAILY unit 01/08/18 [Last Taken Unknown] Discharge Medications: Refer to the Discharge Home Medication list for PRN reason. - Orders Services needed: Registered Nurse, Certified Pan Devulcanizer Helper, Physical Therapy, Occupational Therapy Isolation Type: None Diet Recommendation: sodium restricted, potassium restricted Activity/Weight Bearing Restrictions: With dialysis, patient will need additional pillows and cushions in order to tolerate sitting for dialysis Additional Instructions: Wound care: Resume outpatient orders upon discharge. : Change dressings to both right lateral foot and lateral ankle wounds every 2 days and prn. 1. Clean with ns and gauze 2. Skin prep federico wound 3. tear off a piece of perfecto ag or other collagen and apply a piece large enough to cover the wound beds. There shouldnt be much extra, but if there is you may overlap it onto itself. 4.Cut a piece of Hydrofera blue ready to fit into wound bed then place it writing side up over the wound bed. It should be just smaller than the wound so it doesnt press the sides of the wound open. Secure HFB ready with small steri strips. 5. Cover each wound with 1/2 of a Mepilex 4x4 or like dressing and secure with medipore tape. Merlene Torab CWON Merlene Torab CWON Orthopedics: Staple removal at Rehab fu [facility] after one week in Rehab WBAT with transfers OK Knee flexion ROM as tolerated Support to knee and ankle while transferring helps to minimize his pain Thanks Dr [facility] - Labs/Radiology BMP Date: 01/10/18 CBC w/diff Date: 01/10/18 - Follow Up Care Current Providers and Referrals: Wiliam Jeter MD [Medical Doctor] - Patient,NotPresent [Unknown] - As per Instructions Koby Page MD [Medical Doctor] - follow up as scheduled (7-10 days after surgery if discharged from hospital before than)
--- NOTE | 2018-01-08 12:46 | PDDCSUM ---
Discharge Summary Discharge Summary: Dates of service 12/23-01/08/18 Consultations: orthopedics, renal Procedures performed:femur fracture fixation with nail, head CT, hemodialysis Hospital course by problem: 67 yo M with hx of ESRD, DM1 presenting s/p fall with left femur fracture #Fall with left femur fracture: s/p pinning, pt/ot involved. Patient had evaluation by ortho, they will f/u with him in clinic, not concerned with his exam #DM1: Hx of failed pancreas transplant, sugars now well controlled on glargine and SSI #ESRD: HD MWF as per routine # spasms: patient noting some LLE spasms intermittently, robaxin only mildly effective, continue to monitor and tx with tylenol/robaxin #Diabetic right ankle ulcer: s/p debridement by gen surg #Severe deconditioning: minimal improvement since arrival, plan is for SNF versus LTAC, patient very reluctant to go to snf as he does not think he is strong enough to tolerate sitting for HD however does not meet criteria for ltac at this time either #Sacral pressure injury: wound care #Anemia of renal disease: H/H stable #Anisocoria: CTH unremarkable #h/o DVT: SQH here. High-risk, will need ppx at DC DC to snf will f/u for routine HD--this has been a concern given his severe deconditioning and sacral pressure ulcer that he may not be able to tolerate sitting in recliner for HD (has been doing it in bed here)--if he fails this he may need to transition to LTAC, explained at length to family f/u with renal/PCP/ortho/wound care > 35 min spent in dc more than half in coordination of care
--- NOTE | 2018-01-08 13:00 | SOAPPROG ---
SOAP Progress Note Assessment/Plan: Assessment: 67 y/o M with a history of DM and severe peripheral vascular disease, currently admitted for left femoral fx after traumatic fall. S/p right ankle wound debridement POD#1 S: no complaints O: Alert Afebrile RRR No increased WOB LUE: AVF with good thrill, 3cm firm hematoma on upper arm RLE: Wound appears clean and is beginning to granulate. No surrounding erythema or warmth. There is some brown skin discoloration. Poor pedal pulses. Plan: Continue routine wound care. Will continue to follow. 01/05/18 12:10 01/08/18 12:59 Pt leaving today to go to [facility]. Wound care orders are in discharge summary. [facility]. Objective: Vital Signs Temp Pulse Resp BP Pulse Ox 36.6 C 68 14 140/74 H 91 L 01/08/18 12:00 01/08/18 12:00 01/08/18 12:00 01/08/18 12:00 01/08/18 12:00 Laboratory Results 01/03/18 10:05 01/06/18 08:30 01/07/18 01/08/18 01/09/18 05:59 05:59 05:59 Intake Total 370 650 Output Total 2000 Balance -1630 650 PT 19.8 SEC (12.0-15.0) H 12/30/17 09:28 INR 1.67 (0.83-1.16) H 12/30/17 09:28 ICD10 Worksheet Patient Problems: Problems Problem Status Onset Left femoral shaft fracture Acute Cellulitis of left foot Acute Coronary artery disease Acute Diarrhea Acute End stage renal disease Acute Fever Acute Fever Acute Knee pain Acute Leukocytosis Acute Muscle atrophy of lower extremity Acute Pneumonia Acute Sepsis Acute Severe sepsis Acute
--- NOTE | 2018-01-08 13:30 | ASDISCHSUM ---
Discharge Information Plan Status:SNF Medically Cleared to Leave:01/08/2018 Discharge Date:01/08/2018 CM D/C Disposition:[facility] Facility ADT D/C Disposition:[facility] Facility Projected Discharge Date:01/08/2018 11:00 AM Transportation at D/C: Discharge Delay Reason: Follow-Up Date:01/08/2018 11:00 AM Discharge Slot: Final Diagnosis: Placement Information Referral Type:*Half-Way/SNF Referral ID:[id number] Provider Name:Alba Saucedo [facility] Address 1:[address] Phone Number: Address 2: Fax Number: [facility]:[place] Selection Factors: State:[place] Ref[facility] Type:[facility] Referral ID:[id number] Provider Name: Address 1: Phone Number: Address 2: Fax Number: City: Selection Factors: State: Patient Contact Information Contact Name:MELINDA Relationship: Address:[address] City:[place] Alternate Phone: State/Zip Code:[place] [address] Email: Financial Information Financial Class:Medicare Primary Plan Desc:MEDICARE INPATIENT Primary Plan Number:[id number] Secondary Plan Desc:[facility] Secondary Plan Number:[id number] Assessment Information LACE LACE Comorbidities - select Answers: Coronary Artery Disease all that apply Diabetes (uncontrolled or controlled) Moderate or severe liver or renal disease Peripheral vascular disease Previous myocardial infarction Other Notes: HTN; Hx of DVT # of Emergency department Answers: 1-2 visits in the last 6 months Score: 11 Date Signed: 12/24/2017 08:42 AM Electronically Signed By:Shagufta Cook [facility] CM Progress Note CM Note CM Note Notes: Pt had surgery for femur fracture after a fall, uses wc at baseline. Pt resides with /MDPOA. Pt with diabetes and has dialysis M, W, F. Pt to have dialysis at [facility] tomorrow. OT rec inpatient rehab, PT rec SNF. Spoke with pt and ; pt has been to [facility] in the past and would like a return there. Referral [facility]. D/c plan of care: SNF when medically stable. [facility] pending bed availability Date Signed: 12/24/2017 03:46 PM Electronically Signed By:IBRAHIMA Ruffin [facility] CM Progress Note CM Note CM Note Notes: Reviewed chart, spoke with KWASI Chaney regarding discharge plan of care, pt's progress. Pt in dialysis today. Per [facility] notes, pt accepted at [facility] pending bed availability at time of discharge. CM will continue to follow. Current Discharge Plan: [facility] Rehab/SNF Date Signed: 12/25/2017 12:44 PM Electronically Signed By:Chaya Montiel RN [facility] CM Progress Note CM Note CM Note Notes: 12/27/2017 Case Management Note Faxed updates with projected d/c date to [facility]. Pt has been accepted pending bed availability. Case Management d/c poc: [facility] rehab pending bed. Case Management to follow. Date Signed: 12/27/2017 03:43 PM Electronically Signed By:Blanka Wall RN [facility] CM Progress Note CM Note CM Note Notes: 12/30/2017 Case Management Note Pt Simran can be reached at [phone] Norman can be reached at [phone] Discussed pt during rounds this morning. Pt in dialysis. Anticipating d/c tomorr or Saturday. Updated Lilliana from [facility] on the phone. Case Management d/c poc: [facility] Case Management to follow. Date Signed: 12/30/2017 02:10 PM Electronically Signed By:Blanka Wall RN [facility] CM Progress Note CM Note CM Note Notes: Patient status reviewed in rounds. Patient has had low glucose levels. Per hospital medicine, will reevaluate meds and look to dc maybe tomorrow after hemodialysis. Message left with Lilliana stein for [facility] as to patient status. CM to follow. Plan: To [facility] when medically cleared for discharge. Date Signed: 12/31/2017 02:52 PM Electronically Signed By:Michell Garcia RN [facility] CM Progress Note CM Note CM Note Notes: Pts case discussed in tx rounds. Rah has retracted acceptance because pt is now a della transfer to a wheelchair. CM met w/ pt for dispo planning. Pt is agreeable to going to an LTAC. Pt does not want to go to [facility]. NELLIE spoke to PT, Dr. Saenz and KWASI Lester regarding this case. CM to follow. Plan: Possible LTAC Date Signed: 01/02/2018 03:01 PM Electronically Signed By:OK Young [facility] NELLIE Progress Note CM Note CM Note Notes: Pts case discussed in tx rounds. [facility], [facility], [facility], [facility] all said no. Rah reports that if pt is able to be a 1 person assist slide board transfer and gets up daily to work w/ therapies they can accept him. CM informed pt of this and he will work his hardest w/ therapies to make it possible to d/c to [facility]. [facility] is his first choice. [facility] is still in the process reviewing pts case. NELLIE has been in contact w/ Rafi (P#: [phone]) at [facility]. CM to follow. Plan: TBD Date Signed: 01/03/2018 04:06 PM Electronically Signed By:OK Young [facility] NELLIE Progress Note CM Note CM Note Notes: 01/06/2018 Case Management Note Discussed pt during rounds this morning. Anticipating d/c tomorrow. Pt has been accepted to [facility] rehab. Case Management to arrange stretcher transport due to limitations on hip flexion post op. Case Management d/c poc: [facility]. Case Management to follow. Date Signed: 01/06/2018 03:02 PM Electronically Signed By:Blanka Wall RN Case Management Discharge Plan Note Case Management Discharge Discharge Order Complete? Answers: Yes Patient to Obtain Answers: Other Notes: [facility] Transportation Arranged Answers: Other Notes: [facility] will Pick (Date 01/08/2018 05:00 PM & Time) EMTALA Complete Answers: No Case Management Transport Answers: Yes Notes: [facility] PCS form Form Complete Agency/Facility Transfer Answers: Yes Report Printed & Faxed to Receiving Agency Family Notified Answers: No Discharge Comments Notes: Pts case discussed in tx rounds. Pt is being discharged today. Pt will be transported via stretcher. CM completed a PCS form. A copy of the PCS form is in pts chart. Pt will be seen by wound care before d/c. DC orders sent. NELLIE provided KWASI Davila w/ phone number to give report. CM available for changes. Plan: [facility] Date Signed: 01/08/2018 01:29 PM Electronically Signed By:OK Young Intervention Information Intervention Type:*Incorrect Registration Date of Service:12/24/2017 11:20 AM Patient Type:Observation Staff Member:KWASI Gregorio Susan Hours: Discipline: Severity: Comment: Intervention Type:*IM-Signed Date of Service:12/27/2017 03:11 PM Patient Type:Inpatient Staff Member:Shagufta Cook Hours: Discipline: Severity: Comment: Intervention Type:*IM-Signed Date of Service:01/06/2018 01:50 PM Patient Type:Inpatient Staff Member:Shagufta Cook Hours: Discipline: Severity: Comment:
--- NOTE | 2018-01-08 15:26 | WOCRNPDOC ---
WOCRN Advanced Assessment Note - Skin Integrity Problem, Advanced Assess Right Lateral Ankle Diabetic Ulcer Dressing Type: Hydrofera Blue Ready Exudate Amount: Scant Exudate Characteristic(s): Serosanguinous Integumentary Issue Intervention: Dressing Changed, Dressing Initialed & Dated [place] Wound Tissue: Erythema Wound Bed Constitution: Red/[place] - Non Granular Tissue (20%), Adhered Slough (80 %) Wound Edges: Attached, Not Attached Site Measurement - Head-to-Toe Length X Width X Depth (cm): no change since previous measurment saturday Skin Integrity Problem Comment: No change. Dried blood in wound bed mechanically removed. Hydrofera blue had changed to white. Cleaned with ns and gauze. Silvasorb applied to wound bed and then covered with HFB ready that was secured with steri strips. Mepilex non border foam cut out to picture frame HFB ready to offload area. Secured with medipore tape. Measurements Before Debridement: 1.4x1.3x0.4 Measurements After Debridement: 1.7x1.3x0.4 Right Lateral Foot Diabetic Ulcer Dressing Type: Mepilex Dressing Description: Clean/Dry, Intact Exudate Amount: Scant Exudate Characteristic(s): Sanguinous Integumentary Issue Intervention: Dressing Changed, Dressing Initialed & Dated, Silver Gel Applied Site Measurement - Head-to-Toe Length X Width X Depth (cm): 1.1x0.5x0.1 Skin Integrity Problem Comment: Healing ulcer now almost fully epithelized and partial thickness. Surrounding DTPI is also resolving much quicker than anticipated. Only slight area of darker tissue remaining distal to original ulcer. DTPI wound area may or may not open. Orders updated to protect entire area with non border foam. Keep offloading boots on when in bed and chair. Sacrum Pressure Injury Dressing Type: Mepilex Border Dressing Description: Clean/Dry, Intact Exudate Amount: Minimal Exudate Characteristic(s): Sanguinous Integumentary Issue Intervention: Dressing Changed, Dressing Initialed & Dated [place] Wound Tissue: Blanching, Erythema Wound Bed Constitution: Red/[place] - Non Granular Tissue (40%), Loose Slough (60%) Site Measurement - Head-to-Toe Length X Width X Depth (cm): 3.2x2.5x0.1 Pressure Injury Stage: Deep Tissue Injury (DTI) Pressure Injury Present on Admit: No Skin Integrity Problem Comment: Evolving DTI that still has some areas that have not fully evolved. Currently presenting as partial thickness openings with darker tissue present within the wound bed. Continue to offload agressively. Patient's in room for care as well as Lola Lynn RN's.
--- NOTE | 2018-01-13 12:42 | PQFORM ---
PHYSICIAN QUERY FORM Needs Your Response This query form is being sent to you to assure this patient record is coded properly. Please respond to the question below: CASE MANAGEMENT COORDINATOR QUESTION: Dr. Lagos, For coding purposes (there is a different code choice for excisional versus non excisional debridement)- please clarify if the debridement done on 04 January 2018 was: _X__~ Excisional ___~ Non Excisional ___~ Other Thank You Mel Powell, [employer] [facility]/Coding Dept. [phone] INSTRUCTIONS FOR RESPONSE: Answer question by clicking on the "Edit Document" button. Move cursor to area below the stars. When complete, hit "Save." Click on the "Sign" button, then click "Sign" again. Type in your PIN and hit "Enter." MTDD
== END 2018-01-08 17:10 | DRG 480 ==
LOC: EDUNIT# → OBSVTOIN 16:45 → F3N 18:16 → F2W 12-26 17:33
PROVIDERS: ADMIT Internal Medicine; ATTEND Internal Medicine
PROC: 0QS904Z Reposition Left Femoral Shaft with Internal Fixation Device, Open Approach (ICD-10-PCS; principal; 2017-12-23 22:00)
PROC: 5A1D70Z Performance of Urinary Filtration, Intermittent, Less than 6 Hours Per Day (ICD-10-PCS; 2017-12-25)
PROC: 30233N1 Transfusion of Nonautologous Red Blood Cells into Peripheral Vein, Percutaneous Approach (ICD-10-PCS; 2017-12-26)
PROC: 0JBQ3ZZ Excision of Right Foot Subcutaneous Tissue and Fascia, Percutaneous Approach (ICD-10-PCS; 2018-01-04)
DX: S72.362A Displaced segmental fracture of shaft of left femur, initial encounter for closed fracture (principal); E10.22 Type 1 diabetes mellitus with diabetic chronic kidney disease; I12.0 Hypertensive chronic kidney disease with stage 5 chronic kidney disease or end stage renal disease; N18.6 End stage renal disease; Z94.0 Kidney transplant status; E10.621 Type 1 diabetes mellitus with foot ulcer; L97.319 Non-pressure chronic ulcer of right ankle with unspecified severity; L97.419 Non-pressure chronic ulcer of right heel and midfoot with unspecified severity; V00.811A Fall from moving wheelchair (powered), initial encounter; L89.159 Pressure ulcer of sacral region, unspecified stage; D63.1 Anemia in chronic kidney disease; H57.02 Anisocoria; Z86.718 Personal history of other venous thrombosis and embolism; Z99.3 Dependence on wheelchair; Z99.2 Dependence on renal dialysis; Z89.422 Acquired absence of other left toe(s); E10.51 Type 1 diabetes mellitus with diabetic peripheral angiopathy without gangrene; E87.70 Fluid overload, unspecified; Z95.5 Presence of coronary angioplasty implant and graft
CPT/HCPCS: 96374; 97110-GP; 97112-GP; 97162-GP; 97166-GO; 97530-GO; 97530-GP; 97535-GO; C1713; G8978-GP-CL; G8978-GP-CM; G8979-GP-CJ; G8979-GP-CL; G8987-GO-CK; G8987-GO-CM; G8988-GO-CJ; J0690; J0885; J1170; J1644; J1815; J2405; J2704; J2765; J3010; P9016; P9041; P9047

== ENCOUNTER 2018-02-18 14:33 | Inpatient (IN) | payer OTHER ==
[2018-02-18] MEDS ORDERED: HYDROmorphONE/DILAUDID 2 MG/ML INJ IVP ONE (15:35)
[2018-02-18 15:47] LABS: PLATELET COUNT 305 10^3/uL (150-400)
--- NOTE | 2018-02-18 16:26 | EDPHY ---
H & P Stated Complaint: left femur pain/swelling since last night. surg Dec 23 Time Seen by Provider: 02/18/18 15:03 HPI/ROS: CHIEF COMPLAINT: Left femur and hip pain HISTORY OF PRESENT ILLNESS: 67-year-old male with a history of diabetes, renal failure, recent C difficile, and recent femur fracture requiring intramedullary mark December 2017 presents reporting that yesterday he shifted his weight, felt something pop, and now has deformity and pain at his left hip. Patient is wheelchair bound. He has been unable to do self transfers since the femur fracture. Denies chest pain or shortness of breath. Denies nausea, vomiting, or diarrhea. He did finish last dose of vancomycin 2 days ago after 10 day course of C difficile. No fever, chills, chest pain, shortness of breath, palpitations, vomiting, urinary complaints, headache, lightheadedness. REVIEW OF SYSTEMS: Aside from elements discussed in the HPI, a comprehensive 10-point review of systems was reviewed and is negative. PAST MEDICAL HISTORY: Diabetes, renal failure, coronary artery disease, partial left foot amputation. SOCIAL HISTORY: Here with his family members. Very limited mobility, wheelchair bound. VITAL SIGNS Reviewed by me. GENERAL: Chronically ill-appearing male. Pleasant. Complaining of pain in his left hip. HEENT: Atraumatic. Eyes: No icterus, no injection. Mouth: Dry mucous membranes. No erythema or lesions. Neck: supple with no adenopathy. LUNGS: Clear to auscultation bilaterally, no wheezes, rhonchi or rales. CARDIAC: Regular rate and rhythm, no rubs, murmurs or gallops. ABDOMEN: Soft, nontender, nondistended, bowel sounds normal. BACK: No CVA tenderness. EXTREMITIES: Swelling, and deformity at left hip. Significant atrophy of the lower extremities. Left midfoot amputation. No edema. NEURO: Alert and oriented, grossly nonfocal. SKIN: Warm and dry, no rash. PSYCHIATRIC: Normal mentation, no agitation. 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), stents, CAD, HTN, PVD, DVT, left femur fx/surg December 2017 - Social History Smoking Status: Never smoked Constitutional: Initial Vital Signs Temperature (C) 36.7 C 02/18/18 14:44 Heart Rate 85 02/18/18 14:44 Respiratory Rate 16 02/18/18 14:44 Blood Pressure 168/88 H 02/18/18 14:44 O2 Sat (%) 97 02/18/18 14:44 O2 Delivery Mode Room Air Allergies/Adverse Reactions: adhesive tape Allergy (Verified 12/23/17 15:48) Other-Enter Comments amphotericin B [Amphotericin B] Allergy (Verified 12/23/17 15:48) Home Medications: Medication Instructions Recorded Amitriptyline HCl [Elavil 10 mg 10 mg PO HS 07/08/10 (*)] Aspirin [Aspirin 81mg (*)] 81 mg PO DAILY 07/08/10 Herbals/Supplements -Info Only 1 ea PO DAILY 07/08/10 Insulin Lispro [humALOG LISPRO 100 3 - 6 units SC TIDMEAL 05/20/13 units/ml (*)] Pantoprazole Sodium [Protonix 40mg 40 mg PO DAILY 05/20/13 (*)] Clopidogrel Bisulfate [Plavix (*)] 75 mg PO HS #30 tab 05/15/16 Amoxicillin Trihydrate [Amoxil] 500 mg PO HS 12/23/17 Atorvastatin Calcium [Lipitor 10 10 mg PO HS 12/23/17 mg (*)] Carvedilol [Coreg (*)] 3.125 mg PO BIDMEAL 12/23/17 Cholecalciferol Vit D3 [Vitamin D3 2,000 units PO HS 12/23/17 (*)] traMADol [Ultram 50 mg (*)] 50 mg PO BID PRN 12/23/17 Acetaminophen [Tylenol ES 500 mg 1,000 mg PO TID tab 01/06/18 (*)] Loperamide HCl [Imodium 2 mg (*)] 2 mg PO QID PRN cap 01/06/18 Ondansetron Odt [Zofran Odt 4 mg 4 mg PO Q4HRS PRN tab 01/06/18 (*)] Firvanq Solution 2.5 ml PO QID 02/18/18 Insulin Glargine [Lantus Syringe] 7 units SC DAILY 02/18/18 Lact Cmb2/S.thermophl/Bif Cmb1 2 each PO BID 02/18/18 [Vsl#3 Cap (*)] Medical Decision Making - Diagnostics EKG Interpretation: 12-LEAD EKG: Please see the full report in [facility]. My interpretation: Sinus rhythm, no ST, T-wave changes Imaging Results: Imaging Impressions Pelvis X-Ray 02/18/18 15:00 Impression: Subacute trochanteric proximal left femoral shaft fracture. 2. Left Femur, 4 views History: Pain and deformity post trauma Comparison: January 07, 2018 Findings: A left femoral mark is present. The bones are diffusely and severely osteoporotic. There are 3 femoral shaft fractures associated with a still intact femoral mark. The highest fracture risk is new, at the level of the upper mark, just below the femoral neck and is associated with a 90 degree of posterior angulation. A second oblique fracture is present approximately 11 cm below the first and was present previously. The third fracture is in the distal femoral shaft and was present previously. The lower 2 fractures are affixed by the femoral mark and are not significantly changed in position. Impression: 1. New acute proximal femoral shaft fracture with 90 degrees of angulation. Please see above. 2. Diffuse severe osteoporosis. Chest X-Ray 02/18/18 15:36 Impression: 1. Cardiomegaly without failure 2. Atherosclerotic disease 3. No fat embolism or acute rib fracture identified. Femur X-Ray 02/18/18 15:51 Impression: Subacute trochanteric proximal left femoral shaft fracture. 2. Left Femur, 4 views History: Pain and deformity post trauma Comparison: January 07, 2018 Findings: A left femoral mark is present. The bones are diffusely and severely osteoporotic. There are 3 femoral shaft fractures associated with a still intact femoral mark. The highest fracture risk is new, at the level of the upper mark, just below the femoral neck and is associated with a 90 degree of posterior angulation. A second oblique fracture is present approximately 11 cm below the first and was present previously. The third fracture is in the distal femoral shaft and was present previously. The lower 2 fractures are affixed by the femoral mark and are not significantly changed in position. Impression: 1. New acute proximal femoral shaft fracture with 90 degrees of angulation. Please see above. 2. Diffuse severe osteoporosis. ED Course/Re-evaluation: 67-year-old male presents to the emergency department after twisting mechanism yesterday and complained of significant pain in his left hip. He has a deformity on examination. Left hip and pelvic x-ray demonstrates a subacute trochanteric left femoral shaft fracture with 90 degrees of angulation. Patient also has severe diffuse osteoporosis. Patient received IV pain medications. Laboratory evaluation remarkable for a creatinine of 2.9, as well as initial glucose of 48. Patient is on insulin, not on insulin pump, and was given D50 as well as food. Patient's course was discussed with the hospitalist service, Dr. Beard, who knows the patient from prior admission. His course was also discussed with Dr. Page, orthopedic surgery, who also knows the patient and family well. CT scan to further delineate the fracture was ordered. Please see the radiology report. Patient required multiple doses of IV pain medication throughout his emergency department course. He had multiple rounds of stooling. GI pathogen panel was ordered. Patient again developed hypoglycemia with a glucose of 58. He again received D50 IV and was placed on a D5 drip. Differential Diagnosis: Differential diagnosis for the patient's injury was considered including but not limited to contusion, abrasion, laceration, fracture, open fracture, or dislocation. Differential diagnosis for the patient's ongoing hypoglycemia was considered including but not limited to renal insufficiency, ongoing diarrhea, lack of complex carbohydrates, infection. Consult/Admit Bed Type: Dr. Misael Beard, medical-surgical - Data Points Laboratory Results: Laboratory Results 02/18/18 14:30 02/18/18 14:30 02/18/18 02/18/18 14:30 14:30 WBC 4.51 10^3/uL 10^3/uL (3.80-9.50) RBC 3.97 10^6/uL L 10^6/uL (4.40-6.38) Hgb 12.1 g/dL L g/dL (13.7-17.5) Hct 38.6 % L % (40.0-51.0) MCV 97.2 fL fL (81.5-99.8) MCH 30.5 pg pg (27.9-34.1) MCHC 31.3 g/dL L g/dL (32.4-36.7) RDW 14.6 % % (11.5-15.2) Plt Count 305 10^3/uL 10^3/uL (150-400) MPV 9.6 fL fL (8.7-11.7) Neut % (Auto) 50.8 % % (39.3-74.2) Lymph % (Auto) 29.0 % % (15.0-45.0) [place] % (Auto) 11.1 % % (4.5-13.0) Eos % (Auto) 8.0 % H % (0.6-7.6) Baso % (Auto) 0.9 % % (0.3-1.7) Nucleat RBC Rel Count 0.0 % % (0.0-0.2) Absolute Neuts (auto) 2.29 10^3/uL 10^3/uL (1.70-6.50) Absolute Lymphs (auto) 1.31 10^3/uL 10^3/uL (1.00-3.00) Absolute Monos (auto) 0.50 10^3/uL 10^3/uL (0.30-0.80) Absolute Eos (auto) 0.36 10^3/uL 10^3/uL (0.03-0.40) Absolute Basos (auto) 0.04 10^3/uL 10^3/uL (0.02-0.10) Absolute Nucleated RBC 0.00 10^3/uL 10^3/uL (0-0.01) Immature Gran % 0.2 % % (0.0-1.1) Immature Gran # 0.01 10^3/uL 10^3/uL (0.00-0.10) Sodium 139 mEq/L mEq/L (135-145) Potassium 3.5 mEq/L mEq/L (3.3-5.0) Chloride 99 mEq/L mEq/L (97-110) Carbon Dioxide 32 mEq/l H mEq/l (22-31) Anion Gap 8 mEq/L mEq/L (8-16) BUN 24 mg/dL H mg/dL (7-23) Creatinine 2.9 mg/dL H mg/dL (0.7-1.3) Estimated GFR 22 Glucose 81 mg/dL mg/dL (70-100) Calcium 9.0 mg/dL mg/dL (8.5-10.4) Troponin I 0.031 ng/mL ng/mL (0.000-0.034) Medications Given: Discontinued Medications Dextrose (Dextrose 50% Syringe) 25 gm IVP EDNOW ONE Stop: 02/18/18 18:04 Last Admin: 02/18/18 17:45 Dose: 25 gm Dextrose (Dextrose 25%) 25 gm IVP EDNOW ONE Stop: 02/18/18 21:07 Last Admin: 02/18/18 21:34 Dose: Not Given Dextrose (Dextrose 50% Syringe) 25 gm IVP ONCE ONE Stop: 02/18/18 21:06 Last Admin: 02/18/18 21:09 Dose: 25 gm Hydromorphone HCl (Dilaudid) 1 mg IVP EDNOW ONE Stop: 02/18/18 15:36 Last Admin: 02/18/18 15:55 Dose: 1 mg Hydromorphone HCl (Dilaudid) 1 mg IVP EDNOW ONE Stop: 02/18/18 22:01 Last Admin: 02/18/18 22:17 Dose: 1 mg Dextrose/Sodium Chloride (D5w Ns) 1,000 mls @ 150 mls/hr IV CONT GLEN Stop: 08/17/18 21:14 Last Admin: 02/18/18 21:19 Dose: 1,000 mls Departure - Departure Disposition: [facility] Inpatient Acute Clinical Impression: Hypoglycemia Hip fracture, left Qualifiers: Encounter type: initial encounter Fracture type: closed Qualified Code(s): S72.002A - Fracture of unspecified part of neck of left femur, initial encounter for closed fracture Diarrhea Qualifiers: Diarrhea type: unspecified type Qualified Code(s): R19.7 - Diarrhea, unspecified Condition: Fair
[2018-02-18] MEDS ORDERED: D50W 25 GM/50 ML SYR IVP ONE ×4 (17:24→21:05)
--- NOTE | 2018-02-18 19:39 | PDGENHP ---
History and Physical History and Physical: films reviewed CT reviewed Patient is well known to me Will discuss with family re: options for treatment.
[2018-02-18] MEDS ORDERED: D5W 1,000 ML IV SCH (21:00)
[2018-02-18] MEDS ORDERED: ONDANSETRON 4 MG/2 ML VIAL IVP PRN (21:06)
[2018-02-18] MEDS ORDERED: D25W 2.5 GM/10 ML SYR IVP ONE (21:06)
[2018-02-18] MEDS ORDERED: ACETAMINOPHEN 325 MG TAB PO PRN (21:06)
[2018-02-18] MEDS ORDERED: ONDANSETRON DISINTEGRATING 4 MG TAB PO PRN (21:06)
[2018-02-18] MEDS ORDERED: oxyCODONE IR 5 MG TAB PO PRN (21:06)
[2018-02-18] MEDS ORDERED: POLYETHYLENE GLYCOL 3350 17 GM PKT PO PRN (21:11)
[2018-02-18] MEDS ORDERED: LACTULOSE 20 GM/30 ML UDCUP PO PRN (21:11)
[2018-02-18] MEDS ORDERED: BISACODYL 10 MG SUPP PR PRN (21:11)
[2018-02-18] MEDS ORDERED: traMADol 50 MG TAB PO PRN (21:11)
[2018-02-18] MEDS ORDERED: D50W 25 GM/50 ML VIAL IVP PRN (21:11)
[2018-02-18] MEDS ORDERED: D5W NS 1,000 ML IV SCH (21:15)
[2018-02-18] MEDS ORDERED: D5W 1/2 NS W/ 20 KCl/L 1,000 ML IV SCH (21:15)
[2018-02-18] MEDS ORDERED: HYDROmorphONE/DILAUDID 1 MG/ML INJ IVP ONE (22:00)
--- NOTE | 2018-02-18 22:37 | CPEKG ---
Test Reason : OPEN Blood Pressure : / mmHG Vent. Rate : 064 BPM Atrial Rate : 064 BPM P-R Int : 220 ms QRS Dur : 106 ms QT Int : 455 ms P-R-T Axes : 047 043 076 degrees QTc Int : 470 ms Sinus rhythm Atrial premature complex Prolonged SD interval Probable left atrial enlargement Confirmed by Bertha Antonio ([id number]) on 02/18/2018 10:37:11 PM Referred By: Confirmed By:Bertha Antonio
[2018-02-18] MEDS ORDERED: HYDROmorphONE/DILAUDID 1 MG/ML INJ IVP PRN (22:49)
--- NOTE | 2018-02-18 22:51 | PDGENHP ---
History and Physical - Chief Complaint Acute hip pain - History of Present Illness PCP: Dr. Zuniga Renal: Dr. Jeter ID: Dr. Gillette Cards: Dr. Dueñas Ortho: Dr. Page HPI: 67 yo M p/w acute pain characterized as sharp, severe, located lateral L hip, w/ associated swelling in the same area. Onset of pain was on the night prior to presentation, after patient had been repositioned/gently rolled in order to clean up one episode of fecal incontinence (loose stool, similar to prior CDiff) experienced overnight. He did not experience any fall or trauma. On the morning of presentation, the swelling became apparent, and the pain was uncontrolled w/ tramadol/tylenol at home. After presenting to the ED, pain modestly alleviated by IV dilaudid. Of note, he took his lantus on AM on presentation, and gluc 40s-50s while in ED , started on D5 1/2 NS. He was discharged home from SNF on 02/08, and he stopped his PO Vanco on 02/16. Since stopping, he has had several loose, uncontrollable BMs daily. History Information - Allergies/Home Medication List Allergies/Adverse Reactions: adhesive tape Allergy (Verified 12/23/17 15:48) Other-Enter Comments amphotericin B [Amphotericin B] Allergy (Verified 12/23/17 15:48) Home Medications: Amitriptyline HCl [Elavil 10 mg (*)] 10 mg PO HS 07/08/10 [Last Taken 02/17/18] Aspirin [Aspirin 81mg (*)] 81 mg PO DAILY 07/08/10 [Last Taken 02/18/18] Herbals/Supplements -Info Only 1 ea PO DAILY 07/08/10 [Last Taken 02/18/18] Insulin Lispro [humALOG LISPRO 100 units/ml (*)] 3 - 6 units SC TIDMEAL [Last Taken 02/18/18 AM] Pantoprazole Sodium [Protonix 40mg (*)] 40 mg PO DAILY 05/20/13 [Last Taken ] Amoxicillin Trihydrate [Amoxil] 500 mg PO HS 12/23/17 [Last Taken 02/17/18] Atorvastatin Calcium [Lipitor 10 mg (*)] 10 mg PO HS 12/23/17 [Last Taken ] Carvedilol [Coreg (*)] 3.125 mg PO BIDMEAL 12/23/17 [Last Taken 02/18/18 AM DOSE ] Cholecalciferol Vit D3 [Vitamin D3 (*)] 2,000 units PO HS 12/23/17 [Last Taken 02/17/18] traMADol [Ultram 50 mg (*)] 50 mg PO BID PRN 12/23/17 [Last Taken 02/17/18 21: 00 100MG] Firvanq Solution 2.5 ml PO QID 02/18/18 [Last Taken 02/16/18] Insulin Glargine [Lantus Syringe] 7 units SC DAILY 02/18/18 [Last Taken 02/18/18 ] Lact Cmb2/S.thermophl/Bif Cmb1 [Vsl#3 Cap (*)] 2 each PO BID 02/18/18 [Last Taken 02/18/18 AM DOSE] I have personally reviewed and updated: family history, medical history, social history, surgical history - Past Medical History coronary artery disease (With PCI to the RCA), diabetes type 1, DVT (Not currently on systemic anticoagulation), ESRD (Hemodialysis Saturday, failed transplant and past), hypertension Additional medical history: Osteomyelitis and chronic group a strep infection in his left lower extremity. Pericarditis. Anemia of chronic kidney disease. Severe peripheral arterial disease. Severe peripheral neuropathy. C. diff recently treated. Osteoporotic L hip fracture - Surgical History Additional surgical history: AVF fistula left upper extremity. kidney/pancreas transplant. Left 1st digit TMA in May of 2016. L hip IM nail 01/08 - Family History Positive for: diabetes type I Additional family history: No recent sick contacts - Social History Smoking Status: Never smoked Alcohol Use: None Drug Use: None Additional social history: Discharged home from [facility] 02/08 Review of Systems Review of Systems: ROS: 10pt was reviewed & negative except for what was stated in HPI & below Gastrointestinal: Reports: diarrhea Muscolosketal: Reports: other (L hip pain) Skin: Reports: other (swelling L hip) Physical Exam Physical Exam: Temp Pulse Resp BP Pulse Ox 36.4 C 77 18 146/66 H 96 02/18/18 21:02 02/18/18 21:26 02/18/18 21:26 02/18/18 21:26 02/18/18 21:26 Constitutional: no apparent distress, chronically ill appearing, uncomfortable, No not in pain (7/10 pain) Eyes: PERRL, anicteric sclera, EOMI Ears, Nose, Mouth, Throat: moist mucous membranes, hearing normal, ears appear normal, no oral mucosal ulcers Cardiovascular: systolic murmur (III/ at LSB), edema (trace bilat LE), other ( palpable thrill LUE fistula), No irregularly irregular, No tachycardia Peripheral Pulses: 2+: dorsalis-pedis (R), dorsalis-pedis (L) Respiratory: no respiratory distress, no rales or rhonchi, clear to auscultation Gastrointestinal: normoactive bowel sounds, soft, non-tender abdomen, no palpable masses, No guarding, No distension Skin: warm, other (healing surg sites LLE, tender swelling L hip) Musculoskeletal: other (painful active and passive movement in L hip, post-op L foot) Neurologic: AAOx3, sensation intact bilaterally (but reduced distally), No weakness (motor 5/5 distal LLE) Psychiatric: interacting appropriately, not anxious, not encephalopathic, thought process linear Lab Data & Imaging Review 02/18/18 14:30 02/18/18 14:30 WBC 4.51 10^3/uL (3.80-9.50) 02/18/18 14:30 RBC 3.97 10^6/uL (4.40-6.38) L 02/18/18 14:30 Hgb 12.1 g/dL (13.7-17.5) L 02/18/18 14:30 Hct 38.6 % (40.0-51.0) L 02/18/18 14:30 MCV 97.2 fL (81.5-99.8) 02/18/18 14:30 MCH 30.5 pg (27.9-34.1) 02/18/18 14:30 MCHC 31.3 g/dL (32.4-36.7) L 02/18/18 14:30 RDW 14.6 % (11.5-15.2) 02/18/18 14:30 Plt Count 305 10^3/uL (150-400) 02/18/18 14:30 MPV 9.6 fL (8.7-11.7) 02/18/18 14:30 Neut % (Auto) 50.8 % (39.3-74.2) 02/18/18 14:30 Lymph % (Auto) 29.0 % (15.0-45.0) 02/18/18 14:30 Cataño % (Auto) 11.1 % (4.5-13.0) 02/18/18 14:30 Eos % (Auto) 8.0 % (0.6-7.6) H 02/18/18 14:30 Baso % (Auto) 0.9 % (0.3-1.7) 02/18/18 14:30 Nucleat RBC Rel Count 0.0 % (0.0-0.2) 02/18/18 14:30 Absolute Neuts (auto) 2.29 10^3/uL (1.70-6.50) 02/18/18 14:30 Absolute Lymphs (auto) 1.31 10^3/uL (1.00-3.00) 02/18/18 14:30 Absolute Monos (auto) 0.50 10^3/uL (0.30-0.80) 02/18/18 14:30 Absolute Eos (auto) 0.36 10^3/uL (0.03-0.40) 02/18/18 14:30 Absolute Basos (auto) 0.04 10^3/uL (0.02-0.10) 02/18/18 14:30 Absolute Nucleated RBC 0.00 10^3/uL (0-0.01) 02/18/18 14:30 Immature Gran % 0.2 % (0.0-1.1) 02/18/18 14:30 Immature Gran # 0.01 10^3/uL (0.00-0.10) 02/18/18 14:30 Sodium 139 mEq/L (135-145) 02/18/18 14:30 Potassium 3.5 mEq/L (3.3-5.0) 02/18/18 14:30 Chloride 99 mEq/L (97-110) 02/18/18 14:30 Carbon Dioxide 32 mEq/l (22-31) H 02/18/18 14:30 Anion Gap 8 mEq/L (8-16) 02/18/18 14:30 BUN 24 mg/dL (7-23) H 02/18/18 14:30 Creatinine 2.9 mg/dL (0.7-1.3) H 02/18/18 14:30 Estimated GFR 22 02/18/18 14:30 Glucose 81 mg/dL (70-100) 02/18/18 14:30 POC Glucose 56 mg/dL (70-100) L 02/18/18 20:55 Calcium 9.0 mg/dL (8.5-10.4) 02/18/18 14:30 Troponin I 0.031 ng/mL (0.000-0.034) 02/18/18 14:30 Visualized and Interpreted Chest x-ray results: Yes Chest X-Ray results: no infiltrate Visualized and Interpreted EKG results: Yes EKG Interpretation: Positive for: normal sinsus rhythm Assessment & Plan Assessment: 67 yo M p/w acute, pathological periprosthetic fracture Plan: # Pathological femur fracture. Acute, periprosthetic, no trauma -reviewed outside records, DC Summary by Dr. Romaine Galicia, reports IM nail and SNF DC -x-ray w/ 90 degree angulation and visible osteoporosis -d/w Dr. Antonio, she reports to me that she has d/w Dr. Page, who has reviewed imaging and will review surgical options w/ patient in AM -NPO after MN for possible surgery, D5/ 1/2 NS at 50cc/hr while NPO -pain mgmt w/ dilaudid, adjust to home tramadol when able -IS -check Vit D level, cont 2000u HS -if surgery is not recommended, palliative care consultation necessary, as patient will have a very high 90-day mortality rate -if surgery is recommended, RCRI score of at least 3, conferring an 11% risk of perioperative cardiovascular morbidity/mortality, rendering patient high-CV risk for moderate-risk orthopedic surgery -that said, since further CV intervention is unlikely to be of any risk- reduction benefit, there is low utility in pursuing additional CV risk- stratification at this time pre-operatively -recommend that patient either accept risks of surgery and proceed (if there is a surgical option available), or pursue a more palliative course in care # Likely persistent C. difficile. Ongoing diarrhea, Vanco stopped 3 days prior -suspect it has not completely resolved, ED resent PCR -if positive, recommend ID consultation, restarting 4xd 125mg Vanco PO # ESRD. MWF HD, most recent session on -d/ Dr. Jeter, they will see in AM to schedule HD # Pressure injury. POA, sacral, wound care consult appreciated # Anemia. 2/2 ESRD, stable Diet. Renal, NPO after MN PPx. High risk, prior DVT, holding pharm for possible surg, holding SCDs given severe PAD Code. Full Dispo. ADD uncertain, anticipated LOS > 48hrs for reasonable medical necessity for acute periprosthetic fxr requiring surgical assessment w/ high risk co- morbid ESRD, likely Cdiff.
[2018-02-18] MEDS: INSULIN REGULAR HUMAN 100 UNIT/ML UNIT SC SCH (23:12)
[2018-02-18] MEDS: AMITRIPTYLINE HCL 10 MG TAB PO SCH (23:23)
[2018-02-18] MEDS: CARVEDILOL 3.125 MG TAB PO SCH (23:23)
[2018-02-18] MEDS: ACETAMINOPHEN 500 MG TAB PO SCH (23:24)
[2018-02-19] MEDS: VANCOMYCIN PO SCH ×2 (02:07→13:31)
[2018-02-19] MEDS: PANTOPRAZOLE SODIUM 40 MG TAB PO SCH (08:51)
[2018-02-19] MEDS: VSL#3 1 EACH CAP PO SCH ×2 (08:51→22:49)
[2018-02-19] MEDS: ACETAMINOPHEN 500 MG TAB PO SCH ×3 (08:52→22:59)
[2018-02-19] MEDS: CARVEDILOL 3.125 MG TAB PO SCH ×2 (08:52→19:07)
[2018-02-19] MEDS: INSULIN REGULAR HUMAN 100 UNIT/ML UNIT SC SCH ×4 (08:58→21:52)
[2018-02-19] MEDS ORDERED: Herbals/Supplements -Info Only PO SCH (09:00)
[2018-02-19] MEDS ORDERED: SENNOSIDES/DOCUSATE SODIUM TAB PO SCH (09:00)
[2018-02-19] MEDS: HYDROmorphONE/DILAUDID 2 MG TAB PO PRN ×2 (11:14→21:51)
[2018-02-19] MEDS: VANCOMYCIN 125 MG/2.5 ML UDL PO SCH ×4 (11:15→21:52)
--- NOTE | 2018-02-19 11:31 | PDMN ---
Medical Necessity Medical necessity: Pt meets IP criteria per MD; est los >2 mn for eval/tx of acute L hip periprosthetic fx s/p recent IM nailing, ongoing diarrhea r/t probable persistent CDIFF & sacral pressure injury; requiring further monitoring , NPO status, IVFs, pain management, Surgical consult w/possible intervention vs Pallative consult, ID/Wound Care consults & therapies; hx CAD, diabetes, DVT , ESRD on hemodialysis, LLE osteomyelitis & chronic group A strep, severe PAD & peripheral neuropathy; per H&P & order 02/18/18
--- NOTE | 2018-02-19 14:26 | SOAPPROG ---
GWYN Progress Note Assessment/Plan: Assessment: 1. esrd: will plan to cont his typical MWF hd schedule while here. Volume status looks ok, d/c ivf. Was already transferring at hd via [facility] prior to admit. 2. femoral fx: suspect there will not be good surgical options. Pain control. 3. htn: cont coreg 4. anemia: follow for txfusion requirement, cont epo 5. C Diff: back on po vanc 6. dispo: his overall functional status has deteriorated markedly over past 2 years or so, but he has remained mentally sharp and has not expressed any desire to stop hd when discussed. Will see how he tolerates this latest setback. Plan: 02/19/18 14:20 02/19/18 14:30 Subjective: Esrd on hd MWF at [facility]. S/p recent femoral fracture last month with pinning, now admitted with new fractures involving same area after rolling/sliding in bed. Having ongoing diarrhea, C Diff testing again +. Last dialyzed 02/17 without incident. Currently preparing for hd today, has been on ivf overnight while npo in case procedure needed. Objective: Vital Signs Temp Pulse Resp BP Pulse Ox 36.5 C 69 13 159/68 H 97 02/19/18 11:35 02/19/18 11:35 02/19/18 11:35 02/19/18 11:35 02/19/18 11:35 Microbiology 02/18/18 20:50 Gastrointestinal Tract Panel (PCR) - Final Stool Clostridium Difficile Detected E.coli Enteropathogenic(Epec) Laboratory Results 02/19/18 05:10 02/19/18 05:10 02/18/18 02/19/18 02/20/18 05:59 05:59 05:59 Intake Total 600 Balance 600 Physical Exam - Physical Exam General Appearance: no apparent distress, other (frail) Abdomen: non-tender, soft Extremities: pedal edema (none), other (+patent LUE avf) ICD10 Worksheet Patient Problems: Problems Problem Status Onset Diarrhea Acute Hip fracture, left Acute Hypoglycemia Acute Cellulitis of left foot Acute Coronary artery disease Acute End stage renal disease Acute Fever Acute Fever Acute Knee pain Acute Left femoral shaft fracture Acute Leukocytosis Acute Muscle atrophy of lower extremity Acute Pneumonia Acute Sepsis Acute Severe sepsis Acute
--- NOTE | 2018-02-19 15:22 | GCON ---
[f rep st] CONSULTATION ORTHOPEDIC ER AND INPATIENT CONSULT DATE OF CONSULTATION: 02/19/2018 CHIEF COMPLAINT: Left hip pain. DIAGNOSIS: 1. Status post retrograde femoral nail for segmental distal femur and femoral shaft fracture. 2. New subtrochanteric fracture, proximal left femur. HISTORY OF PRESENT ILLNESS: The patient is well known to me. A 67-year-old male. End-stage renal d isease. He was seen in December and had a retrograde nail for a segmental distal femur fracture for comf ort measures and transferring. His function at baseline is transfers. He is nonweightbearing. He h as been seen multiple times in my clinic with excellent looking x-rays showing stability of the mark w ith minimal healing. He just recently got out and was just discharged from [facility] for home. This admission was brought on by pain in his left hip after some self care and assistance with his , and he felt a pop in his left hip with minimal flexion and rotation of that left hip. The patient was brought into the emergency room. X-rays and CT scan show a subtrochanteric left prox imal femur fracture at the level of the mark, most likely stress riser. Please see details of ER H and P. PHYSICAL EXAMINATION: GENERAL: Pertinent orthopedic examination reveals a well-appearing gentleman. MUSCULOSKELETAL: Passive range of motion in the sagittal plane in flexion reveals from 20 degrees of hip flexion to 60 degrees of hip flexion with minimal pain. Rotation is quite painful. There is obvious swelling and deformity of the proximal thigh. The lower femur moves as a unit, and his knee moves as a unit. His is at the bedside. The skin looks healthy. The old scars look healthy. X-rays and CT scan reviewed. IMPRESSION AND RECOMMENDATION: Spent about a half hour at the bedside. This is a very difficult sit uation. His bone is very thin and soft, and by evidence of subsidence of the screws, the proximal fe mur has very little purchase. We talked about surgical alternatives, such as removing the nail and p lacing an antegrade nail. I think putting a metal side plate fixed angle construct would be very dif ficult to have screw purchase and not bone. Cerclage wire is not an option. We talked about nonsurg ical management and how proximal femur fractures actually can be fairly comfortable with his limited mobility and transfers. After careful consideration, we all came to the consensus that nonsurgical m anagement might be best for the patient. We will follow up with regular x-rays to make sure that the hardware is not causing soft tissue problems, and hopefully this proximal femur will settle down and scar in. I do not think it will heal [id number] necessarily, but it might be comfortable for him for transfers and his limited mobility currently. /[id number]/MODL
--- NOTE | 2018-02-19 15:26 | HOSPPROG ---
Hospitalist Progress Note Assessment/Plan: 67yo M with multiple medical problems p/w pathological periprosthetic fracture. #Pathological left femur fracture: Not surgical candidate per Dr Page given severe osteoporosis and comorbid conditions - Pain control: PO and IV dilaudid PRN, scheduled tylenol - Palliative care consult re: pain mgmt, goals of care - Query benefit of anti-osteoporotic agent; will be limited by renal disease #C diff colitis: First recurrence, previously tx'd with vancomycin - PO vancomycin 125mg QID - Consult ID given recurrence and on suppressive abx #ESRD: Due to diabetes, failed renal transplant. - Renal consulted, gets HD MWF via [facility] #Sacral wound, right malleolar wound: Present on admission. - Wound care consulted #Weakness: Unclear etiology. Previously has seen neurology with no clear diagnosis. Query severe peripheral sensorimotor neuropathy related to diabetes vs inflammatory/autoimmune condition (given his type 1 diabetes). Wheelchair bound at baseline since 09/2016 - Check CK, hold statin - PT/OT #CAD, peripheral arterial disease: S/p coronary stents in distant past. No angina, claudication - Restart aspirin, plavix; holding statin #Anemia: 2/2 ESRD. Stable. #Type 1 diabetes: - Continue home glargine with SSI Diet: regular (patient declines renal diet) VTE ppx: Code: full Dispo: Remain inpatient for management of pain with IV opioids. Also needing discussion re: goals of care given multiple comorbid medical issues with new pathologic fracture which confers a high 90 day mortality. Subjective: Left hip pain present but tolerable with IV pain meds. Denies nausea. Objective: Vital Signs Temp Pulse Resp BP Pulse Ox 36.5 C 69 13 159/68 H 97 02/19/18 11:35 02/19/18 11:35 02/19/18 11:35 02/19/18 11:35 02/19/18 11:35 Microbiology 02/18/18 20:50 Gastrointestinal Tract Panel (PCR) - Final Stool Clostridium Difficile Detected E.coli Enteropathogenic(Epec) Laboratory Results 02/19/18 05:10 02/19/18 05:10 02/18/18 02/19/18 02/20/18 05:59 05:59 05:59 Intake Total 600 Balance 600 - Physical Exam Ears, Nose, Mouth, Throat: moist mucous membranes, hearing normal, ears appear normal, no oral mucosal ulcers Cardiovascular: regular rate and rhythym, no murmur, rub, or gallop Respiratory: no respiratory distress, no rales or rhonchi, clear to auscultation Gastrointestinal: normoactive bowel sounds, soft, non-tender abdomen, no palpable masses Skin: other (R lateral malleolar wound with dressing) Musculoskeletal: other (left hip tenderness ) Neurologic: AAOx3, weakness (diffuse ) Psychiatric: interacting appropriately, not anxious, not encephalopathic ICD10 Worksheet Patient Problems: Problems Problem Status Onset Diarrhea Acute Hip fracture, left Acute Hypoglycemia Acute Cellulitis of left foot Acute Coronary artery disease Acute End stage renal disease Acute Fever Acute Fever Acute Knee pain Acute Left femoral shaft fracture Acute Leukocytosis Acute Muscle atrophy of lower extremity Acute Pneumonia Acute Sepsis Acute Severe sepsis Acute
[2018-02-19] MEDS ORDERED: ACET/CAFFEINE/BUTA FIORICET 1 EACH TAB PO ONE (15:40)
--- NOTE | 2018-02-19 16:22 | ASMTCMCOM ---
CM Note CM Note Notes: Pt with numerous comorbidities including diabetes, CAD, renal failure in for L hip fx after he had pain rolling over at home. Pt was in [facility] for femur fx recently, dc 01/08/[address] [facility]. Chart review indicates there were challenges to pt placement then and pt ultimately d/c to [facility] where he was just discharged to home 02/08/18. Ortho MD Page who knows pt well consulted and with pt decided on non-surgical management. Palliative consult ordered. Pt has dialysis MWF at [facility]. Pt dialyzed today at [facility] in room due to c-diff. RN Lexi indicated pt may decline a SNF again as he may believe he got c-diff at . Pt is in wheelchair at baseline, PT/OT ordered and they were waiting to see if pt would have surgery vs. palliative. Palliative may be tomorrow. CM to follow. D/c plan of care is TBD. Date Signed: 02/19/2018 04:21 PM Electronically Signed By:IBRAHIMA Ruffin
[2018-02-19] MEDS ORDERED: ATORVASTATIN CALCIUM 10 MG TAB PO SCH (21:00)
[2018-02-19] MEDS: CHOLECALCIFEROL VIT D3 1,000 UNITS TAB PO SCH (21:50)
[2018-02-19] MEDS: AMITRIPTYLINE HCL 10 MG TAB PO SCH (21:51)
[2018-02-19] MEDS: CLOPIDOGREL BISULFATE 75 MG TAB PO SCH (21:51)
[2018-02-19] MEDS: HEPARIN 5,000 UNIT/0.5 ML INJ SC SCH (21:52)
[2018-02-20] MEDS: HEPARIN 5,000 UNIT/0.5 ML INJ SC SCH ×3 (05:23→21:08)
[2018-02-20] MEDS: VANCOMYCIN 125 MG/2.5 ML UDL PO SCH ×4 (05:23→21:08)
[2018-02-20 05:49] LABS: CREATINE KINASE 28 IU/L (0-224)
[2018-02-20] MEDS: INSULIN REGULAR HUMAN 100 UNIT/ML UNIT SC SCH ×5 (07:42→21:41)
[2018-02-20] MEDS: CARVEDILOL 3.125 MG TAB PO SCH ×2 (08:47→17:33)
[2018-02-20] MEDS: PANTOPRAZOLE SODIUM 40 MG TAB PO SCH (08:48)
[2018-02-20] MEDS: ACETAMINOPHEN 500 MG TAB PO SCH ×3 (08:48→21:08)
[2018-02-20] MEDS: ASPIRIN 81 MG CHEWABLE TAB PO SCH (08:48)
[2018-02-20] MEDS: HYDROmorphONE/DILAUDID 2 MG TAB PO PRN ×2 (09:01→21:07)
[2018-02-20] MEDS: VSL#3 1 EACH CAP PO SCH ×2 (09:01→21:08)
[2018-02-20] MEDS: INSULIN GLARGINE 100 UNITS/ML UNIT SC SCH (09:01)
[2018-02-20] MEDS: HYDROmorphONE/DILAUDID 1 MG/ML INJ IVP PRN ×3 (11:44→21:06)
--- NOTE | 2018-02-20 11:52 | SOAPPROG ---
GWYN Progress Note Assessment/Plan: Assessment: I've known Lars for many years; it is hard to see him in his presents situation. Lars has had general decline last several years. He now has a femur fracture that is considered inoperable. He currently is having severe pain with any movement. Options appear quite limited. -Query whether any other surgical options are available -Consider whether patient would choose dysarticulation -Stopping dialysis Lras admits her really hasn't started processing these questions. His C Diff is improving. HD tomorrow Plan: 02/20/18 11:49 Objective: Vital Signs Temp Pulse Resp BP Pulse Ox 36.6 C 72 13 147/64 H 100 02/20/18 08:16 02/20/18 08:47 02/20/18 08:16 02/20/18 08:47 02/20/18 08:16 Microbiology 02/18/18 20:50 Gastrointestinal Tract Panel (PCR) - Final Stool Clostridium Difficile Detected E.coli Enteropathogenic(Epec) Laboratory Results 02/20/18 04:50 02/20/18 04:50 02/19/18 02/20/18 02/21/18 05:59 05:59 05:59 Intake Total 600 800 Output Total 1500 Balance 600 -700 Physical Exam - Physical Exam General Appearance: moderate distress Respiratory: lungs clear Cardiac/Chest: regular rate, rhythm Extremities: other (fistula site and bruit good) Neuro/Psych: oriented x 3 ICD10 Worksheet Patient Problems: Problems Problem Status Onset Diarrhea Acute Hip fracture, left Acute Hypoglycemia Acute Cellulitis of left foot Acute Coronary artery disease Acute End stage renal disease Acute Fever Acute Fever Acute Knee pain Acute Left femoral shaft fracture Acute Leukocytosis Acute Muscle atrophy of lower extremity Acute Pneumonia Acute Sepsis Acute Severe sepsis Acute
--- NOTE | 2018-02-20 14:02 | PCMIDPN ---
Assessment/Plan: # Recurrent Cdiff 2009, 02/05/18 (outside lab, in physical chart) and re-tested at admit 02/18/18. Patient had stopped vancomycin 3 days prior to this current admission. Patient states that his BMs are to soft stools twice daily, not liquid, no abdominal pain, no fevers. --planned treatment with full dose vancomycin 125 four times daily times 10 days (February 28) then step-down to vancomycin 125 mg p.o. Twice daily indefinitely due to chronic antibiotic prophylaxis with amoxicillin. 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 Patient is on renal dosing of amoxicillin Medications amoxicillin 500 mg daily Vancomycin 125 mg p.o. Four times daily Plavix 75 mg daily Insulin PPI Subjective: 67-year-old male with end-stage renal disease, diabetes, well known to the ID service primarily followed by my partner Dr. Gillette with chronic lower extremity ulcerations attributed to diabetes and pressure. Current problems date back to December when patient sustained a left femur fracture and more recently with admission 02/18/18 with left hip fracture. In the interim patient was at SNF and developed diarrhea and on 02/05/2018 stool was sent for C diff testing that was positive. Patient does have a history of C diff back in 2009, most recent testing at our institution in 2015 was negative. He describes 2 soft stools daily with no abdominal pain, no fever. He describes that his illness back in 2009 was much more severe. He also notes that his wounds are improving and his lower extremity. His main complaint is left hip and leg pain. Objective: Vital Signs Temp Pulse Resp BP Pulse Ox 36.6 C 67 16 139/67 H 99 02/20/18 08:16 02/20/18 12:57 02/20/18 12:57 02/20/18 12:57 02/20/18 12:57 Microbiology 02/18/18 20:50 Gastrointestinal Tract Panel (PCR) - Final Stool Clostridium Difficile Detected E.coli Enteropathogenic(Epec) Laboratory Results 02/20/18 04:50 02/20/18 04:50 02/19/18 02/20/18 02/21/18 05:59 05:59 05:59 Intake Total 600 800 Output Total 1500 Balance 600 -700 - Physical Exam General Appearance: cachetic, non-toxic EENT: pale conjunctiva, No thrush Respiratory: chest non-tender, No accessory muscle use Cardiac/Chest: regular rate, rhythm Extremities: other (Fistula with left upper extremity with thrill, no erythema) Abdomen: normal bowel sounds, non-tender, soft Skin: No rash Neuro/Psych: alert, oriented x 3, depressed affect - Time Spent With Patient Time Spent with Patient: greater than 35 minutes Time Spent with Patient: Greater than 35 minutes spent on this patients care, greater than 50% of time spent counseling, educating, and coordinating care regarding the above mentioned plan. ICD10 Worksheet Patient Problems: Problems Problem Status Onset Diarrhea Acute Hip fracture, left Acute Hypoglycemia Acute Cellulitis of left foot Acute Coronary artery disease Acute End stage renal disease Acute Fever Acute Fever Acute Knee pain Acute Left femoral shaft fracture Acute Leukocytosis Acute Muscle atrophy of lower extremity Acute Pneumonia Acute Sepsis Acute Severe sepsis Acute
--- NOTE | 2018-02-20 14:50 | HOSPPROG ---
Hospitalist Progress Note Assessment/Plan: 67yo M with multiple medical problems p/w pathological periprosthetic fracture. #Pathological left femur fracture: Not surgical candidate per Dr Page given severe osteoporosis and comorbid conditions - PO and IV dilaudid PRN. - Discussed with patient. We can be more liberal with IV dilaudid use (he only got 1 dose yesterday) in order to try and determine his overall opioid needs. Specifically, we can use prior to PT/OT, scheduled transfers, before bed. [employer] not good option with ESRD. - Palliative care consult re: pain mgmt, goals of care. See bottom of note. - Query benefit of anti-osteoporotic agent; will be limited by renal disease #C diff colitis: First recurrence. ID consulted as he is on suppressive antibiotics. - PO vancomycin 125mg QID through 02/28, then BID indefinitely #ESRD: Due to diabetes, failed renal transplant. - Renal consulted, getting HD MWF via [facility] #Sacral wound, right malleolar wound: Present on admission. - Wound care consulted #Weakness: Unclear etiology. Previously has seen neurology with no clear diagnosis. Query severe peripheral sensorimotor neuropathy related to diabetes vs inflammatory/autoimmune condition (given his type 1 diabetes). Wheelchair bound at baseline since 09/2016. CK normal. - PT/OT #CAD, peripheral arterial disease: S/p coronary stents in distant past. 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 Stable. #Type 1 diabetes: - Continue home glargine with SSI Diet: regular (patient declines renal diet) VTE ppx: SQH Code: full Dispo: Remain inpatient for management of pain with IV opioids. Also needing discussion re: goals of care given multiple comorbid medical issues with new pathologic fracture which presumably confers a high 90 day mortality. Palliative has been consulted, planning on meeting tomorrow at 4pm. I plan to be present. Subjective: Had lots of hip pain this morning. Better after IV pain meds. No nausea. Was able to work with PT and sit on side of bed. Objective: Vital Signs Temp Pulse Resp BP Pulse Ox 36.6 C 67 16 139/67 H 99 02/20/18 08:16 02/20/18 12:57 02/20/18 12:57 02/20/18 12:57 02/20/18 12:57 Laboratory Results 02/20/18 04:50 02/20/18 04:50 02/19/18 02/20/18 02/21/18 05:59 05:59 05:59 Intake Total 600 800 Output Total 1500 Balance 600 -700 - Physical Exam Constitutional: no apparent distress, chronically ill appearing Eyes: PERRL, anicteric sclera, EOMI Cardiovascular: regular rate and rhythym, no murmur, rub, or gallop Respiratory: no respiratory distress, no rales or rhonchi, clear to auscultation Gastrointestinal: normoactive bowel sounds, soft, non-tender abdomen, no palpable masses Musculoskeletal: other (left hip tenderness with minimal palpation) Neurologic: AAOx3 Psychiatric: interacting appropriately, not anxious, not encephalopathic, thought process linear ICD10 Worksheet Patient Problems: Problems Problem Status Onset Diarrhea Acute Hip fracture, left Acute Hypoglycemia Acute Cellulitis of left foot Acute Coronary artery disease Acute End stage renal disease Acute Fever Acute Fever Acute Knee pain Acute Left femoral shaft fracture Acute Leukocytosis Acute Muscle atrophy of lower extremity Acute Pneumonia Acute Sepsis Acute Severe sepsis Acute
--- NOTE | 2018-02-20 16:03 | WOCRNPDOC ---
[facility] Advanced Assessment Note - Skin Integrity Problem, Advanced Assess Sacrum Pressure Injury Dressing Type: Mepilex Border Closure Description: Not Approximated Exudate Amount: Scant Exudate Color: Reddish/Yellow Exudate Characteristic(s): Serosanguinous Integumentary Issue Intervention: Dressing Changed, Hydrogel Applied Federico Wound Tissue: Blanching, Erythema, Thin, Scarred Wound Bed Color: [place] Wound Bed Constitution: Granulation Tissue Wound Edges: Well Defined Site Odor: None Site Measurement - Head-to-Toe Length X Width X Depth (cm): scarred: 3.2x5.8. open: 1.3x2.4x0.2 Pressure Injury Stage: Stage 3 (per original documentation on wound) Pressure Injury Present on Admit: Yes Skin Integrity Problem Comment: Patient was able to roll to his right side with minimal assistance. Mepilex sacral dressing soiled with stool. Dressing removed to reveal a healing pressure injury now presenting as a mixed partial and full thickness pressure injury. Federico wound tissue is pink and scarred. [facility], this wound is much smaller as measured today than in recent encounters. As patient is, at least sometimes, incontinent, recommend continuing to cover this wound. Wound care will round again early next week. Right Lateral Ankle Pressure Injury Dressing Type: Allevyn Life Dressing Description: Clean/Dry, Intact Closure Description: Not Approximated Exudate Amount: None Integumentary Issue Intervention: Dressing Changed, Hydrogel Applied Federico Wound Tissue: Blanching, Erythema, Intact, Thin, Scarred Wound Bed Color: [place] Wound Bed Constitution: Granulation Tissue Wound Edges: Well Defined Site Measurement - Head-to-Toe Length X Width X Depth (cm): 1x0.6x0.2 Pressure Injury Stage: Stage 3 (per original documentation on this wound) Skin Integrity Problem Comment: Allevyn Life dressing removed. Given the scar tissue present federico-wound, it is obvious that this wound has undergone considerable healing. In documentation from prior hospitalizations as well as the [facility], this wound has been described as both a pressure injury, as well as a diabetic wound. Given the location on a bony prominance, it likely has, at least a component of pressure involvement or perhaps be of mixed etiology. Wound bed cleaned with NS and gauze. Wound gel applied to wound bed and new Allevyn Life placed. Wound care will round again early next week. Left Elbow Dressing Type: Allevyn Life Dressing Description: Clean/Dry, Intact Exudate Amount: None Integumentary Issue Intervention: Dressing Removed Federico Wound Tissue: Thin, Scarred Wound Bed Color: [place] Wound Bed Constitution: Granulation Tissue Wound Edges: Well Defined Site Measurement - Head-to-Toe Length X Width X Depth (cm): 0.2x0.3x0.1 Skin Integrity Problem Comment: This is a healing wound of unknown etiology. The federico-wound scarring measures [id number], with only a very small partial thickness opening along the distal portion. Will cover with Allevyn Thompson ( tubed to floor for patient) as they are lower profile than regular Allevyn Life , although either may be used. Wound care will round again early next week.
[2018-02-20] MEDS: CHOLECALCIFEROL VIT D3 1,000 UNITS TAB PO SCH (21:07)
[2018-02-20] MEDS: CLOPIDOGREL BISULFATE 75 MG TAB PO SCH (21:07)
[2018-02-20] MEDS: AMITRIPTYLINE HCL 10 MG TAB PO SCH (21:07)
[2018-02-21] MEDS: HYDROmorphONE/DILAUDID 1 MG/ML INJ IVP PRN ×6 (00:27→21:45)
[2018-02-21] MEDS: HEPARIN 5,000 UNIT/0.5 ML INJ SC SCH ×3 (05:54→22:01)
[2018-02-21] MEDS: VANCOMYCIN 125 MG/2.5 ML UDL PO SCH ×4 (05:54→19:55)
[2018-02-21] MEDS: INSULIN REGULAR HUMAN 100 UNIT/ML UNIT SC SCH ×2 (08:26→13:55)
[2018-02-21] MEDS: VSL#3 1 EACH CAP PO SCH ×2 (08:27→19:55)
[2018-02-21] MEDS: PANTOPRAZOLE SODIUM 40 MG TAB PO SCH (08:27)
[2018-02-21] MEDS: INSULIN GLARGINE 100 UNITS/ML UNIT SC SCH (08:27)
--- NOTE | 2018-02-21 10:31 | SOAPPROG ---
SOAP Progress Note Assessment/Plan: Assessment: ESRD refracture of previously fractured femur pain managed C-Diff colitis on PO vanco Plan: HD today next HD Saturday pain control continue PO Vanco 02/21/18 10:28 Subjective: pain manageable slept OK tolerating HD without difficulty no cp sob nausea or vomiting spirits good, all things considered Objective: Vital Signs Temp Pulse Resp BP Pulse Ox 36.6 C 67 15 166/78 H 97 02/21/18 03:17 02/21/18 03:17 02/21/18 03:17 02/21/18 03:17 02/21/18 03:17 Laboratory Results 02/21/18 04:32 02/21/18 04:32 02/20/18 02/21/18 02/22/18 05:59 05:59 05:59 Intake Total 800 500 Output Total 1500 Balance -700 500 Physical Exam - Physical Exam General Appearance: alert, thin Neck: normal inspection Respiratory: No rhonchi, No wheezing, No pleural rub Cardiac/Chest: regular rate, rhythm, systolic murmur, No edema, No friction rub Abdomen: normal bowel sounds, non-tender, soft Extremities: pedal edema Neuro/Psych: alert, normal mood/affect, oriented x 3 ICD10 Worksheet Patient Problems: Problems Problem Status Onset Diarrhea Acute Hip fracture, left Acute Hypoglycemia Acute Cellulitis of left foot Acute Coronary artery disease Acute End stage renal disease Acute Fever Acute Fever Acute Knee pain Acute Left femoral shaft fracture Acute Leukocytosis Acute Muscle atrophy of lower extremity Acute Pneumonia Acute Sepsis Acute Severe sepsis Acute
[2018-02-21] MEDS: ASPIRIN 81 MG CHEWABLE TAB PO SCH (12:32)
[2018-02-21] MEDS: CARVEDILOL 3.125 MG TAB PO SCH ×2 (12:32→18:14)
[2018-02-21] MEDS: ACETAMINOPHEN 500 MG TAB PO SCH ×3 (12:51→22:01)
--- NOTE | 2018-02-21 12:54 | HOSPPROG ---
Hospitalist Progress Note Assessment/Plan: 67yo M with multiple medical problems p/w pathological periprosthetic fracture. #Pathological left femur fracture: Not surgical candidate per Dr Page given severe osteoporosis and comorbid conditions - PO and IV dilaudid PRN. Will eventually need to transition to all PO (doesn 't have great long-acting opioid options) - Palliative care consult re: pain mgmt, goals of care. See bottom of note. #C diff colitis: First recurrence. ID consulted as he is on suppressive antibiotics. Still having occasional loose stool. - PO vancomycin 125mg QID through 02/28, then BID indefinitely #ESRD: Due to diabetes, failed renal transplant. - Renal consulted, getting HD MWF via RUE AV[facility] #Sacral wound, right malleolar wound: Present on admission. - Wound care consulted #Weakness: Unclear etiology. Previously has seen neurology with no clear diagnosis. Query severe peripheral sensorimotor neuropathy related to diabetes vs inflammatory/autoimmune condition (given his type 1 diabetes). Wheelchair bound at baseline since 09/2016. CK normal. - PT/OT #CAD, peripheral arterial disease: S/p coronary stents in distant past. 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 Stable. #Type 1 diabetes: Had episode of asymptomatic hypoglycemia this AM. - Continue home glargine with SSI, monitor BG Diet: regular (patient declines renal diet) VTE ppx: SQH Code: full Dispo: Remain inpatient for management of pain with IV opioids. Plan for palliative care meeting today at 4pm with patient and his . I will be present for meeting. Subjective: Had HD this AM. Pain mostly well controlled with IV dilaudid. Was too tired after HD to work much with PT. Objective: Vital Signs Temp Pulse Resp BP Pulse Ox 36.4 C 74 16 151/65 H 90 L 02/21/18 11:45 02/21/18 11:45 02/21/18 11:45 02/21/18 11:45 02/21/18 11:45 Laboratory Results 02/21/18 04:32 02/21/18 04:32 02/20/18 02/21/18 02/22/18 05:59 05:59 05:59 Intake Total 800 500 Output Total 1500 Balance -700 500 - Physical Exam Constitutional: no apparent distress, appears nourished, not in pain Ears, Nose, Mouth, Throat: moist mucous membranes, hearing normal, ears appear normal, no oral mucosal ulcers Cardiovascular: regular rate and rhythym, no murmur, rub, or gallop Respiratory: no respiratory distress, no rales or rhonchi, clear to auscultation Musculoskeletal: other (left hip tenderness) Neurologic: AAOx3, sensation intact bilaterally Psychiatric: not encephalopathic ICD10 Worksheet Patient Problems: Problems Problem Status Onset Diarrhea Acute Hip fracture, left Acute Hypoglycemia Acute Cellulitis of left foot Acute Coronary artery disease Acute End stage renal disease Acute Fever Acute Fever Acute Knee pain Acute Left femoral shaft fracture Acute Leukocytosis Acute Muscle atrophy of lower extremity Acute Pneumonia Acute Sepsis Acute Severe sepsis Acute
--- NOTE | 2018-02-21 13:37 | SOAPPROG ---
GWYN Progress Note Assessment/Plan: Assessment: Pain Acute proximal femur fracture sub acute healing of midshaft and distal femur fracture s/p IM nail in December. Plan: 02/21/18 13:34 L hip fx above segmental femoral shaft fx. IM nail in December. Lars's surgical options are not great. My hope is that he will heal up with scar and make his hip motion less painful His bone integrity has shown inability to hold metal fixation I agree with Palliative care strategies. I think his pain will subside considerably in the next 4-6 weeks Activity as tolerated. Transfers and weight bearing as tolerated. Subjective: Pain dilaudid is helpful Objective: Vital Signs Temp Pulse Resp BP Pulse Ox 36.4 C 74 16 151/65 H 90 L 02/21/18 11:45 02/21/18 11:45 02/21/18 11:45 02/21/18 11:45 02/21/18 11:45 Laboratory Results 02/21/18 04:32 02/21/18 04:32 02/20/18 02/21/18 02/22/18 05:59 05:59 05:59 Intake Total 800 500 Output Total 1500 Balance -700 500 thigh soft mild pain with flexion 10 degrees rotation of hip is very painful incisions healthy ICD10 Worksheet Patient Problems: Problems Problem Status Onset Diarrhea Acute Hip fracture, left Acute Hypoglycemia Acute Cellulitis of left foot Acute Coronary artery disease Acute End stage renal disease Acute Fever Acute Fever Acute Knee pain Acute Left femoral shaft fracture Acute Leukocytosis Acute Muscle atrophy of lower extremity Acute Pneumonia Acute Sepsis Acute Severe sepsis Acute
[2018-02-21] MEDS: ATORVASTATIN CALCIUM 10 MG TAB PO SCH (14:58)
--- NOTE | 2018-02-21 15:43 | ASMTCMCOM ---
CM Note CM Note Notes: Pt with hx of end stage renal disease, cdiff and diabetes admitted with L hip fx. Per chart notes, hip fx is inoperable and MD suspects pt will have a high 90-day mortality rate. A palliative consult has been ordered and will take place late this afternoon to accommodate family. CM will follow up tomorrow to see if pt interested in hospice, palliative care or SNF. Pt was DCd to [facility] on 01/08 and DCd home from there on 02/08. Plan: TBD Date Signed: 02/21/2018 03:43 PM Electronically Signed By:Vaishali Rich LCSW
--- NOTE | 2018-02-21 16:52 | ASMTCMCOM ---
CM Note CM Note Notes: Pt had palliative consult today with Sharon Goldman and Dr Stubbs. The result of the conversation is that pt may want outpt palliative services but is not ready to decide yet. Pt did state that he did not want to return to [facility] where he was earlier this month. Earlier note mentioned [facility] but he was not there. Plan: TBD. CM will meet with pt and family to discuss DC options. Date Signed: 02/21/2018 04:51 PM Electronically Signed By:Vaishali Rich LCSW
[2018-02-21] MEDS: INSULIN LISPRO 100 UNIT/1 ML VIAL STANDARD SC SCH (18:05)
[2018-02-21] MEDS: HYDROmorphONE/DILAUDID 2 MG TAB PO PRN ×2 (19:54→23:49)
[2018-02-21] MEDS: CLOPIDOGREL BISULFATE 75 MG TAB PO SCH (19:55)
[2018-02-21] MEDS: CHOLECALCIFEROL VIT D3 1,000 UNITS TAB PO SCH (19:55)
[2018-02-21] MEDS: AMITRIPTYLINE HCL 10 MG TAB PO SCH (19:55)
[2018-02-22] MEDS: HYDROmorphONE/DILAUDID 1 MG/ML INJ IVP PRN (06:15)
[2018-02-22] MEDS: VANCOMYCIN 125 MG/2.5 ML UDL PO SCH ×4 (06:21→20:09)
[2018-02-22] MEDS: HEPARIN 5,000 UNIT/0.5 ML INJ SC SCH ×3 (06:22→22:23)
[2018-02-22] MEDS: HYDROmorphONE/DILAUDID 2 MG TAB PO PRN ×3 (07:26→20:09)
[2018-02-22] MEDS: INSULIN LISPRO 100 UNIT/1 ML VIAL STANDARD SC SCH ×3 (07:59→17:14)
[2018-02-22] MEDS: ACETAMINOPHEN 500 MG TAB PO SCH ×3 (09:46→22:23)
[2018-02-22] MEDS: ATORVASTATIN CALCIUM 10 MG TAB PO SCH (09:47)
[2018-02-22] MEDS: ASPIRIN 81 MG CHEWABLE TAB PO SCH (09:47)
[2018-02-22] MEDS: PANTOPRAZOLE SODIUM 40 MG TAB PO SCH (09:47)
[2018-02-22] MEDS: CARVEDILOL 3.125 MG TAB PO SCH ×2 (09:47→16:52)
[2018-02-22] MEDS: INSULIN GLARGINE 100 UNITS/ML UNIT SC SCH ×2 (09:49→13:29)
[2018-02-22] MEDS: VSL#3 1 EACH CAP PO SCH ×2 (09:57→20:08)
--- NOTE | 2018-02-22 10:37 | HOSPPROG ---
Hospitalist Progress Note Assessment/Plan: 67yo M with multiple medical problems p/w pathological periprosthetic fracture. #Pathological left femur fracture: Not surgical candidate per Dr Page given severe osteoporosis and comorbid conditions - PO and IV dilaudid PRN. Cont IV management while working with therapy services - Palliative care consulted, met with patient and yesterday, they are still deciding on services - Will likely need SNF #C diff colitis: First recurrence. ID consulted as he is on suppressive antibiotics. Still having occasional loose stool. - PO vancomycin 125mg QID through 02/28, then BID indefinitely #Type 1 diabetes with hypoglycemia: Asymptomatic. - Decrease lantus 7->5 units, continue SSI #ESRD: Due to diabetes, failed renal transplant. - Renal consulted, getting HD MWF via [facility] #Sacral wound, right malleolar wound: Present on admission. - Wound care consulted #Weakness: Unclear etiology. Previously has seen neurology with no clear diagnosis. Query severe peripheral sensorimotor neuropathy related to diabetes vs inflammatory/autoimmune condition (given his type 1 diabetes). Wheelchair bound at baseline since 09/2016. CK normal. - PT/OT #CAD, peripheral arterial disease: S/p coronary stents in distant past. 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 Stable. Diet: regular (patient declines renal diet) VTE ppx: SQH Code: full Dispo: Remain inpatient for management of pain with IV opioids and pending improvement with therapy services Subjective: Having a bit more right leg pain this morning, moreso at knee than hip. Otherwise feeling ok. He and chatted yesterday about palliative care after our meeting and they are still thinking about it. Objective: Vital Signs Temp Pulse Resp BP Pulse Ox 36.9 C 74 16 135/66 H 100 02/22/18 07:08 02/22/18 09:47 02/22/18 07:08 02/22/18 09:47 02/22/18 07:08 Laboratory Results 02/21/18 04:32 02/22/18 04:16 02/21/18 02/22/18 02/23/18 05:59 05:59 05:59 Intake Total 500 120 Balance 500 120 - Physical Exam Constitutional: no apparent distress, appears nourished, not in pain Eyes: PERRL, anicteric sclera, EOMI Cardiovascular: regular rate and rhythym, no murmur, rub, or gallop Respiratory: no respiratory distress, no rales or rhonchi, clear to auscultation Gastrointestinal: normoactive bowel sounds, soft, non-tender abdomen, no palpable masses Musculoskeletal: other (left knee with mild effusion but no overlying erythema or warmth, good ROM, healed incisional just proximal to patella) Neurologic: AAOx3, sensation intact bilaterally ICD10 Worksheet Patient Problems: Problems Problem Status Onset Diarrhea Acute Hip fracture, left Acute Hypoglycemia Acute Cellulitis of left foot Acute Coronary artery disease Acute End stage renal disease Acute Fever Acute Fever Acute Knee pain Acute Left femoral shaft fracture Acute Leukocytosis Acute Muscle atrophy of lower extremity Acute Pneumonia Acute Sepsis Acute Severe sepsis Acute
--- NOTE | 2018-02-22 11:02 | SOAPPROG ---
SOAP Progress Note Assessment/Plan: Assessment/Plan: 67 y/o M ESRD with recent femoral fx treated conservatively. -had HD yesterday, plan for next on Saturday -still in pain on IV opiates per primary team, monitor mental status -met with palliative care, deciding on options -on po vanc for chronic C.diff -low blood sugar this am, not on renal diet, may consider holding daytime insulin -will continue to follow, please contact with questions #[phone] 02/22/18 11:00 Subjective: Deciding on palliative. BS 39 this am. Objective: Vital Signs Temp Pulse Resp BP Pulse Ox 36.9 C 74 16 135/66 H 100 02/22/18 07:08 02/22/18 09:47 02/22/18 07:08 02/22/18 09:47 02/22/18 07:08 Laboratory Results 02/21/18 04:32 02/22/18 04:16 02/21/18 02/22/18 02/23/18 05:59 05:59 05:59 Intake Total 500 120 Balance 500 120 Physical Exam - Physical Exam General Appearance: WD/WN, alert, mild distress, other (wheelchair bound) EENT: PERRL/EOMI Neck: non-tender, full range of motion, supple Respiratory: chest non-tender, decreased breath sounds Cardiac/Chest: normal peripheral pulses, regular rate, rhythm, edema, other ( AVF intact) Abdomen: normal bowel sounds, non-tender, soft Skin: normal color, warm/dry Extremities: other (Femoral fx) Neuro/Psych: oriented x 3 ICD10 Worksheet Patient Problems: Problems Problem Status Onset Diarrhea Acute Hip fracture, left Acute Hypoglycemia Acute Cellulitis of left foot Acute Coronary artery disease Acute End stage renal disease Acute Fever Acute Fever Acute Knee pain Acute Left femoral shaft fracture Acute Leukocytosis Acute Muscle atrophy of lower extremity Acute Pneumonia Acute Sepsis Acute Severe sepsis Acute
--- NOTE | 2018-02-22 15:26 | ASMTCMCOM ---
CM Note CM Note Notes: Attempted to meet with patient regarding his thoughts on Palliative and the d/c plan. Patient was asleep and his was not available. SNF rehab has been recommended. CM to follow up with confirming d/c plan and making referrals if indicated. Date Signed: 02/22/2018 03:24 PM Electronically Signed By:Margaret Young LCSW
[2018-02-22] MEDS: CLOPIDOGREL BISULFATE 75 MG TAB PO SCH (20:09)
[2018-02-22] MEDS: CHOLECALCIFEROL VIT D3 1,000 UNITS TAB PO SCH (20:09)
[2018-02-22] MEDS: AMITRIPTYLINE HCL 10 MG TAB PO SCH (20:09)
[2018-02-23] MEDS: HYDROmorphONE/DILAUDID 2 MG TAB PO PRN ×3 (00:25→11:44)
[2018-02-23] MEDS: HEPARIN 5,000 UNIT/0.5 ML INJ SC SCH ×3 (05:41→21:35)
[2018-02-23] MEDS: VANCOMYCIN 125 MG/2.5 ML UDL PO SCH ×4 (05:41→21:35)
[2018-02-23] MEDS: ACETAMINOPHEN 500 MG TAB PO SCH ×3 (09:03→21:34)
[2018-02-23] MEDS: HYDROmorphONE/DILAUDID 1 MG/ML INJ IVP PRN ×4 (09:04→21:28)
[2018-02-23] MEDS: VSL#3 1 EACH CAP PO SCH ×2 (09:05→21:34)
[2018-02-23] MEDS: ATORVASTATIN CALCIUM 10 MG TAB PO SCH (09:06)
[2018-02-23] MEDS: INSULIN LISPRO 100 UNIT/1 ML VIAL STANDARD SC SCH ×3 (09:06→18:02)
[2018-02-23] MEDS: PANTOPRAZOLE SODIUM 40 MG TAB PO SCH (09:06)
[2018-02-23] MEDS: ASPIRIN 81 MG CHEWABLE TAB PO SCH (09:06)
[2018-02-23] MEDS: CARVEDILOL 3.125 MG TAB PO SCH ×2 (09:06→18:34)
[2018-02-23] MEDS: INSULIN GLARGINE 100 UNITS/ML UNIT SC SCH (09:07)
--- NOTE | 2018-02-23 10:52 | ASMTCMCOM ---
CM Note CM Note Notes: 02/23/2018 Case Management Note Met w/pt this morning to discuss d/c needs. Pt has previous stay at [facility], requested referral. Faxed to [facility] via [employer]. Pt is requesting a change in his chair time at the [facility]. During previous SNF Rehab stays 8:20 am chair time prevented PT prior to dialysis and pt often missed breakfast. Pt was to fatigued after dialysis to participate in PT. Case Management to call [facility] to discuss new chair time while at [facility]. Pt is open with [facility] RN and PT. Faxed updates via [employer]. Case Management d/c poc: [facility] rehab pending acceptance and new chair time for dialysis. Case Management to follow. Date Signed: 02/23/2018 10:51 AM Electronically Signed By:Blanka Wall RN
--- NOTE | 2018-02-23 13:14 | HOSPPROG ---
Hospitalist Progress Note Assessment/Plan: 67yo M with multiple medical problems p/w pathological periprosthetic fracture. #Pathological left femur fracture: Not surgical candidate per Dr Page given severe osteoporosis and comorbid conditions - PO and IV dilaudid PRN. Cont IV management while working with therapy services - Palliative care consulted, met with patient and last Saturday. Approached palliative resources today (02/23) with pt, still haven't decided - PT/OT recommending SNF. CM involved and looking into [facility], patient agreeable #C diff colitis: First recurrence. ID consulted as he is on suppressive antibiotics. Still having occasional loose stool. - PO vancomycin 125mg QID through 02/28, then BID indefinitely #Type 1 diabetes with hypoglycemia: Wasn't hypoglycemic this AM (had been last few fasting checks). Asymptomatic. - Continue lantus 5 units, continue SSI, monitor closely with esrd #ESRD: Due to diabetes, failed renal transplant. - Renal consulted, getting HD MWF via [facility] #Sacral wound, right malleolar wound: Present on admission. - Wound care consulted #Weakness: Unclear etiology. Previously has seen neurology with no clear diagnosis. Query severe peripheral sensorimotor neuropathy related to diabetes vs inflammatory/autoimmune condition (given his type 1 diabetes). Wheelchair bound at baseline since 09/2016. CK normal. - PT/OT #CAD, peripheral arterial disease: S/p coronary stents in distant past. 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 Stable. Diet: regular (patient declines renal diet) VTE ppx: SQH Code: full Dispo: Remain inpatient for management of pain with IV opioids and pending improvement with therapy services. Likely go to SNF in next 1-2 days. Subjective: Pain was a little worse when working with PT today. They tried to get on pants and transfer to wheelchair but didn't accomplish 2/2 pain. Otherwise, no big updates. Breathing ok. Objective: Vital Signs Temp Pulse Resp BP Pulse Ox 36.7 C 71 16 148/58 H 100 02/23/18 08:54 02/23/18 12:20 02/23/18 12:20 02/23/18 12:20 02/23/18 12:20 Laboratory Results 02/21/18 04:32 02/23/18 04:02 02/22/18 02/23/18 02/24/18 05:59 05:59 05:59 Intake Total 120 490 Balance 120 490 - Physical Exam Constitutional: no apparent distress, not in pain, other (chronically ill appearing) Eyes: PERRL, anicteric sclera, EOMI Ears, Nose, Mouth, Throat: moist mucous membranes, hearing normal, ears appear normal, no oral mucosal ulcers Cardiovascular: regular rate and rhythym, no murmur, rub, or gallop Respiratory: other (clear anterolaterally) Gastrointestinal: normoactive bowel sounds, soft, non-tender abdomen, no palpable masses Musculoskeletal: other (left hip tender to touch, no overlying erythema) Neurologic: AAOx3, sensation intact bilaterally Psychiatric: interacting appropriately, not anxious, not encephalopathic, thought process linear ICD10 Worksheet Patient Problems: Problems Problem Status Onset Diarrhea Acute Hip fracture, left Acute Hypoglycemia Acute Cellulitis of left foot Acute Coronary artery disease Acute End stage renal disease Acute Fever Acute Fever Acute Knee pain Acute Left femoral shaft fracture Acute Leukocytosis Acute Muscle atrophy of lower extremity Acute Pneumonia Acute Sepsis Acute Severe sepsis Acute
--- NOTE | 2018-02-23 13:38 | SOAPPROG ---
GWYN Progress Note Assessment/Plan: Assessment/Plan: 67 y/o M ESRD with recent femoral fx treated conservatively. -plan for HD tomorrow, CM contact [facility] for chair time as outpt, appreciated -still having some weakness, PT/OT and CM trying to set up at [facility] -met with palliative care, deciding on options -on po vanc for chronic C.diff -femoral fx, conservative management -will continue to follow, please contact with questions #[phone] 02/23/18 13:35 Subjective: Met with palliative. Still planning on dialysis. C/o some pain and weakness. Objective: Vital Signs Temp Pulse Resp BP Pulse Ox 36.7 C 71 16 148/58 H 100 02/23/18 08:54 02/23/18 12:20 02/23/18 12:20 02/23/18 12:20 02/23/18 12:20 Laboratory Results 02/21/18 04:32 02/23/18 04:02 02/22/18 02/23/18 02/24/18 05:59 05:59 05:59 Intake Total 120 490 Balance 120 490 Physical Exam - Physical Exam General Appearance: WD/WN, mild distress EENT: PERRL/EOMI Neck: non-tender, supple Respiratory: chest non-tender, lungs clear Cardiac/Chest: regular rate, rhythm, edema Abdomen: normal bowel sounds, non-tender, soft Skin: normal color, warm/dry Extremities: other (femoral fx) Neuro/Psych: depressed affect ICD10 Worksheet Patient Problems: Problems Problem Status Onset Diarrhea Acute Hip fracture, left Acute Hypoglycemia Acute Cellulitis of left foot Acute Coronary artery disease Acute End stage renal disease Acute Fever Acute Fever Acute Knee pain Acute Left femoral shaft fracture Acute Leukocytosis Acute Muscle atrophy of lower extremity Acute Pneumonia Acute Sepsis Acute Severe sepsis Acute
[2018-02-23] MEDS: AMITRIPTYLINE HCL 10 MG TAB PO SCH (21:33)
[2018-02-23] MEDS: CLOPIDOGREL BISULFATE 75 MG TAB PO SCH (21:34)
[2018-02-23] MEDS: CHOLECALCIFEROL VIT D3 1,000 UNITS TAB PO SCH (21:34)
[2018-02-24] MEDS: HYDROmorphONE/DILAUDID 2 MG TAB PO PRN ×3 (03:40→21:49)
[2018-02-24] MEDS: INSULIN LISPRO 100 UNIT/1 ML VIAL STANDARD SC SCH ×3 (07:17→17:05)
[2018-02-24] MEDS: ACETAMINOPHEN 500 MG TAB PO SCH ×3 (08:30→21:40)
[2018-02-24] MEDS: INSULIN GLARGINE 100 UNITS/ML UNIT SC SCH (08:33)
[2018-02-24] MEDS: HEPARIN 5,000 UNIT/0.5 ML INJ SC SCH ×3 (08:33→21:40)
[2018-02-24] MEDS: VANCOMYCIN 125 MG/2.5 ML UDL PO SCH ×4 (08:35→21:41)
[2018-02-24] MEDS: CARVEDILOL 3.125 MG TAB PO SCH ×2 (12:01→18:41)
[2018-02-24] MEDS: ATORVASTATIN CALCIUM 10 MG TAB PO SCH (12:02)
[2018-02-24] MEDS: PANTOPRAZOLE SODIUM 40 MG TAB PO SCH (12:02)
[2018-02-24] MEDS: ASPIRIN 81 MG CHEWABLE TAB PO SCH (12:02)
[2018-02-24] MEDS: VSL#3 1 EACH CAP PO SCH ×2 (12:02→21:40)
--- NOTE | 2018-02-24 14:46 | SOAPPROG ---
GWYN Progress Note Assessment/Plan: Assessment/Plan: 67 y/o M ESRD with recent femoral fx treated conservatively. -plan for HD MWF schedule, CM contact David for chair time as outpt, appreciated -will need to tolerate being up to chair for HD otherwise will go to LTAC -still having some weakness, PT/OT and CM trying to set up at [facility] -met with palliative care, deciding on options -on po vanc for chronic C.diff -femoral fx, conservative management -will continue to follow, please contact with questions #[phone] 02/24/18 14:45 Subjective: Patient resting on dialysis today. Per , "We are not ready to give up." However has been unable to sit up to chair. Objective: Vital Signs Temp Pulse Resp BP Pulse Ox 36.5 C 77 18 119/57 L 99 02/24/18 12:20 02/24/18 12:20 02/24/18 12:20 02/24/18 12:20 02/24/18 12:20 Laboratory Results 02/21/18 04:32 02/24/18 04:30 02/23/18 02/24/18 02/25/18 05:59 05:59 05:59 Intake Total 490 390 Balance 490 390 Physical Exam - Physical Exam General Appearance: no apparent distress, thin, other (ill appearing) EENT: PERRL/EOMI, normal ENT inspection Neck: non-tender, full range of motion, supple Respiratory: chest non-tender, decreased breath sounds Cardiac/Chest: normal peripheral pulses, regular rate, rhythm, edema Abdomen: normal bowel sounds, non-tender, soft Skin: pallor Extremities: normal range of motion, non-tender, other (femoral fx) ICD10 Worksheet Patient Problems: Problems Problem Status Onset Diarrhea Acute Hip fracture, left Acute Hypoglycemia Acute Cellulitis of left foot Acute Coronary artery disease Acute End stage renal disease Acute Fever Acute Fever Acute Knee pain Acute Left femoral shaft fracture Acute Leukocytosis Acute Muscle atrophy of lower extremity Acute Pneumonia Acute Sepsis Acute Severe sepsis Acute
--- NOTE | 2018-02-24 15:09 | HOSPPROG ---
Hospitalist Progress Note Assessment/Plan: 67yo M with multiple medical problems p/w pathological periprosthetic fracture. #Pathological left femur fracture: Not surgical candidate per Dr Page given severe osteoporosis and comorbid conditions - PO and IV dilaudid PRN. - PT/OT recommending SNF. CM involved and looking into [facility], patient agreeable #C diff colitis: First recurrence. ID consulted as he is on suppressive antibiotics. Still having occasional loose stool. - PO vancomycin 125mg QID through 02/28, then BID indefinitely #Type 1 diabetes with hypoglycemia: - Continue lantus 5 units, continue SSI, monitor closely with esrd #ESRD: Due to diabetes, failed renal transplant. -continue HD MWF via [facility] #Sacral wound, right malleolar wound: Present on admission. - Wound care consulted #Weakness: Unclear etiology. Previously has seen neurology with no clear diagnosis. Query severe peripheral sensorimotor neuropathy related to diabetes vs inflammatory/autoimmune condition (given his type 1 diabetes). Wheelchair bound at baseline since 09/2016. CK normal. - PT/OT #CAD, peripheral arterial disease: S/p coronary stents in distant past. 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 Stable. Diet: regular (patient declines renal diet) VTE ppx: SQH Code: full Dispo: Remain inpatient for management of pain with IV opioids and pending improvement with therapy services. Likely go to SNF in next 1-2 days. Subjective: no significant overnight events, patient s/p HD and feeling relatively well Objective: Vital Signs Temp Pulse Resp BP Pulse Ox 36.5 C 77 18 119/57 L 99 02/24/18 12:20 02/24/18 12:20 02/24/18 12:20 02/24/18 12:20 02/24/18 12:20 Laboratory Results 02/21/18 04:32 02/24/18 04:30 02/23/18 02/24/18 02/25/18 05:59 05:59 05:59 Intake Total 490 390 Balance 490 390 chronically ill appearing anicteric op clear rrr no mrg cta to ant exam soft nt nd no cce ICD10 Worksheet Patient Problems: Problems Problem Status Onset Severe sepsis Acute End stage renal disease Acute Cellulitis of left foot Acute Diarrhea Acute Coronary artery disease Acute Pneumonia Acute Fever Acute Leukocytosis Acute Sepsis Acute Fever Acute Knee pain Acute Muscle atrophy of lower extremity Acute Left femoral shaft fracture Acute Hip fracture, left Acute Hypoglycemia Acute
[2018-02-24] MEDS: CLOPIDOGREL BISULFATE 75 MG TAB PO SCH (21:39)
[2018-02-24] MEDS: CHOLECALCIFEROL VIT D3 1,000 UNITS TAB PO SCH (21:40)
[2018-02-24] MEDS: AMITRIPTYLINE HCL 10 MG TAB PO SCH (21:40)
[2018-02-25] MEDS: HYDROmorphONE/DILAUDID 2 MG TAB PO PRN ×6 (01:47→22:02)
[2018-02-25] MEDS: VANCOMYCIN 125 MG/2.5 ML UDL PO SCH ×4 (05:23→22:03)
[2018-02-25] MEDS: HEPARIN 5,000 UNIT/0.5 ML INJ SC SCH ×3 (05:23→22:03)
[2018-02-25] MEDS: ATORVASTATIN CALCIUM 10 MG TAB PO SCH (08:24)
[2018-02-25] MEDS: VSL#3 1 EACH CAP PO SCH (08:24)
[2018-02-25] MEDS: CARVEDILOL 3.125 MG TAB PO SCH ×2 (08:24→18:17)
[2018-02-25] MEDS: ASPIRIN 81 MG CHEWABLE TAB PO SCH (08:24)
--- NOTE | 2018-02-25 08:24 | SOAPPROG ---
GWYN Progress Note Assessment/Plan: Assessment/Plan: 67 y/o M ESRD with recent femoral fx treated conservatively. -plan for HD MWF schedule -unable to tolerate up-to-chair and will need LTAC placement, cannot go to [facility] -met with palliative care, deciding on options -on po vanc for chronic C.diff -femoral fx, conservative management -ok to get labs on HD days only -will continue to follow, please contact with questions #[phone] 02/25/18 08:22 02/25/18 08:24 Subjective: Patient unable to get up to chair. Still working with OT. Tolerated HD at bedside yesterday. Objective: Vital Signs Temp Pulse Resp BP Pulse Ox 36.6 C 75 12 144/78 H 100 02/25/18 08:04 02/25/18 08:04 02/25/18 08:04 02/25/18 08:04 02/25/18 08:04 Laboratory Results 02/21/18 04:32 02/24/18 04:30 02/24/18 02/25/18 02/26/18 05:59 05:59 05:59 Intake Total 390 1200 Balance 390 1200 Physical Exam - Physical Exam General Appearance: cachetic, other (resting) EENT: PERRL/EOMI, normal ENT inspection Neck: non-tender, full range of motion, supple Respiratory: decreased breath sounds Cardiac/Chest: regular rate, rhythm, edema Abdomen: normal bowel sounds, non-tender, soft Skin: warm/dry, pallor Extremities: other (femoral fx) Neuro/Psych: depressed affect ICD10 Worksheet Patient Problems: Problems Problem Status Onset Diarrhea Acute Hip fracture, left Acute Hypoglycemia Acute Cellulitis of left foot Acute Coronary artery disease Acute End stage renal disease Acute Fever Acute Fever Acute Knee pain Acute Left femoral shaft fracture Acute Leukocytosis Acute Muscle atrophy of lower extremity Acute Pneumonia Acute Sepsis Acute Severe sepsis Acute
[2018-02-25] MEDS: PANTOPRAZOLE SODIUM 40 MG TAB PO SCH (08:25)
[2018-02-25] MEDS: ACETAMINOPHEN 500 MG TAB PO SCH ×3 (08:32→22:03)
[2018-02-25] MEDS: INSULIN LISPRO 100 UNIT/1 ML VIAL STANDARD SC SCH ×3 (10:03→19:36)
--- NOTE | 2018-02-25 10:49 | HOSPPROG ---
Hospitalist Progress Note Assessment/Plan: 7yo M with multiple medical problems p/w pathological periprosthetic fracture. Pathological left femur fracture: Not surgical candidate per Dr Page given severe osteoporosis and comorbid conditions - PO and IV dilaudid PRN. - PT/OT recommending SNF. CM involved and looking into [facility], patient agreeable C diff colitis: First recurrence. ID consulted as he is on suppressive antibiotics. Still having occasional loose stool. - PO vancomycin 125mg QID through 02/28, then BID indefinitely Type 1 diabetes with hypoglycemia: - Continue lantus 5 units, continue SSI, monitor closely with esrd ESRD: Due to diabetes, failed renal transplant. -continue HD MWF via [facility] Sacral wound, right malleolar wound: Present on admission. - Wound care consulted Weakness: Unclear etiology. Previously has seen neurology with no clear diagnosis. Query severe peripheral sensorimotor neuropathy related to diabetes vs inflammatory/autoimmune condition (given his type 1 diabetes). Wheelchair bound at baseline since 09/2016. CK normal. - PT/OT CAD, peripheral arterial disease: S/p coronary stents in distant past. 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 Stable. Diet: regular (patient declines renal diet) VTE ppx: SQH Code: full Dispo: Remain inpatient for management of pain with IV opioids and pending improvement with therapy services. Likely go to SNF in next 1-2 days. Subjective: moderate diarrhea. pain has been well controlled except last evening Objective: Vital Signs Temp Pulse Resp BP Pulse Ox 36.6 C 75 12 144/78 H 100 02/25/18 08:04 02/25/18 08:04 02/25/18 08:04 02/25/18 08:04 02/25/18 08:04 Laboratory Results 02/21/18 04:32 02/24/18 04:30 02/24/18 02/25/18 02/26/18 05:59 05:59 05:59 Intake Total 390 1200 Balance 390 1200 - Physical Exam Constitutional: no apparent distress, appears nourished, chronically ill appearing Eyes: PERRL, anicteric sclera Ears, Nose, Mouth, Throat: moist mucous membranes, hearing normal Cardiovascular: regular rate and rhythym, no murmur, rub, or gallop Respiratory: no respiratory distress, no rales or rhonchi Gastrointestinal: normoactive bowel sounds, soft, non-tender abdomen, No guarding, No rebound Genitourinary: No zhou in urethra Skin: warm, other (chronic venous stasis ulcers) Musculoskeletal: No full muscle strength ICD10 Worksheet Patient Problems: Problems Problem Status Onset Diarrhea Acute Hip fracture, left Acute Hypoglycemia Acute Cellulitis of left foot Acute Coronary artery disease Acute End stage renal disease Acute Fever Acute Fever Acute Knee pain Acute Left femoral shaft fracture Acute Leukocytosis Acute Muscle atrophy of lower extremity Acute Pneumonia Acute Sepsis Acute Severe sepsis Acute
[2018-02-25] MEDS: INSULIN GLARGINE 100 UNITS/ML UNIT SC SCH (11:19)
[2018-02-25] MEDS: HYDROmorphONE/DILAUDID 1 MG/ML INJ IVP PRN (12:21)
[2018-02-25] MEDS ORDERED: INSULIN GLARGINE 100 UNITS/ML SYRINGE SC ONE (12:30)
[2018-02-25] MEDS ORDERED: INSULIN GLARGINE 100 UNITS/ML UNIT SC ONE (13:15)
--- NOTE | 2018-02-25 15:34 | WOCRNPDOC ---
[facility]ER[facility] Advanced Assessment Note - Skin Integrity Problem, Advanced Assess Sacrum Pressure Injury Dressing Type: Mepilex Border Dressing Description: Intact, Soiled Closure Description: Not Approximated Exudate Amount: Minimal Exudate Color: Reddish/Yellow Exudate Characteristic(s): Serosanguinous Integumentary Issue Intervention: Dressing Changed, Dressing Initialed & Dated, Hydrogel Applied Federico Wound Tissue: Blanching, Erythema, Thin, Scarred Federico Wound Swelling: None Wound Bed Color: [place] Wound Bed Constitution: Granulation Tissue Wound Edges: Attached, Well Defined Site Measurement - Head-to-Toe Length X Width X Depth (cm): 4x4.5x0.2 Pressure Injury Stage: Stage 3 Pressure Injury Present on Admit: Yes Skin Integrity Problem Comment: Patient rolled to his left side with assist of the TAPS drawsheet and this RN. Briefs removed. Mepilex sacral dressing partially soiled with stool and removed. Stool cleaned from patient. Skin to buttocks is errythematic but blanching. Wound bed cleaned with NS and gauze. Skin prep applied to federico wound tissue and Mepilex sacral reapplied. Wound care will round again later this week. Right Lateral Ankle Pressure Injury Dressing Type: Allevyn Life Dressing Description: Intact, Shadowed Closure Description: Not Approximated Exudate Amount: Minimal Exudate Color: Yellow Exudate Characteristic(s): Serous Integumentary Issue Intervention: Dressing Changed, Dressing Initialed & Dated, Hydrogel Applied Wound Bed Color: Purple Wound Edges: Attached, Well Defined Site Measurement - Head-to-Toe Length X Width X Depth (cm): 2.2x1.3xDTI. Open: 0.2x0.2x0.2 Pressure Injury Stage: Deep Tissue Injury (DTI) Pressure Injury Present on Admit: Yes (Previously stage 3, now DTI) Skin Integrity Problem Comment: Heel boot, sock and Allevyn Life removed from patient. Since last week, this wound has become a DTI with a small central opening. I suspect that this wound will evolve and it is likely that it will continue to open up. Wound care will round again later this week to monitor this evolving wound. Left Elbow Dressing Type: Allevyn Life (Gentle) Dressing Description: Clean/Dry, Intact Exudate Amount: Scant Exudate Color: Reddish/Yellow Exudate Characteristic(s): Serosanguinous Integumentary Issue Intervention: Dressing Changed, Dressing Initialed & Dated, Hydrogel Applied Federico Wound Tissue: Thin, Scarred Wound Bed Color: [place] Wound Bed Constitution: Red/[place] - Non Granular Tissue Wound Edges: Well Defined Site Measurement - Head-to-Toe Length X Width X Depth (cm): 2.1x2.4x0.1 Skin Integrity Problem Comment: Wound bed cleaned with NS and gauze. This wound is scattered partial and full thickness openings, and larger than my measurements last week. Hydrogel placed to wound bed and wound recovered with [employer] Life Gentle. Wound care will round again later this week. Right Lateral Foot Pressure Injury Dressing Type: Open to Air Other Dressing Type: heel boots in place Closure Description: Approximated Exudate Amount: None Federico Wound Tissue: Intact Wound Bed Color: Purple Wound Edges: Attached, Well Defined Site Odor: None Site Measurement - Head-to-Toe Length X Width X Depth (cm): 5.1s5hMDP Pressure Injury Stage: Deep Tissue Injury (DTI) Pressure Injury Present on Admit: No Skin Integrity Problem Comment: Patient's sock and heel boot removed. Patient with DTI to right lateral foot. This wound is new since my last encounter with this patient last week. Skin is currently intact so no dressing was placed over the wound. Please let wound care know GEORGE if wound opens as it seems likely that this wound will continue to evolve. Wound care will round again later this week.
--- NOTE | 2018-02-25 15:59 | ASMTCMCOM ---
CM Note CM Note Notes: [facility] accepted patient. 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 Pt cannot got to [facility] while taking IV painkillers; Dr Aragon stated he will change his to oral today. Pt may be ready to discharge tomorrow if pain is under enough control with oral painkillers. Pt remains open with [facility] for PT and RN. CM to follow. D/C Plan: Rah Date Signed: 02/25/2018 03:58 PM Electronically Signed By:Ophelia Keane
[2018-02-25] MEDS: AMITRIPTYLINE HCL 10 MG TAB PO SCH (22:04)
[2018-02-25] MEDS: CLOPIDOGREL BISULFATE 75 MG TAB PO SCH (22:04)
[2018-02-25] MEDS: CHOLECALCIFEROL VIT D3 1,000 UNITS TAB PO SCH (22:04)
[2018-02-26] MEDS: VSL#3 1 EACH CAP PO SCH ×3 (00:30→21:49)
[2018-02-26] MEDS: HYDROmorphONE/DILAUDID 2 MG TAB PO PRN ×6 (04:22→21:42)
[2018-02-26] MEDS: HEPARIN 5,000 UNIT/0.5 ML INJ SC SCH ×3 (06:38→21:43)
[2018-02-26] MEDS: VANCOMYCIN 125 MG/2.5 ML UDL PO SCH ×4 (06:38→21:43)
[2018-02-26] MEDS: INSULIN LISPRO 100 UNIT/1 ML VIAL STANDARD SC SCH ×3 (09:22→17:20)
[2018-02-26] MEDS: INSULIN GLARGINE 100 UNITS/ML UNIT SC SCH (09:31)
[2018-02-26] MEDS: ACETAMINOPHEN 500 MG TAB PO SCH ×4 (09:32→23:23)
[2018-02-26] MEDS: ATORVASTATIN CALCIUM 10 MG TAB PO SCH ×2 (09:33→12:35)
[2018-02-26] MEDS: ASPIRIN 81 MG CHEWABLE TAB PO SCH ×2 (09:33→12:35)
[2018-02-26] MEDS: CARVEDILOL 3.125 MG TAB PO SCH ×3 (09:33→17:15)
[2018-02-26] MEDS: PANTOPRAZOLE SODIUM 40 MG TAB PO SCH ×2 (09:34→12:36)
[2018-02-26 10:31] LABS: HEPATITIS B SURFACE ANTIGEN NEGATIVE (NEGATIVE)
--- NOTE | 2018-02-26 11:09 | SOAPPROG ---
SOAP Progress Note Assessment/Plan: Assessment: 1. esrd: hd today on typical [facility] hd schedule. Planning on rehab with transport to [facility]. Was della dependent prior to this admit. 2. femoral fx: no good surgical options. Pain control. 3. htn: Vol status looks good, cont coreg 4. anemia: follow for txfusion requirement, cont epo 5. C Diff: on po vanc 6. dispo: no interest in stopping hd at this time. Plan: 02/19/18 14:20 02/19/18 14:30 02/26/18 11:07 02/26/18 11:09 Subjective: Currently on hd. Pain currently controlled on po meds. Objective: Vital Signs Temp Pulse Resp BP Pulse Ox 36.6 C 77 16 156/65 H 92 02/26/18 04:25 02/26/18 10:18 02/26/18 10:18 02/26/18 10:18 02/26/18 10:18 Laboratory Results 02/21/18 04:32 02/26/18 07:45 02/25/18 02/26/18 02/27/18 05:59 05:59 05:59 Intake Total 1200 1300 Balance 1200 1300 Physical Exam - Physical Exam General Appearance: no apparent distress, cachetic Extremities: pedal edema (none) ICD10 Worksheet Patient Problems: Problems Problem Status Onset Diarrhea Acute Hip fracture, left Acute Hypoglycemia Acute Cellulitis of left foot Acute Coronary artery disease Acute End stage renal disease Acute Fever Acute Fever Acute Knee pain Acute Left femoral shaft fracture Acute Leukocytosis Acute Muscle atrophy of lower extremity Acute Pneumonia Acute Sepsis Acute Severe sepsis Acute
--- NOTE | 2018-02-26 11:34 | HOSPPROG ---
Hospitalist Progress Note Assessment/Plan: 67 yo M with multiple medical problems p/w pathological periprosthetic fracture. Pathological left femur fracture: Not surgical candidate per Dr Page given severe osteoporosis and comorbid conditions - PO dilaudid - PT/OT recommending SNF. CM involved and looking into [facility], patient agreeable C diff colitis: First recurrence. ID consulted as he is on suppressive antibiotics. Still having occasional loose stool. - PO vancomycin 125mg QID through 02/28, then BID indefinitely Type 1 diabetes with hypoglycemia: - Continue lantus 5 units, continue SSI, monitor closely with esrd ESRD: Due to diabetes, failed renal transplant. -continue HD MWF via [facility] Sacral wound, right malleolar wound: Present on admission. - Wound care consulted Weakness: Unclear etiology. Previously has seen neurology with no clear diagnosis. Query severe peripheral sensorimotor neuropathy related to diabetes vs inflammatory/autoimmune condition (given his type 1 diabetes). Wheelchair bound at baseline since 09/2016. CK normal. - PT/OT CAD, peripheral arterial disease: S/p coronary stents in distant past. 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 Stable. Diet: regular (patient declines renal diet) VTE ppx: SQH Code: full Dispo: to snf today Subjective: pain control OK on orals. apprehensive about leaving today. 1 bm today Objective: Vital Signs Temp Pulse Resp BP Pulse Ox 36.6 C 77 16 156/65 H 92 02/26/18 04:25 02/26/18 10:18 02/26/18 10:18 02/26/18 10:18 02/26/18 10:18 Laboratory Results 02/21/18 04:32 02/26/18 07:45 02/25/18 02/26/18 02/27/18 05:59 05:59 05:59 Intake Total 1200 1300 Balance 1200 1300 - Physical Exam Constitutional: no apparent distress, appears nourished Eyes: PERRL, anicteric sclera Ears, Nose, Mouth, Throat: moist mucous membranes, hearing normal Cardiovascular: regular rate and rhythym, no murmur, rub, or gallop Respiratory: no respiratory distress, no rales or rhonchi Gastrointestinal: normoactive bowel sounds, soft, non-tender abdomen Genitourinary: no bladder fullness, No zhou in urethra Skin: warm, normal color Musculoskeletal: full muscle strength Neurologic: AAOx3 ICD10 Worksheet Patient Problems: Problems Problem Status Onset Diarrhea Acute Hip fracture, left Acute Hypoglycemia Acute Cellulitis of left foot Acute Coronary artery disease Acute End stage renal disease Acute Fever Acute Fever Acute Knee pain Acute Left femoral shaft fracture Acute Leukocytosis Acute Muscle atrophy of lower extremity Acute Pneumonia Acute Sepsis Acute Severe sepsis Acute
--- NOTE | 2018-02-26 15:28 | SOAPPROG ---
GWYN Progress Note Assessment/Plan: Assessment: Pain Acute proximal femur fracture sub acute healing of midshaft and distal femur fracture s/p IM nail in December. Plan: 02/21/18 13:34 L hip fx above segmental femoral shaft fx. IM nail in December. Lras's surgical options are not great. My hope is that he will heal up with scar and make his hip motion less painful His bone integrity has shown inability to hold metal fixation I agree with Palliative care strategies. I think his pain will subside considerably in the next 4-6 weeks Activity as tolerated. Transfers and weight bearing as tolerated. Subjective: new xrays reviewed. Stable alignment. Proximal screw has backed out a bit. Continue to monitor. 2 v hip in 2 weeks or so thanks. Dr Page Objective: Vital Signs Temp Pulse Resp BP Pulse Ox 36.6 C 78 18 148/65 H 91 L 02/26/18 12:48 02/26/18 12:48 02/26/18 12:48 02/26/18 12:48 02/26/18 12:48 Laboratory Results 02/21/18 04:32 02/26/18 07:45 02/25/18 02/26/18 02/27/18 05:59 05:59 05:59 Intake Total 1200 1300 Balance 1200 1300 ICD10 Worksheet Patient Problems: Problems Problem Status Onset Diarrhea Acute Hip fracture, left Acute Hypoglycemia Acute Cellulitis of left foot Acute Coronary artery disease Acute End stage renal disease Acute Fever Acute Fever Acute Knee pain Acute Left femoral shaft fracture Acute Leukocytosis Acute Muscle atrophy of lower extremity Acute Pneumonia Acute Sepsis Acute Severe sepsis Acute
[2018-02-26] MEDS: AMITRIPTYLINE HCL 10 MG TAB PO SCH (21:43)
[2018-02-26] MEDS: CHOLECALCIFEROL VIT D3 1,000 UNITS TAB PO SCH (21:44)
[2018-02-26] MEDS: CLOPIDOGREL BISULFATE 75 MG TAB PO SCH (21:44)
[2018-02-27] MEDS: HYDROmorphONE/DILAUDID 2 MG TAB PO PRN ×5 (00:39→19:46)
[2018-02-27] MEDS: VANCOMYCIN 125 MG/2.5 ML UDL PO SCH ×4 (06:10→19:47)
[2018-02-27] MEDS: HEPARIN 5,000 UNIT/0.5 ML INJ SC SCH ×3 (06:10→21:47)
[2018-02-27] MEDS: CARVEDILOL 3.125 MG TAB PO SCH ×2 (08:02→17:57)
[2018-02-27] MEDS: ATORVASTATIN CALCIUM 10 MG TAB PO SCH (08:03)
[2018-02-27] MEDS: ASPIRIN 81 MG CHEWABLE TAB PO SCH (08:03)
[2018-02-27] MEDS: PANTOPRAZOLE SODIUM 40 MG TAB PO SCH (08:03)
[2018-02-27] MEDS: ACETAMINOPHEN 500 MG TAB PO SCH ×3 (08:08→21:47)
[2018-02-27] MEDS: VSL#3 1 EACH CAP PO SCH ×2 (08:38→19:47)
[2018-02-27] MEDS: INSULIN GLARGINE 100 UNITS/ML UNIT SC SCH (08:38)
[2018-02-27] MEDS: INSULIN LISPRO 100 UNIT/1 ML VIAL STANDARD SC SCH ×3 (08:39→17:57)
--- NOTE | 2018-02-27 09:28 | SOAPPROG ---
SOAP Progress Note Assessment/Plan: Assessment/Plan: ESRD: on HD MWF. - Will plan on HD tomorrow, can be done as outpatient if discharged. HTN: BP ok on Coreg. Anemia: will continue to monitor and provide epo as needed. Hyponatremia: will modulate on HD. Subjective: No acute events overnight. Pt continues to have problems with pain in L hip and leg as well as diarrhea. Pt with no new complaints this am. Objective: Vital Signs Temp Pulse Resp BP Pulse Ox 36.5 C 77 14 140/64 H 99 02/27/18 07:49 02/27/18 08:02 02/27/18 07:49 02/27/18 08:02 02/27/18 07:49 Laboratory Results 02/21/18 04:32 02/26/18 07:45 02/26/18 02/27/18 02/28/18 05:59 05:59 05:59 Intake Total 1300 1350 Balance 1300 1350 General: alert and oriented, no acute distress Eyes: EOMI, PERRL OP: Clear CV: RRR Resp: nonlabored respirations Abd; Soft, NT/ND Ext: no edema BLE Neuro: CN II-XII Grossly intact Access: LUE AVF Psych: cooperative ICD10 Worksheet Patient Problems: Problems Problem Status Onset Diarrhea Acute Hip fracture, left Acute Hypoglycemia Acute Cellulitis of left foot Acute Coronary artery disease Acute End stage renal disease Acute Fever Acute Fever Acute Knee pain Acute Left femoral shaft fracture Acute Leukocytosis Acute Muscle atrophy of lower extremity Acute Pneumonia Acute Sepsis Acute Severe sepsis Acute
--- NOTE | 2018-02-27 13:23 | HOSPPROG ---
Hospitalist Progress Note Assessment/Plan: 67 yo M with multiple medical problems p/w pathological periprosthetic fracture. Pathological left femur fracture: Not surgical candidate per Dr Page given severe osteoporosis and comorbid conditions - PO dilaudid - PT/OT recommending SNF. CM involved and looking into [facility], patient agreeable repeat films yesterday show unchanged alignment. d/w dr cristine Freeman diff colitis: First recurrence. ID consulted as he is on suppressive antibiotics. Still having occasional loose stool. - PO vancomycin 125mg QID through 02/28, then BID indefinitely noted is that he is on daily amoxicillin for chronic LE infection- will hold for time being 02/27- more frequent stool. belly ok and not febrile he is at risk for severe cdiff this precludes safe dc to snf today Type 1 diabetes with hypoglycemia: - Continue lantus 5 units, continue SSI, monitor closely with esrd ESRD: Due to diabetes, failed renal transplant. -continue HD MWF via RUE AVF Sacral wound, right malleolar wound: Present on admission. - Wound care consulted Weakness: Unclear etiology. Previously has seen neurology with no clear diagnosis. Query severe peripheral sensorimotor neuropathy related to diabetes vs inflammatory/autoimmune condition (given his type 1 diabetes). Wheelchair bound at baseline since 09/2016. CK normal. - PT/OT CAD, peripheral arterial disease: S/p coronary stents in distant past. 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 Stable. Diet: regular (patient declines renal diet) VTE ppx: SQH Code: full i discussed this w him 02/25 and he clearly stated that he would like to be resuscitated Dispo: inpatient Subjective: abd film: colon not dilated (interp by me). non stop liquid stool this AM Objective: Vital Signs Temp Pulse Resp BP Pulse Ox 36.7 C 105 H 14 155/83 H 98 02/27/18 11:34 02/27/18 11:34 02/27/18 11:34 02/27/18 11:34 02/27/18 11:34 Laboratory Results 02/21/18 04:32 02/26/18 07:45 02/26/18 02/27/18 02/28/18 05:59 05:59 05:59 Intake Total 1300 1350 Balance 1300 1350 - Physical Exam Constitutional: no apparent distress, appears nourished Eyes: PERRL, anicteric sclera Ears, Nose, Mouth, Throat: moist mucous membranes, hearing normal Cardiovascular: regular rate and rhythym, no murmur, rub, or gallop, No tachycardia Respiratory: no respiratory distress, no rales or rhonchi Gastrointestinal: normoactive bowel sounds, No guarding, No rebound, No distension Genitourinary: no bladder fullness, No zhou in urethra Skin: warm, normal color Musculoskeletal: full muscle strength, no muscle tenderness Neurologic: AAOx3 ICD10 Worksheet Patient Problems: Problems Problem Status Onset Diarrhea Acute Hip fracture, left Acute Hypoglycemia Acute Cellulitis of left foot Acute Coronary artery disease Acute End stage renal disease Acute Fever Acute Fever Acute Knee pain Acute Left femoral shaft fracture Acute Leukocytosis Acute Muscle atrophy of lower extremity Acute Pneumonia Acute Sepsis Acute Severe sepsis Acute
[2018-02-27 13:42] LABS: PLATELET COUNT 234 10^3/uL (150-400)
[2018-02-27] MEDS: CLOPIDOGREL BISULFATE 75 MG TAB PO SCH (19:47)
[2018-02-27] MEDS: AMITRIPTYLINE HCL 10 MG TAB PO SCH (19:47)
[2018-02-27] MEDS: CHOLECALCIFEROL VIT D3 1,000 UNITS TAB PO SCH (19:47)
[2018-02-28] MEDS: HYDROmorphONE/DILAUDID 2 MG TAB PO PRN ×5 (01:26→16:02)
[2018-02-28] MEDS: HEPARIN 5,000 UNIT/0.5 ML INJ SC SCH ×2 (06:35→13:33)
[2018-02-28] MEDS: VANCOMYCIN 125 MG/2.5 ML UDL PO SCH ×3 (06:35→16:02)
[2018-02-28] MEDS: INSULIN LISPRO 100 UNIT/1 ML VIAL STANDARD SC SCH ×2 (08:40→12:16)
[2018-02-28] MEDS: INSULIN GLARGINE 100 UNITS/ML UNIT SC SCH (08:46)
[2018-02-28] MEDS: VSL#3 1 EACH CAP PO SCH (08:46)
[2018-02-28] MEDS: ACETAMINOPHEN 500 MG TAB PO SCH ×2 (08:46→16:26)
[2018-02-28] MEDS: PANTOPRAZOLE SODIUM 40 MG TAB PO SCH (08:46)
--- NOTE | 2018-02-28 09:49 | WOCRNPDOC ---
[facility] Advanced Assessment Note - Skin Integrity Problem, Advanced Assess Sacrum Pressure Injury Dressing Type: Mepilex Border Dressing Description: Clean/Dry, Intact Exudate Amount: None Integumentary Issue Intervention: Visualized Under Dressing Asuncion Wound Tissue: Blanching Wound Bed Color: [place] Wound Bed Constitution: Granulation Tissue Wound Edges: Attached Site Odor: None Site Measurement - Head-to-Toe Length X Width X Depth (cm): Approximately 4x4.5x0.2 Pressure Injury Stage: Stage 3 Pressure Injury Present on Admit: Yes Skin Integrity Problem Comment: Patient currently receiving dialysis. Will help of supervisor fusing room, patient was able to roll onto his left side. Wound appears unchanged although it was difficult to fully visualized due to patient's positioning and inability to bend left arm due to dialysis. Wound care will round again next week. Right Lateral Ankle Pressure Injury Dressing Type: Allevyn Life Dressing Description: Clean/Dry, Intact Exudate Amount: Scant Exudate Characteristic(s): Serous Integumentary Issue Intervention: Visualized Under Dressing Asuncion Wound Tissue: Blanching Wound Bed Color: Purple Wound Edges: Attached Site Odor: None Site Measurement - Head-to-Toe Length X Width X Depth (cm): 1.3x0.7x0.2 Pressure Injury Stage: Deep Tissue Injury (DTI) Pressure Injury Present on Admit: Yes Skin Integrity Problem Comment: Deep tissue injury that will continue to evolve. Small open area remains the same. Wound has not opened up further at this time. Wound care will round again next week. Left Elbow Dressing Type: Allevyn Life Dressing Description: Clean/Dry, Intact Exudate Amount: Scant Exudate Characteristic(s): Serous Integumentary Issue Intervention: Visualized Under Dressing Asuncion Wound Tissue: Blanching Asuncion Wound Swelling: None Wound Bed Color: [place] Wound Bed Constitution: Red/[place] - Non Granular Tissue Wound Edges: Attached, Well Defined Site Odor: None Site Measurement - Head-to-Toe Length X Width X Depth (cm): 3x3.2 with an open area that measures 1.3x2.3x0.1 Skin Integrity Problem Comment: Partial thickness area has increased in size. Recommend using a larger size Allevyn life border dressing. Wound care will round again next week. Right Lateral Foot Pressure Injury Dressing Type: Allevyn Life Dressing Description: Clean/Dry, Intact Exudate Amount: None Integumentary Issue Intervention: Visualized Under Dressing Asuncion Wound Tissue: Blanching Wound Bed Color: Purple Site Measurement - Head-to-Toe Length X Width X Depth (cm): 5x2.2xDTI Pressure Injury Stage: Deep Tissue Injury (DTI) Pressure Injury Present on Admit: No Skin Integrity Problem Comment: Deep tissue injury that will continue to evolve. No open area noted during this assessment, although there is an area that appears thinner than the surrounding tissue that may be getting ready to open up. Patient is in heel boots. Wound care will round again next week.
[2018-02-28] MEDS ORDERED: EPOETIN ALFA 10,000 UNIT/ML VIAL SC ONE (11:59)
--- NOTE | 2018-02-28 12:08 | SOAPPROG ---
SOAP Progress Note Assessment/Plan: Assessment: 1. esrd: hd today on typical [facility] hd schedule. Planning on rehab with transport to [facility]. Was della dependent prior to this admit. 2. femoral fx: no good surgical options. Pain mainly controlled. 3. htn: Vol status looks good, cont coreg 4. anemia: follow for txfusion requirement, will give epo today 5. C Diff: on po vanc 6. dispo: no interest in stopping hd at this time. Plan: 02/19/18 14:20 02/19/18 14:30 02/26/18 11:07 02/26/18 11:09 02/28/18 12:07 Subjective: Currently on hd. Pain controlled on po meds. D/c held yesterday due to ongoing diarrhea, which he is still having. Objective: Vital Signs Temp Pulse Resp BP Pulse Ox 36.2 C 77 16 126/72 H 94 02/28/18 11:26 02/28/18 11:26 02/28/18 11:26 02/28/18 11:26 02/28/18 11:26 Laboratory Results 02/27/18 13:24 02/28/18 03:20 02/27/18 02/28/18 03/01/18 05:59 05:59 05:59 Intake Total 1350 1500 Balance 1350 1500 Physical Exam - Physical Exam General Appearance: no apparent distress, cachetic Abdomen: soft Extremities: pedal edema (none) ICD10 Worksheet Patient Problems: Problems Problem Status Onset Diarrhea Acute Hip fracture, left Acute Hypoglycemia Acute Cellulitis of left foot Acute Coronary artery disease Acute End stage renal disease Acute Fever Acute Fever Acute Knee pain Acute Left femoral shaft fracture Acute Leukocytosis Acute Muscle atrophy of lower extremity Acute Pneumonia Acute Sepsis Acute Severe sepsis Acute
--- NOTE | 2018-02-28 13:07 | PDDCSUM ---
Discharge Summary Discharge Summary: Admission Date: 02/18/2018 Discharge Date: 02/28/2018 Consults: Infectious Disease, Nephrology Hospital Problem List: 67 yo M with multiple medical problems p/w pathological periprosthetic fracture. Pathological left femur fracture: Not surgical candidate per Dr Page given severe osteoporosis and comorbid conditions - PO dilaudid for pain control - PT/OT recommending SNF, patient to be discharged to [facility], patient agreeable repeat films yesterday show unchanged alignment. d/w dr page C diff colitis: First recurrence. ID consulted as he is on suppressive antibiotics. Still having occasional loose stool. - PO vancomycin 125mg QID through 02/28, then BID indefinitely noted is that he is on daily amoxicillin for chronic LE infection Type 1 diabetes with hypoglycemia: - Continue lantus 5 units, was on SSI as IP ESRD: Due to diabetes, failed renal transplant. -continue HD MWF via RUE AVF Sacral wound, right malleolar wound: Present on admission. - Wound care consulted Weakness: Unclear etiology. Previously has seen neurology with no clear diagnosis. Query severe peripheral sensorimotor neuropathy related to diabetes vs inflammatory/autoimmune condition (given his type 1 diabetes). Wheelchair bound at baseline since 09/2016. CK normal. - PT/OT as above CAD, peripheral arterial disease: S/p coronary stents in distant past. 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 Stable. EPO to be given today Time spent on discharge was >35 minutes with >50% of time spent on patient education and counseling.
--- NOTE | 2018-02-28 13:08 | PDIAF ---
- Diagnosis Code Status: Full Code - Medication Management Discharge Medications: Medications to Continue on Transfer Amitriptyline HCl [Elavil 10 mg (*)] 10 mg PO HS 07/08/10 [Last Taken 02/17/18] Aspirin [Aspirin 81mg (*)] 81 mg PO DAILY 07/08/10 [Last Taken 02/18/18] Herbals/Supplements -Info Only 1 ea PO DAILY 07/08/10 [Last Taken 02/18/18] Insulin Lispro [humALOG LISPRO 100 units/ml (*)] 3 - 6 units SC TIDMEAL [Last Taken 02/18/18 AM] Pantoprazole Sodium [Protonix 40mg (*)] 40 mg PO DAILY 05/20/13 [Last Taken ] Clopidogrel Bisulfate [Plavix (*)] 75 mg PO HS #30 tab 05/15/16 [Last Taken ] Amoxicillin Trihydrate [Amoxil] 500 mg PO HS 12/23/17 [Last Taken 02/17/18] Atorvastatin Calcium [Lipitor 10 mg (*)] 10 mg PO HS 12/23/17 [Last Taken ] Carvedilol [Coreg (*)] 3.125 mg PO BIDMEAL 12/23/17 [Last Taken 02/18/18 AM DOSE ] Cholecalciferol Vit D3 [Vitamin D3 (*)] 2,000 units PO HS 12/23/17 [Last Taken 02/17/18] traMADol [Ultram 50 mg (*)] 50 mg PO BID PRN 12/23/17 [Last Taken 02/17/18 21: 00 100MG] Acetaminophen [Tylenol ES 500 mg (*)] 1,000 mg PO TID tab 01/06/18 [Last Taken Unknown] Loperamide HCl [Imodium 2 mg (*)] 2 mg PO QID PRN cap 01/06/18 [Last Taken Unknown] Ondansetron Odt [Zofran Odt 4 mg (*)] 4 mg PO Q4HRS PRN tab 01/06/18 [Last Taken Unknown] Firvanq Solution 2.5 ml PO QID 02/18/18 [Last Taken 02/16/18] Insulin Glargine [Lantus Syringe] 7 units SC DAILY 02/18/18 [Last Taken 02/18/18 ] Lact Cmb2/S.thermophl/Bif Cmb1 [Vsl#3 Cap (*)] 2 each PO BID 02/18/18 [Last Taken 02/18/18 AM DOSE] Vancomycin [Vancocin Oral Liquid] 125 mg PO BID #150 ml 02/28/18 [Last Taken Unknown] Penitentiary Antibiotics: PO Vancomycine 125 mg PO BID Additional Medication Instructions: Indefinite PO Vancomycin Discharge Medications: Refer to the Discharge Home Medication list for PRN reason. - Orders Isolation Type: CDIFF Isolation Diet Recommendation: no restrictions on diet Diet Texture: Regular Texture Diet Additional Instructions: Wound Care: Change dressings to right lateral ankle every 2 days and PRN. 1. Clean with NS and gauze 2. Skin prep federico wound 3. Wound gel to wound bed 4. Cover with bordered foam dressing Change dressing to left elbow every 3 days and PRN. 1. Clean with NS and gauze 2. Skin prep federico wound 3. Wound gel to wound bed 4. Cover with small bordered foam dressing Change dressings to sacrum every 2 days and PRN. 1. Clean with NS and gauze 2. Skin prep federico wound 3. Wound gel to wound bed 4. Cover with bordered foam dressing. Deep tissue injury to right lateral foot is, as of 02/25 still intact so has been left open to air. Lola Lopez RN, Wound Care Team - Follow Up Care Current Providers and Referrals: Marily Ballard MD [Primary Care Provider] - As per Instructions
[2018-02-28] MEDS: CARVEDILOL 3.125 MG TAB PO SCH (13:33)
[2018-02-28] MEDS: ATORVASTATIN CALCIUM 10 MG TAB PO SCH (13:33)
[2018-02-28] MEDS: ASPIRIN 81 MG CHEWABLE TAB PO SCH (13:34)
--- NOTE | 2018-02-28 13:52 | ASMTLACE ---
LACE Length of stay for Answers: 7-13 days current admission Acuity / Level of Answers: Yes Care: Did the patient have an inpatient admission? Comorbidities - select Answers: Coronary Artery Disease all that apply Diabetes (uncontrolled or controlled) Moderate or severe liver or renal disease Peripheral vascular disease Other Notes: HTN; Hx of DVT # of Emergency department Answers: 1-2 visits in the last 6 months Score: 18 Date Signed: 02/28/2018 01:51 PM Electronically Signed By:Vaishali Rich LCSW
--- NOTE | 2018-02-28 13:54 | ASMTDCNOTE ---
Case Management Discharge Discharge Order Complete? Answers: Yes Patient to Obtain Answers: Other Notes: SNF Medications Transportation Arranged Answers: [facility] will Pick (Date 02/28/2018 04:30 AM & Time) Case Management Transport Answers: Yes Form Complete Faxed Final Orders Answers: Yes Agency/Facility Transfer Answers: Yes Report Printed & Faxed to Receiving Agency Family Notified Answers: Yes Date Signed: 02/28/2018 01:53 PM Electronically Signed By:Vaishali Rich LCSW
[2018-02-28 15:37] VITALS: BP 160/71
--- NOTE | 2018-02-28 17:08 | ASDISCHSUM ---
Discharge Information Plan Status:SNF Medically Cleared to Leave:02/28/2018 Discharge Date:02/28/2018 05:00 PM D/C Disposition:Long-Term Facility ADT D/C Disposition:Long-Term Facility Projected Discharge Date:02/28/2018 11:00 AM Transportation at D/C:Wheelchair Van Discharge Delay Reason: Follow-Up Date:02/28/2018 11:00 AM Discharge Slot: Final Diagnosis: Placement Information Referral Type:*Jail/SNF Referral ID:[id number] Provider Name:[facility] Address 1:[address] Address 2: City:[place] Selection Factors: State:[place] Referral Type:*Home Health Care Services Referral ID:[id number] Provider Name: Address 1: Phone Number: Address 2: Fax Number: City: Selection Factors: State: Referral Type:Palliative Care Referral ID:-[id number] Provider Name:[facility] Address 1:[address] Phone Number: Address 2: Fax Number: [facility]:[place] Selection Factors: State:[place] Patient Contact Information Contact Name:MELINDA Relationship: Address:[address] City:[place] Alternate Phone: [facility]/Zip Code:[place] [address] Email: Financial Information Financial Class:Medicare Primary Plan Desc:MEDICARE INPATIENT Primary Plan Number:[id number] Secondary Plan Desc:[facility] Secondary Plan Number:[id number] Assessment Information LACE LACE Length of stay for Answers: 7-13 days current admission Acuity / Level of Answers: Yes Care: Did the patient have an inpatient admission? Comorbidities - select Answers: Coronary Artery Disease all that apply Diabetes (uncontrolled or controlled) Moderate or severe liver or renal disease Peripheral vascular disease Other Notes: HTN; Hx of DVT # of Emergency department Answers: 1-2 visits in the last 6 months Score: 18 Date Signed: 02/28/2018 01:51 PM Electronically Signed By:Vaishali Rich LCSW [facility] CM Progress Note CM Note CM Note Notes: Pt with numerous comorbidities including diabetes, CAD, renal failure in for L hip fx after he had pain rolling over at home. Pt was in [facility] for femur fx recently, dc 01/08/18 to [facility]. Chart review indicates there were challenges to pt placement then and pt ultimately d/c to [facility] where he was just discharged to home 02/08/18. Ortho MD Page who knows pt well consulted and with pt decided on non-surgical management. Palliative consult ordered. Pt has dialysis MWF at [facility]. Pt dialyzed today at [facility] in room due to c-diff. KWASI Elliott indicated pt may decline a SNF again as he may believe he got c-diff at . Pt is in wheelchair at baseline, PT/OT ordered and they were waiting to see if pt would have surgery vs. palliative. Palliative may be tomorrow. CM to follow. D/c plan of care is TBD. Date Signed: 02/19/2018 04:21 PM Electronically Signed By:IBRAHIMA Ruffin [facility] CM Progress Note CM Note CM Note Notes: Pt with hx of end stage renal disease, cdiff and diabetes admitted with L hip fx. Per chart notes, hip fx is inoperable and suspects pt will have a high 90-day mortality rate. A palliative consult has been ordered and will take place late this afternoon to accommodate family. CM will follow up tomorrow to see if pt interested in hospice, palliative care or SNF. Pt was DCd to [facility] on 01/08 and DCd home from there on 02/08. Plan: TBD Date Signed: 02/21/2018 03:43 PM Electronically Signed By:Vaishali Rich LCSW [facility] Progress Note CM Note CM Note Notes: Pt had palliative consult today with Sharon Goldman and Dr Stubbs. The result of the conversation is that pt may want outpt palliative services but is not ready to decide yet. Pt did state that he did not want to return to [facility] where he was earlier this month. Earlier note mentioned [facility] but he was not there. Plan: TBD. CM will meet with pt and family to discuss DC options. Date Signed: 02/21/2018 04:51 PM Electronically Signed By:Vaishali Rihc LCSW [facility] Progress Note CM Note CM Note Notes: Attempted to meet with patient regarding his thoughts on Palliative and the d/c plan. Patient was asleep and his was not available. SNF rehab has been recommended. CM to follow up with confirming d/c plan and making referrals if indicated. Date Signed: 02/22/2018 03:24 PM Electronically Signed By:Margaret Young LCSW [facility] CM Progress Note CM Note CM Note Notes: 02/23/2018 Case Management Note Met w/pt this morning to discuss d/c needs. Pt has previous stay at [facility], requested referral. Faxed to [facility] via [employer]. Pt is requesting a change in his chair time at the [facility]. During previous SNF Rehab stays 8:20 am chair time prevented PT prior to dialysis and pt often missed breakfast. Pt was to fatigued after dialysis to participate in PT. Case Management to call [facility] to discuss new chair time while at [facility]. Pt is open with [facility] RN and PT. Faxed updates via [employer]. Case Management d/c poc: [facility] rehab pending acceptance and new chair time for dialysis. Case Management to follow. Date Signed: 02/23/2018 10:51 AM Electronically Signed By:Blanka Wall RN [facility] Progress Note CM Note CM Note Notes: [facility] accepted patient. Pt's dialysis changed to MWF at 11 (should arrive at 10:45) to accomodate tobacco sweeper PT/OT. Pt cannot got to [facility] while taking IV painkillers; Dr Aragon stated he will change his to oral today. Pt may be ready to discharge tomorrow if pain is under enough control with oral painkillers. Pt remains open with [facility] for PT and RN. CM to follow. D/C Plan: [facility] Date Signed: 02/25/2018 03:58 PM Electronically Signed By:Ophelia Keane Case Management Discharge Plan Note Case Management Discharge Discharge Order Complete? Answers: Yes Patient to Obtain Answers: Other Notes: SNF Medications Transportation Arranged Answers: [facility] will Pick (Date 02/28/2018 04:30 AM & Time) Case Management Transport Answers: Yes Form Complete Faxed Final Orders Answers: Yes Agency/Facility Transfer Answers: Yes Report Printed & Faxed to Receiving Agency Family Notified Answers: Yes Date Signed: 02/28/2018 01:53 PM Electronically Signed By:Vaishali Rich LCSW Intervention Information Intervention Type:*IM-Signed Date of Service:02/28/2018 03:14 PM Patient Type:Inpatient Staff Member:Shagufta Cook Hours: Discipline: Severity: Comment:
[2018-03-01] MEDS ORDERED: VANCOMYCIN 125 MG/2.5 ML UDL PO SCH (09:00)
== END 2018-02-28 17:00 | DRG 542 ==
LOC: EDUNIT# → EDBD → F3N 22:36 → F1N 02-19 19:39
PROVIDERS: ADMIT Internal Medicine; ATTEND Internal Medicine
PROC: 5A1D70Z Performance of Urinary Filtration, Intermittent, Less than 6 Hours Per Day (ICD-10-PCS; principal; 2018-02-18)
DX: M80.052A Age-related osteoporosis with current pathological fracture, left femur, initial encounter for fracture (principal); X50.9XXA Other and unspecified overexertion or strenuous movements or postures, initial encounter; E10.22 Type 1 diabetes mellitus with diabetic chronic kidney disease; N18.6 End stage renal disease; A04.71 Enterocolitis due to Clostridium difficile, recurrent; E10.649 Type 1 diabetes mellitus with hypoglycemia without coma; D63.1 Anemia in chronic kidney disease; L89.153 Pressure ulcer of sacral region, stage 3; I25.10 Atherosclerotic heart disease of native coronary artery without angina pectoris; E87.1 Hypo-osmolality and hyponatremia; Z99.2 Dependence on renal dialysis; Z99.3 Dependence on wheelchair; Z95.5 Presence of coronary angioplasty implant and graft; Z79.4 Long term (current) use of insulin; Z94.0 Kidney transplant status; Z86.718 Personal history of other venous thrombosis and embolism
CPT/HCPCS: 96374; 97162-GP; 97166-GO; 97530-GO; 97530-GP; 97535-GO; G8978-GP-CM; G8979-GP-CK; G8987-GO-CM; G8988-GO-CL; J0885; J1170; J1644; J1815; J2405

== ENCOUNTER 2018-07-07 16:29 | Observation (INO) | payer OTHER ==
[2018-07-07] MEDS ORDERED: THROMBIN (BOVINE) 5,000 UNIT VIAL TP ONE (16:35)
[2018-07-07] MEDS ORDERED: ceFAZolin 2 GM/DEXTROSE 100 ML IV ONE ×2 (16:36→17:30)
[2018-07-07] MEDS ORDERED: THROMBIN (BOVINE) 20,000 UNIT SPRAY TP ONE (16:36)
[2018-07-07] MEDS ORDERED: BUPIVACAINE 0.5% 30 ML SDV ONE (16:36)
[2018-07-07] MEDS ORDERED: PAPAVERINE HCL 60 MG/2 ML SDV ONE (16:36)
[2018-07-07] MEDS ORDERED: PROTAMINE SULFATE 50 MG/5 ML VIAL IVP ONE (16:36)
[2018-07-07] MEDS ORDERED: NS 1,000 ML IV SCH (16:45)
--- NOTE | 2018-07-07 17:04 | PDANEPAE ---
ANE History of Present Illness AV fistula revision. ANE Past Medical History - Cardiovascular History Hx Hypertension: Yes Hx Arrhythmias: No Hx Chest Pain: No Hx Coronary Artery / Peripheral Vascular Disease: Yes Hx CHF / Valvular Disease: No Hx Palpitations: No Cardiovascular History Comment: stents x 3. Hx of MS. Echo in 09/07 with nl LVEF, moderate MR, mild - Pulmonary History Hx COPD: No Hx Asthma/Reactive Airway Disease: No Hx Recent Upper Respiratory Infection: No Hx Oxygen in Use at Home: No Hx Sleep Apnea: No - Neurologic History Hx Cerebrovascular Accident: No Hx Seizures: No Hx Dementia: No Neurologic History Comment: peripheral neuropathy - Endocrine History Hx Diabetes: Yes Hypothyroid: No Hyperthyroid: No Endocrine History Comment: IDDM for 40 years. Blood sugar 102 at 0845. had humalog at 2200 2 units - Renal History Hx Renal Disorders: Yes Renal History Comment: ON DIALYSIS- LAST ON 10-19-15 - Liver History Hx Hepatic Disorders: Yes - Neurological & Psychiatric Hx Hx Neurological and Psychiatric Disorders: No - Cancer History Hx Cancer: No - Congenital Disorder History Hx Congenital Disorders: No - GI History GERD: moderate Hx Gastrointestinal Disorders: Yes Gastrointestinal History Comment: GASTRITIS AND TAKES PROTONIX - Other Health History Other Health History: H/O BLISTERS THEN DEEPER TISSUE DEFECTS WITH RIGHT LOWER LEG WOUND PRESENTLY. RIGHT FOOT BIG TOENAIL REMOVED 1 MONTH AGO. s/p L femur neck fracture on 02/17/18 treated medically - Chronic Pain History Chronic Pain: No - Surgical History Prior Surgeries: KIDNEY AND PANCREAS TRANSPLANT 1999. [place] [facility]NEY REMOVED. PAND=CREAS REMOVED. CATARACT EYE SURGERY. RIGHT HIP SURGERY 2008 WITH HARDWARE IN. TOE AMPUTATION RIGHT 5TH METATARSAL, LEFT 2 & 4TH TOES ANE Review of Systems Review of Systems: - Exercise capacity METS (RN): 3 METS (ambulates with wheelchair.) ANE Patient History - Allergies Allergies/Adverse Reactions: adhesive tape Allergy (Verified 12/23/17 15:48) Other-Enter Comments amphotericin B [Amphotericin B] Allergy (Verified 12/23/17 15:48) - Home Medications Home Medications: Amitriptyline HCl [Elavil 10 mg (*)] 10 mg PO HS 07/08/10 [Last Taken 02/17/18] Aspirin [Aspirin 81mg (*)] 81 mg PO DAILY 07/08/10 [Last Taken 02/18/18] Herbals/Supplements -Info Only 1 ea PO DAILY 07/08/10 [Last Taken 02/18/18] Insulin Lispro [humALOG LISPRO 100 units/ml (*)] 3 - 6 units SC TIDMEAL [Last Taken 02/18/18 AM] Pantoprazole Sodium [Protonix 40mg (*)] 40 mg PO DAILY 05/20/13 [Last Taken ] Amoxicillin Trihydrate [Amoxil] 500 mg PO HS 12/23/17 [Last Taken 02/17/18] Atorvastatin Calcium [Lipitor 10 mg (*)] 10 mg PO HS 12/23/17 [Last Taken ] Carvedilol [Coreg (*)] 3.125 mg PO BIDMEAL 12/23/17 [Last Taken 02/18/18 AM DOSE ] Cholecalciferol Vit D3 [Vitamin D3 (*)] 2,000 units PO HS 12/23/17 [Last Taken 02/17/18] traMADol [Ultram 50 mg (*)] 50 mg PO BID PRN 12/23/17 [Last Taken 02/17/18 21: 00 100MG] Firvanq Solution 2.5 ml PO QID 02/18/18 [Last Taken 02/16/18] Insulin Glargine [Lantus Syringe] 7 units SC DAILY 02/18/18 [Last Taken 02/18/18 ] Lact Cmb2/S.thermophl/Bif Cmb1 [Vsl#3 Cap (*)] 2 each PO BID 02/18/18 [Last Taken 02/18/18 AM DOSE] - Anes Hx Anes Hx: no prior problems - Smoking Hx Smoking Status: Never smoked Marijuana use: No - Alcohol Use Alcohol Use: Rarely - Family Anes Hx Family Anes Hx: none Family Hx Anesthesia Complications: NO ANE Labs/Vital Signs - Labs Result Diagrams: 07/07/18 16:20 07/07/18 16:20 - Vital Signs Blood Pressure: 131/66 ANE Physical Exam - Airway Neck exam: FROM Mallampati Score: Class 2 Mouth exam: normal dental/mouth exam - Pulmonary Pulmonary: clear to auscultation - Cardiovascular Cardiovascular: regular rate and rhythym, systolic murmur - ASA Status ASA Status: III ANE Anesthesia Plan Anesthesia Plan: GA w LMA
[2018-07-07] MEDS ORDERED: PROPOFOL 200 MG/20 ML VIAL ONE (17:05)
[2018-07-07] MEDS ORDERED: DEXAMETHASONE 4 MG/ML VIAL ONE (17:05)
--- NOTE | 2018-07-07 17:09 | GHP ---
DATE OF ADMISSION: 07/07/2018 CHIEF COMPLAINT: Ruptured left upper extremity AV fistula. HISTORY OF PRESENT ILLNESS: Reginaldo is a 67-year-old male with a history of end-stage renal disease an d currently on hemodialysis. He had a left upper extremity AV fistula placed by Dr. Rapp several ye ars ago. 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 S meghan then, he has continued to have a persistent scab over his fistula that has slowly increased in s ize. Last night, he was changing his shirt when the scab flaked off, resulting in the ruptured AV fi stula. His family called 911 and he was taken to [facility] where they placed Prolene s utures over the rupture site to stop the bleeding. He was then taken to [facility] in [place], as he was told there was no vascular surgeon on-call at [facility]. The patie doug was ultimately transferred to [facility] this afternoon, as he would not have been able to have surgery in [place] for at least 2-3 days. He was scheduled for dialysis today, however, has not yet had dialysis due to his ruptured fistula. PAST MEDICAL HISTORY: Coronary artery disease, diabetes, history of DVT, pericardial effusion, renal failure, foot wounds. 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 MEDICATIONS: Acetaminophen as needed, amitriptyline 10 mg, aspirin 81 mg, atorvastatin 10 mg, Basagl ar KwikPen U-100 insulin 100 units/mL once a day, carvedilol 3.125 mg, cholestyramine, Humalog insuli n, Vicodin, loperamide, pantoprazole 40 mg, Plavix 75 mg, Valium 5 mg, tizanidine. ALLERGIES: Amphotericin B. FAMILY HISTORY: Diabetes. SOCIAL HISTORY: The patient is a nonsmoker and drinks alcohol occasionally. He is and has 3 children. REVIEW OF SYSTEMS: Ten-point review of systems was performed and is negative, aside from what is in the HPI. PHYSICAL EXAM: GENERAL: Chronically ill-appearing male in wheelchair, in no acute distress. HEENT: Normocephalic, atraumatic. No gross hearing deficit. Mucous membranes moist. Pupils are equal an d round. CARDIAC: Regular rate and rhythm, no clicks, murmurs, or rubs. CHEST: Clear to auscultat ion bilaterally. No crackles, rales, or rhonchi. ABDOMEN: Soft, nondistended, nontender. SKIN: W arm and dry, no rashes or jaundice. NEUROLOGIC: Alert and oriented x3. PSYCHIATRIC: Appropriate m ood and affect. LEFT UPPER EXTREMITY: AV fistula aneurysm is currently intact with Prolene sutures over ulceration sites. Mild surrounding swelling. Right forearm and hand are cool to the touch. Po or capillary refill. Nontender. IMPRESSION AND PLAN: This is a 67-year-old male with a ruptured AV fistula. We discussed all risks and options. Risks of surgery include, but are not limited to, infection, bleeding, damage or loss o f AV fistula, heart attack, and . Patient understands and wishes to proceed. We will proceed w ith left upper extremity AV fistula repair this evening. /[id number]/MODL
[2018-07-07] MEDS ORDERED: FAMOTIDINE 20 MG in NS 100 ML IV ONE (17:38)
[2018-07-07 17:41] LABS: PLATELET COUNT 243 10^3/uL (150-400)
[2018-07-07] MEDS ORDERED: FAMOTIDINE 20 MG/NACL 50 ML IV ONE (17:45)
[2018-07-07] MEDS ORDERED: PHENYLEPHRINE 10 MG/ML SDV ONE (18:00)
[2018-07-07] MEDS ORDERED: HEPARIN 10,000 UNIT/10 ML MDV (1,000 UNIT/ML) ONE (18:27)
[2018-07-07] MEDS ORDERED: ONDANSETRON 4 MG/2 ML VIAL ONE (18:44)
[2018-07-07] MEDS ORDERED: fentaNYL 100 MCG/2 ML INJ IVP PRN (18:56)
[2018-07-07] MEDS ORDERED: NALOXONE HCL 0.4 MG/ML INJ IVP PRN (18:56)
[2018-07-07] MEDS ORDERED: ONDANSETRON 4 MG/2 ML VIAL IVP PRN (19:24)
[2018-07-07] MEDS ORDERED: HYDROmorphONE/DILAUDID 1 MG/ML INJ IVP PRN (19:24)
--- NOTE | 2018-07-07 19:26 | POSTOPPROG ---
Post Op Note Date of Operation: 07/07/18 Surgeon: Feliberto Rapp Administrative Manager: Lola Mays Anesthesiologist: Denton Cavanaugh Anesthesia: GET(General Endotracheal) Pre-op Diagnosis: bleeding LUE AVF aneurysm Post-op Diagnosis: same Procedure: revision of AVF c resection of leaking aneurysm Inf/Abcess present in the surg proc area at time of surgery?: No EBL: Minimal Complications: none Specimen(s): AVF aneurysm wall to pathology
[2018-07-07] MEDS ORDERED: D50W 25 GM/50 ML SYR IVP PRN (19:27)
[2018-07-07] MEDS ORDERED: tiZANidine HCL 2 MG TAB PO PRN (22:14)
[2018-07-07] MEDS ORDERED: ACETAMINOPHEN 500 MG TAB PO PRN (22:14)
[2018-07-07] MEDS ORDERED: DIAZEPAM 5 MG TAB PO PRN (22:14)
[2018-07-07] MEDS ORDERED: LOPERAMIDE HCL 2 MG CAP PO PRN (22:14)
[2018-07-07] MEDS: INSULIN REGULAR HUMAN 100 UNIT/ML UNIT SC SCH (22:43)
[2018-07-08] MEDS: HYDROCODONE/APAP 5/325 TAB PO PRN ×3 (01:28→09:16)
[2018-07-08] MEDS ORDERED: CARVEDILOL 3.125 MG TAB PO SCH ×2 (08:00→18:00)
[2018-07-08] MEDS ORDERED: ASPIRIN 81 MG CHEWABLE TAB PO SCH (09:00)
[2018-07-08] MEDS ORDERED: CHOLECALCIFEROL VIT D3 1,000 UNITS TAB PO SCH (09:00)
[2018-07-08] MEDS ORDERED: PANTOPRAZOLE SODIUM 40 MG TAB PO SCH (09:00)
[2018-07-08] MEDS ORDERED: VSL#3 1 EACH CAP PO SCH (09:00)
[2018-07-08] MEDS: INSULIN LISPRO 100 UNIT/ML SC SCH ×3 (09:48→17:23)
[2018-07-08] MEDS: INSULIN REGULAR HUMAN 100 UNIT/ML UNIT SC SCH ×3 (10:02→17:19)
--- NOTE | 2018-07-08 10:14 | SOAPPROG ---
GWYN Progress Note Assessment/Plan: Assessment/Plan: POD#1 s/p resection of bleeding LUE AVF aneurysm. Fistula flowing. Consulting renal. Dispo: pending. Could d/c today from a surgical standpoint, but waiting to see if patient need to have dialysis today vs. his regular scheduled outpatient time tomorrow. S: no complaints. would like to go home. O: alert, nad ctab rrr abd soft inc cdi c prolene, +thrill and bruit 07/08/18 10:12 Objective: Vital Signs Temp Pulse Resp BP Pulse Ox 36.5 C 95 14 94/59 L 100 07/08/18 08:00 07/08/18 09:10 07/08/18 08:00 07/08/18 09:10 07/08/18 08:00 Laboratory Results 07/07/18 16:20 07/07/18 16:20 07/07/18 07/08/18 07/09/18 05:59 05:59 05:59 Intake Total 1150 Balance 1150 ICD10 Worksheet Patient Problems: Problems Problem Status Onset Cellulitis of left foot Acute Coronary artery disease Acute Diarrhea Acute End stage renal disease Acute Fever Acute Fever Acute Hip fracture, left Acute Hypoglycemia Acute Knee pain Acute Left femoral shaft fracture Acute Leukocytosis Acute Muscle atrophy of lower extremity Acute Pneumonia Acute Sepsis Acute Severe sepsis Acute
[2018-07-08 11:47] VITALS: BP 91/58
--- NOTE | 2018-07-08 12:06 | PDCONSULT ---
Warranty Clerk Note: Renal Consult Note CC: Bleeding fistula HPI: The patient is a 67 y/o M with a known h/o ESRD on HD followed by Dr. Ty Radford in [place] who presented yesterday for a bleeding fistula. He reportedly went to 2 other hospitals regarding this issue prior to being transferred to [place]. He had his AVF placed several years ago by Dr. Rapp, however had a repair in 2017 and has had a persistent ulceration with bleeding. He thinks he may have torn the scab when he was taking off his shirt. He underwent surgical repair and reportedly now has good flow. His last dialysis was Saturday. He is feeling tired but otherwise ok. His is present at bedside. He admits his BP isn't usually this low, but he has been NPO since Saturday and hasn't eaten much yet today. He denies fevers, chills, or SOB. PMH: CAD, DVT, ESRD, chronic wounds, DM PSH: Renal txp, AVF placement Social Hx: , 3 kids, non-smoker, occasional ETOH use Family Hx: DM Medications: List reviewed. Allergies: Amphotericin B ROS: Negative except as per HPI. Objective: Temp Pulse Resp BP Pulse Ox 36.3 C 105 H 14 91/58 L 99 07/08/18 11:45 07/08/18 11:45 07/08/18 11:45 07/08/18 11:45 07/08/18 11:45 O2 (L/minute) 1 Physical Exam: GEN: A+Ox3, NAD NECK: Supple, no thyromegaly HEENT: MMM, EOMI CV: RRR, no murmurs RESP: CTA b/l, no wheezing ABD: Soft, ND, NT, +BS EXT: No edema, pulses intact, AVF wrapped, old hip fx SKIN: No rashes NEURO: Non-focal WBC 4.99 10^3/uL (3.80-9.50) 07/07/18 16:20 RBC 3.41 10^6/uL (4.40-6.38) L 07/07/18 16:20 Hgb 10.0 g/dL (13.7-17.5) L 07/07/18 16:20 Hct 32.7 % (40.0-51.0) L 07/07/18 16:20 MCV 95.9 fL (81.5-99.8) 07/07/18 16:20 MCH 29.3 pg (27.9-34.1) 07/07/18 16:20 MCHC 30.6 g/dL (32.4-36.7) L 07/07/18 16:20 RDW 14.3 % (11.5-15.2) 07/07/18 16:20 Plt Count 243 10^3/uL (150-400) 07/07/18 16:20 MPV 9.9 fL (8.7-11.7) 07/07/18 16:20 Neut % (Auto) 50.9 % (39.3-74.2) 07/07/18 16:20 Lymph % (Auto) 34.3 % (15.0-45.0) 07/07/18 16:20 [place] % (Auto) 5.6 % (4.5-13.0) 07/07/18 16:20 Eos % (Auto) 7.8 % (0.6-7.6) H 07/07/18 16:20 Baso % (Auto) 1.2 % (0.3-1.7) 07/07/18 16:20 Nucleat RBC Rel Count 0.0 % (0.0-0.2) 07/07/18 16:20 Absolute Neuts (auto) 2.54 10^3/uL (1.70-6.50) 07/07/18 16:20 Absolute Lymphs (auto) 1.71 10^3/uL (1.00-3.00) 07/07/18 16:20 Absolute Monos (auto) 0.28 10^3/uL (0.30-0.80) L 07/07/18 16:20 Absolute Eos (auto) 0.39 10^3/uL (0.03-0.40) 07/07/18 16:20 Absolute Basos (auto) 0.06 10^3/uL (0.02-0.10) 07/07/18 16:20 Absolute Nucleated RBC 0.00 10^3/uL (0-0.01) 07/07/18 16:20 Immature Gran % 0.2 % (0.0-1.1) 07/07/18 16:20 Immature Gran # 0.01 10^3/uL (0.00-0.10) 07/07/18 16:20 Sodium 137 mEq/L (135-145) 07/07/18 16:20 Potassium 4.6 mEq/L (3.5-5.2) 07/07/18 16:20 Chloride 101 mEq/L (97-110) 07/07/18 16:20 Carbon Dioxide 24 mEq/l (22-31) 07/07/18 16:20 Anion Gap 12 mEq/L (6-14) 07/07/18 16:20 BUN 40 mg/dL (7-23) H 07/07/18 16:20 Creatinine 4.2 mg/dL (0.7-1.3) H 07/07/18 16:20 Estimated GFR 14 07/07/18 16:20 Glucose 142 mg/dL (70-100) H 07/07/18 16:20 POC Glucose 226 mg/dL (70-100) H 07/08/18 11:43 Calcium 8.8 mg/dL (8.5-10.4) 07/07/18 16:20 A/P: The patient is a 67 y/o M with ESRD who presented with bleeding AVF now s/ p repair. -plan for HD today -continue home meds -wound care per surgery recommendations -may be discharged to return to regular HD unit tomorrow -holding EPO for outpt -renal diet -avoid overuse of opiates Consult appreciated, please contact if ?'s. #[phone]. Rambo Walker, [facility]
[2018-07-08] MEDS ORDERED: CLOPIDOGREL BISULFATE 75 MG TAB PO SCH (21:00)
[2018-07-08] MEDS ORDERED: ATORVASTATIN CALCIUM 10 MG TAB PO SCH (21:00)
[2018-07-08] MEDS ORDERED: AMITRIPTYLINE HCL 10 MG TAB PO SCH (21:00)
[2018-07-09] MEDS ORDERED: CARVEDILOL 3.125 MG TAB PO SCH (08:00)
--- NOTE | 2018-07-10 05:07 | GOP ---
DATE OF OPERATION: 07/07/2018 SURGEON: Feliberto Rapp MD PHARMACY SPECIALIST: CLAUDIO Guaman PREOPERATIVE DIAGNOSIS: Leaking arteriovenous fistula aneurysm. POSTOPERATIVE DIAGNOSIS: Leaking arteriovenous fistula aneurysm. PROCEDURE PERFORMED: Repair of arteriovenous fistula aneurysmorrhaphy. FINDINGS: ulcerated bleeding avf aneurysm, 3 cm diameter DESCRIPTION OF PROCEDURE: The patient was taken to the operating room where he received a satisfactory general endotracheal anesthesia. He was placed in supine position, prepped and draped in the usual sterile fashion. A tourniquet was available for the arm, but not used at this point. Transverse incision was made near the origin of the fistula. Dissection extended down through subcutaneous tissue and the proximal portion of the vein was dissected free and controlled with a vessel loop. Attention was then turned to the leaking aneurysmal section. An elliptical skin incision was made to include the ulceration on the previously placed sutures. The aneurysm wall, itself, was freed up from the skin and subcutaneous tissue circumferentially. The patient was then systemically heparinized. After adequate circulation time, the proximal vein was occluded with the vessel loops and the vascular clamp. A portion of the anterior wall of the aneurysm was excised, along with the skin portion of the dissection reducing the aneurysm down to normal caliber vessel. The vessel was then closed with a running 4 Prolene suture. This was oversewn with a second layer of running 4-0 Prolene suture. Flow was then reestablished. The suture line appeared to be hemostatic and the fistula was flowing nicely. Wounds were infiltrated with 0.5% Marcaine. Some topical thrombin was placed in both sites , and the wounds were closed with 3-0 Vicryl for the subcutaneous tissue, 4 Monocryl subcuticular stitches for the skin. Again, the wounds were infiltrated with 0.5% Marcaine. He was taken to the recovery room in good condition. There were no complications. /[id number]/MODL MTDD
== END 2018-07-08 19:46 | disposition home or self-care (01) ==
LOC: FSGY 16:29 → F3N 16:33
PROVIDERS: ADMIT Surgery; ATTEND Surgery
PROC: 03WY07Z Revision of Autologous Tissue Substitute in Upper Artery, Open Approach (ICD-10-PCS; principal; 2018-07-07 17:00)
PROC: 5A1D70Z Performance of Urinary Filtration, Intermittent, Less than 6 Hours Per Day (ICD-10-PCS; 2018-07-08)
DX: T82.838A Hemorrhage due to vascular prosthetic devices, implants and grafts, initial encounter (principal); E10.22 Type 1 diabetes mellitus with diabetic chronic kidney disease; N18.6 End stage renal disease; Z99.2 Dependence on renal dialysis; Z79.4 Long term (current) use of insulin; I25.10 Atherosclerotic heart disease of native coronary artery without angina pectoris; I25.2 Old myocardial infarction; Z95.5 Presence of coronary angioplasty implant and graft; Z89.422 Acquired absence of other left toe(s); Z89.411 Acquired absence of right great toe; Z89.421 Acquired absence of other right toe(s)
CPT/HCPCS: 36832; 88304; J0690; J1100; J1644; J1815; J2370; J2405; J2704; J2720; J2440